=== PATIENT | female | born 1945 | race Two or more races ===

== ENCOUNTER 2020-07-09 11:17 | Outpatient (REF) | payer MEDICARE, SELFPAY ==
--- NOTE | 2020-07-09 11:37 | XR_ITS ---
EXAMINATION: XR SHOULDER, RIGHT XR HUMERUS, RIGHT CLINICAL INFORMATION: Pain right shoulder and right arm COMPARISON: None TECHNIQUE: The right shoulder is imaged in 4 views. The right humerus is imaged in 3 views. There are a total of 7 views. FINDINGS: The right shoulder and right humerus show no fracture or dislocation or destructive process. The glenohumeral joint is unremarkable. The acromioclavicular alignment is normal. There are mild degenerative changes acromioclavicular joint and small spur from the greater tuberosity humeral head. There are no visible rotator cuff calcifications. The humeral shaft is unremarkable. There is borderline exostosis lateral supracondylar distal humerus. There is no elbow capsular effusion. There is minor spurring from the olecranon and spurring from the radial tuberosity proximal forearm. XR/XR shoulder RT min 2V IMPRESSION: 1. No fracture, dislocation, destructive process. 2. Mild degenerative changes acromioclavicular joint. No rotator cuff calcifications. 3. Mild spurring lateral supracondylar distal humerus, olecranon, and radial tuberosity. No elbow capsular effusion.
--- NOTE | 2020-07-09 11:37 | XR_ITS ---
EXAMINATION: XR SHOULDER, RIGHT XR HUMERUS, RIGHT CLINICAL INFORMATION: Pain right shoulder and right arm COMPARISON: None TECHNIQUE: The right shoulder is imaged in 4 views. The right humerus is imaged in 3 views. There are a total of 7 views. FINDINGS: The right shoulder and right humerus show no fracture or dislocation or destructive process. The glenohumeral joint is unremarkable. The acromioclavicular alignment is normal. There are mild degenerative changes acromioclavicular joint and small spur from the greater tuberosity humeral head. There are no visible rotator cuff calcifications. The humeral shaft is unremarkable. There is borderline exostosis lateral supracondylar distal humerus. There is no elbow capsular effusion. There is minor spurring from the olecranon and spurring from the radial tuberosity proximal forearm. XR/XR humerus RT IMPRESSION: 1. No fracture, dislocation, destructive process. 2. Mild degenerative changes acromioclavicular joint. No rotator cuff calcifications. 3. Mild spurring lateral supracondylar distal humerus, olecranon, and radial tuberosity. No elbow capsular effusion.
== END 2020-07-09 11:18 | disposition home or self-care (01) ==
LOC: HO.XRAY 11:17
PROVIDERS: Absent Provider Internal Medicine; PCP Internal Medicine; Visit Provider Registered Nurse
DX: M25.511 Pain in right shoulder (principal); M79.601 Pain in right arm; Z91.81 History of falling
CPT/HCPCS: 73030; 73060

== ENCOUNTER 2020-07-18 13:30 | Outpatient (REF) | payer MEDICARE, SELFPAY ==
--- NOTE | 2020-07-18 | US_ITS ---
EXAMINATION: US EXTREMITY NONVASCULAR CLINICAL INFORMATION: Pain in right shoulder and pain in right arm. Unspecified fall. COMPARISON: None TECHNIQUE: Limited imaging through the right biceps area and right shoulder area was performed. FINDINGS: Imaging through the right anterior biceps and the right shoulder area reveals no focal mass or fluid collection. Hematoma is not visualized either.. US/US extremity nonvascular IMPRESSION: Unremarkable limited ultrasound imaging through the right biceps region and right shoulder.
== END 2020-07-18 13:31 | disposition home or self-care (01) ==
LOC: HO.US 13:30
PROVIDERS: PCP Internal Medicine; Visit Provider Registered Nurse
DX: M25.511 Pain in right shoulder (principal); M79.601 Pain in right arm; Z91.81 History of falling
CPT/HCPCS: 76882

== ENCOUNTER → 2020-08-28 12:31 | Outpatient (BNVA) | payer MEDICARE, SELFPAY | PROVIDERS: Visit Provider Physician Assistant | DX: M75.80 Other shoulder lesions, unspecified shoulder (principal) | CPT/HCPCS: 99212 ==

== ENCOUNTER 2020-09-12 10:31 | Outpatient (REF) | payer MEDICARE, SELFPAY ==
--- NOTE | ~2020-09-12 | MR_ITS ---
EXAMINATION: MR SHOULDER WITHOUT CONTRAST, RIGHT CLINICAL INFORMATION: M75.100 - Unspecified rotator cuff tear or rupture of unspec COMPARISON: None TECHNIQUE: MRI of the shoulder without contrast was performed on a high-field scanner. FINDINGS: ROTATOR CUFF: An insertional tear of the supraspinatus tendon measures 1.2 cm AP. There is primarily bursal sided with retraction of the torn fibers up to 0.8 cm. There is likely a full-thickness longitudinal component to the tear at the more posterior fibers as there is delamination and retraction of undersurface fibers by 2 cm to the level of the humeral head apex. A thin band of intact articular sided fibers may be present along the anterior aspect of the tendon. The infraspinatus tendon is intact with mild tendinosis. Fluid tracks medially to the myotendinous junction of the infraspinatus, likely delaminating from the aforementioned insertional tear along its anterior margin at the junction with the supraspinatus. There is mild subscapularis tendinosis without a discrete tear. Grade 1 fatty replacement is present within the rotator cuff at the myotendinous junctions. No additional muscle atrophy. There is mild atrophy of the deltoid muscle laterally. There is a lipoma within the region of the subacromial subdeltoid bursa anteriorly overlying the bicipital groove, measuring 3 x 1.3 x 3.5 cm. BICEPS: Normal. CORACOACROMIAL ARCH: The undersurface of the acromion is curved with an anterolateral subacromial spur. Moderate acromioclavicular osteoarthritis. Mild subacromial subdeltoid bursitis. LABRUM/CAPSULE: The articular surface of the superior labrum is frayed and irregular. No discrete tears. Joint capsule appears intact. GLENOHUMERAL JOINT/MARROW: No fracture or malalignment. Mild chondral thinning is present at the humeral head anterosuperiorly. Glenohumeral cartilage appears normal. Small glenohumeral joint effusion. MR/MR shoulder RT wo con IMPRESSION: 1. Complex insertional tear of the supraspinatus tendon, likely L shaped, with a 1.2 cm (AP) insertional component and a 2 cm longitudinal component at the posterior fibers. Much of this tear is full-thickness. Undersurface fibers of the supraspinatus tendon are retracted medially up to 2 cm. 2. Moderate acromioclavicular osteoarthritis. Anterolateral subacromial spurring. 3. Mild subacromial subdeltoid bursitis. 4. A 3.5 cm lipoma is present in the anterior aspect of the subacromial subdeltoid bursa overlying the bicipital groove. 5. Minimal glenohumeral arthrosis with fraying of the superior labrum.
== END 2020-09-12 10:32 | disposition home or self-care (01) ==
LOC: HO.MRI 10:31
PROVIDERS: Visit Provider Physician Assistant
DX: M75.101 Unspecified rotator cuff tear or rupture of right shoulder, not specified as traumatic (principal)
CPT/HCPCS: 73221

== ENCOUNTER 2021-01-10 14:31 | Emergency (ER) | payer OTHER, SELFPAY ==
--- NOTE | ~2021-01-10 | XR_ITS ---
EXAMINATION: XR LUMBOSACRAL SPINE CLINICAL INFORMATION: Lower back pain COMPARISON: None TECHNIQUE: Three views of the lumbosacral spine. FINDINGS: Normal alignment and lumbar lordosis with mild multilevel degenerative disc disease. No fracture. Advanced facet arthrosis at L4-L5 and L5-S1. XR/XR lumbar spine 2-3V IMPRESSION: No fracture. Normal alignment. Mild degenerative disc disease. Advanced facet arthropathy at L4-L5 and L5-S1.
[2021-01-10 14:38] VITALS: BP 143/111; PULSE 80; RESP 16; O2SAT 97; BMI 36.3
[2021-01-10 14:52] VITALS: TEMP 36.6
--- NOTE | 2021-01-10 14:59 | ECG_ITS ---
Test Reason : VOMITING Blood Pressure : / mmHG Vent. Rate : 057 BPM Atrial Rate : 057 BPM P-R Int : 162 ms QRS Dur : 074 ms QT Int : 380 ms P-R-T Axes : 066 056 054 degrees QTc Int : 369 ms Sinus bradycardia Nonspecific T wave abnormality Abnormal ECG When compared with ECG of 03-FEB-2020 12:57, Nonspecific T wave abnormality, worse in Inferior leads Referred By: Srini Cornell Electronically Signed By:Marlo Motley
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
[2021-01-10] MEDS: Lidocaine HCl Viscous 2 % 15 ML SOLUTION MUCOUS MEM (15:09)
[2021-01-10] MEDS: PHENobarb/Hyoscy/Atropine/Scop 10 ML ELIXIR PO (15:09)
[2021-01-10] MEDS: diphenhydrAMINE HCL 50 MG/ML VIAL 25 MG IVPUSH (15:09)
[2021-01-10] MEDS: Magnesium Hydrox/Alum Hydrox 30 ML ORAL.SUSP PO (15:09)
[2021-01-10] MEDS: Famotidine/PF 20 MG/2 ML VIAL IVPUSH (15:09)
[2021-01-10 15:11] LABS: MANUAL DIFF FLAG NO
[2021-01-10 15:14] LABS: Basophils Percent Auto 0.5 % (0-2); Eosinophils Absolute Auto 0.2 X10*3/uL (0.0-0.4); Eosinophils Percent Auto 3.2 % (0-4); Hematocrit 39.3 % (37-47); Hemoglobin 12.2 g/dl (12.0-16.0); Imm Gran Abs Auto 0.01 X10*3/uL (0.00-0.03); Imm Gran Pct Auto 0.2 % (0.0-0.4); Lymphocytes Absolute Auto 2.9 X10*3/uL (1.2-4.9); Lymphocytes Percent Auto 43.5 % (20-40); Mean Corpuscular Hemoglobin 26.6 pg (27.0-33.0); Mean Corpuscular Volume 85.8 fL (80-98); Mean Platelet Volume 12.8 fL (9.4-12.3); Monocytes Absolute Auto 0.6 X10*3/uL (0.1-1.2); Monocytes Percent Auto 9.2 % (2-11); Neutrophils Absolute Auto 2.9 X10*3/uL (2.0-8.3); Neutrophils Percent Auto 43.4 % (45-73); Platelet Count 163 X10*3/uL (160-400); Red Blood Count 4.58 X10*6/uL (4.20-5.50); Red Cell Distribution Width 15.4 % (11.0-16.0); White Blood Count 6.6 X10*3/uL (4.8-10.8)
[2021-01-10 15:38] LABS: Alanine Aminotransferase 8 U/L (0-31); Albumin Level 3.8 g/dL (3.5-5.0); Alkaline Phosphatase 98 U/L (39-117); Anion Gap 12 (12-20); Aspartate Amino Transferase 14 U/L (5-31); Bilirubin Direct 0.2 mg/dL (0.0-0.5); Bilirubin Total 0.6 mg/dL (0.0-1.0); Blood Urea Nitrogen 13 mg/dL (9-16); Calcium 9.2 mg/dL (8.4-10.2); Carbon Dioxide 26 mmol/L (22-29); Chloride 109 mmol/L (96-108); Creatinine Clr Calc Pharmacy 64.7; Estimated Glomerular Filt Rate > 60; Glucose Random 109 mg/dL (60-115); Potassium 4.4 mmol/L (3.3-5.1); Sodium 143 mmol/L (135-145); Total Protein 6.4 g/dL (6.5-8.0)
[2021-01-10 15:41] LABS: Troponin-I High Sensitivity 3.5 ng/L (<3.5-17.0)
[2021-01-10 15:42] LABS: Prothrombin Time 11.8 SEC (9.9-13.0)
[2021-01-10 15:45] LABS: Partial Thromboplastin Time 33.4 SEC (24.1-38.0)
[2021-01-10 16:09] VITALS: BP 108/60; PULSE 71; RESP 20; TEMP 36.8; O2SAT 99
[2021-01-10 19:11] VITALS: BP 110/56; PULSE 78; RESP 15; O2SAT 98
[2021-01-10] MEDS: Lidocaine 4 % Patch ADH..PATCH 1 PATCH TRANSDERMA (19:24)
== END 2021-01-10 19:52 | disposition home or self-care (01) ==
PROVIDERS: Physician Assistant; Emergency Provider Emergency Medicine; PCP Internal Medicine
DX: M54.16 Radiculopathy, lumbar region (principal); K21.9 Gastro-esophageal reflux disease without esophagitis; E11.9 Type 2 diabetes mellitus without complications
CPT/HCPCS: 36415; 72100; 80053; 80076; 82248; 84484; 85025; 85610; 85730; 93005; 96374; 96375; 99285; J1200

== ENCOUNTER 2021-05-29 13:31 | Outpatient (REF) | payer MEDICARE, SELFPAY ==
--- NOTE | ~2021-05-29 | MM_ITS ---
EXAMINATION: MM SCREENING DIGITAL BREAST TOMOSYNTHESIS, BILATERAL CLINICAL INFORMATION: Screening. Asymptomatic. The lifetime risk of breast cancer based on the Tyrer-Cuzick Model is 2%. COMPARISON: Mammography: 07/21/2019, 07/11/2018, 03/10/2017 TECHNIQUE: Digital breast tomosynthesis is performed in both the craniocaudal and mediolateral oblique views along with computer-aided detection (CAD). Synthesized 2D images are generated from the tomosynthesis. Additional right CC view is provided. FINDINGS: There are scattered areas of fibroglandular density (ACR BI-RADS breast composition Category b). There are no significant masses, abnormal calcifications, or other abnormalities. There is chronic bilateral nipple retraction on CC view similar to prior studies. MM/MM tomosynthesis screening BI IMPRESSION: No mammographic evidence of malignancy. ASSESSMENT: BI-RADS 2: Benign RECOMMENDATION: Routine annual mammography screening. This patient's information was entered into a reminder system with a target due date for their next mammogram.
== END 2021-05-29 13:32 | disposition home or self-care (01) ==
LOC: HO.MAMMO 13:31
PROVIDERS: Visit Provider Internal Medicine
DX: Z12.31 Encounter for screening mammogram for malignant neoplasm of breast (principal)
CPT/HCPCS: 77063; 77067

== ENCOUNTER 2021-10-03 10:20 | Outpatient (REF) | payer OTHER, SELFPAY ==
--- NOTE | ~2021-10-03 | XR_ITS ---
EXAMINATION: BILATERAL KNEES CLINICAL INFORMATION: Bilateral knee pain COMPARISON: 11/11/2018 TECHNIQUE: 4 view each knee FINDINGS: Right: No fracture, dislocation or joint effusion. Small bony density level of the intercondylar eminence. Quadriceps enthesopathy. Left: Tricompartment spurring. Mild to moderate medial knee joint narrowing. No fracture, dislocation or joint effusion. XR/XR knee LT 4V IMPRESSION: Question loose body right knee. Osteoarthritis left knee.
--- NOTE | ~2021-10-03 | XR_ITS ---
EXAMINATION: BILATERAL KNEES CLINICAL INFORMATION: Bilateral knee pain COMPARISON: 11/11/2018 TECHNIQUE: 4 view each knee FINDINGS: Right: No fracture, dislocation or joint effusion. Small bony density level of the intercondylar eminence. Quadriceps enthesopathy. Left: Tricompartment spurring. Mild to moderate medial knee joint narrowing. No fracture, dislocation or joint effusion. XR/XR knee RT 4V IMPRESSION: Question loose body right knee. Osteoarthritis left knee.
== END 2021-10-03 10:21 | disposition home or self-care (01) ==
LOC: HO.XRAY 10:20
PROVIDERS: PCP Internal Medicine; Visit Provider Internal Medicine
DX: M25.561 Pain in right knee (principal); M25.562 Pain in left knee
CPT/HCPCS: 73564

== ENCOUNTER 2021-11-26 11:58 | Outpatient (REF) | payer OTHER, SELFPAY ==
--- NOTE | ~2021-11-26 | XR_ITS ---
EXAMINATION: BILATERAL KNEES CLINICAL INFORMATION: Pain COMPARISON: 10/03/2021 TECHNIQUE: 4 views of each knee. FINDINGS: There is no evidence of fracture or dislocation bilaterally with minimal spurring along the medial aspect of the left knee. On the right there is possible 0.4 cm lose bodies seen as well as annual small joint effusion. XR/XR knee LT 4V IMPRESSION: Stable questionable loose body on the right and new right-sided joint effusion
--- NOTE | ~2021-11-26 | XR_ITS ---
EXAMINATION: BILATERAL KNEES CLINICAL INFORMATION: Pain COMPARISON: 10/03/2021 TECHNIQUE: 4 views of each knee. FINDINGS: There is no evidence of fracture or dislocation bilaterally with minimal spurring along the medial aspect of the left knee. On the right there is possible 0.4 cm lose bodies seen as well as annual small joint effusion. XR/XR knee RT 4V IMPRESSION: Stable questionable loose body on the right and new right-sided joint effusion
== END 2021-11-26 11:59 | disposition home or self-care (01) ==
LOC: HO.XRAY 11:58
PROVIDERS: Absent Provider Internal Medicine; PCP Internal Medicine; Visit Provider Student in an Organized Health Care Education/Training Program
DX: M25.561 Pain in right knee (principal); M25.562 Pain in left knee
CPT/HCPCS: 73564

== ENCOUNTER 2022-01-09 14:44 | Outpatient (REF) | payer OTHER, SELFPAY ==
--- NOTE | ~2022-01-09 | US_ITS ---
EXAMINATION: US VENOUS ULTRASOUND WITH DOPPLER LOWER EXTREMITY, BILATERAL CLINICAL INFORMATION: Edema COMPARISON: None TECHNIQUE: Ultrasound of the deep veins is performed from the hip to the calf with compression sonography and color and pulse Doppler assessment. Spectral analysis with color-flow imaging is performed. FINDINGS: RIGHT: There is normal venous compression and respiratory variation and augmented flow. The visualized common femoral vein, superficial femoral vein, profunda femoral vein, popliteal vein, and the trifurcation region shows no evidence of deep venous thrombosis. There is no significant popliteal fossa cyst. LEFT: There is normal venous compression and respiratory variation and augmented flow. The visualized common femoral vein, superficial femoral vein, profunda femoral vein, popliteal vein, and the trifurcation region shows no evidence of deep venous thrombosis. There is no significant popliteal fossa cyst. If the patient's symptoms persist, followup ultrasound in 5 days 7 days might be of value to exclude proximal propagation from a non-visualized calf vein. US/US venous duplex LE BI IMPRESSION: No DVT demonstrated in the bilateral lower extremities.
== END 2022-01-09 14:45 | disposition home or self-care (01) ==
LOC: HO.US 14:44
PROVIDERS: Visit Provider Internal Medicine
DX: R60.0 Localized edema (principal); F17.210 Nicotine dependence, cigarettes, uncomplicated
CPT/HCPCS: 93970

== ENCOUNTER 2022-03-06 11:17 | Outpatient (REF) | payer OTHER, SELFPAY ==
--- NOTE | ~2022-03-06 | XR_ITS ---
EXAMINATION: XR CHEST 2 VIEWS CLINICAL INFORMATION: COPD. COMPARISON: Chest radiographs dated 02/03/2020. TECHNIQUE: Frontal and lateral views of the chest were obtained. FINDINGS: The heart, great vessels, pulmonary vasculature and mediastinum are normal. The lungs show no focal infiltrate, effusion or pneumothorax. There is no acute osseous abnormality. There is multi-level thoracic spondylosis. XR/XR chest 2V IMPRESSION: No active cardiopulmonary disease.
== END 2022-03-06 11:18 | disposition home or self-care (01) ==
LOC: HO.XRAY 11:17
PROVIDERS: Visit Provider Internal Medicine
DX: J44.1 Chronic obstructive pulmonary disease with (acute) exacerbation (principal)
CPT/HCPCS: 71046

== ENCOUNTER 2022-04-06 10:36 | Outpatient (REF) | payer OTHER, SELFPAY ==
--- NOTE | ~2022-04-06 | MR_ITS ---
EXAMINATION: MR KNEE WITHOUT CONTRAST, RIGHT CLINICAL INFORMATION: Right knee pain. COMPARISON: Most recent right knee radiographs dated 11/26/2021. TECHNIQUE: MRI of the knee without contrast was performed using routine sequences on a high-field scanner. FINDINGS: MENISCI: Medial Meniscus: Complex, near-complete radial tear of the posterior horn measuring 0.7 cm in ML dimension and located approximately 1.1 cm from the posterior root insertion. The meniscal body is medially extruded with oblique, radial inner margin tearing at the posterior body/posterior horn junction. Mild adjacent soft tissue edema. Lateral Meniscus: Mild tibial articular surface fraying of the posterior horn. LIGAMENTS: Cruciate: Intact. Collateral: Intact. EXTENSOR MECHANISM: Intact quadriceps and patellar tendons. ARTICULAR CARTILAGE/BONE: Patellofemoral Compartment: Articular cartilage thinning and signal heterogeneity with areas of full-thickness loss at the lateral patellar facet where there is minimal subchondral cystic change. Central and lateral trochlear articular cartilage signal heterogeneity with areas of nqvs-rjhf-lkwzbfsbe loss. Small marginal osteophytes. Medial Compartment: Diffuse articular cartilage thinning with areas of pele-qlln-iocnrasay loss. Mild underlying subchondral cystic change and marrow edema. Marginal osteophytes. Lateral Compartment: Articular cartilage signal heterogeneity and surface irregularity with tiny marginal osteophytes. JOINT FLUID AND BURSAE: Small joint effusion and trace Lebron's cyst. MR/MR knee RT wo con IMPRESSION: 1. Complex, near-complete radial tear of the medial meniscus posterior horn measuring 0.7 cm in ML dimension. Medial extrusion of the meniscal body with an oblique, inner margin radial tear of the posterior body/posterior horn junction. Mild adjacent soft tissue edema. 2. Mild tibial articular surface fraying of the lateral meniscus posterior horn. 3. Moderate medial and patellofemoral compartment as well as more mild lateral compartment osteoarthritis. Small joint effusion and trace Lebron's cyst.
== END 2022-04-06 10:37 | disposition home or self-care (01) ==
LOC: HO.MRI 10:36
PROVIDERS: Visit Provider Internal Medicine
DX: M25.561 Pain in right knee (principal)
CPT/HCPCS: 73721

== ENCOUNTER 2022-04-14 10:35 | Emergency (ER) | payer OTHER, SELFPAY ==
[2022-04-14 11:01] VITALS: BP 128/64; PULSE 70; RESP 18; TEMP 36.6; O2SAT 98; BMI 37.8
[2022-04-14 12:37] LABS: MANUAL DIFF FLAG NO
[2022-04-14 12:48] LABS: Basophils Percent Auto 0.4 % (0-2); Eosinophils Absolute Auto 0.2 X10*3/uL (0.0-0.4); Eosinophils Percent Auto 3.3 % (0-4); Hematocrit 40.4 % (37.0-47.0); Hemoglobin 12.3 g/dl (12.0-16.0); Imm Gran Abs Auto 0.02 X10*3/uL (0.00-0.03); Imm Gran Pct Auto 0.3 % (0.0-0.4); Lymphocytes Absolute Auto 2.8 X10*3/uL (1.2-4.9); Lymphocytes Percent Auto 39.7 % (20-40); Mean Corpuscular HGB Conc 30.4 g/dl (31.0-35.0); Mean Corpuscular Hemoglobin 26.2 pg (27.0-33.0); Mean Corpuscular Volume 86.1 fL (80.0-98.0); Mean Platelet Volume 12.8 fL (9.4-12.3); Monocytes Absolute Auto 0.8 X10*3/uL (0.1-1.2); Monocytes Percent Auto 10.8 % (2-11); Neutrophils Absolute Auto 3.2 x10*3/uL (2.0-8.3); Neutrophils Percent Auto 45.5 % (45-73); Platelet Count 171 X10*3/uL (160-400); Red Blood Count 4.69 X10*6/uL (4.20-5.50); Red Cell Distribution Width 15.3 % (11.0-16.0); White Blood Count 6.9 X10*3/uL (4.8-10.8)
[2022-04-14 12:58] LABS: Alanine Aminotransferase 8 U/L (0-31); Albumin Level 3.9 g/dL (3.5-5.0); Alkaline Phosphatase 90 U/L (39-117); Anion Gap 17 (12-20); Aspartate Amino Transferase 15 U/L (5-31); Bilirubin Direct 0.2 mg/dL (0.0-0.5); Bilirubin Total 0.6 mg/dL (0.0-1.0); Blood Urea Nitrogen 11 mg/dL (9-16); Carbon Dioxide 25 mmol/L (22-29); Chloride 104 mmol/L (96-108); Estimated Glomerular Filt Rate > 60; Glucose Random 117 mg/dL (60-115); Lipase 11 U/L (8-78); Potassium 4.4 mmol/L (3.3-5.1); Sodium 142 mmol/L (135-145); Total Protein 6.5 g/dL (6.5-8.0)
[2022-04-14 14:27] VITALS: BP 145/74; PULSE 78; RESP 18; TEMP 36.6; O2SAT 98
== END 2022-04-14 17:35 | disposition left against medical advice (07) ==
PROVIDERS: Emergency Provider Emergency Medicine; PCP Internal Medicine
DX: R10.9 Unspecified abdominal pain (principal); R11.10 Vomiting, unspecified; Z79.899 Other long term (current) drug therapy
CPT/HCPCS: 36415; 80048; 80076; 83690; 85025; 85610; 99281; 99283

== ENCOUNTER 2022-09-29 11:20 | Outpatient (REF) | payer OTHER, SELFPAY ==
--- NOTE | ~2022-09-29 | US_ITS ---
EXAMINATION: US RETROPERITONEAL COMPLETE (RENAL) CLINICAL INFORMATION: Microscopic hematuria. COMPARISON: CT abdomen and pelvis 01/08/2013. TECHNIQUE: Real-time imaging of the kidneys and bladder. FINDINGS: RIGHT KIDNEY: 15.0 x 4.6 x 7.4 cm (SAG x AP x TRV). The kidney is normal in size, contour, and echogenicity. Renal cortical thickness is normal. No renal calculi or hydronephrosis. There is a 1.1 cm simple cyst in the lower pole, for which no imaging follow-up is recommended. LEFT KIDNEY: Surgically absent. BLADDER: Well distended and normal. Right ureteral jet is demonstrated; left is not. Prevoid bladder volume is 152 mL. There is no postvoid residual. US/US retroperitoneal comp IMPRESSION: No acute sonographic abnormalities.
== END 2022-09-29 11:21 | disposition home or self-care (01) ==
LOC: HO.HMGCX 11:20
PROVIDERS: PCP Internal Medicine; Visit Provider Internal Medicine
DX: R31.29 Other microscopic hematuria (principal); F17.200 Nicotine dependence, unspecified, uncomplicated
CPT/HCPCS: 76770

== ENCOUNTER 2022-10-19 09:35 | Outpatient (REF) | payer OTHER, SELFPAY ==
--- NOTE | ~2022-10-19 | CT_ITS ---
EXAMINATION: CT CHEST WITHOUT CONTRAST CLINICAL INFORMATION: Pulmonary nodule follow up. COMPARISON: Chest x-ray 03/06/2022. TECHNIQUE: Multidetector volumetric CT imaging of the chest was done. Axial MIP volume rendering provided. Sagittal and coronal reformatted images were obtained. This CT examination was performed using dose optimization techniques as appropriate, variously including the following: *Automated exposure control *Adjustment of mA and/or kV according to patient size (this includes techniques or standardized protocols for targeted exams where dose is matched to indication/reason for exam; i.e. extremities or head) *Use of iterative reconstruction technique DLP: 178 mGy-cm FINDINGS: TEACHER EDUCATION DIRECTOR: Well-inflated lungs with elevated right hemidiaphragm. LUNGS: The lungs are well expanded and clear of acute pneumonic process. Again visualized is a 3 mm pulmonary nodule along the major fissure axial image 229/6, stable. There is a 4 mm nodule right middle lobe axial image 150/6, 1 mm subpleural nodule in the lingula axial image 174/6. No acute consolidation, mass or ground-glass density. MEDIASTINUM: The heart size and the great vessels are normal caliber. Short axis 1 cm precarinal lymph node is noted. No additional lymph nodes seen. The central trachea and the bronchi appears widely. There is no pericardial effusion. CORONARY ARTERY CALCIFICATION: None visualized on this study. PLEURA: There is no pleural effusion. No pleural mass or thickening. AXILLA: No lymphadenopathy. UPPER ABDOMEN: The visualized liver, spleen, pancreas, and bilateral adrenal glands are unremarkable. OSSEOUS STRUCTURES: No aggressive lytic or sclerotic process seen. There is moderate ventral spondylosis mid and lower dorsal spine. CT/CT chest wo IV con IMPRESSION: 1. Stable pulmonary nodules. No new nodules seen. 2. No abnormal mediastinal or axillary lymph nodes seen. Fleischner guidelines were followed.
== END 2022-10-19 09:36 | disposition home or self-care (01) ==
LOC: HO.CT 09:35
PROVIDERS: Visit Provider Internal Medicine
DX: R91.1 Solitary pulmonary nodule (principal)
CPT/HCPCS: 71250

== ENCOUNTER 2022-10-29 11:36 | Outpatient (REF) | payer OTHER, SELFPAY ==
[2022-10-29 16:16] LABS: Urine Cytology See Pathology rpt
== END 2022-10-29 11:37 | disposition home or self-care (01) ==
LOC: HO.LNP 11:36
PROVIDERS: PCP Internal Medicine; Visit Provider Nurse Practitioner Family
DX: R31.29 Other microscopic hematuria (principal); R39.15 Urgency of urination; R31.0 Gross hematuria; F17.210 Nicotine dependence, cigarettes, uncomplicated; Z79.899 Other long term (current) drug therapy
CPT/HCPCS: 88112; 99202

== ENCOUNTER 2022-10-29 12:51 | Outpatient (REF) | payer OTHER, SELFPAY ==
[2022-10-29 15:17] LABS: Blood Urea Nitrogen 9 mg/dL (9-16); Estimated Glomerular Filt Rate > 60
== END 2022-10-29 12:52 | disposition home or self-care (01) ==
LOC: HO.10HDL 12:51
PROVIDERS: Visit Provider Nurse Practitioner Family
DX: R39.15 Urgency of urination (principal); R31.0 Gross hematuria
CPT/HCPCS: 36415; 82565; 84520

== ENCOUNTER 2022-12-02 10:53 | Outpatient (REF) | payer OTHER, SELFPAY ==
--- NOTE | ~2022-12-02 | CT_ITS ---
EXAMINATION: CT ABDOMEN AND PELVIS WITHOUT AND WITH CONTRAST CLINICAL INFORMATION: Gross hematuria COMPARISON: Previous renal ultrasound September [address] of the abdomen and pelvis December 1999 TECHNIQUE: Noncontrast CT of the abdomen and pelvis is performed followed by split bolus contrast-enhanced images using 85 mL Omnipaque 350 contrast.? Postcontrast imaging is performed during the combined nephrogram and excretion phase. Sagittal and coronal reformatted images were obtained on the technologist's workstation for both the precontrast and postcontrast phases. This CT examination was performed using dose optimization techniques as appropriate, variously including the following: *Automated exposure control *Adjustment of mA and/or kV according to patient size (this includes techniques or standardized protocols for targeted exams where dose is matched to indication/reason for exam; i.e. extremities or head) *Use of iterative reconstruction technique DLP: 1085 mGy-cm FINDINGS: LUNG BASES: The visualized lung bases are unremarkable. LIVER, GALLBLADDER, AND BILIARY TREE: The liver is normal in size, shape, and attenuation. The gallbladder bladder is normal in size. There is dependent high attenuation material in the gallbladder suggestive of small gallstones. No intrahepatic biliary duct dilatation. The common bile duct is dilated measuring up to 1 cm. This is new from previous CT from 2012 PANCREAS: Unremarkable. SPLEEN: Unremarkable. ADRENAL GLANDS: Unremarkable. KIDNEYS AND URETERS: The left kidney has been removed. There is a 1 cm cyst in the lower pole the right kidney. The right kidney is otherwise. Question slight club appearance of the renal calyces. Appearance is questionable for possible papillary necrosis. No filling defect in the collecting system is seen. The right renal collecting system is otherwise normal. The right ureter is not optimally opacified with excreted contrast but appears normal. The bladder is normal. BLADDER: Unremarkable. GASTROINTESTINAL TRACT: Mild diverticulosis of the colon. No evidence of diverticulitis. The small and large bowel are otherwise unremarkable. The appendix is unremarkable. Arch and fold thickening of the stomach versus changes due to underdistention. ABDOMINAL WALL: No significant hernia is appreciated. Small bilateral inguinal hernias containing fat. LYMPH NODES: Normal. VASCULAR: Unremarkable. PELVIC VISCERA: The uterus appears to have been removed. No pelvic mass. OSSEUS STRUCTURES: Unremarkable. CT/CT urogram IMPRESSION: Surgically absent left kidney. Right renal cyst. Slightly clubbed appearance of the right renal calyces questionable for papillary necrosis. No collecting system filling defects seen. Probable gallstones. Dilated common bile duct. Follow-up imaging recommended, either ultrasound or MR with MRCP.
[2022-12-02] MEDS: iohexoL 350 MG/ML 100 ML INFUS..BTL 85 ML IV (11:30)
== END 2022-12-02 10:54 | disposition home or self-care (01) ==
LOC: HO.CT 10:53
PROVIDERS: PCP Internal Medicine; Visit Provider Nurse Practitioner Family
DX: R31.0 Gross hematuria (principal)
CPT/HCPCS: 74178; Q9967

== ENCOUNTER → 2022-12-11 12:57 | Outpatient (BNVA) | payer OTHER, SELFPAY | PROVIDERS: PCP Internal Medicine; Visit Provider Urology | DX: R31.29 Other microscopic hematuria (principal); K83.8 Other specified diseases of biliary tract | CPT/HCPCS: 52000; 99212 ==

== ENCOUNTER 2023-01-25 12:10 | Day surgery (SDC) | payer OTHER, SELFPAY ==
[2023-01-20 13:33] VITALS: BMI 36.1
--- NOTE | 2023-01-22 09:57 | P.CONAN_ITS ---
Documented by User: Thuy Pimentel NP 01/22/23 09:57 HPI - Anesthesia Eval Consult details Narrative: 77yo F for Cystoscopy & Bladder Biopsy PMFSH Active Problems Active Problems: All Active Problems (Updated 12/11/22 @ 13:46 by Pardeep Price MD) Common bile duct dilatation (Acute) Microscopic hematuria (Acute) Nicotine dependence, cigarettes, uncomplicated (Acute) Rotator cuff tendonitis (Acute) Right shoulder tendonitis (Acute) Past Medical History Medical History Anxiety and depression Diabetes mellitus, type 2 Fibromyalgia Hyperlipidemia Hypertension, essential Hypothyroidism Microscopic hematuria Nicotine dependence, cigarettes, uncomplicated Surgical History Surgical History History of cataract surgery History of colonoscopy History of vocal cord polypectomy Social History Social History Alcohol intake: never Patient Tobacco Use Status: Former Tobacco user Use of substances other than those prescribed or required for medical reasons: No Are you DNR?: No Advance Directives: No Advance Directives Information Provided: Yes Meds Allergies Allergy/AdvReac Type Severity Reaction Status Date / Time meperidine [Demerol] Allergy Unknown Unknown Verified 12/11/22 13:25 Home Medications Medication Instructions Recorded Confirmed Last Taken Type meclizine 25 mg tablet 25 mg PO DAILY 08/28/20 01/20/23 01/25/23 History ascorbic acid (vitamin C) 500 mg 500 mg PO DAILY 10/29/22 01/20/23 Unknown History tablet (Vitamin C) aspirin 81 mg tablet,delayed 81 mg PO BEDTIME 10/29/22 01/20/23 01/18/23 History release duloxetine 30 mg capsule,delayed 30 mg PO DAILY 10/29/22 01/20/23 01/25/23 History release pregabalin 75 mg capsule 75 mg PO BID 10/29/22 01/20/23 01/25/23 History trazodone 50 mg tablet 50 mg PO BEDTIME 10/29/22 01/20/23 Unknown History levothyroxine 75 mcg tablet 75 mcg PO QAM 12/11/22 01/20/23 01/25/23 History metoprolol succinate 50 mg 50 mg PO QAM 12/11/22 01/20/23 01/25/23 History tablet,extended release 24 hr omeprazole 40 mg capsule,delayed 40 mg PO QAM 12/11/22 01/20/23 01/25/23 History release Exam Exam Date and Time: January 22, [id number] Height,Weight and Vital Signs: Height 5 ft 3 in Weight 92.533 kg Pertinent Lab Results Pertinent Lab Results: Laboratory Tests 10/29/22 12:33 BUN 9 Creatinine 0.81 Assessment and Plan Assessment Anesthesia Assessment: Chart Reviewed Documented by User: Arias Ellison MD 01/25/23 12:58 [facility] Past Medical History Medical History Anxiety and depression Diabetes mellitus, type 2 Fibromyalgia Hyperlipidemia Hypertension, essential Hypothyroidism Microscopic hematuria Nicotine dependence, cigarettes, uncomplicated Functional capacity: uses cane/walker Family History Family history of problems with anesthesia: No Surgical History Surgical History History of cataract surgery History of colonoscopy History of vocal cord polypectomy History of Problems with Anesthesia: No Social History Social History Alcohol intake: never Patient Tobacco Use Status: Former Tobacco user Use of substances other than those prescribed or required for medical reasons: No Are you DNR?: No Advance Directives: No Advance Directives Information Provided: Yes Meds Allergies Allergy/AdvReac Type Severity Reaction Status Date / Time meperidine [Demerol] Allergy Unknown Unknown Verified 12/11/22 13:25 Home Medications Medication Instructions Recorded Confirmed Last Taken Type meclizine 25 mg tablet 25 mg PO DAILY 08/28/20 01/20/23 01/25/23 History ascorbic acid (vitamin C) 500 mg 500 mg PO DAILY 10/29/22 01/20/23 Unknown History tablet (Vitamin C) aspirin 81 mg tablet,delayed 81 mg PO BEDTIME 10/29/22 01/20/23 01/18/23 History release duloxetine 30 mg capsule,delayed 30 mg PO DAILY 10/29/22 01/20/23 01/25/23 History release pregabalin 75 mg capsule 75 mg PO BID 10/29/22 01/20/23 01/25/23 History trazodone 50 mg tablet 50 mg PO BEDTIME 10/29/22 01/20/23 Unknown History levothyroxine 75 mcg tablet 75 mcg PO QAM 12/11/22 01/20/23 01/25/23 History metoprolol succinate 50 mg 50 mg PO QAM 12/11/22 01/20/23 01/25/23 History tablet,extended release 24 hr omeprazole 40 mg capsule,delayed 40 mg PO QAM 12/11/22 01/20/23 01/25/23 History release Exam Airway Mallampati Class: I TM Dist: <=3cm Neck ROM: Full Loose/Missing/Broken Teeth: No Heart: ok Lungs: ok Assessment and Plan Assessment Anesthesia Assessment: Anesthesia Plan Discussed Final Anesthetic Review Family History of Problems with Anesthesia: No History of Problems with Anesthesia: No NPO: Yes ASA Class: III Final Preanesthetic Review: No Changes in Pt Med Stat, Meds/Allgs Chart Reviewed, Consent Obtained/Reviewed and Anes Risks/Benef Reviewed Patient Risk: Intermediate Procedure Risk: Low Anesthetic Plan Anesthetic Plan: GA and Agree w/ Assess. and Plan Disposition: Standard PACU
[2023-01-25 12:35] VITALS: BP 127/79; PULSE 67; RESP 16; TEMP 36.3; O2SAT 96
[2023-01-25 12:44] LABS: Glucose, Whole Blood 131 mg/dL (60-115)
[2023-01-25] MEDS: Lactated Ringers 1,000 ML 100 ML IVCONT (12:51)
[2023-01-25 13:09] VITALS: BMI 36.4
--- NOTE | 2023-01-25 13:49 | MHC.SHP ---
Pre-Procedural Eval Section A Date of Service: 01/25/23 The patient is an INPATIENT: No Changes since office visit: No Cold of Flu in the past 2 weeks, No New Medical Problems, No Changes in Medication and No Patient answered all questions The History & Physical has been completed within 30 days and I have reviewed it.: Yes Section B Chief Complaint: Other microscopic hematuria Allergies: Allergies Allergy/AdvReac Type Severity Reaction Status Date / Time meperidine [Demerol] Allergy Unknown Unknown Verified 12/11/22 13:25 Plan Diagnosis/Plan: Unchanged (Cystoscopy, bladder biopsy, fulguration) I have reviewed the history and physical and performed a pertinent physical examination on my patient. No changes have occurred unless specified. Time Spent With Patient Time: Total time managing care of this patient today ____ minutes.
--- NOTE | 2023-01-25 14:30 | W.PM.OPN ---
Operative Note Operative Note Date of Service: 01/25/23 Narrative: PreOperative Diagnosis: bladder lesion Post Operative Diagnosis: Chronic cystitis Procedure: cystoscopy, bladder biopsy, fulguration Surgeon: Dr Pardeep Price Anesthesia: LMA Indications for procedure: posterior wall small bladder lesions seen on cystoscopy for microscopic hematuria Procedure: After informed consent was verified the patient was brought to the operating room and placed in a supine position. Anesthesia was administered per protocol. The patient was placed in modified dorsal lithotomy position and prepped and draped in a sterile fashion. Safety pause time-out was performed. Antibiotics being given. Cystoscopy was performed. Small lesion seen on posterior wall. Lesion biopsied and fulgurated. Three other lesions seen and fulgurated. Lesion is a PA consistent with chronic cystitis. The patient tolerated the procedure well. They were extubated in operating room and transferred in stable conditions recovery area. Pathology: Bladder biopsies Drains: None
[2023-01-25 14:37] VITALS: BP 110/60; PULSE 82; RESP 16; TEMP 36.1; O2SAT 100
[2023-01-25 14:52] VITALS: BP 123/64; PULSE 78; RESP 14; O2SAT 98
[2023-01-25] MEDS: Phenazopyridine HCL 100 MG TABLET PO (15:00)
[2023-01-25 15:07] VITALS: BP 127/71; PULSE 74; RESP 18; TEMP 36.1; O2SAT 99
== END 2023-01-25 15:21 | disposition home or self-care (01) ==
PROVIDERS: PCP Internal Medicine; Visit Provider Urology
PROC: (CPT 52234; principal; 2023-01-25 13:10)
DX: N32.9 Bladder disorder, unspecified (principal); N30.20 Other chronic cystitis without hematuria; R31.29 Other microscopic hematuria; Z90.5 Acquired absence of kidney; E11.9 Type 2 diabetes mellitus without complications; I10 Essential (primary) hypertension; E78.5 Hyperlipidemia, unspecified; K83.8 Other specified diseases of biliary tract; Z79.82 Long term (current) use of aspirin; Z79.899 Other long term (current) drug therapy; Z88.8 Allergy status to other drugs, medicaments and biological substances; F17.210 Nicotine dependence, cigarettes, uncomplicated
CPT/HCPCS: 52234; 52204; 82947; 88305; J0330; J1956; J3010

== ENCOUNTER → 2023-01-25 12:10 | Outpatient (BNV) | payer OTHER, SELFPAY | PROVIDERS: PCP Internal Medicine; Visit Provider Urology | DX: N30.91 Cystitis, unspecified with hematuria (principal) | CPT/HCPCS: 52224 ==

== ENCOUNTER 2023-02-03 11:46 | Outpatient (AMB) | payer OTHER, SELFPAY ==
--- NOTE | 2023-02-03 11:52 | A.OFFVIS_ITS ---
Intake Intake Visit Reasons: bladder bx results Intake Note: Pt presents to the office today for bladder bx results. Allergies meperidine [Demerol] Allergy (Unknown, Verified 02/03/23 11:52) Unknown Medication List - Last Reconciled 03/18/23 by Pardeep Price MD ascorbic acid (vitamin C) (Vitamin C) 500 mg PO DAILY aspirin 81 mg PO BEDTIME duloxetine 30 mg PO DAILY levothyroxine 75 mcg PO QAM lidocaine 4% 1 patch topical BID PRN meclizine 25 mg PO DAILY metoprolol succinate ER 50 mg PO QAM omeprazole 40 mg PO QAM pregabalin 75 mg PO BID sulfamethoxazole-trimethoprim 800-160 mg (Bactrim DS) 1 tab PO BID 5 days trazodone 50 mg PO BEDTIME HPI HPI Comments 2 History of Present Illness Details Suha is a pleasant [place]ian-speaking female. Accompanied by her PAIN MANAGEMENT NURSE PRACTITIONER. She is a patient of Dr. Gutierrez. She seen for the following urologic conditions - microscopic hematuria - chronic cystitis Left-sided nephrectomy prior Discussed bladder biopsy Chronic cystitis Twelve month follow-up Microscopic hematuria Imaging - 11/17 CT urogram - gallstones with dila dionne common bile duct, normal Cystoscopy with area of erythema - 02/17 - biopsy-proven area of acute and chronic cystitis PFSH Medical History Anxiety and depression Diabetes mellitus, type 2 Fibromyalgia Hyperlipidemia Hypertension, essential Hypothyroidism Microscopic hematuria Nicotine dependence, cigarettes, uncomplicated Surgical History History of cataract surgery History of colonoscopy History of vocal cord polypectomy Social History Alcohol intake: never Patient Tobacco Use Status: Former Tobacco user Review of Systems Const Denies chills and Denies fever(s) Card Reports no additional complaints and Denies syncope Resp Denies cough GI Denies abdominal pain and Denies heartburn Reports as per HPI and Denies change in libido Neuro Denies syncope Psych Denies change in libido Endo Denies change in libido Physical Exam Const General: cooperative, healthy appearing, comfortable and no acute distress Orientation/consciousness: patient oriented x3 HEENT Face and sinus: Yes normal facial exam Mouth: moist mucous membranes Neck Neck: Yes normal visual inspection, Yes full ROM and Yes trachea midline Chest Chest palpation & inspection: normal inspection of the chest Resp Effort & Inspection: normal respiratory effort, able to speak in complete sentences and no respiratory distress GI Inspection: Yes normal to inspection Back/Spine/Pelvis Cervical Spine: normal cervical lordosis Thoracic/Lumbar Spine: thoracic and lumbar spine normal to inspection Skin General skin exam: no rashes or lesions noted Neuro General: patient oriented x3, gait normal, tone normal and moves all extremities Extrem General: Yes normal to inspection and Yes capillary refill normal Assessment & Plan Assessment & Plan (1) Chronic cystitis: Code(s): N30.20 - Other chronic cystitis without hematuria Plan 12 month follow-up Medications: New sulfamethoxazole-trimethoprim 800-160 mg (Bactrim DS) 1 tab PO BID 10 tabs 0RF 5 days N30.20 - Other chronic cystitis without hematuria, N39.0 - Urinary tract infection, site not specified Patient Instructions: Imaging studies, laboratory and physical exam results were discussed and reviewed in detail. No major barriers to patient understanding were identified. An opportunity to ask questions regarding the treatment plan was provided. All questions were answered. The patient expressed understanding and agreement with the above treatment plan. The patient is aware they should contact our office by phone for worsening of their current condition or the appearance of new urologic symptoms. Compliance is encouraged with any medications and followup testing that is ordered. It is a privilege to participate in the urologic care of your patient. If you have any questions or concerns regarding treatment for the above conditions, or other urologic issues, please do not hesitate to contact me. The office telephone contact is [phone]. This note is constructed using voice recognition software. While every effort has been made to ensure accuracy ore dryer errors may have been included. Yours sincerely, Dr Pardeep Price MD, DUC [facility] Urology Providers of Expert, Compassionate Care for the Genitourinary System Coding Level of Care Code Est Pt Level 3 (02636) Diagnoses Chronic cystitis N30.20
== END 2023-02-03 12:16 | disposition home or self-care (01) ==
LOC: HO.HUSH 11:46
PROVIDERS: PCP Internal Medicine; Visit Provider Urology
DX: N30.20 Other chronic cystitis without hematuria (principal)
CPT/HCPCS: 99213

== ENCOUNTER → 2023-02-03 11:46 | Outpatient (BNVA) | payer OTHER, SELFPAY | PROVIDERS: PCP Internal Medicine; Visit Provider Urology | DX: R31.29 Other microscopic hematuria (principal); N30.20 Other chronic cystitis without hematuria | CPT/HCPCS: 99212 ==

== ENCOUNTER 2023-02-11 10:55 | Outpatient (REF) | payer OTHER, SELFPAY ==
[2023-02-11 14:19] LABS: Alanine Aminotransferase 10 U/L (0-31); Alkaline Phosphatase 101 U/L (39-117); Aspartate Amino Transferase 17 U/L (5-31); Bilirubin Direct 0.2 mg/dL (0.0-0.5); Bilirubin Total 0.4 mg/dL (0.0-1.0); Cholesterol 148 mg/dL; HDL Cholesterol 51 mg/dL; LDL Cholesterol Calculated 75 mg/dl; Total Protein 7.2 g/dL (6.5-8.0); Triglycerides 113 mg/dL
[2023-02-11 14:21] LABS: TSH reflex Free T4 0.22 uIU/mL (0.32-4.0)
[2023-02-11 15:02] LABS: Free T4 (Free Thyroxine) 0.96 ng/dL (0.71-1.85)
== END 2023-02-11 10:56 | disposition home or self-care (01) ==
LOC: HO.HHCL 10:55
PROVIDERS: Visit Provider Internal Medicine
DX: E11.9 Type 2 diabetes mellitus without complications (principal)
CPT/HCPCS: 36415; 80061; 80076; 84439; 84443

== ENCOUNTER 2023-03-19 17:45 | Outpatient (REF) | payer OTHER, SELFPAY | END 2023-03-19 17:46 | disposition home or self-care (01) | LOC: HO.LNP 17:45 | PROVIDERS: Visit Provider Internal Medicine Geriatric Medicine | DX: R05.9 Cough, unspecified (principal); R82.90 Unspecified abnormal findings in urine | CPT/HCPCS: 87070; 87086; 87147 ==

== ENCOUNTER 2023-04-23 12:01 | Outpatient (AMB) | payer OTHER, SELFPAY ==
--- NOTE | 2023-04-23 12:07 | A.OFFVIS_ITS ---
Intake Vital Signs 04/23/23 12:10 Height 5 ft 4 in Weight 198 lb BMI 34.0 BP 117/55 L Blood Pressure Location Lt brachial Position Sitting Pulse 93 Intake Visit Reasons: Other specified diseases of biliary tract Intake Note: Patient new consult for diseases of biliary tract. patient cc: constipation, acid reflex with a lot of burping, abdominal discomfort with nauseas on and off. Denies any other GI issues. Watch Case Polisher Required: Yes Watch Case Polisher Name: Madeleine [facility] [place] interpeter Accompanied by: Spouse Allergies meperidine [Demerol] Allergy (Unknown, Verified 04/23/23 12:06) Unknown HPI Other specified diseases of biliary tract HPI Details 77 yr old f here for assessment for dila dionne CBD She had urogram for microscopic hematuria which revealed dilated CBD 12/02/22, but she has normal LFT 03/2023 she has issues with gas and bloating she has episodic constipation no blood in stools no nausea or vomiting she has LUQ pain , helped with rubbing and walking worse with fruits colonoscopy many years ago >10 yrs she has white sputum, denies heartburn denies using opiates or nsaids Medical History Anxiety and depression Diabetes mellitus, type 2 Fibromyalgia Hyperlipidemia Hypertension, essential Hypothyroidism Microscopic hematuria Nicotine dependence, cigarettes, uncomplicated Surgical History History of cataract surgery History of colonoscopy History of vocal cord polypectomy SH: smoker FH: no FH of CRC ROS: Constitutional : No Weight loss, No Fever, No Chills ENT/Mouth : No sore throat, No Rhinorrhea Eyes: No Swelling, No Redness Cardiovascular : No Chest Pain, + SOB, No Edema Respiratory : No Cough, No Sputum, No Wheezing Gastrointestinal : see HPI Genitourinary : NO Dysuria, No Urinary Frequency, No Hematuria, No Urgency Musculoskeletal : No joint pain, No Myalgias, No Joint Swelling Skin : No Skin Lesions, No rash Neuro : No Weakness, No Numbness, No Dizziness, No Headache Psych : No Anxiety/Panic, No Depression Heme/Lymph: No Bruising, No Lymphadenopathy Endocrine : No Polyuria, No Polydipsia All other systems reviewed and are negative. EXAM: GENERAL: The patient is well developed and nontoxic. hoarse VITAL SIGNS:see workflow HEENT: Nonicteric sclerae, PERRLA, EOMI. Oropharynx clear. Moist mucous membranes. Conjunctivae appear well perfused. No thyroid mass. CHEST: Chest wall is nontender. HEART: Regular rate and rhythm without murmurs. LUNGS: Clear to auscultation bilaterally. ABDOMEN: Soft, positive bowel sounds, nontender, no organomegaly.no flank tenderness SKIN: No rash, no excessive bruising, petechiae, or purpura. NEUROLOGIC: Cranial nerves II-XII intact without motor/sensory deficit. Psych: nml affect A/P: 1/ Abn bowel habits 2/ LUQ pain 3/ dilated CBD Plan: 1/ refer anesthesia for pre op assessmen t 2/ egd and colonoscopy r/o neoplasia, po lyps, gastritis, PUD 3/ US to assess CBD further, maybe due t o passing of stones on and off 4/ trial of rifaximin in case of SIBO PFSH Medical History Anxiety and depression Diabetes mellitus, type 2 Fibromyalgia Hyperlipidemia Hypertension, essential Hypothyroidism Microscopic hematuria Nicotine dependence, cigarettes, uncomplicated Surgical History History of vocal cord polypectomy History of colonoscopy History of cataract surgery Social History Alcohol intake: never Patient Tobacco Use Status: Former Tobacco user Physical Exam Vital Signs: Last Vital Signs Pulse 93 04/23/23 12:10 BP 117/55 L 04/23/23 12:10 BMI result Body Mass Index 34.0 Assessment & Plan Assessment & Plan (1) Common bile duct dilatation: Code(s): K83.8 - Other specified diseases of biliary tract (2) Altered bowel habits: Code(s): R19.4 - Change in bowel habit Orders: Orders US abdomen comp w elastography Today K83.8 - Other specified diseases of biliary tract Medications: New rifaximin 550 mg PO TID 2 weeks 42 tabs 0RF ondansetron 4 mg PO Q8H PRN 7 tabs 0RF nausea and vomiting peg-electrolyte soln 420 gram until fecal effluent is clear; 240 mL PO Q10M 4,000 mL 0RF Coding Level of Care Code New Pt Level 4 (32574) Diagnoses Common bile duct dilatation K83.8 Altered bowel habits R19.4
[2023-04-23 12:10] VITALS: BP 117/55; PULSE 93; BMI 34.0
== END 2023-04-23 12:51 | disposition home or self-care (01) ==
PROVIDERS: PCP Internal Medicine; Visit Provider Internal Medicine Gastroenterology
DX: K83.8 Other specified diseases of biliary tract (principal); R19.4 Change in bowel habit
CPT/HCPCS: 99204

== ENCOUNTER → 2023-04-23 12:01 | Outpatient (BNVA) | payer OTHER, SELFPAY | PROVIDERS: PCP Internal Medicine; Visit Provider Internal Medicine Gastroenterology ==

== ENCOUNTER 2023-05-26 09:59 | Outpatient (REF) | payer OTHER, SELFPAY | END 2023-05-26 10:00 | disposition home or self-care (01) | LOC: HO.US 09:59 | PROVIDERS: PCP Internal Medicine; Visit Provider Internal Medicine Gastroenterology | DX: Z13.89 Encounter for screening for other disorder (principal) ==

== ENCOUNTER 2023-07-01 10:33 | Outpatient (REF) | payer OTHER, SELFPAY ==
--- NOTE | ~2023-07-01 | MM_ITS ---
EXAMINATION: MM SCREENING DIGITAL BREAST TOMOSYNTHESIS, BILATERAL CLINICAL INFORMATION: Screening. Asymptomatic. COMPARISON: Mammography: This study is compared with prior exams dating back to 2017. TECHNIQUE: Digital breast tomosynthesis is performed in both the craniocaudal and mediolateral oblique views along with computer-aided detection (CAD). Synthesized 2D images are generated from the tomosynthesis. FINDINGS: There are scattered areas of fibroglandular density (ACR BI-RADS breast composition Category b). There are no significant masses, abnormal calcifications, or other abnormalities. Few, benign calcifications are present in the right breast. These have been previously evaluated with magnification imaging in 2017. MM/MM tomosynthesis screening BI IMPRESSION: No mammographic evidence of malignancy. ASSESSMENT: BI-RADS BI-RADS 2 - Benign Findings RECOMMENDATION: Routine annual mammography screening. 1 year F/U This examination should not preclude the clinical evaluation of a suspicious palpable abnormality. This patient's information was entered into a reminder system with a target due date for their next mammogram.
== END 2023-07-01 10:34 | disposition home or self-care (01) ==
LOC: HO.MAMMO 10:33
PROVIDERS: PCP Internal Medicine; Visit Provider Internal Medicine
DX: Z12.31 Encounter for screening mammogram for malignant neoplasm of breast (principal)
CPT/HCPCS: 77063; 77067

== ENCOUNTER → 2023-07-01 11:15 | Outpatient (BNV) | payer OTHER, SELFPAY | PROVIDERS: PCP Internal Medicine; Visit Provider Radiology Diagnostic Radiology | DX: Z12.31 Encounter for screening mammogram for malignant neoplasm of breast (principal) | CPT/HCPCS: 77063; 77067 ==

== ENCOUNTER 2023-07-12 10:14 | Outpatient (REF) | payer OTHER, SELFPAY ==
--- NOTE | ~2023-07-12 | US_ITS ---
EXAMINATION: US COMPLETE ABDOMEN WITH LIVER ELASTOGRAPHY CLINICAL INFORMATION: History of dilated common bile duct. Other specified diseases of biliary tract. COMPARISON: Abdomen CT images from 12/02/2022. Chest CT from 04/12/2019. TECHNIQUE: Real-time imaging of the abdominal viscera. Noninvasive ultrasound liver fibrosis assessment is performed using [employer]ure[employer] ElastPQ point quantification shear wave elastography (2D-SWE) with a C5-2 MHz transducer. Multiple elastography samples are obtained. FINDINGS: PANCREAS: Normal. ABDOMINAL AORTA: Mild atherosclerotic calcification of the aorta. The proximal, middle, and distal aortic segments are normal in caliber. INFERIOR VENA CAVA: Visualized portions are normal. LIVER: Liver has normal size and contour. The parenchymal echotexture subjectively appears to be in the normal range. No focal liver lesion. There is minimal dilatation of central intrahepatic ducts. The right lobe measures 16.9 cm in length. The left lobe measures 11.8 cm in length. Portal flow is normal. Shear wave liver elastography median stiffness is 1.27 m/s (reference: normal median stiffness is 1.3 m/s or less). IQR/median stiffness to assess sampling precision is 0.12 (reference: good quality data set is IQR/median stiffness of 0.15 or less). GALLBLADDER: Underdistended, suboptimally evaluated. There appears to be sludge in the gallbladder lumen. No gallbladder wall thickening or pericholecystic fluid. COMMON BILE DUCT: Chronically dilated common bile duct measures 1.3 cm AP diameter. The distal segment of the duct is obscured by bowel. Note that the common duct had a dilated appearance on the chest CT from 04/12/2019. RIGHT KIDNEY: Normal. No hydronephrosis. No renal calculi or focal parenchymal lesions. The kidney measures 13 cm in maximum dimension. LEFT KIDNEY: Absent. SPLEEN: Normal. The spleen measures 8.4 cm in maximum dimension. FREE FLUID: None. US/US abdomen comp w elastography IMPRESSION: * Liver has normal parenchymal echotexture. The shear wave liver elastography reveals a median stiffness is 1.27 m/s (reference: normal median stiffness is 1.3 m/s or less). * Gallbladder is suboptimally evaluated due to lack of distention. There appears to be sludge in the gallbladder lumen. No evidence of cholecystitis. * Common bile duct is chronically dilated. It measures up to 1.3 cm AP diameter. Recommend correlation with bilirubin levels and liver function tests. REFERENCE: Society of Radiologists in Ultrasound Liver Stiffness Thresholds (2020): LIVER STIFFNESS THRESHOLDS: *Liver Stiffness equal or less than 1.3 m/s: High probability of being normal. *Liver Stiffness less than 1.7 m/s: In the absence of other known clinical signs, rules out compensated advanced chronic liver disease. *Liver Stiffness 1.7-2.1 m/s: Suggestive of compensated advanced chronic liver disease but need further test for confirmation. *Liver Stiffness over 2.1 m/s: Rules in compensated advanced chronic liver disease. *Liver Stiffness over 2.4 m/s: Suggestive of clinically significant portal hypertension. QUALITY OF DATA SET: *IQR/Median value equal or less than 0.15 implies a quality data set. *IQR/Median value over 0.15 implies a poor quality data set. OTHER CONSIDERATIONS: The stage of liver fibrosis may be overestimated in the setting of acute hepatitis, liver inflammation, elevated liver function tests, hepatic vascular congestion, obstructive cholestasis, non-fasting state, and infiltrative diseases such as amyloidosis and lymphoma. In some patients with NAFLD, the liver stiffness thresholds for compensated advanced chronic liver disease may be lower. In causes other than viral hepatitis and NAFLD, liver stiffness thresholds are not well established.
== END 2023-07-12 10:15 | disposition home or self-care (01) ==
LOC: HO.US 10:14
PROVIDERS: PCP Internal Medicine; Visit Provider Internal Medicine Gastroenterology
DX: K83.8 Other specified diseases of biliary tract (principal)
CPT/HCPCS: 76700; 76981

== ENCOUNTER 2023-10-27 09:14 | Outpatient (REF) | payer OTHER, SELFPAY ==
[2023-10-27 12:16] LABS: Alanine Aminotransferase 10 U/L (0-31); Albumin Level 3.9 g/dL (3.5-5.0); Alkaline Phosphatase 97 U/L (39-117); Anion Gap 14 (12-20); Aspartate Amino Transferase 15 U/L (5-31); Bilirubin Total 0.5 mg/dL (0.0-1.0); Blood Urea Nitrogen 12 mg/dL (9-16); Calcium 9.7 mg/dL (8.4-10.2); Carbon Dioxide 27 mmol/L (22-29); Chloride 106 mmol/L (96-108); Cholesterol 136 mg/dL (<200); Estimated Glomerular Filt Rate > 60; Glucose Random 135 mg/dL (60-115); HDL Cholesterol 50 mg/dL (>40); LDL Cholesterol Calculated 67 mg/dL (<100); Potassium 4.3 mmol/L (3.3-5.1); Sodium 143 mmol/L (135-145); Total Protein 6.9 g/dL (6.5-8.0); Triglycerides 98 mg/dL (<150)
== END 2023-10-27 09:15 | disposition home or self-care (01) ==
LOC: HO.HHCL 09:14
PROVIDERS: Visit Provider Internal Medicine
DX: I12.9 Hypertensive chronic kidney disease with stage 1 through stage 4 chronic kidney disease, or unspecified chronic kidney disease (principal); N18.31 Chronic kidney disease, stage 3a; E11.22 Type 2 diabetes mellitus with diabetic chronic kidney disease
CPT/HCPCS: 36415; 80053; 80061

== ENCOUNTER 2023-12-22 18:45 | Outpatient (REF) | payer OTHER, SELFPAY ==
[2023-12-23 06:07] LABS: CT PCR NOT DETECTED (Not Detect.); NG PCR NOT DETECTED (Not Detect.)
[2023-12-23 10:50] LABS: Bacterial Vaginosis PCR POSITIVE (Negative); Candida Group PCR DETECTED (Not Detect); Candida glab krusei PCR NOT DETECTED (Not Detect); Trichomonas vaginalis PCR NOT DETECTED (Not Detect)
== END 2023-12-22 18:46 | disposition home or self-care (01) ==
LOC: HO.HHCLNP 18:45
PROVIDERS: Visit Provider Emergency Medicine
DX: R30.0 Dysuria (principal)
CPT/HCPCS: 0352U; 87086; 87088; 87186; 87491; 87591

== ENCOUNTER 2024-01-18 10:15 | Outpatient (REF) | payer OTHER, SELFPAY ==
--- NOTE | ~2024-01-18 | US_ITS ---
EXAMINATION: US ABDOMEN LIMITED CLINICAL INFORMATION: Other specified diseases of biliary tract. Prior ultrasound with sludge, reassess gallbladder, dilated CBD. COMPARISON: Ultrasound abdomen 07/12/2023. Ultrasound retroperitoneal 09/29/2022. CT urogram 12/02/2022. TECHNIQUE: Real-time imaging of the right upper quadrant abdominal viscera. FINDINGS: PANCREAS: The pancreas appears unremarkable, without masses or ductal dilatation, with the exception of the tail which is obscured by bowel gas. LIVER: [Normal.] The liver is normal in size. The liver contour is normal. Parenchymal echogenicity is normal. No focal hepatic lesion. There is no intrahepatic biliary duct dilatation seen. GALLBLADDER: The gallbladder is moderately contracted. Multiple mobile gallstones are present. No evidence of gallbladder wall thickening or pericholecystic fluid. COMMON BILE DUCT: Normal in caliber measuring 1.3 cm in diameter, similar to prior ultrasound. RIGHT KIDNEY: Not documented on today's study. FREE FLUID: None. US/US abdomen limited IMPRESSION: 1. Cholelithiasis without evidence of cholecystitis. 2. Unchanged dilated common bile duct measuring 1.3 cm.
== END 2024-01-18 10:16 | disposition home or self-care (01) ==
LOC: HO.US 10:15
PROVIDERS: PCP Internal Medicine; Visit Provider Internal Medicine Gastroenterology
DX: K83.8 Other specified diseases of biliary tract (principal)
CPT/HCPCS: 76705

== ENCOUNTER 2024-02-24 11:03 | Outpatient (AMB) | payer OTHER, SELFPAY ==
--- NOTE | 2024-02-24 11:35 | MHC.OFFVIS ---
Intake Visit Reasons: 1y/UA Intake Note: Patient is Present for Follow Up Urology Medication: None Antibiotic Allergies:None Blood Thinners: Aspirin [employer] Coach Required: No Accompanied by: Self / Same As Patient Allergies meperidine [Demerol] Allergy (Unknown, Verified 04/23/23 12:06) Unknown HPI Comments Details: Suha is a pleasant Russian-speaking female. Accompanied by her DOOR TO DOOR SALES REPRESENTATIVE. She is a patient of Dr. Gutierrez. She seen for the following urologic conditions - microscopic hematuria - chronic cystitis Russian translation provided in office by qualified medical research associate UA today clear Follow-up p.r.n. Continue vitamin-C Left nephrectomy Microscopic hematuria Imaging - 11/17 CT urogram - gallstones with dilated common bile duct, normal Cystoscopy with area of erythema - 02/17 - biopsy-proven area of acute and chronic cystitis [facility] Medical History Dysphagia Microscopic hematuria Fibromyalgia Anxiety and depression Hyperlipidemia Hypertension, essential Nicotine dependence, cigarettes, uncomplicated Diabetes mellitus, type 2 Hypothyroidism Surgical History History of vocal cord polypectomy History of colonoscopy History of cataract surgery Social History Alcohol intake: never Patient Tobacco Use Status: Former Tobacco user Review of Systems Const Denies chills and Denies fever(s) Card Reports no additional complaints and Denies syncope Resp Denies cough GI Denies abdominal pain and Denies heartburn Reports as per HPI and Denies change in libido Neuro Denies syncope Psych Denies change in libido Endo Denies change in libido Physical Exam Const General: cooperative, healthy appearing, comfortable and no acute distress Orientation/consciousness: patient oriented x3 HEENT Face and sinus: Yes normal facial exam Mouth: moist mucous membranes Neck Neck: Yes normal visual inspection, Yes full ROM and Yes trachea midline Chest Chest palpation & inspection: normal inspection of the chest Resp Effort & Inspection: normal respiratory effort, able to speak in complete sentences and no respiratory distress GI Inspection: Yes normal to inspection Back/Spine/Pelvis Cervical Spine: normal cervical lordosis Thoracic/Lumbar Spine: thoracic and lumbar spine normal to inspection Skin General skin exam: no rashes or lesions noted Neuro General: patient oriented x3, gait normal, tone normal and moves all extremities Extrem General: Yes normal to inspection and Yes capillary refill normal Results AMB Urinalysis, Automated UA Leukoctes 15 Mark Anthony/uL Last Edit by Sharon Loomis A on 02/24/24 11:44 UA Nitrite Negative Last Edit by Sharon Loomis A on 02/24/24 11:44 UA Urobilinogen 0.2 mg/dL Last Edit by Sharon Loomis A on 02/24/24 11:44 UA Protein 0 mg/dL Last Edit by Sharon Loomis A on 02/24/24 11:44 UA pH 6.0 Last Edit by Sharon Loomis A on 02/24/24 11:44 UA Blood 0 [place]/uL Last Edit by Sharon Loomis A on 02/24/24 11:44 UA Specific [place] 1.005 Last Edit by Sharon Loomis A on 02/24/24 11:44 UA Ketone Negative Last Edit by Sharon Loomis A on 02/24/24 11:44 UA Bilirubin 0 mg/dL Last Edit by Sharon Loomis A on 02/24/24 11:44 UA Glucose 0 mg/dL Last Edit by Sharon Loomis [facility] on 02/24/24 11:44 Results Reviewed Results Reviewed: Laboratory Last Values Urine pH (Auto) 6.0 02/24/24 11:43 Specific [place] (Auto) 1.005 02/24/24 11:43 Urine Protein (Auto) 0 mg/dL 02/24/24 11:43 Glucose (UA)(Auto) 0 mg/dL 02/24/24 11:43 Urine Ketones (Auto) Negative 02/24/24 11:43 Urine Blood (Auto) 0 [place]/uL 02/24/24 11:43 Urine Nitrite (Auto) Negative 02/24/24 11:43 Urine Bilirubin (Auto) 0 mg/dL 02/24/24 11:43 Urine Urobilinogen (Auto) 0.2 mg/dL 02/24/24 11:43 Leukocyte Esterase (Auto) 15 [place] Anthony/uL 02/24/24 11:43 Assessment & Plan Assessment & Plan (1) Chronic cystitis: Code(s): N30.20 - Other chronic cystitis without hematuria Category: Medical Plan Continue vitamin-C P.r.n. follow-up Orders: Orders AMB Urinalysis Automated Today Z13.9 - Encounter for screening, unspecified Patient Instructions: Imaging studies, laboratory and physical exam results were discussed and reviewed in detail. No major barriers to patient understanding were identified. An opportunity to ask questions regarding the treatment plan was provided. All questions were answered. The patient expressed understanding and agreement with the above treatment plan. The patient is aware they should contact our office by phone for worsening of their current condition or the appearance of new urologic symptoms. Compliance is encouraged with any medications and followup testing that is ordered. It is a privilege to participate in the urologic care of your patient. If you have any questions or concerns regarding treatment for the above conditions, or other urologic issues, please do not hesitate to contact me. The office telephone contact is [phone]. This note is constructed using voice recognition software. While every effort has been made to ensure accuracy trail construction worker errors may have been included. Yours sincerely, Dr Pardeep Price MD, DUC [facility] - Urology Providers of Expert, Compassionate Care for the Genitourinary System Coding Level of Care Code Est Pt Level 4 (44573) Diagnoses Chronic cystitis N30.20
== END 2024-02-24 12:08 | disposition home or self-care (01) ==
PROVIDERS: PCP Internal Medicine; Visit Provider Urology
DX: Z13.9 Encounter for screening, unspecified (principal); N30.20 Other chronic cystitis without hematuria
CPT/HCPCS: 99214

== ENCOUNTER → 2024-02-24 11:03 | Outpatient (BNVA) | payer OTHER, SELFPAY | PROVIDERS: PCP Internal Medicine; Visit Provider Urology | DX: N30.20 Other chronic cystitis without hematuria (principal) | CPT/HCPCS: 81003; 99212 ==

== ENCOUNTER 2024-08-16 09:35 | Day surgery (SDC) | payer OTHER, SELFPAY ==
[2024-08-11 14:07] VITALS: BMI 34.0
[2024-08-16 10:47] VITALS: BP 136/66; PULSE 93; RESP 18; TEMP 36.8; O2SAT 98
--- NOTE | 2024-08-16 10:58 | MHC.SHP ---
Pre-Procedural Eval Section A - 24 Hr Update-Section A only Date of Service: 08/16/24 Section B - Complete if H&P > 30 days Chief Complaint: Gastritis, unspecified, without bleeding Details of Present Illness: abn bowel habit Relevant Family History (Specify if Yes): No Relevant Social History: Tobacco Use Present Medications: see Short Stay Collaborative assessment Medical History: Significant History (Anxiety and depression Diabetes mellitus, type 2 Fibromyalgia Hyperlipidemia Hypertension, essential Hypothyroidism Microscopic hematuria Nicotine dependence, cigarettes, uncomplicated) History of Previous Operations: Relevant previous surgery/procedure and date(s) ( History of cataract surgery History of colonoscopy History of vocal cord polypectomy) Allergies: Allergies Allergy/AdvReac Type Severity Reaction Status Date / Time meperidine [Demerol] Allergy Unknown Unknown Verified 08/16/24 10:29 Review of Systems Sugical H&P ROS: Negative: Constitution, Cardiovascular, Respiratory, Neurological, Psychiatric, Hem-Onc, Allergic/Immunologic, Gastrointestinal, Genitourinary, Musculoskeletal, Integumentary, Endocrine and Eyes/Ears/Nose/Throat Exam Surgical H&P Exam: Normal: HEENT, Normal: Heart, Normal: Lungs, Normal: Extremities, Normal: Abdomen, Normal: Skin and Normal: Neurological Plan Diagnosis/Plan: Unchanged I have reviewed the history and physical and performed a pertinent physical examination on my patient. No changes have occurred unless specified. Time Spent With Patient Time: Total time managing care of this patient today ____ minutes.
[2024-08-16 10:59] LABS: Glucose, Whole Blood 112 mg/dL (60-115)
--- NOTE | 2024-08-16 11:33 | HO.ANESPROP2 ---
HPI - Anesthesia Eval Consult details Narrative: 79 yo female patient for EGD, Colonoscopy PMF Active Problems Active Problems: All Active Problems Altered bowel habits (Acute) Chronic cystitis (Acute) Common bile duct dilatation (Acute) Right shoulder tendonitis (Acute) Rotator cuff tendonitis (Acute) Microscopic hematuria (Acute) Nicotine dependence, cigarettes, uncomplicated (Acute)- last this morning Asthma. Inhaler prn Past Medical History Medical History Osteoarthritis GERD (gastroesophageal reflux disease) Dysphagia Microscopic hematuria Fibromyalgia Anxiety and depression Hyperlipidemia Hypertension, essential Nicotine dependence, cigarettes, uncomplicated Diabetes mellitus, type 2 Hypothyroidism Family History Family history of problems with anesthesia: No Surgical History Surgical History History of vocal cord polypectomy History of colonoscopy History of cataract surgery History of Problems with Anesthesia: No Social History Social History Alcohol intake: never Patient Tobacco Use Status: Current everyday Tobacco user Tobacco use type: Cigarette Cigarettes Per Day: 4 Use of substances other than those prescribed or required for medical reasons: No Advance Directives: No Advance Directives Information Provided: Yes Meds Allergies Allergy/AdvReac Type Severity Reaction Status Date / Time meperidine [Demerol] Allergy Unknown Unknown Verified 08/16/24 10:29 Home Medications ?Medication ?Instructions ?Recorded ?Confirmed ?Last Taken ?Type meclizine 25 mg tablet 25 mg PO DAILY 08/28/20 08/16/24 01/25/23 History ascorbic acid (vitamin C) 500 mg 500 mg PO DAILY 10/29/22 08/16/24 Unknown History tablet (Vitamin C) aspirin 81 mg tablet,delayed 81 mg PO BEDTIME 10/29/22 08/16/24 01/18/23 History release duloxetine 30 mg capsule,delayed 30 mg PO DAILY 10/29/22 08/16/24 01/25/23 History release pregabalin 75 mg capsule 75 mg PO BID 10/29/22 08/16/24 01/25/23 History trazodone 50 mg tablet 50 mg PO BEDTIME 10/29/22 08/16/24 Unknown History levothyroxine 75 mcg tablet 75 mcg PO QAM 12/11/22 08/16/24 08/16/24 07:00 History metoprolol succinate 50 mg 50 mg PO QAM 12/11/22 08/16/24 08/16/24 07:00 History tablet,extended release 24 hr omeprazole 40 mg capsule,delayed 40 mg PO QAM 12/11/22 08/16/24 08/16/24 07:00 History release acetaminophen 500 mg tablet 1,000 mg PO Q6H PRN mild pain 07/02/23 08/16/24 Unknown History albuterol sulfate 90 mcg/actuation 2 puff inhalation Q4H PRN 07/02/23 08/16/24 Unknown History aerosol inhaler (Ventolin HFA) Shortness Of Breath fluticasone propionate 50 1 spray intranasal BID 07/02/23 08/16/24 Unknown History mcg/actuation nasal spray,suspension pioglitazone 15 mg tablet 15 mg PO QAM 07/02/23 08/16/24 Unknown History fluticasone furoate 200 1 inh inhalation DAILY 08/11/24 08/16/24 Unknown History mcg/actuation blister powder for inhalation (Arnuity Ellipta) Exam Height,Weight and Vital Signs: Height 5 ft 4 in Weight 89.811 kg Last Vital Signs Temp 98.2 F 08/16/24 10:47 Pulse 93 08/16/24 10:47 Resp 18 08/16/24 10:47 BP 136/66 08/16/24 10:47 Pulse Ox 98 08/16/24 10:47 O2 Del Method Room Air 08/16/24 10:47 Pertinent Lab Results Pertinent Lab Results: Laboratory Tests 08/16/24 10:54 POC Glucose 112 Airway Mallampati Class: II TM Dist: >3cm Neck ROM: Full Loose/Missing/Broken Teeth: Yes (Missing tooth top right, molars. Denies broken or loose teeth) Heart: RRR Lungs: CTAB Assessment and Plan Assessment Anesthesia Assessment: Anesthesia Plan Discussed and Chart Reviewed Final Anesthetic Review Family History of Problems with Anesthesia: No History of Problems with Anesthesia: No NPO: Yes ASA Class: III Final Preanesthetic Review: No Changes in Pt Med Stat, Meds/Allgs Chart Reviewed, Consent Obtained/Reviewed and Anes Risks/Benef Reviewed Patient Risk: Intermediate Procedure Risk: Low Assessment/Block/Sedation in SS: Assess/Block/Sedation-SS Anesthetic Plan Anesthetic Plan: TIVA Disposition: Standard PACU
--- NOTE | 2024-08-16 12:03 | HO.OPN-COLON ---
Colonoscopy Operative Note Operative Note Date of Service: 08/16/24 Narrative: Operative Information Procedure Description: EGD, Colonoscopy Indication: abn bowel habits Anesthesia: MAC FLEXIBLE TRANSORAL UPPER GASTROINTESTINAL ENDOSCOPY AND COLONOSCOPY PROCEDURE NOTE UPPER ENDOSCOPY Consent: Indications for the procedure and potential complications of bleeding, perforation, reaction to medications and missed diagnosis were discussed with the patient and informed consent was obtained. Instrument: Olympus GIF H 190 J mid size upper endoscope Monitoring: Vital signs and clinical assessment, continuous EKG monitoring, Pulse oximetry, Carbon Dioxide monitoring and blood pressure monitoring were done throughout the procedure. Procedure: The patient was placed in the left lateral decubitis position and pre-procedure medications were administered and a bite block was placed. The endoscope was inserted into the mouth and advanced under direct vision to the third part of duodenum. A careful inspection was made as the upper endoscope was withdrawn including a retroflexed examination of the proximal stomach; Findings and interventions are described below. Findings: Larynx:normal Esophagus: GE junction at 40 cm, diaphragm hiatus at 40 cm, patulous GEJ, short segment tongues of salmon pink mucosa with irregular Z line, bx taken for possible barretts Stomach: patchy atrophy. Biopsies were obtained. Grade 2 flap valve on retroflexed examination of the cardia. Duodenum: Normal bulb and descending duodenum, Intervention: Biopsies as noted above, COLONOSCOPY Instrument: Olympus variable stiffness pediatric scope 190L Colonoscopy Monitoring: Vital signs and clinical assessment, continuous EKG monitoring, Pulse oximetry, Carbon Dioxide monitoring and blood pressure monitoring were done throughout the procedure. Colon withdrawal time was 12 minutes. Procedure: The patient was placed in the left lateral decubitis position and pre-procedure medications were administered. After a digital rectal examination of the ano-rectum, the video colonoscope was inserted into the rectum and advanced through the colon to the cecum/TI. The colonoscope was slowly withdrawn in a retrograde panoramic fashion and the colon mucosa was carefully examined including a retroflexed view of the rectum. Findings and interventions are described below. Procedure Difficulty: difficult due to looping and possible abdominal wall hernia Findings: Terminal Ileum-not intubated Cecum: 4-5 mm sessile polyp removed with cold snare, not retrieved, mild melanosis coli noted Ascending Colon: mild diverticulosis Transverse Colon -normal Descending Colon:normal Sigmoid Colon: moderate diverticulosis, 8-9 mm sessile polyp removed with cold snare Rectum: Retroflexion with small internal hemorrhoids, grade I Anorectum - normal Colon preparation: [place] Bowel Preparation Scale Right colon; 1-2 Transverse colon: 2 Left colon; 1-2 (0 = Unprepared colon segment with mucosa not seen due to solid stool that cannot be cleared. 1 = Portion of mucosa of the colon segment seen, but other areas of the colon segment not well seen due to staining, residual stool and/or opaque liquid. 2 = Minor amount of residual staining, small fragments of stool and/or opaque liquid, but mucosa of colon segment seen well. 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
[2024-08-16 12:43] VITALS: BP 113/60; PULSE 86; RESP 26; TEMP 36.1; O2SAT 95
[2024-08-16 12:58] VITALS: BP 144/62; PULSE 82; RESP 22; O2SAT 98
[2024-08-16 13:13] VITALS: BP 157/76; PULSE 76; RESP 22; TEMP 36.1; O2SAT 99
== END 2024-08-16 13:52 | disposition home or self-care (01) ==
PROVIDERS: PCP Internal Medicine; Visit Provider Internal Medicine Gastroenterology
PROC: (CPT 45385; principal; 2024-08-16 11:30)
DX: R19.4 Change in bowel habit (principal); K63.5 Polyp of colon; K63.89 Other specified diseases of intestine; K57.30 Diverticulosis of large intestine without perforation or abscess without bleeding; K64.0 First degree hemorrhoids; K21.9 Gastro-esophageal reflux disease without esophagitis; K29.70 Gastritis, unspecified, without bleeding; K22.89 Other specified disease of esophagus; K83.8 Other specified diseases of biliary tract; K44.9 Diaphragmatic hernia without obstruction or gangrene; I10 Essential (primary) hypertension; E78.5 Hyperlipidemia, unspecified; R31.29 Other microscopic hematuria; E03.9 Hypothyroidism, unspecified; M79.7 Fibromyalgia; F41.9 Anxiety disorder, unspecified; Z79.51 Long term (current) use of inhaled steroids; Z79.82 Long term (current) use of aspirin; Z79.899 Other long term (current) drug therapy; Z88.5 Allergy status to narcotic agent; F17.210 Nicotine dependence, cigarettes, uncomplicated; Z98.890 Other specified postprocedural states
CPT/HCPCS: 45385; 43239; 82947; 88305; 88313; 88342; J2003; J2704

== ENCOUNTER → 2024-08-16 09:35 | Outpatient (BNV) | payer OTHER, SELFPAY | PROVIDERS: PCP Internal Medicine; Visit Provider Internal Medicine Gastroenterology | DX: R19.4 Change in bowel habit (principal); K63.5 Polyp of colon; K57.90 Diverticulosis of intestine, part unspecified, without perforation or abscess without bleeding; K64.0 First degree hemorrhoids; K83.8 Other specified diseases of biliary tract; K29.70 Gastritis, unspecified, without bleeding | CPT/HCPCS: 43239; 45385 ==

== ENCOUNTER 2024-09-18 10:06 | Outpatient (AMB) | payer OTHER, SELFPAY ==
--- NOTE | 2024-09-18 10:31 | MHC.OFFVIS ---
Vital Signs 09/18/24 10:33 Height 5 ft 4 in Weight 198 lb 6.656 oz BMI 34.1 BP 101/35 L Blood Pressure Location Lt radial Position Sitting Pulse 79 Intake Visit Reasons: s/p EGD/colonoscopy Intake Note: Suha presents in the office as a follow up EGD and Colonoscopy. CC: She is only here today for results of her procedures that she had - no concerns. Anesthesiology Teacher Required: Yes Anesthesiology Teacher Name: [id number] Luz Elena Allergies meperidine [Demerol] Allergy (Unknown, Verified 09/18/24 10:34) Unknown HPI HPI s/p EGD/colonoscopy: Details: 79 yr old f here for assessment for dilated CBD RECAP: She had urogram for microscopic hematuria which revealed dilated CBD 12/02/22, but she has normal LFT 03/2023 she has issues with gas and bloating she has episodic constipation she has LUQ pain , helped with rubbing and walking worse with fruits colonoscopy many years ago >10 yrs she has white sputum, denies heartburn denies using opiates or nsaids no blood in stools no nausea or vomiting EGD/COLO 08/22 Endoscopy Findings: 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 Colonoscopy Findings: diverticulosis colon polyps internal hemorrhoids melanosis coli PATH: mild chronic gastritis INTERIM: her main complaint is sour taste in mouth, not been taking omeprazole or receiving it she denies abdominal pain right now, v occ left sided discomfort denies constipation no jaundice EXAM: GENERAL: The patient is well developed and nontoxic. hoarse VITAL SIGNS:see workflow HEENT: Nonicteric sclerae, PERRLA, EOMI. Oropharynx clear. Moist mucous membranes. Conjunctivae appear well perfused. No thyroid mass. CHEST: Chest wall is nontender. HEART: Regular rate and rhythm without murmurs. LUNGS: Clear to auscultation bilaterally. ABDOMEN: Soft, positive bowel sounds, nontender, no organomegaly.no flank tenderness SKIN: No rash, no excessive bruising, petechiae, or purpura. NEUROLOGIC: Cranial nerves II-XII intact without motor/sensory deficit. Psych: nml affect A/P: 1/ Abn bowel habits--stable 2/ LUQ pain--uncertain etiology and mild --cont to monitor 3/ dilated CBD with nml LFT Plan: 1/ repeat colo 1 yr due to fair prep 2/ trial of lansoprazole 30 mg 3/ reassess in 6months PFSH Medical History Osteoarthritis GERD (gastroesophageal reflux disease) Dysphagia Microscopic hematuria Fibromyalgia Anxiety and depression Hyperlipidemia Hypertension, essential Nicotine dependence, cigarettes, uncomplicated Diabetes mellitus, type 2 Hypothyroidism Surgical History History of esophagogastroduodenoscopy (EGD) History of vocal cord polypectomy History of colonoscopy History of cataract surgery Social History Alcohol intake: never Patient Tobacco Use Status: Current everyday Tobacco user Tobacco use type: Cigarette Cigarettes Per Day: 4 Physical Exam Vital Signs: Last Vital Signs Pulse 79 09/18/24 10:33 BP 101/35 L 09/18/24 10:33 BMI result Body Mass Index 34.1 Assessment & Plan Assessment & Plan (1) Common bile duct dilatation: Code(s): K83.8 - Other specified diseases of biliary tract Category: Medical Plan: see above Medications: New lansoprazole 30 mg PO DAILY 30 caps 2RF Coding Level of Care Code Est Pt Level 3 (54910) Diagnoses Common bile duct dilatation K83.8
[2024-09-18 10:33] VITALS: BP 101/35; PULSE 79; BMI 34.1
== END 2024-09-18 11:14 | disposition home or self-care (01) ==
LOC: HO.HGI 10:07
PROVIDERS: PCP Internal Medicine; Visit Provider Internal Medicine Gastroenterology
DX: K83.8 Other specified diseases of biliary tract (principal)
CPT/HCPCS: 99213

== ENCOUNTER → 2024-09-18 10:06 | Outpatient (BNVA) | payer OTHER, SELFPAY | PROVIDERS: PCP Internal Medicine; Visit Provider Internal Medicine Gastroenterology | DX: K83.8 Other specified diseases of biliary tract (principal) | CPT/HCPCS: 99212 ==

== ENCOUNTER 2024-10-31 12:42 | Observation (INO) | payer OTHER, SELFPAY ==
[2024-10-31] VITALS (8 sets, daily range): BP systolic 96–159; BP diastolic 53–82; PULSE 94–136; RESP 18–20; TEMP 36.2–36.9; O2SAT 96–99; BMI 37.3
--- NOTE | ~2024-10-31 | US_ITS ---
EXAMINATION: US ABDOMEN LIMITED HISTORY: RUQ, dilated CBD. N/V/D TECHNIQUE: Real-time grayscale ultrasound imaging of the liver and gallbladder was performed and images were reviewed. COMPARISON: Comparison is made with the prior examination dated 01/18/2024. FINDINGS: Liver: The liver is normal in size. The liver demonstrates normal homogeneous echotexture. No focal mass is identified. There is mild dilatation of the intrahepatic biliary radicles. There is normal hepatopedal flow in the portal vein. Gallbladder and biliary tree: The gallbladder is contracted and filled with tiny calculi. There is no sonographic Mcconnell sign. The common bile duct is dilated measuring 13 mm, similar in appearance of the prior study. There is no free fluid in the right upper quadrant. US/US abdomen limited IMPRESSION: Contracted gallbladder with numerous intraluminal calculi. Dilated common bile duct without significant change from the prior study. Electronically signed by: Anatoliy Uribe MD 11/01/2024 02:23 PM EDT
--- NOTE | ~2024-10-31 | CT_ITS ---
CLINICAL HISTORY: severe dizziness CT head without contrast Comparison: None Findings: No intra-axial mass, midline shift, hydrocephalus, or acute hemorrhage. No significant atrophy-like change or white matter disease. There is no sinus or mastoid fluid. The orbits are unremarkable. There is no acute fracture. IMPRESSION: 1. No acute intracranial findings. This document has been electronically signed by: Maurice Henley MD on 10/31/2024 21:45:42
--- NOTE | ~2024-10-31 | CT_ITS ---
CLINICAL HISTORY: abd pain n v d CT abdomen and pelvis with IV contrast. COMPARISON: US right upper quadrant dated 01/18/24 at 10:58 EDT FINDINGS: Minimal atelectasis along the lung bases. Mild intrahepatic biliary ductal dilatation. Small likely calculi present along the gallbladder fossa within a likely markedly contracted gallbladder. Common bile duct is dilated measuring up to 1.5 cm. No radiopaque choledocholithiasis identified. Pancreatic duct is not dilated. No pancreatic head mass identified. Normal spleen. Normal pancreas. Normal adrenal glands. Left kidney is absent. No right-sided hydronephrosis. Right renal cystic lesion measuring 0.9 cm. Normal appendix. Mild colonic stool burden. No bowel obstruction. No mesenteric or retroperitoneal lymphadenopathy. Mild aortoiliac atherosclerotic vascular calcifications. Normal appearance of the urinary bladder. No adnexal mass. Moderate lower lumbar spondylosis. No acute fracture or suspicious bone lesion. IMPRESSION: 1. No evidence of appendicitis. No bowel obstruction. 2. Dilated common bile duct with mild intrahepatic biliary ductal dilatation. This is similar to prior imaging dated 01/18/2024 and is likely a chronic finding. No radiopaque choledocholithiasis or pancreatic head mass identified. Consider right upper quadrant ultrasound or MRCP for further characterization. 3. Likely markedly contracted gallbladder with multiple small cholelithiasis in the gallbladder lumen. This document has been electronically signed by: Harsh Luna MD on 10/31/2024 17:52:52
--- NOTE | ~2024-10-31 | MR_ITS ---
EXAMINATION: MRCP HISTORY: abdominal pain, dilated CBD COMPARISON: Correlation is made with an abdominal ultrasound dated 11/01/[address] scan dated 10/31/2024. TECHNIQUE: Axial gradient echo and coronal haste T2 with fat saturation images were obtained through the abdomen. 3D MRCP Reconstructed images and thick slab imaging of the biliary tree were obtained. FINDINGS: There is no significant signal loss within the liver on opposed phase imaging to suggest steatosis. There is mild prominence of intrahepatic biliary radicles. Again seen is dilatation of the common bile duct measuring up to 14 mm in diameter. No intraluminal filling defects are identified to suggest choledocholithiasis. The gallbladder is contracted. The intraluminal calculi noted on CT and ultrasound are not well visualized due to gallbladder contraction. The spleen and pancreas have an unremarkable unenhanced appearance. The pancreatic duct is normal in caliber. The adrenal glands are unremarkable. There is a 1.2 cm cyst at the lower pole of the right kidney. The left kidney is surgically absent. No retroperitoneal lymphadenopathy or ascites is identified in the upper abdomen. The visualized bones demonstrate normal marrow signal intensity. MR/MR MRCP IMPRESSION: Contracted gallbladder. Dilatation of the common bile duct as seen on prior imaging. No evidence of choledocholithiasis. Electronically signed by: Anatoliy Uribe MD 11/03/2024 07:29 AM EDT
--- NOTE | 2024-10-31 14:42 | ED_ITS ---
HPI - General Adult General Chief complaint: General Medical Stated complaint: N/V/D FROM CLINIC PER EMS Time Seen by Provider: 10/31/24 12:49 History of Present Illness HPI narrative: Patient is a 79-year-old female status post left nephrectomy over 20 years ago in [place]. Presented today with having nausea vomiting diarrhea. Patient stated symptoms seems to have gotten worse in the last 2 days. Patient is vomiting mostly food. Diarrhea was brown in color. There is no blood that was noted. Has diffuse abdominal pain. However it is worse on the left side. No other abdominal surgery done in the past. Related Data Home Medications ?Medication ?Instructions ?Recorded ?Confirmed meclizine 25 mg tablet 25 mg PO DAILY 08/28/20 08/16/24 ascorbic acid (vitamin C) 500 mg 500 mg PO DAILY 10/29/22 08/16/24 tablet (Vitamin C) aspirin 81 mg tablet,delayed 81 mg PO BEDTIME 10/29/22 08/16/24 release duloxetine 30 mg capsule,delayed 30 mg PO DAILY 10/29/22 08/16/24 release pregabalin 75 mg capsule 75 mg PO BID 10/29/22 08/16/24 trazodone 50 mg tablet 50 mg PO BEDTIME 10/29/22 08/16/24 levothyroxine 75 mcg tablet 75 mcg PO QAM 12/11/22 08/16/24 metoprolol succinate 50 mg 50 mg PO QAM 12/11/22 08/16/24 tablet,extended release 24 hr acetaminophen 500 mg tablet 1,000 mg PO Q6H PRN mild pain 07/02/23 08/16/24 albuterol sulfate 90 mcg/actuation 2 puff inhalation Q4H PRN 07/02/23 08/16/24 aerosol inhaler (Ventolin HFA) Shortness Of Breath fluticasone propionate 50 1 spray intranasal BID 07/02/23 08/16/24 mcg/actuation nasal spray,suspension fluticasone furoate 200 1 inh inhalation DAILY 08/11/24 08/16/24 mcg/actuation blister powder for inhalation (Arnuity Ellipta) atorvastatin 20 mg tablet mg PO DAILY 09/18/24 blood sugar diagnostic (FreeStyle #10 ea 09/18/24 Lite Strips) magnesium oxide 400 mg (241.3 mg mg PO 09/18/24 magnesium) tablet multivitamin 1 tab PO QAM 09/18/24 sennosides 8.6 mg tablet (senna) 17.2 mg PO BEDTIME 09/18/24 Previous Rx's ?Medication ?Instructions ?Recorded lidocaine 4 % topical patch 1 patch topical BID PRN pain #10 ea 01/10/21 ondansetron 4 mg disintegrating 4 mg PO Q8H PRN nausea and 04/23/23 tablet vomiting #7 tabs rifaximin 550 mg tablet 550 mg PO TID 2 weeks #42 tabs 04/23/23 lansoprazole 30 mg capsule,delayed 30 mg PO DAILY #30 caps 09/18/24 release ondansetron 4 mg disintegrating 4 mg PO Q6-8H PRN nausea and 10/31/24 tablet vomiting #7 tabs Allergies Allergy/AdvReac Type Severity Reaction Status Date / Time meperidine [Demerol] Allergy Unknown Unknown Verified 10/31/24 12:56 Review of Systems 2 Review of Systems: Positive abdominal pain Positive nausea vomiting diarrhea Yes all other systems are reviewed and are negative PMFSH Past Medical History Attestation statement: The following information was validated with the patient. Medical History Osteoarthritis GERD (gastroesophageal reflux disease) Dysphagia Microscopic hematuria Fibromyalgia Anxiety and depression Hyperlipidemia Hypertension, essential Nicotine dependence, cigarettes, uncomplicated Diabetes mellitus, type 2 Hypothyroidism Surgical History History of esophagogastroduodenoscopy (EGD) History of vocal cord polypectomy History of colonoscopy History of cataract surgery Social History Social History Alcohol intake: never Patient Tobacco Use Status: Current everyday Tobacco user Tobacco use type: Cigarette Cigarettes Per Day: 4 Physical Exam ED Vital Signs: Vital Signs - 24 hr 10/31/24 12:50 10/31/24 14:10 10/31/24 15:52 Temperature 98.4 F 97.2 F Pulse Rate 96 106 H Respiratory Rate 18 18 18 Blood Pressure 127/72 113/61 Pulse Oximetry 99 98 Oxygen Delivery Method Room Air Room Air 10/31/24 18:23 10/31/24 19:31 10/31/24 20:00 Temperature 98.3 F 98.3 F Pulse Rate 104 H 98 Respiratory Rate 18 18 20 Blood Pressure 125/59 L 125/59 L 120/53 L Pulse Oximetry 99 99 96 Oxygen Delivery Method Room Air Room Air Room Air 10/31/24 21:19 10/31/24 22:23 10/31/24 22:23 Temperature Pulse Rate 100 96 110 H Respiratory Rate 18 Blood Pressure 159/77 H 96/70 109/56 L Pulse Oximetry 98 Oxygen Delivery Method Room Air 10/31/24 22:23 Temperature Pulse Rate 136 H Respiratory Rate Blood Pressure 98/76 Pulse Oximetry Oxygen Delivery Method BMI result Body Mass Index 37.3 Appearance: Alert. Oriented X3. No acute distress. Eyes: Pupils equal, round and reactive to light. ENT: Pharynx normal. Neck: Normal inspection. Neck supple. No lymph nodes noted. No crepitus CVS: Normal heart rate and rhythm. Pulses normal. Normal S1 and S2 Respiratory: No respiratory distress. Breath sounds normal. No Wheezing. No rales Abdomen: Soft and nontender. No rigidity. No distention. good BS x4. Rectal exam showed brown stool Skin: Skin warm and dry. Normal skin color. Normal skin turgor. Extremities: No lower extremity edema. Neurovascular intact to all extremities. No Lacerations. No Rash Neuro: Oriented X 3. No motor deficit. No sensory deficit. Moving all extermities. No slurred speech Medications Administered Discontinued Medications Generic Name Dose Route Start Last Admin Trade Name Freq PRN Reason Stop Dose Admin Hydromorphone HCl 0.5 mg 10/31/24 14:40 10/31/24 15:52 Hydromorphone Hcl 0.5 Mg/0.5 Ml Syringe IVPUSH 10/31/24 14:41 0.5 mg ONCE ONE Administration Protocol Sodium Chloride 1,000 mls @ 999 mls/hr 10/31/24 14:45 10/31/24 21:14 Ns IV 10/31/24 15:45 Infused .Q1H1M ZAHIRA Infusion Iohexol 85 ml 10/31/24 16:15 10/31/24 16:15 Iohexol 350 Mg/Ml 100 Ml Infus..Btl IV 10/31/24 16:16 85 ml ONCE ONE Administration Meclizine HCl 25 mg 10/31/24 20:42 10/31/24 21:16 Meclizine Hcl 25 Mg Tablet PO 10/31/24 20:43 25 mg ONCE ONE Administration Ondansetron HCl 4 mg 10/31/24 14:40 10/31/24 15:52 Ondansetron Hcl 4 Mg/2 Ml Vial IVPUSH 10/31/24 14:41 4 mg ONCE ONE Administration Ondansetron HCl 4 mg 10/31/24 18:56 10/31/24 19:11 Ondansetron Hcl 4 Mg/2 Ml Vial IVPUSH 10/31/24 18:57 4 mg ONCE ONE Administration Medical Decision Making Medical Decision Making [facility] Narrative: Patient has acute gastroenteritis mostly nausea did not have any bowel movement today CT scan of the abdomen negative for acute taking p.o. fluids labs are stable will discharge patient home 2200 patient's said that been feeling dizzy feel everything spinning and does have history of same after IV fluids patient went to the bathroom was unable to stand up almost fell because of severe vertiginous feeling which she had before also patient has had p.o. fluids and food in the ED unsteady on her feet orthostatics are better patient is still nauseated vomiting CT scan of the head is negative for acute no cerebellar signs will admit patient for severe vertigo Differential Diagnosis Differential Diagnoses: The differential diagnosis associated with the presentation includes Lab Data [facility] Lab Attestation statement: I reviewed the patient's lab results. 10/31/24 14:59 10/31/24 14:59 Labs: Lab Results 10/31/24 Range/Units 14:59 WBC 5.2 (4.8-10.8) X10*3/uL RBC 4.82 (4.20-5.50) X10*6/uL Hgb 12.9 (12.0-16.0) g/dl Hct 40.7 (37.0-47.0) % MCV 84.4 (80.0-98.0) fL MCH 26.8 L (27.0-33.0) pg MCHC 31.7 (31.0-35.0) g/dl RDW 15.5 (11.0-16.0) % Plt Count 126 L D (160-400) X10*3/uL MPV 11.8 (9.4-12.3) fL Immature Gran % (Auto) 1.2 H (0.0-0.4) % Neut % (Auto) 81.6 H (45-73) % Lymph % (Auto) 11.0 L (20-40) % [place] % (Auto) 5.6 (2-11) % Eos % (Auto) 0.4 (0-4) % Baso % (Auto) 0.2 (0-2) % Lymph # (Auto) 0.6 L (1.2-4.9) X10*3/uL [place] # (Auto) 0.3 (0.1-1.2) X10*3/uL Eos # (Auto) 0.0 (0.0-0.4) X10*3/uL Baso # (Auto) 0.0 (0.0-0.2) X10*3/uL Abs Immat Gran (auto) 0.06 H (0.00-0.03) X10*3/uL Absolute Neuts (auto) 4.3 (2.0-8.3) x10*3/uL Absolute Nucleated RBC 0.000 (0.0-0.012) X10*3/uL Nucleated RBC % (auto) 0.0 (0.0-0.2) /100WBC Sodium 140 (135-145) mmol/L Potassium 3.7 (3.3-5.1) mmol/L Chloride 104 (96-108) mmol/L Carbon Dioxide 25 (22-29) mmol/L Anion Gap 15 (12-20) BUN 14 (9-16) mg/dL Creatinine 0.71 (0.5-1.4) mg/dL Estim Creat Clear Calc 70.2 Estimated GFR > 60 Random Glucose 120 H (60-115) mg/dL Calcium 8.9 D (8.4-10.2) mg/dL Total Bilirubin 0.7 (0.0-1.0) mg/dL Direct Bilirubin 0.3 (0.0-0.5) mg/dL AST 26 (5-31) U/L ALT 9 (0-31) U/L Alkaline Phosphatase 89 (39-117) U/L Total Protein 6.8 (6.5-8.0) g/dL Albumin 3.9 (3.5-5.0) g/dL Lipase 8 (8-78) U/L Radiology Impression Discussion of test interpretation with radiology: I have reviewed the radiologist's reading. Radiologist Impression: IMPRESSION: 1. No evidence of appendicitis. No bowel obstruction. 2. Dilated common bile duct with mild intrahepatic biliary ductal dilatation. This is similar to prior imaging dated 01/18/2024 and is likely a chronic finding. No radiopaque choledocholithiasis or pancreatic head mass identified. Consider right upper quadrant ultrasound or MRCP for further characterization. 3. Likely markedly contracted gallbladder with multiple small cholelithiasis in the gallbladder lumen. This document has been electronically signed by: Harsh Luna MD on 10/31/2024 17:52:52 Discharge Plan Discharge Clinical Impression: Acute severe vertigo Patient Disposition: Admitted As Inpatient Interventions: ED Discharge Assessment Last Done: 10/31/24 19:31 Print Language: Norwegian
--- OUTSIDE RECORDS SUMMARY | 2024-10-31 14:43 | XMS_ITS | Encounter Summary ---
Author Organization [employer] Address [address] [place] [address] Care Team Providers Care Geology Associate Name Role Phone Daniel Hloder MD Primary Care Provide r Reason for Visit * Reason Comments Diabetes Pt is very nauseous, dizzy, started yesterday around 2 pm after she ate a salad/soup Encounter Details Date Type Department Care Team (Late st Contact Info) Description 10/31/2024 11:30 AM EDT Office Visit [facility] [address] [place], [place] [id number] Daniel Holder MD [address] [place] [address] Diarrhea of presumed infectious origin (Primary Dx); Type 2 diabetes mellitus with stage 3a chronic kidney disease, without long-term current use of insulin ([facility]/HCC); Dilated cbd, acquired; Stage 3a chronic kidney disease (CMS/HCC); Chronic obstructive pulmonary disease, unspecified COPD type ([facility]/HCC); Severe obesity ([facility]); Dietary counseling; Exercise counseling; Preventative health care Social History Tobacco Use Types Packs/Day Years Used Date Smoking Tobacco: Some Days Cigarettes Passive Smoke Exposure: Current Smokeless Tobacco: Never Alcohol Use Standard Drinks/Week Comments Never 0 (1 standard drink = 0.6 oz pur e alcohol) Depression Answer Date Recorded Patient Health Questionnaire-9 Score 1 06/27/2024 Patient Health Questionnaire-9 Score 1 06/27/2024 Last PHQ-9: Questionnaire Data Not on file 1 Housing Stability Answer Date Recorded What is your housing situation today? I have jemma zhao 06/27/[address] you li ve. Do you have problems with any of the following? None of the above 06/27/2024 Food Insecurity Answer Date Recorded Within the past 12 months, y ou worried that your food would run out before you got money to buy more: Never True 06/27/2024 Within the past 12 months,th e food you bought just didn't last and you didn't have enough money to get more: Never True Transportation Answer Date Recorded In the past 12 months, has l ack of transportation kept you from medical appts, meetings, work or from getting things needed for daily living? No 06/27/2024 Utilities Answer Date Recorded In the past 12 months, has t he electric, gas, oil or water company threatened to shut off services in your home? No 06/27/2024 Depression Answer Date Recorded Patient Health Questionnaire-2 Score 0 06/27/2024 Internet Access Answer Date Recorded Internet Access Q1 No 06/27/2024 Internet Access Q2 I do not want or need it 05/30 Comments Unknown Sex and Gender Information Value Date Recorded Sex Assigned at Female 04/27/2022 10:14 AM EDT Legal Sex Female 10:14 AM EDT Gender Identity Female 04/27/2022 10:14 AM EDT Sexual Orientation Straight 04/27/2022 10 :14 AM EDT documented as of this encounter Last Filed Vital Signs Vital Sign Reading Time Taken Comments Blood Pressure 142/84 10/31/2024 11:46 AM EDT Pulse 75 10/31/2024 11:46 AM EDT Temperature 36.1 ??C (96.9 ??F) 10/31/2024 11:46 AM E DT Respiratory Rate 20 10/31/2024 11:46 AM EDT Oxygen Saturation 99% 10/31/2024 11:46 AM EDT Inhaled Oxygen Concentration - - Weight - - Height 162.6 cm (5' 4 ) 10/31/2024 11:46 AM EDT Body Mass Index - - documented in this encounter Progress Notes * Daniel Agudelo MD - 10/31/2024 11:30 AM EDT DAVID Burton is a 79 y.o. female who presents for Diabetes (Pt is very nauseous, dizzy, started yesterday around 2 pm after she ate a salad/soup). Diabetes She presents for her follow-up diabetic visit. She has type 2 diabetes mellitus. Pertinent negatives for hypoglycemia include no headaches. Pertinent negatives for diabetes include no chest pain. Diarrhea This is a new problem. The current episode started yesterday. The problem occurs 5 to 10 times per day. The problem has been rapidly worsening. The stool consistency is described as Watery. Associated symptoms include abdominal pain. Pertinent negatives include no coughing, fever or headaches. She has tried nothing for the symptoms. The treatment provided no relief. Review of Systems Constitutional: Negative for fever. HENT: Negative for sore throat. Respiratory: Negative for cough and shortness of breath. Cardiovascular: Negative for chest pain. Gastrointestinal: Positive for abdominal pain and diarrhea. Neurological: Negative for headaches. Allergies Allergen Reactions Meperidine Unknown Meperidine Hcl Other reaction(s): [D]Hypersomnia with sleep apnea Naproxen Palpitations OBJECTIVE Vitals: 10/31/24 1146 BP: (!) 142/84 BP Location: Right arm Patient Position: Lying BP Cuff Size: Adult Pulse: 75 Resp: 20 Temp: 96.9 ??F (36.1 ??C) TempSrc: Temporal SpO2: 99% Height: 5' 4 (1.626 m) Physical Exam Vitals reviewed. Constitutional: Appearance: Normal appearance. HENT: Head: Normocephalic and atraumatic. Right Ear: External ear normal. Left Ear: External ear normal. Nose: Nose normal. Mouth/Throat: Mouth: Mucous membranes are moist. Eyes: Conjunctiva/sclera: Conjunctivae normal. Cardiovascular: Rate and Rhythm: Normal rate and regular rhythm. Pulmonary: Effort: Pulmonary effort is normal. Breath sounds: Normal breath sounds. Abdominal: Tenderness: There is abdominal tenderness in the left lower quadrant. Skin: General: Skin is warm. Neurological: Mental Status: She is alert. Mental status is at baseline. Assessment/Plan Problem List Items Addressed This Visit Diarrhea of presumed infectious origin - Primary Patient here with c/o acute onset of diarrhea x 24 hrs, described as explosive, associated with nausea and vomiting and inability to take POs On exam she has LLQ tenderness Infectious Gastroenteritis VS diverticulitis ? Plan: ER transfer via ambulance given risk factors, DM, CKD (one kidney) high risk of dehydration and ATN due to her inability to keep Fluids down Case discussed with ER at [facility] Type 2 diabetes mellitus with stage 3a chronic kidney disease (CMS/HCC) Pt here for a f/u DM better controlled on a regimen of: Actos 30 mg po daily Hgb A1c 10/31/2024 : 6.7 down from 7.5 Eye exam was last done on: 04/30/[address] Hannon (press operator carbon blocks) Microalbumin checked on: 05/26/2021 was: 1.1 Pt is not on an NOELLE inhibitor/ARB due to borderline low blood pressure Foot check risk of zero Pt reports compliance with Asa 81 mg po daily Plan: Continue current regimen Pt advised to: adhere to diabetic diet check your blood sugars regularly check your feet on a daily basis 4 months f/u Relevant Orders POCT Glucose (Completed) POCT HGB A1C Dilated cbd, acquired Urologist performed a CT Urogram 11/17 that showed gallstones with dilated common bile duct. He recommended a Gastroenterology referral Seen by Dr Butterfield Repeat Imaging showed:01/18/2024 1. Cholelithiasis without evidence of cholecystitis. Unchanged dilated common bile duct measuring 1.3 cm Seen last by Dr Degroot 09/18/2024 Stage 3a chronic kidney disease (CMS/HCC) Under the care of Dr Gabriel last seen 08/19/2023 Chronic obstructive lung disease (CMS/HCC) Here for a f/u No recent exacerbations On Flovent and Ventolin Encouraged to stop smoking again Severe obesity (CMS/HCC) Discussed the need to loose weight, referred to Paper Sales Representative in the past. Patient has been counseled and educated about diet and exercise. Personal goal of weight loss discussed Preventative health care Mammogram: 05/29/2021 Normal Pap Smear: 11/03/11 Given age no need to continue Colonoscopy: 10/11/13 , BE 12/01/13, repeat Colonoscopy 08/16/2024 Other Visit Diagnoses Dietary counseling Exercise counseling documented in this encounter Miscellaneous Notes * Assessment & Plan Note - Daniel Agudelo MD - 10/31/2024 12:18 PM EDT Associated Problem(s): Severe obesity (CMS/HCC) Discussed the need to loose weight, referred to Paper Sales Representative in the past. Patient has been counseled and educated about diet and exercise. Personal goal of weight loss discussed * Assessment & Plan Note - Daniel Agudelo MD - 10/31/2024 12:18 PM EDT Associated Problem(s): Chronic obstructive lung disease (CMS/HCC) Here for a f/u No recent exacerbations On Flovent and Ventolin Encouraged to stop smoking again * Assessment & Plan Note - Daniel Agudelo MD - 10/31/2024 12:17 PM EDT Associated Problem(s): Stage 3a chronic kidney disease (CMS/HCC) Under the care of Dr Gabriel last seen 08/19/2023 * Assessment & Plan Note - Daniel Agudelo MD - 10/31/2024 12:15 PM EDT Associated Problem(s): Type 2 diabetes mellitus with stage 3a chronic kidney disease (CMS/HCC) Pt here for a f/u DM better controlled on a regimen of: Actos 30 mg po daily Hgb A1c 10/31/2024 : 6.7 down from 7.5 Eye exam was last done on: 04/30/[address] Hannon (press operator carbon blocks) Microalbumin checked on: 05/26/2021 was: 1.1 Pt is not on an NOELLE inhibitor/ARB due to borderline low blood pressure Foot check risk of zero Pt reports compliance with Asa 81 mg po daily Plan: Continue current regimen Pt advised to: adhere to diabetic diet check your blood sugars regularly check your feet on a daily basis 4 months f/u * Assessment & Plan Note - Daniel Agudelo MD - 10/31/2024 12:13 PM EDT Associated Problem(s): Diarrhea of presumed infectious origin Patient here with c/o acute onset of diarrhea x 24 hrs, described as explosive, associated with nausea and vomiting and inability to take POs On exam she has LLQ tenderness Infectious Gastroenteritis VS diverticulitis ? Plan: ER transfer via ambulance given risk factors, DM, CKD (one kidney) high risk of dehydration and ATN due to her inability to keep Fluids down Case discussed with ER at [facility] * Assessment & Plan Note - Daniel Agudelo MD - 10/31/2024 11:53 AM EDT Associated Problem(s): Preventative health care Mammogram: 05/29/2021 Normal Pap Smear: 11/03/11 Given age no need to continue Colonoscopy: 10/11/13 , BE 12/01/13, repeat Colonoscopy 08/16/2024 * Assessment & Plan Note - Daniel Agudelo MD - 10/31/2024 11:52 AM EDT Associated Problem(s): Dilated cbd, acquired Urologist performed a CT Urogram 11/17 that showed gallstones with dilated common bile duct. He recommended a Gastroenterology referral Seen by Dr Butterfield Repeat Imaging showed:01/18/2024 1. Cholelithiasis without evidence of cholecystitis. Unchanged dilated common bile duct measuring 1.3 cm Seen last by Dr Degroot 09/18/2024 documented in this encounter Plan of Treatment Upcoming Encounters Date Type Department Care Team (Late st Contact Info) Description 02/01/2025 2:00 PM EDT Office Visit [facility] [address] [place] [id number] Daniel Holder MD [address] [place] [address] Scheduled Orders Name Type Priority Associated Diagnoses Orde r Schedule POCT HGB A1C Point of Care Testing Routine Type 2 diabetes mellitus with stage 3a chronic kidney disease, without long-term current use of insulin (CMS/HCC) Ordered: 10/31/2024 documented as of this encounter Procedures Procedure Name Priority Date/Time Associated Diagnosis Comments POCT GLUCOSE Routine 10/31/2024 11:59 AM EDT Type 2 diabetes mellitus with stage 3a chronic kidney disease, without long-term current use of insulin (CMS/HCC) documented in this encounter Results * POCT Glucose (10/31/2024 11:59 AM EDT) Glucose Blood, POC 167 60 - 200 mg/dL QC Media Lot # [id number] Lot# Expiration Date Blood Capillary blood specimen / Unknown 10/31/2024 11:59 AM EDT Daniel Agudelo MD POINT OF CARE TEST EN TER/EDIT ORDERABLES Final Result documented in this encounter Visit Diagnoses Diagnosis Diarrhea of presumed infectious origin- Primary Type 2 diabetes mellitus with stage 3a chronic kidney disease, without long-term current use of insulin (CMS/HCC) Dilated cbd, acquired Stage 3a chronic kidney disease (CMS/HCC) Chronic obstructive pulmonary disease, unspecified COPD type (CMS/HCC) Severe obesity (CMS/HCC) Morbid obesity Dietary counseling Dietary surveillance and counseling Exercise counseling Preventative health care Routine general medical examination at a health care facility documented in this encounter Additional Health Concerns Assessment Noted Time PHQ-9 Depression Total Score: 1 06/27/20 24 10:42 AM EST documented as of this encounter Care Teams Geology Associate Relationship Specialty Start Date End Date Daniel Holder MD [address] [place] [address] PCP - General Internal Medicine 03/26/14 documented as of this encounter
--- OUTSIDE RECORDS SUMMARY | 2024-10-31 14:43 | XMS_ITS | Clinical Summary ---
Author Organization [facility] Address [address] [facility] [address] [place] [address] Phone Care Team Providers Care [employer] Senior Officer Name Role Phone Daniel Gutierrez MD Primary Care Provider Unav ailable Allergies Active Allergy Reactions Criticality Noted Date Comments Meperidine Other (see comments) 08/16/2020 Meperidine Hcl Other (see comments) 08/19/2023 Naproxen Palpitations Low Medications Multiple Vitamin (MULTIVITAMIN ADULT PO) Take 1 tablet by mouth 1 (one) time each day Active ascorbic acid (VITAMIN C) 500 MG CR capsule Active aspirin (ST MARION) 81 MG EC tablet Take 1 tablet by mouth 1 (one) time each day Active atorvastatin (LIPITOR) 20 MG tablet Take 1 tablet by mouth 1 (one) time each day Active DULoxetine (CYMBALTA) [address] capsule Take 1 capsule by mouth 1 (one) time each day Active fluticasone (FLONASE) 50 MCG/ACT nasal spray Administer 1 spray into each nostril 2 (two) times a day Active fluticasone HFA (Flovent HFA) 220 MCG/ACT inhaler Inhale 1 puff 2 (two) times a day Active levothyroxine (SYNTHROID, LEVOTHROID) 75 MCG tablet Take 1 tablet by mouth 1 (one) time each day Active metoprolol succinate XL (TOPROL-XL) 50 MG 24 hr tablet Take 1 tablet by mouth 1 (one) time each day Active omeprazole (PriLOSEC) [address] capsule Take 1 capsule by mouth 1 (one) time each day Active pioglitazone (ACTOS) 15 MG tablet Take 1 tablet by mouth 1 (one) time each day Active pregabalin (LYRICA) 75 MG capsule Take 1 capsule by mouth 2 (two) times a day Active senna (SENOKOT) 8.6 MG tablet Take 2 tablets by mouth at bed time Active traZODone (DESYREL) 50 MG tablet Take 50 mg by mouth at bed time Active cholecalciferol (VITAMIN D-3) 25 MCG (1000 UT) capsule Take 1,000 Units by mouth 1 (one) time each day Active Flaxseed, Linseed, (BL FLAX SEED OIL PO) Take by mouth Active omega-3 acid ethyl esters (LOVAZA) 1 g capsule Take 2 g by mouth 2 (two) times a day Active Active Problems Problem Noted Date Diagnosed Date Smoker 08/25/2022 Dyslipidemia 08/19/2022 Stage 3a chronic kidney disease 08/18/2021 Hypertension 08/16/2020 Renal stone 08/16/2020 Total nephrectomy 08/16/2020 Diabetes mellitus, not otherwise specified 08/16 Chronic obstructive pulmonary disease 03/08/2012 Fibromyalgia 03/08/2012 Resolved Problems Problem Noted Date Diagnosed Date Resolved Date Hypercholesterolemia 08/16/2020 023 Encounters Date Type Department Care Team Description 08/19/2024 Orders Only [facility] [address] [place] [address] Robson Gabriel MD Stage 3a chronic kidney disease (HCC); Hypertension; Renal stone; Total nephrectomy; Dyslipidemia from Last 3 Months Social History Tobacco Use Types Packs/Day Years Used Date Smoking Tobacco: Smoker, Current Status Unknown Cigarettes Smokeless Tobacco: Never Alcohol Use Standard Drinks/Week Comments No 0 (1 standard drink = 0.6 oz pur e alcohol) Comments Unknown Sex and Gender Information Value Date Recorded Sex Assigned at Not on file Legal Sex Female 5:19 PM EST Gender Identity Not on file Sexual Orientation Not on file Last Filed Vital Signs Vital Sign Reading Time Taken Comments Blood Pressure 116/60 08/19/2023 10:07 AM EST Pulse 80 08/19/2023 10:07 AM EST Temperature - - Respiratory Rate - - Oxygen Saturation 91% 08/19/2023 10:07 AM EST Inhaled Oxygen Concentration - - Weight 90.1 kg (198 lb 9.6 oz) 08/19/2023 10:07 AM EST Height 165.1 cm (5' 5 ) 08/19/2023 10:07 AM EST Body Mass Index 33.05 08/19/2023 10:07 AM EST Plan of Treatment Health Maintenance Due Date Last Done Comments Diabetes: Ophthalmology Exam 07/28/2020 Diabetes: Pedal Pulse Checked 07/28/2020 Diabetes: Sensory Foot Exam 07/28/2020 Diabetes: Visual Foot Exam 07/28/2020 Diabetes: Hemoglobin A1C 09/25/2024 06/27/2024 Pneumococcal Vaccine: 50+ Years Completed 04/28/2015, 04/28/2015, 03/06/2014 Pneumococcal Vaccine: Peds (0 to 5 Years) and At-Risk Patients (6 to 49 Years) Discontinued 04/28/2015, 04/28/2015, 03/06/2014 Influenza Vaccine Completed 04/04/2024, , 03/22/2019, Additional history exists Hepatitis B Vaccine Aged Out No longe r eligible based on patient's age to complete this topic Procedures Procedure Name Priority Date/Time Associated Diagnosis Comments URINALYSIS WITH MICROSCOPIC Routine 09/29/2024 2:34 PM EDT Stage 3a chronic kidney disease (HCC) Hypertension Renal stone Total nephrectomy Dyslipidemia PROTEIN / CREATININE RATIO, URINE Routine 09/29/2024 2:34 PM EDT Stage 3a chronic kidney disease (HCC) Hypertension Renal stone Total nephrectomy Dyslipidemia CBC AND DIFFERENTIAL Routine 09/29/2024 2:34 PM EDT Stage 3a chronic kidney disease (HCC) Hypertension Renal stone Total nephrectomy Dyslipidemia VITAMIN D 25 HYDROXY Routine 09/29/2024 2:34 PM EDT Stage 3a chronic kidney disease (HCC) Hypertension Renal stone Total nephrectomy Dyslipidemia PTH, INTACT Routine 09/29/2024 2:34 PM EDT Stage 3a chronic kidney disease (HCC) Hypertension Renal stone Total nephrectomy Dyslipidemia PHOSPHATE ( PHOSPHORUS) Routine 09/29/2024 2:34 PM EDT Stage 3a chronic kidney disease (HCC) Hypertension Renal stone Total nephrectomy Dyslipidemia MAGNESIUM Routine 09/29/2024 2:34 PM EDT Stage 3a chronic kidney disease (HCC) Hypertension Renal stone Total nephrectomy Dyslipidemia URIC ACID Routine 09/29/2024 2:34 PM EDT Stage 3a chronic kidney disease (HCC) Hypertension Renal stone Total nephrectomy Dyslipidemia COMPREHENSIVE METABOLIC PANEL Routine 09/29/2024 2:34 PM EDT Stage 3a chronic kidney disease (HCC) Hypertension Renal stone Total nephrectomy Dyslipidemia MICROSCOPIC EXAMINATION - DO NOT USE Routine 09/29/2024 2:34 PM EDT from Last 3 Months Results * Microscopic Examination (09/29/2024 2:34 PM EDT) WBC, Urine 0-5 0 - 5 /hpf [facility] RBC, Urine None seen 0 - 2 /hpf [facility] Squamous Epithelial, Urine 0-10 0 - 10 /hpf [facility] Casts None seen None seen /lpf [facility] Bacteria, Urine None seen None seen/Few [facility] 09/29/2024 2:34 PM EDT 09/29/2024 us Robson Gabriel MD LAB MICROBIOLOGY - GENERAL OR DERABLES Final Result [facility] [address] [place] [address] * Protein, Total, Random Urine w/Creatinine (Protein/Creat Ratio) (09/29/2024 2:34 PM EDT) Creatinine, Ur 51.6 Not Estab. mg/dL [facility] Protein, Ur 6.6 Not Estab. mg/dL [facility] Urine Protein/Creatin ine Ratio 128 0 - 200 mg/g creat [facility] Urine (Urine, Clean Catch) 09/29/2024 2:34 PM EDT 09/29/2024 Robson Gabriel MD LAB URINE ORDERABLES Final Re sult Performing Organization Address [facility]/ZIP Co de Phone Number [facility] [address] [place] [address] * Vitamin D 25 Hydroxy (09/29/2024 2:34 PM EDT) Vitamin D, 25-OH, Total 40.6 30.0 - 100.0 ng/mL [facility] Comment: Vitamin D deficiency has been defined by the [place] of Medicine and an Endocrine Society practice guideline as a level of serum 25-OH vitamin D less than 20 ng/mL (1,2). The Endocrine Society went on to further define vitamin D insufficiency as a level between 21 and 29 ng/mL (2). 1. IOM ([place] of Medicine). 2010. Dietary reference ?? intakes for calcium and D. [place]: The ?? National Academies Press. 2. Johann MF, Liz NC, Nydia VARGAS, et al. ?? Evaluation, treatment, and prevention of vitamin D ?? deficiency: an Endocrine Society clinical practice ?? guideline. JCEM. 2010; 96(7):1911-30. Blood (Blood, Venous) 09/29/2024 2:34 PM EDT 09/29/2024 Robson Gabriel MD LAB BLOOD ORDERABLES Final Re sult Performing Organization Address City/[facility]/ZIP Co de Phone Number [facility] [address] [place] [address] * (ABNORMAL) Urinalysis with microscopic (09/29/2024 2:34 PM EDT) Specific Mccune, Urine 1.010 1.005 - 1.030 [facility] [phone] pH Urine 6.5 5.0 - 7.5 [facility] Color, Urine Yellow Yellow [facility] Appearance Urine Clear Clear [facility] WBC Esterase Urine Trace(A) Negative [facility] Protein, Ur Negative Negative/Tra ce [facility] Glucose, Ur Negative Negative [facility] [phone] Ketones, Urine Negative Negative [facility] Blood Urine Negative Negative [facility] Bilirubin Urine Negative Negative [facility] Urobilinogen Urine 0.2 0.2 - 1.0 mg/dL [facility] [phone] Nitrite, Urine Negative Negative [facility] Microscopic Examination See below: [facility] [phone] Comment:Microscopic was lexx cated and was performed. Urine (Urine, Clean Catch) 09/29/2024 2:34 PM EDT 09/29/2024 us Robson Gabriel MD LAB URINE ORDERABLES Final Re sult [facility] [address] [place] [address] * (ABNORMAL) CBC and Differential (09/29/2024 2:34 PM EDT) WBC 5.6 3.4 - 10.8 x10E3/uL [facility] RBC 4.72 3.77 - 5.28 x10E6/uL [facility] Hemoglobin 12.6 11.1 - 15.9 g/dL [facility] Hematocrit 40.9 34.0 - 46.6 % [facility] MCV 87 79 - 97 fL [facility] MCH 26.7 26.6 - 33.0 pg [facility] MCHC 30.8(L) 31.5 - 35.7 g/dL [facility] RDW 14.3 11.7 - 15.4 % [facility] Platelets 164 150 - 450 x10E3/uL [facility] Neutrophils Relative 30 Not Estab. % [facility] Lymphocytes Relative 55 Not Estab. % [facility] Monocytes 10 Not Estab. % [facility] Eosinophils Relative 4 Not Estab. % [facility] Basophils Relative 1 Not Estab. % [facility] Neutrophils Absolute 1.7 1.4 - 7.0 x10E3/uL [facility] Lymphocytes Absolute 3.1 0.7 - 3.1 x10E3/uL [facility] Monocytes Absolute 0.6 0.1 - 0.9 x10E3/uL [facility] Eosinophils Absolute 0.2 0.0 - 0.4 x10E3/uL [facility] Basophils Absolute 0.0 0.0 - 0.2 x10E3/uL [facility] Immature Granulocytes 0 Not Estab. % [facility] Immature Grans (Absolute) 0.0 0.0 - 0.1 x10E3/uL [facility] Blood (Blood, Venous) 09/29/2024 2:34 PM EDT 09/29/2024 us Robson Gabriel MD LAB BLOOD ORDERABLES Final Re sult [facility] [address] [place] [address] * Uric Acid (09/29/2024 2:34 PM EDT) Uric Acid 6.2 3.1 - 7.9 mg/dL [facility] Comment:Therapeutic target f or gout patients: <6.0 Blood (Blood, Venous) 09/29/2024 2:34 PM EDT 09/29/2024 Robson Gabriel MD LAB BLOOD ORDERABLES Final Re sult Performing Organization Address [facility]/ZIP Co de Phone Number [facility] [address] [place] [address] * Phosphorus (09/29/2024 2:34 PM EDT) Pathologist [facility] Phosphorus 3.9 3.0 - 4.3 mg/dL [facility] Blood (Blood, Venous) 09/29/2024 2:34 PM EDT 09/29/2024 Robson Gabriel MD LAB BLOOD ORDERABLES Final Re sult Performing Organization Address [facility]/ZIP Co de Phone Number [facility] [address] [place] [address] * PTH, Intact (09/29/2024 2:34 PM EDT) PTH 42 15 - 65 pg/mL [facility] Blood (Blood, Venous) 09/29/2024 2:34 PM EDT 09/29/2024 Robson Gabriel MD LAB BLOOD ORDERABLES Final Re sult Performing Organization Address City/[facility]/ZIP Co de Phone Number [facility] [address] [place] [address] * (ABNORMAL) Magnesium (09/29/2024 2:34 PM EDT) Magnesium 1.5(L) 1.6 - 2.3 mg/dL [facility] Blood (Blood, Venous) 09/29/2024 2:34 PM EDT 09/29/2024 us Robson Gabriel MD LAB BLOOD ORDERABLES Final Re sult [facility] [address] [place] [address] * (ABNORMAL) Comprehensive Metabolic Panel (09/29/2024 2:34 PM EDT) Glucose 120(H) 70 - 99 mg/dL [facility] BUN 10 8 - 27 mg/dL [facility] Creatinine 0.88 0.57 - 1.00 mg/dL [facility] eGFR CKD-EPI CR 2020 68 >59 mL/min/1.7 3 [facility] BUN/Creatinine Ratio 11(L) 12 - 28 [facility] Sodium 143 134 - 144 mmol/L [facility] Potassium 4.3 3.5 - 5.2 mmol/L [facility] Chloride 106 96 - 106 mmol/L [facility] Bicarbonate (CO2) 22 20 - 29 mmol/L [facility] Calcium 9.5 8.7 - 10.3 mg/dL [facility] Total Protein 6.5 6.0 - 8.5 g/dL [facility] Albumin 4.3 3.8 - 4.8 g/dL [facility] Globulin 2.2 1.5 - 4.5 g/dL [facility] Total Bilirubin 0.4 0.0 - 1.2 mg/dL [facility] Alkaline Phosphatase 123(H) 44 - 121 IU/L [facility] AST (SGOT) 20 0 - 40 IU/L [facility] ALT (SGPT) 10 0 - 32 IU/L [facility] Blood (Blood, Venous) 09/29/2024 2:34 PM EDT 09/29/2024 us Robson Gabriel MD LAB BLOOD ORDERABLES Final Re sult [facility] [address] [place] [phone] from Last 3 Months Insurance [facility] ([id number]) [facility] ([id number]) [place] [id number] Care Teams [employer] Senior [employer] Relationship Specialty Start Date End Date Daniel Gutierrez MD PCP - General 07/08/20
--- OUTSIDE RECORDS SUMMARY | 2024-10-31 14:43 | XMS_ITS | Encounter Summary ---
Author Organization [employer] Address [address] [place] [address] Care Team Providers Care Television Engineer Name Role Phone Daniel Holder MD Primary Care Provide r Encounter Details Date Type Department Care Team (Late st Contact Info) Description 12/24/2023 Orders Only [facility] [address] [place], [place] [phone] Gurjit Nava MD [address] [place], [place] [phone] Social History Tobacco Use Types Packs/Day Years Used Date Smoking Tobacco: Some Days Cigarettes Passive Smoke Exposure: Current Smokeless Tobacco: Never Depression Answer Date Recorded Patient Health Questionnaire-9 Score 1 02/04/2023 Housing Stability Answer Date Recorded What is your housing situation today? I have jemma zhao 04/21/[address] you li ve. Do you have problems with any of the following? None of the above 04/21/2023 Food Insecurity Answer Date Recorded Within the past 12 months, y ou worried that your food would run out before you got money to buy more: Never True 04/21/2023 Within the past 12 months,th e food you bought just didn't last and you didn't have enough money to get more: Never True Transportation Answer Date Recorded In the past 12 months, has l ack of transportation kept you from medical appts, meetings, work or from getting things needed for daily living? No 04/21/2023 Utilities Answer Date Recorded In the past 12 months, has t he electric, gas, oil or water company threatened to shut off services in your home? No 04/21/2023 Depression Answer Date Recorded Patient Health Questionnaire-2 Score 0 02/04/2023 Comments Unknown Sex and Gender Information Value Date Recorded Sex Assigned at Female 04/27/2022 10:14 AM EDT Legal Sex Female 10:14 AM EDT Gender Identity Female 04/27/2022 10:14 AM EDT Sexual Orientation Straight 04/27/2022 10 :14 AM EDT documented as of this encounter Plan of Treatment Upcoming Encounters Date Type Department Care Team (Late st Contact Info) Description 02/01/2025 2:00 PM EDT Office Visit [facility] [address] [place] [address] Daniel Holder MD [address] [place] [address] documented as of this encounter Visit Diagnoses Not on filedocumented in this encounter Additional Health Concerns Assessment Noted Time PHQ-9 Depression Total Score: 1 02/05/20 23 2:24 PM EDT documented as of this encounter Care Teams Television Engineer Relationship Specialty Start Date End Date Daniel Holder MD [address] [place] [address] PCP - General Internal Medicine 03/26/14 documented as of this encounter
--- OUTSIDE RECORDS SUMMARY | 2024-10-31 14:43 | XMS_ITS | Encounter Summary ---
Author Organization [employer] Address [address] [facility] [address] [place] [address] Care Team Providers Care Director Commercial Sales Name Role Phone Daniel Holder MD Primary Care Provide r Encounter Details Date Type Department Care Team ([facility] st Contact Info) Description 02/04/2024 Telephone [facility] [address] [place], [place] [phone] Daniel Holder MD [address] [place], [place] [phone] Social History Tobacco Use Types Packs/Day Years [...] Description 02/01/2025 2:00 PM EDT Office Visit [facility] [address] [place] [address] Daniel Holder MD [address] [place] [address] documented as of this encounter Visit Diagnoses Not on filedocumented in this encounter Additional Health Concerns Assessment Noted Time PHQ-9 Depression Total Score: 1 02/05/20 23 2:24 PM EDT documented as of this encounter Care Teams Director Commercial Sales Relationship Specialty Start Date End Date Daniel Holder MD [address] [place] [address] PCP - General Internal Medicine 03/26/14 documented as of this encounter
--- OUTSIDE RECORDS SUMMARY | 2024-10-31 14:43 | XMS_ITS | Encounter Summary ---
Author Organization [employer] Address [address] [facility] [address] [place] [address] Care Team Providers Care Electric Engine Mechanic Name Role Phone Daniel Holder MD Primary Care Provide r Reason for Visit * Reason Comments Med Refill Encounter Details Date Type Department Care Team ([facility] st Contact Info) Description 08/12/2023 Refill [facility] [address] [place], [place] [phone] Daniel Holder MD [address] [place], [place] [phone] Fibromyalgia Social History Tobacco Use Types Packs/Day Years Used Date Smoking Tobacco: Some Days Cigarettes Passive Smoke Exposure: Current Smokeless Tobacco: Never Depression Answer Date Recorded Patient Health Questionnaire-9 Score 1 02/04/2023 Housing Stability Answer Date Recorded What is your housing situation today? I have jemmaedison zhao 04/21/[address] you [...] Description 02/01/2025 2:00 PM EDT Office Visit [facility] [address] [place] [address] Daniel Holder MD [address] [place] [address] documented as of this encounter Visit Diagnoses Diagnosis Fibromyalgia Unspecified myalgia and myositis documented in this encounter Additional Health Concerns Assessment Noted Time PHQ-9 Depression Total Score: 1 02/05/20 23 2:24 PM EDT documented as of this encounter Care Teams Electric Engine Mechanic Relationship Specialty Start Date End Date Daniel Holder MD [address] [place] [address] PCP - General Internal Medicine 03/26/14 documented as of this encounter
--- OUTSIDE RECORDS SUMMARY | 2024-10-31 14:43 | XMS_ITS | Clinical Summary ---
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 ([facility]); Dietary counseling; Exercise counseling; Preventative health care 10/31/2024 Telephone [facility] [address] [place] [address] Daniel Holder MD ED expect 10/31/2024 Travel 10/27/2024 Telephone [facility] [address] [place] [address] Daniel Holder MD chart prep 10/18/2024 Patient Outreach [facility] [address] [place] [address] Daniel Holder MD Pre-visit Planning (SDOH will need to be completed in office. ) 10/18/2024 Refill [facility] [address] [place] [address] Daniel Holder MD Fibromyalgia 10/13/2024 Refill [facility] [address] [place] [address] Daniel Holder MD Type 2 diabetes mellitus without complication, unspecified whether senior care insulin use ([facility]) 10/12/2024 Refill [facility] [address] [place] [address] Daniel Holder MD Seasonal allergies; Primary hypertension; Mixed hyperlipidemia; Acquired hypothyroidism 10/04/2024 Refill [facility] [address] [place] [address] Daniel Holder MD Type 2 diabetes mellitus without complication, without long-term current use of insulin ([facility]) 09/29/2024 Refill [facility] [address] [place] [address] Daniel Holder MD 09/21/2024 Telephone [facility] [address] [place] [address] Daniel Holder MD Med Refill 09/20/2024 Refill [facility] [address] [place] [address] Daniel Holder MD Mixed hyperlipidemia 09/19/2024 Refill [facility] [address] [place], [place] [phone] Daniel Holder MD Fibromyalgia 09/11/2024 1:20 PM EDT Immunization [facility] [address], [place] [phone] Marisa Joseph LPN Encounter for immunization 09/11/2024 Travel 08/31/2024 Telephone [facility] [address], [place] [phone] Hui Moise, PRETTY Paperwork/Forms 08/22/2024 Refill [facility] [address] [place], [place] [phone] Daniel Holder MD Seasonal allergies; Fibromyalgia 08/16/2024 Orders Only GENERIC EXTERNAL DATA DEPARTMENT Provider, Generic External Data 08/14/2024 Refill [facility] [address], [place] [phone] Daniel Holder MD from Last 3 Months Immunizations Name Administration Dates Next Due Hep B, adult 09/11/2024 Influenza High-dose Quadriva lent Preservative Free 04/17/2022,04/03/2021 Influenza Quadrivalent Adjuvanted 04/20/2023 Influenza injectable quadriv alent preservative free 02/22/2014 Influenza, High Dose Seasona l, Preservative Free 04/04/2024,03/22/2019,03/02/2018,04/28 Influenza, IIV3, injectable 03/18/2013, 1 Influenza, Split (incl. jin fied surface antigen) 03/08/2012 Influenza, trivalent, adjuvanted 03/08/2017,01/28 Moderna Covid-19 Vaccine 12+ 01/15/2022,07/29/19,09/18/2020 Moderna Covid-19 Vaccine 6+ Bivalent 06/15/2022 Pfizer Covid-19 Vaccine 12+ 05/13/2023 Pneumococcal Conjugate PCV 13 04/28/2015 Pneumococcal Polysaccharide PPSV23 04/28/2015, TD (adult), 2 Lf tetanus tox oid, preservative free, adsorbed 11/12/2016,04/26/2006 Zoster, live 03/06/2014 Social History Tobacco Use Types Packs/Day Years Used Date Smoking Tobacco: Some Days Cigarettes Passive Smoke Exposure: Current Smokeless Tobacco: Never Tobacco Cessation:Ready to Q uit: Not Asked; Counseling Given: Not Answered Alcohol Use Standard Drinks/Week Comments Never 0 [...] Orientation Straight 04/27/2022 10 :14 AM EDT Last Filed Vital Signs Vital Sign Reading Time Taken Comments Blood Pressure 142/84 10/31/2024 11:46 AM EDT Pulse 75 10/31/2024 11:46 AM EDT Temperature 36.1 ??C (96.9 ??F) 10/31/2024 11:46 AM E DT Respiratory Rate 20 10/31/2024 11:46 AM EDT Oxygen Saturation 99% 10/31/2024 11:46 AM EDT Inhaled Oxygen Concentration - - Weight 92.5 kg (204 lb) 06/27/2024 10:35 AM EST Height 162.6 cm (5' 4 ) 10/31/2024 11:46 AM EDT Body Mass Index 35.02 06/27/2024 10:35 AM EST Plan of Treatment Upcoming Encounters Date Type Department Care Team (Late st Contact Info) Description 02/01/2025 2:00 PM EDT Office Visit [facility] [address], [place] [phone] Daniel Holder MD [address] [place], [place] [phone] Health Maintenance Due Date Last Done Comments CT Colonography 1945 FIT DNA/Cologuard 1945 FIT 1945 FOBT 1945 Sigmoidoscopy 1945 Diabetes: Foot Exam 1957 Eye Exam 1957 Hepatitis C Screening 1965 Zoster Vaccines (2 of 3) 05/01/2014 03/06/2014 DTaP/Tdap/Td Vaccines (1 - Tdap) 11/13/2016 11/12/2016, 04/26/2006 RSV Patients and Patients Aged 60 years or older (1 - 1-dose 75+ series) 2022 COVID-19 Vaccine ( season) 2024 05/13/2023, 06/15/2022, 01/15/2022, Additional history exists Diabetes: Hemoglobin A1C 09/25/2024 024, 02/22/2024, 10/07/2023, Additional history exists Hepatitis B Vaccines (2 of 3 - 19+ 3-dose series) 10/09/2024 09/11/2024 Lipid Panel 10/26/2024 10/27/2023, 01/26, 05/26/2021, Additional history exists Alcohol/Substance Use Screening 06/27/2025 06/27/2024 Depression Screening 06/27/2025 06/27/2024, 06/27/20 24 SDOH Screening 06/27/2025 06/27/2024 Tobacco Screening 10/31/2025 10/31/2024 Colonoscopy 08/16/2034 10/11/2013 Colorectal Cancer Screening 08/16/2034 Pneumococcal Vaccine: 50+ Years Completed 04/28/2015, 04/28/2015, 03/06/2014 Influenza Vaccine Completed 04/04/2024, , 04/17/2022, Additional history exists HIB Vaccines Aged Out No longer eligi ble based on patient's age to complete this topic HPV Vaccines Aged Out No longer eligi ble based on patient's age to complete this topic Hepatitis A Vaccines Aged Out No long er eligible based on patient's age to complete this topic IPV Vaccines Aged Out No longer eligi ble based on patient's age to complete this topic Meningococcal Vaccine Aged Out No yandel lanette eligible based on patient's age to complete this topic RSV under 20 months Aged Out No longe r eligible based on patient's age to complete this topic Rotavirus Vaccines Aged Out No longer eligible based on patient's age to complete this topic Procedures Procedure Name Priority Date/Time Associated Diagnosis Comments POCT GLUCOSE Routine 10/31/2024 11:59 AM EDT Type 2 diabetes mellitus with stage 3a chronic kidney disease, without long-term current use of insulin ([facility]) HEMATOXYLIN AND EOSIN STAIN Routine 08/16/2024 12:08 PM EST GLUCOSE, WHOLE BLOOD Routine 08/16/2024 10:54 AM EST POCT GLYCATED HEMOGLOBIN, TOTAL Routine 06/27/2024 10:52 AM EST Type 2 diabetes mellitus with stage 3a chronic kidney disease, without long-term current use of insulin (CMS/HCC) LIPID PANEL, STANDARD Routine 10/27/2023 9:21 AM EDT Type 2 diabetes mellitus with stage 3a chronic kidney disease, without long-term current use of insulin (CMS/HCC) Essential hypertension COLONOSCOPY Routine 10/11/2013 from Last 3 Months or Most Recently Relevant to Health Maintenance Results * POCT Glucose (10/31/2024 11:59 AM EDT) Glucose Blood, POC 167 60 - 200 mg/dL QC Media Lot # [id number] Lot# Expiration Date ,455 Blood Capillary blood specimen / Unknown 10/31/2024 11:59 AM EDT us Daniel Agudelo MD POINT OF CARE TEST EN TER/EDIT ORDERABLES Final Result * Hematoxylin and Eosin Stain (08/16/2024 12:08 PM EST) 08/16/2024 12:0 8 PM EST 08/16/2024 1:08 PM EST Narrative [facility] - 08/18/2024 9:35 AM EST ----- ------- Name: Suha Burton ? Age/Sex: 79/F ? : 1945 Unit#: [id number] ?? Attend Dr: Alberta Weber MD ?Re08/16/24 ?Status: DEP SDC ? Location: HO.SSS ?Disch: ? ----- ------- SPEC : [id number] ?RECD: 08/16/24-1307 ? STATUS: ??SOUT ? REQ NUM: [id number] ? RODNEY: 08/16/24-1207 ? SUBM DR: Alberta Weber MD ? ENTERED: ??08/16/24-1321 ?SP TYPE: Surgical ? OTHR DR: Daniel Oconnor MD ?? ORDERED: ??HE Stain/9, Gross Micro L4/3, IHC, Special st. 2/2, H. pylori, AB/PAS/2 ? Diagnosis ?? A. ??Stomach, biopsy: ??Antral-type and oxyntic mucosa with mild chronic inactive ?? inflammation; no Helicobacter organisms seen. ? B. ??GE junction, biopsy: ?- Cardiofundic-type mucosa with mild chronic inactive inflammation; no intestinal ?? metaplasia seen. ?- Squamous epithelium within normal limits. ? C. ??Colon, sigmoid, polypectomy: ??Fragments of food; colonic tissue not identified. 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 ??Microscopic sections examined. ??No metaplastic changes are seen, supported by AB/PAS stains (A and B); no Helicobacter organisms are seen, supported by H. pylori immunostain (A). ? Material Received ?? A. Stomach ?? B. GE junction (possible Chinchilla's) ?? C. Sigmoid polyp ? Gross Description Received in three parts. Part A: ??Received in formalin labeled ?stomach? are 2 guajardo-white and valencia irregular tissue fragments each measuring 0.25 cm, submitted in toto a cassette labeled A. Part B: ??Received in formalin labeled ?GE junction? are 4 guajardo-white irregular and rectangular tissue fragments ranging from 0.25-0.3 cm, submitted in toto in a cassette labeled B. Part C: ??Received in formalin labeled ?sigmoid polyp? is a 0.9 x 0.6 x 0.35 cm aggregate of white-valencia fibrinopurulent debris and minute shards of valencia tissue, submitted in toto a cassette labeled C. ??CEDS ? CONTINUED ON NEXT PAGE ----- ------- Name: Suha Burton ? Age/Sex: 79/F ? : 1945 Unit#: [id number] ?? Attend Dr: Alberta Weber MD ?Re08/16/24 ?Status: DEP SDC ? Location: [facility] ?Disch: ? ----- ------- SPEC : [id number] ?RECD: 08/16/24 ? STATUS: ??SOUT ? REQ NUM: [id number] ? RODNEY: 08/16/24-1208 ? SUBM DR: Alberta Weber MD ? ENTERED: ??08/16/24-2 ?SP TYPE: Surgical ? OTHR DR: Daniel Oconnor MD ?? ORDERED: ??HE Stain/9, Gross Micro L4/3, IHC, Special st. 2/2, H. pylori, AB/PAS/2 ? Gross Description ?(Continued) Special studies ordered and performed: Immunostain for H. pylori on A; AB/PAS stains on A and B Copies To: ?? Daniel Oconnor MD ?? [facility] ?? [address] ?? [place] [address] ?? [phone] ?? Alberta Weber MD ?? [facility] ?? [address] ?? [place] [address] ?? [phone] ----- ------- Signed (signature on file) Salomón Boyd MD 08/18/24 0935 ? ----- ------- ? END OF REPORT ? Generic External Data Provider LAB BLOOD ORDERAB LES Final Result Performing Organization Address [facility] Co de Phone Number [facility] [address] [place], [place] [phone] * Glucose, Whole Blood (08/16/2024 10:54 AM EST) [facility] Glucose, Whole Blood 112 60 - 115 mg/dL [facility] Comment:METER #: [id number] 08/16/2024 10:5 4 AM EST 08/16/2024 10:59 AM EST Generic External Data Provider LAB BLOOD ORDERAB LES Final Result Performing Organization Address [facility] de Phone Number [facility] [address] [place] [address] [phone] * (ABNORMAL) POCT HGB A1C (06/27/2024 10:52 AM EST) [facility] Hemoglobin A1C 7.5(A) 4.0 - 6.0 % QC Media Lot # [id number] Lot# Expiration Date ,970,400 Blood 06/27/2024 10:5 2 AM EST Daniel Agudelo MD POINT OF CARE TEST EN TER/EDIT ORDERABLES Final Result * Lipid Panel, Standard (10/27/2023 9:21 AM EDT) Triglycerides 98 <150 mg/dL [facility] Comment:Desirable Triglyceri de: less than 150 mg/dLBorderline High Triglyceride 150-199 mg/dLHigh Triglyceride: 200-499 mg/dLVery High Triglyceride: greater than or equal to 5OO mg/dL Cholesterol 136 <200 mg/dL [facility] Comment:Desirable Cholestero l: less than 200 mg/dLBorderline High Cholesterol: 200-239 mg/dLHigh Cholesterol: greater than 239 mg/dL LDL Cholesterol Calculated 67 <100 mg/dL [facility] Comment:Desirable LDL: less than 100 mg/dLNear Optimal/Above Optimal LDL: 110- 129 mg/dLBorderline High LDL: 130-159 mg/dLHigh LDL: 160-189 mg/dLVery High LDL: greater than or equal to 190 mg/dL HDL Cholesterol 50 >40 mg/dL [facility] Comment:Desirable HDL: great er than 40 mg/dL Note: This HDL assay may give artificially low results in patients with liver disease. Blood Venous blood specimen / Unknown 10/27/2023 9:21 AM EDT 10/27/2023 11:23 AM EDT Daniel Agudelo MD LAB BLOOD ORDERABLES Final Result [facility] [address] [place] [phone] * Hm Colonoscopy (10/11/2013) Colonoscopy Normal Normal 10/11/2013 Rowan Virk - 10/11/2013 11:31 AM EDT Recommended 10 year follow up ( see scanned report) us Historical Provider HEALTH MAINTENANCE Final Result from Last 3 Months or Most Recently Relevant to Health Maintenance Insurance [facility] ASSISTED OPTIONS (HMO D-SNP) Care Teams Croze Cutter Helper Relationship Specialty Start Date End Date Daniel Holder MD [address] [place] [phone] PCP - General Internal Medicine 03/26/14
--- OUTSIDE RECORDS SUMMARY | 2024-10-31 14:43 | XMS_ITS | Encounter Summary ---
Author Organization [employer] Address [address] [facility] [address] [place] [address] Care Team Providers Care Zigzagger Name Role Phone Daniel Holder MD Primary Care Provide r Reason for Visit * Reason Onset Date Comments Appointment Request 11/10/2023 Encounter Details Date Type Department Care Team ([facility] st Contact Info) Description 11/10/2023 Telephone [facility] [address] [place] [address] Daniel Holder MD [address] [place], [place] [phone] Appointment Request Social History Tobacco Use Types Packs/Day Years [...] AM EDT documented as of this encounter Miscellaneous Notes * Telephone Encounter - Benja Agudelo - 11/10/2023 10:57 AM EDT Tc from patient calling to request a appt with provider stated was having a procedure done and would like a call back to reschedule Follow -up appt and would like her spouse to be scheduled for the same time and day documented in this encounter Plan of Treatment Upcoming Encounters Date Type Department Care Team (Late st Contact Info) Description 02/01/2025 2:00 PM EDT Office Visit [facility] [address] [place] [address] Daniel Holder MD [address] [place] [address] documented as of this encounter Visit Diagnoses Not on filedocumented in this encounter Additional Health Concerns Assessment Noted Time PHQ-9 Depression Total Score: 1 02/05/20 23 2:24 PM EDT documented as of this encounter Care Teams Zigzagger Relationship Specialty Start Date End Date Daniel Holder MD [address] [place] [address] PCP - General Internal Medicine 03/26/14 documented as of this encounter
--- OUTSIDE RECORDS SUMMARY | 2024-10-31 14:43 | XMS_ITS | Encounter Summary ---
Author Organization [employer] Address [address] [facility] [address] [place] [phone] Care Team Providers Care Diesel Engine Erector Name Role Phone Daniel Holder MD Primary Care Provide r Encounter Details Date Type Department Care Team (Late st Contact Info) Description 08/31/[address] [facility] [address] [place] [address] Sharon Major LPN Social History Tobacco Use Types Packs/Day Years Used Date Smoking Tobacco: Never Assessed Comments Unknown Sex and Gender Information Value [...] 02/01/2025 2:00 PM EDT Office Visit [facility] [address] [place] [address] Daniel Holder MD [address] [place] [address] documented as of this encounter Procedures Procedure Name Priority Date/Time Associated Diagnosis Comments US RETROPERITONEAL COMPLETE Routine 09/29/2022 11:45 AM EDT documented in this encounter Results * US Retroperitoneal Complete (09/29/2022 11:45 AM EDT) Anatomical Region Laterality Modality Ultrasound 09/29/2022 11:4 5 AM EDT Narrative 10/01/2022 5:31 PM EDT ? [facility] ?[address] ? [place] [address] ? Ultrasound Report ? Signed ? Patient: Burton,Suha ?MR#: [id number] ? : 1945 ?Acct:[id number] ? Age/Sex: 77 / F ?ADM Date: 09/29/22 ? Loc: HO.HMGCX ? Attending Dr: Daniel Oconnor MD ? Ordering Physician: Daniel Oconnor MD ?? Date of Service: 09/29/22 ?? Procedure(s): US retroperitoneal comp ?? Accession Number(s): [id number] ? cc: Daniel Oconnor MD ? EXAMINATION: ?? US RETROPERITONEAL COMPLETE (RENAL) ? CLINICAL INFORMATION: ?? Microscopic hematuria. ? COMPARISON: ?? CT abdomen and pelvis 01/08/2013. ? TECHNIQUE: ?? Real-time imaging of the kidneys and bladder. ? FINDINGS: ? RIGHT KIDNEY: 15.0 x 4.6 x 7.4 cm (SAG x AP x TRV). The kidney is ?? normal in size, contour, and echogenicity. Renal cortical thickness is ?? normal. No renal calculi or hydronephrosis. There is a 1.1 cm simple ?? cyst in the lower pole, for which no imaging follow-up is recommended. ? LEFT KIDNEY: Surgically absent. ? BLADDER: Well distended and normal. Right ureteral jet is demonstrated; ?? left is not. Prevoid bladder volume is 152 mL. There is no postvoid ?? residual. ? US/US retroperitoneal comp ?? IMPRESSION: ?? No acute sonographic abnormalities. ? Dictated By: ?Dager,Agatha ? Signed By: ?<Electronically signed by Agatha ??Dager in OV> ? 10/01/22 1728 ? DD/ 1145 ? TD/TT: ? Application Helper: ? Procedure Note Blake Acuna - 10/01/2022 [facility] [address] [place] [address] Ultrasound Report Signed Patient: BurtonSuha starks#: [id number] : 7Acct:[id number] Age/Sex: 77 / FADM Date: 09/29/22 Loc: HO.HMGCX Attending Dr: Daniel Oconnor MD Ordering Physician: Daniel Oconnor MD Date of Service: 09/29/22 Procedure(s): US retroperitoneal comp Accession Number(s): [id number] cc: Daniel Oconnor MD EXAMINATION: US RETROPERITONEAL COMPLETE (RENAL) CLINICAL INFORMATION: Microscopic hematuria. COMPARISON: CT abdomen and pelvis 01/08/2013. TECHNIQUE: Real-time imaging of the kidneys and bladder. FINDINGS: RIGHT KIDNEY: 15.0 x 4.6 x 7.4 cm (SAG x AP x TRV). The kidney is normal in size, contour, and echogenicity. Renal cortical thickness is normal. No renal calculi or hydronephrosis. There is a 1.1 cm simple cyst in the lower pole, for which no imaging follow-up is recommended. LEFT KIDNEY: Surgically absent. BLADDER: Well distended and normal. Right ureteral jet is demonstrated; left is not. Prevoid bladder volume is 152 mL. There is no postvoid residual. US/US retroperitoneal comp IMPRESSION: No acute sonographic abnormalities. Dictated By: Agatha Linares Signed By: <Electronically signed by Agatha Linares in OV> 10/01/22 1728 DD/ 1145 TD/TT: Application Helper: [facility] External Provider IMG US PROCEDURES Final Result documented in this encounter Visit Diagnoses Not on filedocumented in this encounter Care Teams Diesel Engine Erector Relationship Specialty Start Date End Date Daniel Holder MD [address] [place] [phone] PCP - General Internal Medicine 03/26/14 documented as of this encounter
--- OUTSIDE RECORDS SUMMARY | 2024-10-31 14:43 | XMS_ITS | Encounter Summary ---
Author Organization [employer] Address [address] [facility] 7t [place] [address] Care Team Providers Care Archeologist Name Role Phone Daniel Holder MD Primary Care Provide r Reason for Visit * Reason Onset Date Comments ED expect 10/31/2024 Encounter Details Date Type Department Care Team ([facility] st Contact Info) Description 10/31/2024 Telephone [facility] [address] [place], [place] [phone] Daniel Holder MD [address] [place], [place] [phone] ED expect Social History Tobacco Use Types Packs/Day Years [...] encounter Miscellaneous Notes * Telephone Encounter - Capri Antunez RN - 10/31/2024 1:03 PM EDT Per PCP request, called EMS at 12:05pm for pt for nausea, vomiting, diarrhea, intolerance to PO intake, abdominal pain. Gave EMS med list, facesheet, vitals from today, problem list, PCP updated EMS verbally as well. Pt transported to [facility]. PCP called in expect to [facility] ED. documented in this encounter Plan of Treatment Upcoming Encounters Date Type Department Care Team (Late st Contact Info) Description 02/01/2025 2:00 PM EDT Office Visit [facility] [address] [place] [address] Daniel Holder MD [address] [place] [address] documented as of this encounter Visit Diagnoses Not on filedocumented in this encounter Additional Health Concerns Assessment Noted Time PHQ-9 Depression Total Score: 1 06/27/20 24 10:42 AM EST documented as of this encounter Care Teams Archeologist Relationship Specialty Start Date End Date Daniel Holder MD [address] [place] [address] PCP - General Internal Medicine 03/26/14 documented as of this encounter
--- OUTSIDE RECORDS SUMMARY | 2024-10-31 14:43 | XMS_ITS | Encounter Summary ---
Author Organization [employer] Address [address] [facility] [address] [place] [address] Care Team Providers Care Secondary Connector Armature Name Role Phone Daniel Holder MD Primary Care Provide r Encounter Details Date Type Department Care Team (Late Contact Info) Description 06/16/2022 Orders Only [facility] [address] [place], [place] [phone] Hannah Charlton LPN Social History Tobacco Use Types Packs/Day Years Used Date Smoking Tobacco: Never Assessed Comments Unknown Sex and Gender Information Value Date Recorded Sex Assigned at Female 04/27/2022 10:14 AM EDT Legal Sex Female 10:14 AM EDT Gender Identity Female 04/27/2022 10:14 AM EDT Sexual Orientation Straight 04/27/2022 10 :14 AM EDT COVID-19 Exposure Response Date Recorded In the last 10 days, have yo u been in contact with someone who was confirmed or suspected to have Coronavirus/COVID-19? No / Unsure 06/15/2022 3:40 PM EST documented as of this encounter Plan of Treatment Upcoming Encounters Date Type Department Care Team (Late st Contact Info) Description 02/01/2025 2:00 PM EDT Office Visit [facility] [address] [place] [address] Daniel Holder MD [address] [place] [address] documented as of this encounter Visit Diagnoses Not on filedocumented in this encounter Care Teams Secondary Connector Armature Relationship Specialty Start Date End Date Daniel Holder MD [address] [place] [address], [place] [address] PCP - General Internal Medicine 03/26/14 documented as of this encounter
--- OUTSIDE RECORDS SUMMARY | 2024-10-31 14:43 | XMS_ITS | Encounter Summary ---
Author Organization [employer] Address [address] [facility] 7t [place] [address] Care Team Providers Care Mine Engineer Name Role Phone Daniel Holder MD Primary Care Provide r Encounter Details Date Type Department Care Team (Late Contact Info) Description 10/28/2022 Abstract [facility] MEDICINE [address] [place] [address] [phone] Daniel Holder MD [address] [place] [address] [phone] Social History Tobacco Use Types Packs/Day Years [...] Encounters Date Type Department Care Team (Late Contact Info) Description 02/01/2025 2:00 PM EDT Office Visit [facility] MEDICINE [address] [place], [place] [phone] Daniel Holder MD [address] [place], [place] [phone] documented as of this encounter Procedures Procedure Name Priority Date/Time Associated Diagnosis Comments COLONOSCOPY Routine 10/11/2013 documented in this encounter Results * Colonoscopy (10/11/2013) Colonoscopy Normal Normal 10/11/2013 Rowan Virk - 10/11/2013 11:31 AM EDT Recommended 10 year follow up ( see scanned report) us Historical Provider HEALTH MAINTENANCE Final Result documented in this encounter Visit Diagnoses Not on filedocumented in this encounter Care Teams Mine Engineer Relationship Specialty Start Date End Date Daniel Holder MD [address] [place] [id number] PCP - General Internal Medicine 03/26/14 documented as of this encounter
--- OUTSIDE RECORDS SUMMARY | 2024-10-31 14:43 | XMS_ITS | Encounter Summary ---
Author Organization [employer] Address [address] [facility] 7t [place] [address] Care Team Providers Care Dietist Name Role Phone Daniel Holder MD Primary Care Provide r Reason for Visit * Reason Onset Date Comments chart prep 10/27/2024 Encounter Details Date Type Department Care Team ([facility] st Contact Info) Description 10/27/2024 Telephone [facility] MEDICINE [address] [place], [place] [phone] Daniel Holder MD [address] [place], [place] [phone] chart prep Social History Tobacco Use Types Packs/Day Years [...] encounter Miscellaneous Notes * Telephone Encounter - Emelia Horton [place] - 10/27/2024 2:53 PM EDT Chart Prep Labs: done Images: done Vaccines due: Covid Due, Tdap Due, Hep B Due, RSV in Pharmacy Due, and Shingles in pharmacy Due Referrals: Completed Screenings: Eye Exam and Foot Exam Overdue care gaps: Glucose and Disability A1C? documented in this encounter Plan of Treatment Upcoming Encounters Date Type Department Care Team (Late st Contact Info) Description 02/01/2025 2:00 PM EDT Office Visit [facility] MEDICINE [address] [place] [address] Daniel Holder MD [address] [place] [address] documented as of this encounter Visit Diagnoses Not on filedocumented in this encounter Additional Health Concerns Assessment Noted Time PHQ-9 Depression Total Score: 1 06/27/20 24 10:42 AM EST documented as of this encounter Care Teams Dietist Relationship Specialty Start Date End Date Daniel Holder MD [address] [place] [address] PCP - General Internal Medicine 03/26/14 documented as of this encounter
--- OUTSIDE RECORDS SUMMARY | 2024-10-31 14:43 | XMS_ITS | Encounter Summary ---
Author Organization [email or web address] Address [address] [facility] 7 [place] [address] Care Team Providers Care Plate Take Out Worker Name Role Phone Daniel Holder MD Primary Care Provide r Encounter Details Date Type Department Care Team (Late Contact Info) Description 08/12/2022 Telephone [facility] MEDICINE [address] [place], [place] [phone] Daniel Holder MD [address] [place] [address] [phone] Social History Tobacco Use Types Packs/Day Years [...] Description 02/01/2025 2:00 PM EDT Office Visit [facility] MEDICINE [address] [place], [place] [phone] Daniel Holder MD [address] [place], [place] [phone] documented as of this encounter Visit Diagnoses Not on filedocumented in this encounter Care Teams Plate Take Out Worker Relationship Specialty Start Date End Date Daniel Holder MD [address] [place] [address] [phone] PCP - General Internal Medicine 03/26/14 documented as of this encounter
--- OUTSIDE RECORDS SUMMARY | 2024-10-31 14:43 | XMS_ITS | Encounter Summary ---
Author Organization [employer] Address [address] [facility] 7 [place] [address] Care Team Providers Care Joiner Helper Name Role Phone Daniel Holder MD Primary Care Provide r Reason for Visit * Reason Onset Date Comments Nurse Triage 03/19/2023 Encounter Details Date Type Department Care Team (Late st Contact Info) Description 03/19/2023 Telephone [facility] MEDICINE [address] [place], [place] [phone] Daniel Holder MD [address] [place], [place] [phone] Nurse Triage Social History Tobacco Use Types Packs/Day Years Used Date Smoking Tobacco: Some Days Cigarettes Passive Smoke Exposure: Current Smokeless Tobacco: Never Depression Answer Date Recorded Patient Health Questionnaire-9 Score 1 02/04/2023 Depression Answer Date Recorded Patient Health Questionnaire-2 Score 0 02/04/2023 Comments Unknown Sex and Gender Information Value Date Recorded Sex Assigned at Female 04/27/2022 10:14 AM EDT Legal Sex Female 10:14 AM EDT Gender Identity Female 04/27/2022 10:14 AM EDT Sexual Orientation Straight 04/27/2022 10 :14 AM EDT documented as of this encounter Miscellaneous Notes * Telephone Encounter - Tali Grace - 03/19/2023 2:38 PM EDT Symptom: Urination Pain Outcome: Schedule a same-day appointment or talk to a nurse or provider today Reason: Caller denied all higher acuity questions The caller accepted this outcome documented in this encounter Plan of Treatment Upcoming Encounters Date Type Department Care Team (Late st Contact Info) Description 02/01/2025 2:00 PM EDT Office Visit [facility] MEDICINE [address] [place] [address] Daniel Holder MD [address] [place] [phone] documented as of this encounter Visit Diagnoses Not on filedocumented in this encounter Additional Health Concerns Assessment Noted Time PHQ-9 Depression Total Score: 1 02/05/20 23 2:24 PM EDT documented as of this encounter Care Teams Joiner Helper Relationship Specialty Start Date End Date Daniel Holder MD [address] [place] [address] PCP - General Internal Medicine 03/26/14 documented as of this encounter
--- OUTSIDE RECORDS SUMMARY | 2024-10-31 14:43 | XMS_ITS | Encounter Summary ---
Author Organization [employer] Address [address] [facility] [address] [place] [address] Care Team Providers Care B2B Appointment Setter Name Role Phone Daniel Holder MD Primary Care Provide r Encounter Details Date Type Department Care Team (Latest Contact Info) Description 10/31/2024 Travel Social History Tobacco Use Types Packs/Day Years [...] Description 02/01/2025 2:00 PM EDT Office Visit [facility] MEDICINE [address] [place] [address] Daniel Holder MD [address] [place] [address] documented as of this encounter Visit Diagnoses Not on filedocumented in this encounter Additional Health Concerns Assessment Noted Time PHQ-9 Depression Total Score: 1 06/27/20 24 10:42 AM EST documented as of this encounter Care Teams B2B Appointment Setter Relationship Specialty Start Date End Date Daniel Holder MD [address] [place] [address] PCP - General Internal Medicine 03/26/14 documented as of this encounter
--- OUTSIDE RECORDS SUMMARY | 2024-10-31 14:44 | XMS_ITS | Encounter Summary ---
Author Organization [employer] Address [address] [facility] 7t [place] [address] Care Team Providers Care Camera Operator Name Role Phone Daniel Holder MD Primary Care Provide r Encounter Details Date Type Department Care Team ([facility] st Contact Info) Description 07/25/2024 Telephone [facility] MEDICINE [address] [place], [place] [phone] Daniel Holder MD [address] [place], [place] [phone] Social History Tobacco Use Types Packs/Day Years [...] Description 02/01/2025 2:00 PM EDT Office Visit [facility] MEDICINE [address] [place] [address] Daniel Holder MD [address] [place] [address] documented as of this encounter Visit Diagnoses Not on filedocumented in this encounter Additional Health Concerns Assessment Noted Time PHQ-9 Depression Total Score: 1 06/27/20 24 10:42 AM EST documented as of this encounter Care Teams Camera Operator Relationship Specialty Start Date End Date Daniel Holder MD [address] [place] [address] PCP - General Internal Medicine 03/26/14 documented as of this encounter
--- OUTSIDE RECORDS SUMMARY | 2024-10-31 14:44 | XMS_ITS | Encounter Summary ---
Author Organization [employer] Address [address] [facility] 7t [place] [address] Care Team Providers Care Revenue Specialist Name Role Phone Daniel Holder MD Primary Care Provide r Reason for Visit * Reason Comments Med Refill Encounter Details Date Type Department Care Team ([facility] st Contact Info) Description 07/21/2024 Refill [facility] MEDICINE [address] [place] [address] Trip Suazo MD [address], [place] [phone] Fibromyalgia Social History Tobacco Use Types Packs/Day [...] Description 02/01/2025 2:00 PM EDT Office Visit [facility] MEDICINE [address] [place] [address] Daniel Holder MD [address] [place] [address] documented as of this encounter Visit Diagnoses Diagnosis Fibromyalgia Unspecified myalgia and myositis documented in this encounter Additional Health Concerns Assessment Noted Time PHQ-9 Depression Total Score: 1 06/27/20 24 10:42 AM EST documented as of this encounter Care Teams Revenue Specialist Relationship Specialty Start Date End Date Daniel Holder MD [address] [place] [address] PCP - General Internal Medicine 03/26/14 documented as of this encounter
[2024-10-31 15:06] LABS: MANUAL DIFF FLAG NO
[2024-10-31 15:12] LABS: Basophils Percent Auto 0.2 % (0-2); Eosinophils Percent Auto 0.4 % (0-4); Hematocrit 40.7 % (37.0-47.0); Hemoglobin 12.9 g/dl (12.0-16.0); Imm Gran Abs Auto 0.06 X10*3/uL (0.00-0.03); Imm Gran Pct Auto 1.2 % (0.0-0.4); Lymphocytes Absolute Auto 0.6 X10*3/uL (1.2-4.9); Mean Corpuscular HGB Conc 31.7 g/dl (31.0-35.0); Mean Corpuscular Hemoglobin 26.8 pg (27.0-33.0); Mean Corpuscular Volume 84.4 fL (80.0-98.0); Mean Platelet Volume 11.8 fL (9.4-12.3); Monocytes Absolute Auto 0.3 X10*3/uL (0.1-1.2); Monocytes Percent Auto 5.6 % (2-11); Neutrophils Absolute Auto 4.3 x10*3/uL (2.0-8.3); Neutrophils Percent Auto 81.6 % (45-73); Red Blood Count 4.82 X10*6/uL (4.20-5.50); Red Cell Distribution Width 15.5 % (11.0-16.0); White Blood Count 5.2 X10*3/uL (4.8-10.8)
[2024-10-31 15:15] LABS: Platelet Count 126 X10*3/uL (160-400)
[2024-10-31] MEDS: ondansetron HCL 4 MG/2 ML VIAL IVPUSH ×2 (15:52→19:11)
[2024-10-31] MEDS: HYDROmorphone HCl 0.5 MG/0.5 ML SYRINGE IVPUSH (15:52)
[2024-10-31] MEDS: 0.9 % Sodium Chloride 1,000 ML 999 ML IV (15:53)
[2024-10-31 16:01] LABS: Alanine Aminotransferase 9 U/L (0-31); Albumin Level 3.9 g/dL (3.5-5.0); Anion Gap 15 (12-20); Aspartate Amino Transferase 26 U/L (5-31); Bilirubin Direct 0.3 mg/dL (0.0-0.5); Bilirubin Total 0.7 mg/dL (0.0-1.0); Blood Urea Nitrogen 14 mg/dL (9-16); Calcium 8.9 mg/dL (8.4-10.2); Carbon Dioxide 25 mmol/L (22-29); Chloride 104 mmol/L (96-108); Creatinine Clr Calc Pharmacy 70.2; Estimated Glomerular Filt Rate > 60; Glucose Random 120 mg/dL (60-115); Lipase 8 U/L (8-78); Potassium 3.7 mmol/L (3.3-5.1); Sodium 140 mmol/L (135-145); Total Protein 6.8 g/dL (6.5-8.0)
[2024-10-31] MEDS: iohexoL 350 MG/ML 100 ML INFUS..BTL 85 ML IV (16:15)
[2024-10-31 17:31] LABS: Alkaline Phosphatase 89 U/L (39-117)
--- NOTE | 2024-10-31 19:50 | PC.NURSE ---
Shortly after discharging, patient was using the bathroom near ED , family present to bring her home via family car. Patient reported dizziness and near-syncopal episode. BP 103/55 while sitting. Family reports that she only drinks ellis kimberlee and has poor PO intake at baseline, exacerbated by nausea. Pt occasionally dry heaving at this time. Family remains at bedside. Care ongoing by this RN. Dr. Swain to bedside. Discharge undone.
[2024-10-31] MEDS: Meclizine HCl 25 MG TABLET PO (21:16)
--- NOTE | 2024-10-31 21:21 | PC.NURSE ---
machine heel seat laster at bedside. pt medicated per mar, tolerated whole well with water. pt awaiting ct scan.
--- NOTE | 2024-10-31 22:24 | PC.NURSE ---
orthos completed at this time. inorganic chemist at bedside. upon standing, pt reported that the room was spinning, pt became nauseous and started throwing up. pt assisted back into bed, aware.
--- NOTE | 2024-10-31 23:21 | P.HPHOSP_ITS ---
History of Present Illness Date of Service: 10/31/24 Attending physician on admission: Lan Carvajal Chief Complaint: Nausea, vomiting, diarrhea Patient is a 79-year-old Japanese-speaking female with a past medical history significant for osteoarthritis, CKD unspecified, solitary right kidney, hypothyroid, moderate persistent asthma, constipation, GERD, fibromyalgia, type 2 diabetes, HLD, HTN, who presented to the ED due to severe nausea, vomiting and diarrhea for the past few weeks. The patient's family members reports that she is ?faking it ?. He reports frequent dry heaves. The patient is actively vomiting while in the exam room. She describes mostly vomiting up undigested food however she has not eaten in the past few days therefore vomiting liquids without any blood. She has had brown diarrhea, frequency is unclear. She was seen at [facility] [place] and referred to the emergency department. She was also complaining of left-sided flank pain. Her brother did past 2 days ago here and she is grieving. She was going to go home with antiemetics however when she was using the restroom just prior to discharge she had a presyncopal episode. The patient is a very poor historian, she has not answer questions appropriately most times as she is on the phone with her daughter and they are arguing about her not wanting to stay. Review of Systems 2 Constitutional: Constitutional: Denies chills, Denies fatigue, Denies fever(s) and Denies headache(s) Eyes: Eyes: Denies change in vision and Denies photophobia ENT: Denies headache(s), Denies nasal congestion and Denies sore throat Cardiovascular: Cardiovascular: Denies chest pain, Denies rapid heart rate, Denies leg edema, Denies lightheadedness and Denies dyspnea Respiratory: Respiratory: Denies chest congestion, Denies cough, Denies dyspnea and Denies wheezing Gastrointestinal: Gastrointestinal: Reports abdominal pain, Denies melena, Denies hematochezia, Denies coffee ground emesis, Reports diarrhea, Reports nausea, Reports vomiting and Denies hematemesis Genitourinary: Genitourinary: Denies difficulty voiding, Denies dysuria and Denies urinary urgency Musculoskeletal: Musculoskeletal: Denies myalgias Integumentary/Breasts: Skin/Breast: Denies rash Neurologic: Denies confusion and Denies headache(s) Psychiatric: Psychiatric: Denies confusion Endocrine: Endocrine: Denies fatigue Hematologic/Lymphatic: Hematologic/Lymphatic: Denies easy bleeding and Denies easy bruising Allergic/Immunologic: Allergic/Immunologic: Denies wheezing [facility] Medical History Osteoarthritis GERD (gastroesophageal reflux disease) Dysphagia Microscopic hematuria Fibromyalgia Anxiety and depression Hyperlipidemia Hypertension, essential Nicotine dependence, cigarettes, uncomplicated Diabetes mellitus, type 2 Hypothyroidism Surgical History History of esophagogastroduodenoscopy (EGD) History of vocal cord polypectomy History of colonoscopy History of cataract surgery Social History Alcohol intake: never Patient Tobacco Use Status: Current someday Tobacco user Tobacco use type: Cigarette Cigarettes Per Day: 4 Smoked in Last 30 Days: No Use of substances other than those prescribed or required for medical reasons: No Advance Directives: Yes Advance Directives Information Provided: Yes Advance Directives on File: No Nutrition Risks: No Nutritional Risk Narrative: Previous smoker, no alcohol or drug use Meds Allergies Allergy/AdvReac Type Severity Reaction Status Date / Time meperidine [Demerol] Allergy Unknown Unknown Verified 10/31/24 12:56 Home Medications ?Medication ?Instructions ?Recorded ?Confirmed ?Last Taken ?Type meclizine 25 mg tablet 25 mg PO DAILY 08/28/20 08/16/24 01/25/23 History ascorbic acid (vitamin C) 500 mg 500 mg PO DAILY 10/29/22 08/16/24 Unknown History tablet (Vitamin C) aspirin 81 mg tablet,delayed 81 mg PO BEDTIME 10/29/22 08/16/24 01/18/23 History release duloxetine 30 mg capsule,delayed 30 mg PO DAILY 10/29/22 08/16/24 01/25/23 History release pregabalin 75 mg capsule 75 mg PO BID 10/29/22 08/16/24 01/25/23 History trazodone 50 mg tablet 50 mg PO BEDTIME 10/29/22 08/16/24 Unknown History levothyroxine 75 mcg tablet 75 mcg PO QAM 12/11/22 08/16/24 08/16/24 07:00 History metoprolol succinate 50 mg 50 mg PO QAM 12/11/22 08/16/24 08/16/24 07:00 History tablet,extended release 24 hr acetaminophen 500 mg tablet 1,000 mg PO Q6H PRN mild pain 07/02/23 08/16/24 Unknown History albuterol sulfate 90 mcg/actuation 2 puff inhalation Q4H PRN 07/02/23 08/16/24 Unknown History aerosol inhaler (Ventolin HFA) Shortness Of Breath fluticasone propionate 50 1 spray intranasal BID 07/02/23 08/16/24 Unknown History mcg/actuation nasal spray,suspension fluticasone furoate 200 1 inh inhalation DAILY 08/11/24 08/16/24 Unknown History mcg/actuation blister powder for inhalation (Arnuity Ellipta) atorvastatin 20 mg tablet mg PO DAILY 09/18/24 Unknown History blood sugar diagnostic (FreeStyle #10 ea 09/18/24 Unknown History Lite Strips) magnesium oxide 400 mg (241.3 mg mg PO 09/18/24 Unknown History magnesium) tablet multivitamin 1 tab PO QAM 09/18/24 Unknown History sennosides 8.6 mg tablet (senna) 17.2 mg PO BEDTIME 09/18/24 Unknown History Physical Exam 2 Vital Signs and Narrative: Vital Signs: Last Vital Signs Temp 98.3 F 10/31/24 19:31 Pulse 136 H 10/31/24 22:23 Resp 18 10/31/24 21:19 BP 98/76 10/31/24 22:23 Pulse Ox 98 10/31/24 21:19 O2 Del Method Room Air 10/31/24 21:19 BMI result Body Mass Index 37.3 General: AOx3, no acute distress Resp: CTA bilaterally CVS: RRR, +murmur GI: +BS, NT, no distention Skin: Warm, dry Neuro: Cranial nerves II-XII grossly intact bilaterally. Motor grossly intact bilaterally Extremities: No LE edema Psych: crying intermittently, does not want to stay, but agrees to Const: General: No confusion Orientation/consciousness: No confusion Eyes: Direct Ophthalmoscopy: No photophobia Neuro: General: No confusion Results Labs 10/31/24 14:59 10/31/24 14:59 Labs: Laboratory Results - last 24 hr 10/31/24 14:59 MCV 84.4 MCH 26.8 L MCHC 31.7 RDW 15.5 Plt Count 126 L D MPV 11.8 Immature Gran % (Auto) 1.2 H Neut % (Auto) 81.6 H Lymph % (Auto) 11.0 L Reeves % (Auto) 5.6 Eos % (Auto) 0.4 Baso % (Auto) 0.2 Lymph # (Auto) 0.6 L Reeves # (Auto) 0.3 Eos # (Auto) 0.0 Baso # (Auto) 0.0 Abs Immat Gran (auto) 0.06 H Absolute Neuts (auto) 4.3 Absolute Nucleated RBC 0.000 Nucleated RBC % (auto) 0.0 Anion Gap 15 Estim Creat Clear Calc 70.2 Estimated GFR > 60 Random Glucose 120 H Calcium 8.9 D Total Bilirubin 0.7 Direct Bilirubin 0.3 AST 26 ALT 9 Alkaline Phosphatase 89 Total Protein 6.8 Albumin 3.9 Lipase 8 Assessment and Plan (1) Pre-syncope: Status: Acute (2) Orthostatic hypotension: Status: Acute (3) Vomiting: Status: Acute (4) Diarrhea: Status: Acute (5) Common bile duct dilatation: Status: Acute (6) Obesity (BMI 35.0-39.9 without comorbidity): Status: Acute Plan Patient is a 79-year-old female with a past medical history significant for osteoarthritis, CKD unspecified, solitary right kidney, hypothyroid, moderate persistent asthma, constipation, GERD, fibromyalgia, type 2 diabetes, HLD, HTN, who presented to the ED due to severe nausea, vomiting and diarrhea for the past few weeks. Patient was being discharged home and had a presyncopal episode secondary to orthostatic hypotension, plan to admit for observation and repeat orthostatics in the morning. Presyncope secondary to orthostatic hypotension from frequent vomiting and diarrhea - BP stable with orthostatics however increased heart rate from 90s to 130s - given 1 L IV fluids in ED, add additional L of LR Vomiting and diarrhea -- likely gastroenteritis - WBC normal, no infectious etiology identified, no sepsis - abdominopelvic CT with dilated CBD with mild intrahepatic biliary ductal dilation. This is similar to prior imaging dated 01/18/2024 and is likely a chronic finding. Consider rapid upper quadrant ultrasound or MRCP for further characterization. Likely markedly contracted gallbladder with multiple small cholelithiasis in the gallbladder lumen - right upper quadrant ultrasound for further evaluation - LFTs normal - UA ordered - follow CBC and BMP CKD unspecified - creatinine and GFR normal - follow BMP Hypothyroid - continue home meds Moderate persistent asthma, no acute exacerbation - continue home meds Type 2 diabetes - sliding scale insulin - no home meds - diabetic diet HTN - hold BP meds HLD - continue home meds Class 3 Obesity - BMI 37.3 - weight loss encouraged Med reconciliation not complete upon admission full code VTE prophylaxis: Lovenox Patient with presyncope secondary to orthostatic hypotension from frequent vomiting and diarrhea requiring admission for observation for IV fluids and repeat orthostatic vitals in the morning. Quality Stroke Does the patient have a stroke diagnosis?: No VTE Prior VTE?: No VTE Risk Level:: Medical - moderate - high VTE Device Contraindication: Treatment Not Indicated VTE Drug Contraindication: N/A - Med Ordered
[2024-11-01] VITALS (11 sets, daily range): BP systolic 122–149; BP diastolic 60–82; PULSE 67–106; RESP 16–18; TEMP 36.3–36.7; O2SAT 95–100; BMI 37.9
--- NOTE | 2024-11-01 00:09 | PC.NURSE ---
timing machine operator at bedside. 20G placed in right forearm. pt medications unverified by pharmacy at this time.
[2024-11-01] MEDS: Lactated Ringers 1,000 ML 999 ML IV (00:45)
[2024-11-01 06:10] LABS: MANUAL DIFF FLAG NO
[2024-11-01 06:15] LABS: Basophils Percent Auto 0.3 % (0-2); Eosinophils Absolute Auto 0.1 X10*3/uL (0.0-0.4); Eosinophils Percent Auto 1.5 % (0-4); Hematocrit 36.1 % (37.0-47.0); Hemoglobin 11.2 g/dl (12.0-16.0); Imm Gran Abs Auto 0.01 X10*3/uL (0.00-0.03); Imm Gran Pct Auto 0.3 % (0.0-0.4); Lymphocytes Absolute Auto 1.7 X10*3/uL (1.2-4.9); Lymphocytes Percent Auto 41.9 % (20-40); Mean Corpuscular Hemoglobin 26.6 pg (27.0-33.0); Mean Corpuscular Volume 85.7 fL (80.0-98.0); Mean Platelet Volume 12.1 fL (9.4-12.3); Monocytes Absolute Auto 0.6 X10*3/uL (0.1-1.2); Monocytes Percent Auto 13.8 % (2-11); Neutrophils Absolute Auto 1.7 x10*3/uL (2.0-8.3); Neutrophils Percent Auto 42.2 % (45-73); Platelet Count 118 X10*3/uL (160-400); Red Blood Count 4.21 X10*6/uL (4.20-5.50); Red Cell Distribution Width 15.7 % (11.0-16.0)
[2024-11-01 06:40] LABS: Alanine Aminotransferase 7 U/L (0-31); Albumin Level 3.5 g/dL (3.5-5.0); Alkaline Phosphatase 78 U/L (39-117); Anion Gap 11 (12-20); Aspartate Amino Transferase 24 U/L (5-31); Bilirubin Total 0.6 mg/dL (0.0-1.0); Blood Urea Nitrogen 10 mg/dL (9-16); Calcium 8.6 mg/dL (8.4-10.2); Carbon Dioxide 25 mmol/L (22-29); Chloride 108 mmol/L (96-108); Creatinine Clr Calc Pharmacy 72.3; Estimated Glomerular Filt Rate > 60; Glucose Random 108 mg/dL (60-115); Potassium 3.4 mmol/L (3.3-5.1); Sodium 141 mmol/L (135-145)
[2024-11-01] MEDS: Acetaminophen 325 MG TABLET 975 MG PO (09:03)
[2024-11-01] MEDS: Enoxaparin Sodium 40 MG/0.4 ML SYRINGE SUBCUT (09:04)
[2024-11-01] MEDS: 0.9 % Sodium Chloride Flush 3 ML SYRINGE IVFLUSH ×3 (09:07→20:55)
--- NOTE | 2024-11-01 09:49 | HO.PM.IMPN ---
Subjective Subjective Date of Service: 11/01/24 Review of Systems Follow up nausea, vomiting and diarrhea No abdominal pain, wants to try solid food Physical Exam Vital Signs: Vital Signs: Last Vital Signs Temp 97.5 F 11/01/24 08:18 Pulse 99 11/01/24 09:20 Resp 17 11/01/24 08:18 BP 137/79 11/01/24 09:20 Pulse Ox 98 11/01/24 08:18 O2 Del Method Room Air 11/01/24 08:18 BMI result Body Mass Index 37.9 Appearing in no acute distress lung sounds are clear to auscultation heart regular rate rhythm, clear S1, S2 positive bowel sounds, abdomen is soft, nontender neuro patient is alert x3, no focal deficits Objective Data Active Medications Acetaminophen (Acetaminophen 325 Mg Tablet) 975 mg PO Q6H PRN PRN Reason: Pain, Mild 1-3,fever,headache Last Admin: 11/01/24 09:03 Dose: 975 mg Documented By: AFUA Calcium Carbonate (Calcium Carbonate 750 Mg Tab.Chew) 750 mg PO Q4H PRN PRN Reason: Heartburn Enoxaparin Sodium (Enoxaparin Sodium 40 Mg/0.4 Ml Syringe) 40 mg SUBCUT DAILY [facility] Last Admin: 11/01/24 09:04 Dose: 40 mg Documented By: AFUA Magnesium Hydroxide (Milk Of Magnesia 30 Ml Oral.Susp) 30 ml PO DAILY PRN PRN Reason: Constipation Melatonin (Melatonin 3 Mg Tablet) 6 mg PO BEDTIME PRN PRN Reason: Insomnia Morphine Sulfate (Morphine Sulfate 2 Mg/Ml Cartridge) 2 mg IVPUSH Q4H PRN; Protocol PRN Reason: Pain, Severe (Pain Scale 7-10) Ondansetron HCl (Ondansetron Hcl 4 Mg/2 Ml Vial) 4 mg IVPUSH Q8H PRN PRN Reason: Nausea and Vomiting Oxycodone HCl (Oxycodone Hcl Immed Release 5 Mg Tablet) 5 mg PO Q6H PRN PRN Reason: Pain, Moderate(Pain Scale 4-6) Sodium Chloride (0.9 % Sodium Chloride Flush 3 Ml Syringe) [facility] Last Admin: 11/01/24 09:07 Dose: 3 ml Documented By: AFUA Labs 11/01/24 06:02 11/01/24 06:02 Labs: Laboratory Results - last 24 hr 10/31/24 11/01/24 14:59 06:02 MCV 84.4 85.7 MCH 26.8 L 26.6 L MCHC 31.7 31.0 RDW 15.5 15.7 Plt Count 126 L D 118 L MPV 11.8 12.1 Immature Gran % (Auto) 1.2 H 0.3 Neut % (Auto) 81.6 H 42.2 L Lymph % (Auto) 11.0 L 41.9 H [place] % (Auto) 5.6 13.8 H Eos % (Auto) 0.4 1.5 Baso % (Auto) 0.2 0.3 Lymph # (Auto) 0.6 L 1.7 [place] # (Auto) 0.3 0.6 Eos # (Auto) 0.0 0.1 Baso # (Auto) 0.0 0.0 Abs Immat Gran (auto) 0.06 H 0.01 Absolute Neuts (auto) 4.3 1.7 L Absolute Nucleated RBC 0.000 0.000 Nucleated RBC % (auto) 0.0 0.0 Anion Gap 15 11 L Estim Creat Clear Calc 70.2 72.3 Estimated GFR > 60 > 60 Random Glucose 120 H 108 Calcium 8.9 D 8.6 Total Bilirubin 0.7 0.6 Direct Bilirubin 0.3 AST 26 24 ALT 9 7 Alkaline Phosphatase 89 78 Total Protein 6.8 6.0 L Albumin 3.9 3.5 Lipase 8 Assessment and Plan (1) Orthostatic hypotension: Status: Acute (2) Vomiting: Status: Acute Plan Patient is a 79-year-old female with a past medical history significant for osteoarthritis, CKD unspecified, solitary right kidney, hypothyroid, moderate persistent asthma, constipation, GERD, fibromyalgia, type 2 diabetes, HLD, HTN, who presented to the ED due to severe nausea, vomiting and diarrhea for the past few weeks. Patient was being discharged home and had a presyncopal episode secondary to orthostatic hypotension, plan to admit for observation and repeat orthostatics in the morning. Vomiting and diarrhea Possibly gastroenteritis, history of CBD dilation WBC normal, no infectious etiology identified, no sepsis abdominopelvic CT with dilated CBD with mild intrahepatic biliary ductal dilation. This is similar to prior imaging dated 01/18/2024 and is likely a chronic finding. LFTs normal UA ordered C diff and stool studies ordered GI consultation Presyncope secondary to orthostatic hypotension from frequent vomiting and diarrhea Negative orthostatic blood pressures this morning Status post 2 L of IV fluids Hypothyroid continue home meds Moderate persistent asthma no acute exacerbation continue home meds Type 2 diabetes sliding scale insulin no home meds diabetic diet HTN hold BP meds for now HLD continue home meds Class 3 Obesity BMI 37.9 Discussed importance of weight management as this may be contributing to worsening of other comorbidities full code VTE prophylaxis: Lovenox Quality Stroke Does the patient have a stroke diagnosis?: No VTE Prior VTE?: No VTE Risk Level:: Medical - moderate - high VTE Device Contraindication: Treatment Not Indicated VTE Drug Contraindication: N/A - Med Ordered
[2024-11-01] MEDS: ondansetron HCL 4 MG/2 ML VIAL IVPUSH ×2 (12:12→20:54)
--- NOTE | 2024-11-01 12:38 | PHA.MEDREC ---
Addendum entered by Ghanshyam Fragoso [facility] 11/01/24 12:41: Reviewed by [facility] Original Note: Pharmacy Consult ? Medication Reconciliation Pharmacy has completed the medication reconciliation. Spoke to patient through electrician radio service ([employer] to confirm med list. Patient is a poor historian , however she did have a medbox list with her.. Utilized Med box list and list from [facility] pharmacy to confirm me rec.
--- NOTE | 2024-11-01 12:40 | MHC.CM.PN ---
This CM attempted to meet with pt with the assistance of a dispute resolution analyst, upon entering the room pt was observed vomiting into emesis bag, pts nurse in hallway was notified. This CM will attempt to meet with pt at a later time.
--- NOTE | 2024-11-01 14:54 | MHC.CM.PN ---
GILMER 11/01. This CM met with pt with the assistance of a authorization rep, pts son Brenden ([phone]) also present on the phone during the conversation. Pt lives at home with her , she has [employer] 23 hours/week, pts son states she also has a nurse from [facility]. Pt uses a cane, walker, and a wheelchair. Pts son will transport her home at discharge. Education provided on HCP, pt declines at this time. PCP: Dr. Daniel Oconnor
--- NOTE | 2024-11-01 15:10 | PM.GICN ---
History of Present Illness Data of Consult Service Date: 11/01/24 Primary Care Provider: Daniel Oconnor MD HPI Reason for consult: abdominal pain 79-year-old Swedish-speaking female with a past medical history significant for osteoarthritis, CKD unspecified, solitary right kidney, hypothyroid, moderate persistent asthma, constipation, GERD, fibromyalgia, type 2 diabetes, HLD, HTN, who I am seeing for abdominal pain. she presented to the ED due to severe nausea, vomiting and diarrhea for the past few days. she is c/o LUq pain, 12/05 no exacerbating or relieiving factors. Her brother passsed away few days ago and she is very upset which is also making her feel unwell. Today she says the diarrhea seems to have resolved and the pain is less. she denies sick contacts, ingestion of contaminated food, recent antibiotics. she had Us with contracted GB with cacluli noted and dilated CBD. LFT have been normal. EGD/COLO 08/22 Endoscopy Findings: 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 Colonoscopy Findings: diverticulosis colon polyps internal hemorrhoids melanosis coli PATH: mild chronic gastritis Review of Systems Review of Systems: Constitutional : No Weight loss, No Fever, No Chills ENT/Mouth : No sore throat, No Rhinorrhea Eyes: No Swelling, No Redness Cardiovascular : No Chest Pain, No SOB, No Edema Respiratory : No Cough, No Sputum, No Wheezing Gastrointestinal : see HPI Genitourinary : NO Dysuria, No Urinary Frequency, No Hematuria, No Urgency Musculoskeletal : No joint pain, No Myalgias, No Joint Swelling Skin : No Skin Lesions, No rash Neuro : No Weakness, No Numbness, No Dizziness, No Headache Psych : No Anxiety/Panic, No Depression Heme/Lymph: No Bruising, No Lymphadenopathy Endocrine : No Polyuria, No Polydipsia All other systems reviewed and are negative. COUNT INCLUDES [facility] Past Medical History Medical History Osteoarthritis GERD (gastroesophageal reflux disease) Dysphagia Microscopic hematuria Fibromyalgia Anxiety and depression Hyperlipidemia Hypertension, essential Nicotine dependence, cigarettes, uncomplicated Diabetes mellitus, type 2 Hypothyroidism Family History Pertinent family history: no FH of CRC Surgical History Surgical History History of esophagogastroduodenoscopy (EGD) History of vocal cord polypectomy History of colonoscopy History of cataract surgery Social History Social History Alcohol intake: never Patient Tobacco Use Status: Current everyday Tobacco user Tobacco use type: Cigarette Cigarettes Per Day: 7 Years Smoked: 63 Advance Directives Date on File: 11/01/24 service: No Meds Allergies Allergy/AdvReac Type Severity Reaction Status Date / Time meperidine [Demerol] Allergy Unknown Unknown Verified 10/31/24 12:56 Active Medications: Current Medications Acetaminophen (Acetaminophen 325 Mg Tablet) 975 mg PO Q6H PRN PRN Reason: Pain, Mild 1-3,fever,headache Last Admin: 11/01/24 09:03 Dose: 975 mg Albuterol Sulfate (Albuterol Sulfate 90 Mcg 8 Gm Inhaler) 2 puff INHALE Q4H PRN PRN Reason: Shortness Of Breath Ascorbic Acid (Ascorbic Acid 500 Mg Tablet) 500 mg PO DAILY [facility] Aspirin (Aspirin Enteric Coated 81 Mg Tablet.) 81 mg PO BEDTIME [facility] Calcium Carbonate (Calcium Carbonate 750 Mg Tab.Chew) 750 mg PO Q4H PRN PRN Reason: Heartburn Dextrose (Dextrose 50 % 25 Gm/50 Ml Syringe) 25 gm IVPUSH Q15M PRN; Protocol PRN Reason: per Hypoglycemia Standing Ord. Duloxetine HCl (Duloxetine Hcl 30 Mg Capsule.) 30 mg PO DAILY [facility] Enoxaparin Sodium (Enoxaparin Sodium 40 Mg/0.4 Ml Syringe) 40 mg SUBCUT DAILY [facility] Last Admin: 11/01/24 09:04 Dose: 40 mg Glucose (Glucose Gel 15 Gm Gel..Gram.) 15 gm PO Q15M PRN; Protocol PRN Reason: per Hypoglycemia Standing Ord. Insulin Human Lispro (Insulin Lispro 100 Unit/Ml 3 Ml Vial) 0 unit SUBCUT QIDACHS [facility]; Protocol Levothyroxine Sodium (Levothyroxine Sodium 75 Mcg Tablet) 75 mcg PO DAILY@0600 [facility] Magnesium Hydroxide (Milk Of Magnesia 30 Ml Oral.Susp) 30 ml PO DAILY PRN PRN Reason: Constipation Magnesium Oxide (Magnesium Oxide 400 Mg Tablet) 200 mg PO BEDTIME [facility] Melatonin (Melatonin 3 Mg Tablet) 6 mg PO BEDTIME PRN PRN Reason: Insomnia Metoprolol Succinate (Metoprolol Succinate Er 50 Mg Tab.Er.24h) 50 mg PO DAILY [facility]; Protocol Morphine Sulfate (Morphine Sulfate 2 Mg/Ml Cartridge) 2 mg IVPUSH Q4H PRN; Protocol PRN Reason: Pain, Severe (Pain Scale 7-10) Multivitamins/Vitamin C (Multivitamin Tablet) 1 tab PO DAILY [facility] Omeprazole (Omeprazole 20 Mg Capsule.Dr) 20 mg PO DAILY@0630 [facility] Ondansetron HCl (Ondansetron Hcl 4 Mg/2 Ml Vial) 4 mg IVPUSH Q8H PRN PRN Reason: Nausea and Vomiting Last Admin: 11/01/24 12:12 Dose: 4 mg Oxycodone HCl (Oxycodone Hcl Immed Release 5 Mg Tablet) 5 mg PO Q6H PRN PRN Reason: Pain, Moderate(Pain Scale 4-6) Pregabalin (Pregabalin 75 Mg Capsule) 75 mg PO BID [facility] Senna (Sennosides 8.6 Mg Tablet) 17.2 mg PO BEDTIME [facility] Sodium Chloride (0.9 % Sodium Chloride Flush 3 Ml Syringe) 3 ml IVFLUSH QSHIFT [facility] Last Admin: 11/01/24 09:07 Dose: 3 ml Trazodone HCl (Trazodone Hcl 50 Mg Tablet) 50 mg PO BEDTIME [facility] Home Medications ?Medication ?Instructions ?Recorded ?Confirmed ?Last Taken ?Type ascorbic acid (vitamin C) 500 mg 500 mg PO DAILY 10/29/22 11/01/24 10/30/24 History tablet (Vitamin C) aspirin 81 mg tablet,delayed 81 mg PO BEDTIME 10/29/22 11/01/24 10/30/24 History release duloxetine 30 mg capsule,delayed 30 mg PO DAILY 10/29/22 11/01/24 10/30/24 History release pregabalin 75 mg capsule 75 mg PO BID 10/29/22 11/01/24 10/30/24 History trazodone 50 mg tablet 50 mg PO BEDTIME 10/29/22 11/01/24 10/30/24 History levothyroxine 75 mcg tablet 75 mcg PO DAILY@0600 12/11/22 11/01/24 10/30/24 History metoprolol succinate 50 mg 50 mg PO DAILY 12/11/22 11/01/24 10/30/24 History tablet,extended release 24 hr albuterol sulfate 90 mcg/actuation 2 puff inhalation Q4H PRN 07/02/23 11/01/24 Unknown History aerosol inhaler (Ventolin HFA) Shortness Of Breath atorvastatin 20 mg tablet 20 mg PO DAILY 09/18/24 11/01/24 10/30/24 History blood sugar diagnostic (FreeStyle #10 ea 09/18/24 Unknown History Lite Strips) multivitamin 1 tab PO DAILY 09/18/24 11/01/24 10/30/24 History sennosides 8.6 mg tablet (senna) 17.2 mg PO BEDTIME 09/18/24 11/01/24 10/30/24 History fluticasone furoate 200 1 inh inhalation DAILY 11/01/24 11/01/24 10/30/24 History mcg/actuation blister powder for inhalation (Arnuity Ellipta) lansoprazole 30 mg capsule,delayed 30 mg PO DAILY@0630 11/01/24 11/01/24 10/30/24 History release magnesium oxide 400 mg (241.3 mg 200 mg PO BEDTIME 11/01/24 11/01/24 10/30/24 History magnesium) tablet pioglitazone 30 mg tablet 30 mg PO DAILY 11/01/24 11/01/24 10/30/24 History Physical Exam Vital Signs: Vital Signs: Last Vital Signs Temp 97.3 F 11/01/24 11:10 Pulse 81 11/01/24 13:20 Resp 18 11/01/24 11:10 BP 129/62 11/01/24 13:20 Pulse Ox 98 11/01/24 11:10 O2 Del Method Room Air 11/01/24 11:10 BMI result Body Mass Index 37.9 EXAM: GENERAL: The patient is well developed and nontoxic. VITAL SIGNS:see workflow HEENT: Nonicteric sclerae, PERRLA, EOMI. Oropharynx clear. Moist mucous membranes. Conjunctivae appear well perfused. No thyroid mass. CHEST: Chest wall is nontender. HEART: Regular rate and rhythm without murmurs. LUNGS: Clear to auscultation bilaterally. ABDOMEN: Soft, positive bowel sounds, mildly tender LUQ , no organomegaly.no flank tenderness SKIN: No rash, no excessive bruising, petechiae, or purpura. NEUROLOGIC: Cranial nerves II-XII intact without motor/sensory deficit. Psych: normal affect Results Labs 11/02/24 08:46 11/02/24 08:46 Labs: Short CBC 10/31/24 11/01/24 Range/Units 14:59 06:02 WBC 5.2 4.0 L (4.8-10.8) X10*3/uL Hgb 12.9 11.2 L (12.0-16.0) g/dl Hct 40.7 36.1 L (37.0-47.0) % Plt Count 126 L D 118 L (160-400) X10*3/uL BMP 10/31/24 11/01/24 14:59 06:02 Sodium 140 141 Potassium 3.7 3.4 Chloride 104 108 Carbon Dioxide 25 25 BUN 14 10 Creatinine 0.71 0.69 Calcium 8.9 D 8.6 Liver Function 10/31/24 11/01/24 Range/Units 14:59 06:02 Total Bilirubin 0.7 0.6 (0.0-1.0) mg/dL Direct Bilirubin 0.3 (0.0-0.5) mg/dL AST 26 24 (5-31) U/L ALT 9 7 (0-31) U/L Alkaline Phosphatase 89 78 (39-117) U/L Albumin 3.9 3.5 (3.5-5.0) g/dL Imaging CT scan - abdomen: Attestation: I personally reviewed and interpreted this imaging study as follows: (mild scoliosis, degen spinal disease, mild atherosclerosis, gastric thickening, dilated cbd ) Assessment and Plan (1) Common bile duct dilatation: Status: Acute Plan 1/ LUQ abdominal pain, with imaging revealing gallstones and dilated CBD,uncertain if related or not to her symptoms or incidental. Her diarrhea is resolved. ddx: viral gastroenteritis, referred pain from back LFT have been nml Plan: 1/ MRCP r/o choledocholithiasis 2/ can use BID PPI and add carafate Procedures Date of Service Date of Service: 11/02/24
[2024-11-01] MEDS: Calcium Carbonate 750 MG TAB.CHEW PO ×2 (15:38→20:54)
[2024-11-01 16:14] LABS: Glucose, Whole Blood 88 mg/dL (60-115)
[2024-11-01 20:45] LABS: Glucose, Whole Blood 102 mg/dL (60-115)
[2024-11-02] MEDS: Acetaminophen 325 MG TABLET 975 MG PO (00:20)
[2024-11-02 03:59] VITALS: BP 151/72; PULSE 111; RESP 16; TEMP 36.6; O2SAT 96
[2024-11-02] MEDS: ondansetron HCL 4 MG/2 ML VIAL IVPUSH (05:50)
[2024-11-02] MEDS: Levothyroxine Sodium 75 MCG TABLET PO (05:50)
[2024-11-02] MEDS: Omeprazole 20 MG CAPSULE.DR PO ×2 (05:50→19:00)
[2024-11-02 07:51] LABS: Glucose, Whole Blood 122 mg/dL (60-115)
[2024-11-02] MEDS: 0.9 % Sodium Chloride Flush 3 ML SYRINGE IVFLUSH ×3 (07:59→21:28)
[2024-11-02] MEDS: Metoprolol Succinate ER 50 MG TAB.ER.24H PO (07:59)
[2024-11-02] MEDS: Ascorbic Acid 500 MG TABLET PO (07:59)
[2024-11-02 08:00] VITALS: BP 138/66; PULSE 83; RESP 17; TEMP 36.3; O2SAT 95
[2024-11-02] MEDS: Multivitamin TABLET 1 TAB PO (08:00)
[2024-11-02] MEDS: Enoxaparin Sodium 40 MG/0.4 ML SYRINGE SUBCUT (08:00)
[2024-11-02] MEDS: Pregabalin 75 MG CAPSULE PO ×2 (08:00→21:25)
[2024-11-02] MEDS: DULoxetine HCl 30 MG CAPSULE.DR PO (08:00)
[2024-11-02 09:24] LABS: Hematocrit 39.4 % (37.0-47.0); Hemoglobin 12.3 g/dl (12.0-16.0); Mean Corpuscular HGB Conc 31.2 g/dl (31.0-35.0); Mean Corpuscular Hemoglobin 26.7 pg (27.0-33.0); Mean Corpuscular Volume 85.7 fL (80.0-98.0); Mean Platelet Volume 11.9 fL (9.4-12.3); Platelet Count 135 X10*3/uL (160-400); Red Cell Distribution Width 15.6 % (11.0-16.0); White Blood Count 4.1 X10*3/uL (4.8-10.8)
[2024-11-02 09:40] LABS: Anion Gap 12 (12-20); Blood Urea Nitrogen 8 mg/dL (9-16); Calcium 9.6 mg/dL (8.4-10.2); Carbon Dioxide 27 mmol/L (22-29); Chloride 108 mmol/L (96-108); Estimated Glomerular Filt Rate > 60; Glucose Random 124 mg/dL (60-115); Potassium 4.3 mmol/L (3.3-5.1); Sodium 143 mmol/L (135-145)
[2024-11-02 11:50] LABS: Glucose, Whole Blood 100 mg/dL (60-115)
[2024-11-02 12:00] VITALS: BP 118/61; PULSE 62; RESP 18; TEMP 36.2; O2SAT 97
[2024-11-02 15:13] LABS: CDiff Gene PCR NEGATIVE (Negative)
[2024-11-02 16:00] VITALS: BP 143/64; PULSE 65; RESP 17; TEMP 36.4; O2SAT 99
[2024-11-02 16:11] LABS: Adenovirus F 40/41 Not Detected (Not Detect.); Astrovirus Not Detected (Not Detect.); Campylobacter Not Detected (Not Detect.); Cryptosporidium Not Detected (Not Detect.); Cyclospora cayetanensis Not Detected (Not Detect.); E. coli EAEC Not Detected (Not Detect.); E. coli EPEC Not Detected (Not Detect.); E. coli ETEC Not Detected (Not Detect.); E. coli STEC Not Detected (Not Detect.); Entamoeba histolytica Not Detected (Not Detect.); Giardia lamblia Not Detected (Not Detect.); Plesiomonas shigelloides Not Detected (Not Detect.); Rotavirus A Not Detected (Not Detect.); Salmonella Not Detected (Not Detect.); Sapovirus Not Detected (Not Detect.); Shigella sp./EIEC Not Detected (Not Detect.); Vibrio Not Detected (Not Detect.); Vibrio Cholerae Not Detected (Not Detect.); Yersinia enterocolitica Not Detected (Not Detect.)
--- NOTE | 2024-11-02 16:12 | P.PNIM_ITS ---
Subjective Subjective Date of Service: 11/02/24 Interval History: seen and examined this morning Follow-up for abdominal pain reports being left-sided abdominal pain, multiple episodes of diarrhea Review of Systems Review of Systems: Yes all other systems are reviewed and are negative Constitutional Constitutional: Denies chills and Denies fever(s) Gastrointestinal Gastrointestinal: Reports abdominal pain Physical Exam 2 Vital Signs: Vital Signs: Last Vital Signs Temp 97.2 F 11/02/24 12:00 Pulse 62 11/02/24 12:00 Resp 18 11/02/24 12:00 BP 118/61 11/02/24 12:00 Pulse Ox 97 11/02/24 12:00 O2 Del Method Nasal Cannula 11/02/24 12:00 O2 Flow Rate 2 11/02/24 12:00 BMI result Body Mass Index 37.9 Const: General: cooperative, alert, awake and Physically active Nutritional Appearance: average body habitus Orientation/consciousness: patient oriented x3 Resp: Effort & Inspection: normal respiratory effort, able to speak in complete sentences, no respiratory distress and no use of accessory muscles Cardio: Rate: regular rate GI: Other: no guarding no rebound Inspection: No distended Palpation (GI): Soft to palpation Neuro: General: patient oriented x3, moves all extremities and CN's II-XI intact bilaterally Objective Data Active Medications Acetaminophen (Acetaminophen 325 Mg Tablet) 975 mg PO Q6H PRN PRN Reason: Pain, Mild 1-3,fever,headache Last Admin: 11/02/24 00:20 Dose: 975 mg Documented By: ELISABETH Albuterol Sulfate (Albuterol Sulfate 90 Mcg 8 Gm Inhaler) 2 puff INHALE Q4H PRN PRN Reason: Shortness Of Breath Ascorbic Acid (Ascorbic Acid 500 Mg Tablet) 500 mg PO DAILY [facility] Last Admin: 11/02/24 07:59 Dose: 500 mg Documented By: TRICIA Aspirin (Aspirin Enteric Coated 81 Mg Tablet.) 81 mg PO BEDTIME [facility] Last Admin: 11/01/24 21:05 Dose: Not Given Documented By: ELISABETH Non-Admin Reason: Patient Refused Calcium Carbonate (Calcium Carbonate 750 Mg Tab.Chew) 750 mg PO Q4H PRN PRN Reason: Heartburn Last Admin: 11/01/24 20:54 Dose: 750 mg Documented By: HO.ANTOINC Dextrose (Dextrose 50 % 25 Gm/50 Ml Syringe) 25 gm IVPUSH Q15M PRN; Protocol PRN Reason: per Hypoglycemia Standing Ord. Duloxetine HCl (Duloxetine Hcl 30 Mg Capsule.) 30 mg PO DAILY [facility] Last Admin: 11/02/24 08:00 Dose: 30 mg Documented By: TRICIA Enoxaparin Sodium (Enoxaparin Sodium 40 Mg/0.4 Ml Syringe) 40 mg SUBCUT DAILY [facility] Last Admin: 11/02/24 08:00 Dose: 40 mg Documented By: TRICIA Glucose (Glucose Gel 15 Gm Gel..Gram.) 15 gm PO Q15M PRN; Protocol PRN Reason: per Hypoglycemia Standing Ord. Insulin Human Lispro (Insulin Lispro 100 Unit/Ml 3 Ml Vial) 0 unit SUBCUT QIDACHS [facility]; Protocol Last Admin: 11/02/24 12:35 Dose: Not Given Documented By: TRICIA Non-Admin Reason: No Insulin Coverage Levothyroxine Sodium (Levothyroxine Sodium 75 Mcg Tablet) 75 mcg PO DAILY@0600 [facility] Last Admin: 11/02/24 05:50 Dose: 75 mcg Documented By: ELISABETH Magnesium Hydroxide (Milk Of Magnesia 30 Ml Oral.Susp) 30 ml PO DAILY PRN PRN Reason: Constipation Magnesium Oxide (Magnesium Oxide 400 Mg Tablet) 200 mg PO BEDTIME [facility] Last Admin: 11/01/24 21:05 Dose: Not Given Documented By: ELISABETH Non-Admin Reason: Patient Refused Melatonin (Melatonin 3 Mg Tablet) 6 mg PO BEDTIME PRN PRN Reason: Insomnia Metoprolol Succinate (Metoprolol Succinate Er 50 Mg Tab.Er.24h) 50 mg PO DAILY [facility]; Protocol Last Admin: 11/02/24 07:59 Dose: 50 mg Documented By: TRICIA Morphine Sulfate (Morphine Sulfate 2 Mg/Ml Cartridge) 2 mg IVPUSH Q4H PRN; Protocol PRN Reason: Pain, Severe (Pain Scale 7-10) Multivitamins/Vitamin C (Multivitamin Tablet) 1 tab PO DAILY [facility] Last Admin: 11/02/24 08:00 Dose: 1 tab Documented By: TRICIA Omeprazole (Omeprazole 20 Mg Capsule.) 20 mg PO DAILY@0630 [facility] Last Admin: 11/02/24 05:50 Dose: 20 mg Documented By: ELISABETH Ondansetron HCl (Ondansetron Hcl 4 Mg/2 Ml Vial) 4 mg IVPUSH Q8H PRN PRN Reason: Nausea and Vomiting Last Admin: 11/02/24 05:50 Dose: 4 mg Documented By: ANTAUBREY Oxycodone HCl (Oxycodone Hcl Immed Release 5 Mg Tablet) 5 mg PO Q6H PRN PRN Reason: Pain, Moderate(Pain Scale 4-6) Pregabalin (Pregabalin 75 Mg Capsule) 75 mg PO BID [facility] Last Admin: 11/02/24 08:00 Dose: 75 mg Documented By: TRICIA Senna (Sennosides 8.6 Mg Tablet) 17.2 mg PO BEDTIME [facility] Last Admin: 11/01/24 21:06 Dose: Not Given Documented By: ELISABETH Non-Admin Reason: Patient Refused Sodium Chloride (0.9 % Sodium Chloride Flush 3 Ml Syringe) 3 ml IVFLUSH QSHIFT [facility] Last Admin: 11/02/24 07:59 Dose: 3 ml Documented By: TRICIA Trazodone HCl (Trazodone Hcl 50 Mg Tablet) 50 mg PO BEDTIME [facility] Last Admin: 11/01/24 21:06 Dose: Not Given Documented By: ELISABETH Non-Admin Reason: Patient Refused Labs 11/02/24 08:46 11/02/24 08:46 Labs: Laboratory Results - last 24 hr 11/01/24 11/01/24 11/02/24 16:07 20:41 07:45 MCV MCH MCHC RDW Plt Count MPV Absolute Nucleated RBC Nucleated RBC % (auto) Anion Gap Estim Creat Clear Calc Estimated GFR POC Glucose 88 102 122 H Random Glucose Calcium C. difficile Tox B Gene 11/02/24 11/02/24 11/02/24 08:46 11:38 11:57 MCV 85.7 MCH 26.7 L MCHC 31.2 RDW 15.6 Plt Count 135 L MPV 11.9 Absolute Nucleated RBC 0.000 Nucleated RBC % (auto) 0.0 Anion Gap 12 Estim Creat Clear Calc 68.0 Estimated GFR > 60 POC Glucose 100 Random Glucose 124 H Calcium 9.6 D C. difficile Tox B Gene NEGATIVE Assessment and Plan (1) Diarrhea: Status: Acute (2) Common bile duct dilatation: Status: Acute (3) Norovirus: Status: Acute Plan Patient is a 79-year-old female with a past medical history significant for osteoarthritis, CKD unspecified, solitary right kidney, hypothyroid, moderate persistent asthma, constipation, GERD, fibromyalgia, type 2 diabetes, HLD, HTN, who presented to the ED due to severe nausea, vomiting and diarrhea for the past few weeks. Patient was being discharged home and had a presyncopal episode secondary to orthostatic hypotension, plan to admit for observation and repeat orthostatics in the morning. abdominal pain with vomiting and diarrhea tested positive for norovirus WBC normal, no infectious etiology identified, no sepsis abdominopelvic CT with dilated CBD with mild intrahepatic biliary ductal dilation. This is similar to prior imaging dated 01/18/2024 and is likely a chronic finding. LFTs normal C diff negative; GI panel +for norovirus GI consultation rec MRCP Presyncope secondary to orthostatic hypotension from frequent vomiting and diarrhea Negative orthostatic blood pressures this morning Status post 2 L of IV fluids Hypothyroid continue home meds Moderate persistent asthma no acute exacerbation continue home meds Type 2 diabetes sliding scale insulin hold Actos diabetic diet HTN continue metoprolol HLD statin on hold Class 3 Obesity BMI 37.9 Discussed importance of weight management as this may be contributing to worsening of other comorbidities full code VTE prophylaxis: LoveProPerformax Quality Stroke Does the patient have a stroke diagnosis?: No VTE Prior VTE?: No VTE Risk Level:: Medical - moderate - high VTE Device Contraindication: Treatment Not Indicated VTE Drug Contraindication: N/A - Med Ordered
[2024-11-02 16:15] LABS: Glucose, Whole Blood 103 mg/dL (60-115)
[2024-11-02 16:19] LABS: Norovirus GI/GII Detected (Not Detect.)
[2024-11-02] MEDS: Sucralfate 1 GM TABLET PO (19:00)
[2024-11-02 20:00] VITALS: BP 148/68; PULSE 79; RESP 18; TEMP 37; O2SAT 97
[2024-11-02 20:48] LABS: Glucose, Whole Blood 113 mg/dL (60-115)
[2024-11-02] MEDS: Aspirin Enteric Coated 81 MG TABLET.DR PO (21:25)
[2024-11-02] MEDS: Magnesium Oxide 400 MG TABLET 200 MG PO (21:25)
[2024-11-02 23:57] VITALS: BP 130/75; PULSE 77; RESP 18; TEMP 36.1; O2SAT 95
[2024-11-03] MEDS: traZODone HCL 50 MG TABLET PO (00:56)
[2024-11-03 03:22] VITALS: BP 152/80; PULSE 88; RESP 18; TEMP 36.3; O2SAT 95
[2024-11-03] MEDS: Omeprazole 20 MG CAPSULE.DR PO (06:36)
[2024-11-03] MEDS: Levothyroxine Sodium 75 MCG TABLET PO (06:36)
[2024-11-03 07:39] LABS: Glucose, Whole Blood 120 mg/dL (60-115)
[2024-11-03 07:53] VITALS: BP 136/70; PULSE 56; RESP 18; TEMP 36.1; O2SAT 95
[2024-11-03] MEDS: Pregabalin 75 MG CAPSULE PO (09:27)
[2024-11-03] MEDS: Ascorbic Acid 500 MG TABLET PO (09:27)
[2024-11-03] MEDS: Multivitamin TABLET 1 TAB PO (09:27)
[2024-11-03] MEDS: DULoxetine HCl 30 MG CAPSULE.DR PO (09:27)
[2024-11-03] MEDS: Metoprolol Succinate ER 50 MG TAB.ER.24H PO (09:27)
[2024-11-03] MEDS: Sucralfate 1 GM TABLET PO (09:27)
[2024-11-03] MEDS: 0.9 % Sodium Chloride Flush 3 ML SYRINGE IVFLUSH (09:28)
[2024-11-03] MEDS: Enoxaparin Sodium 40 MG/0.4 ML SYRINGE SUBCUT (09:30)
--- NOTE | 2024-11-03 10:57 | PM.DS ---
DS: Providers Provider Date of Service: 11/03/24 Date of admission: 10/31/24 22:31 Date of discharge: 11/03/24 Primary care physician: Daniel Oconnor MD Consults: 11/01/24 09:49 Consult to Gastroenterology Routine Consulting Provider: Alberta Weber Reason for consultation: N/V hx of CBD dilation Attending physician on discharge: Aleks Channing Home Discharging clinician: Olga Roberts DS: Diagnosis Discharge Diagnosis (1) Diarrhea: Status: Acute (2) Common bile duct dilatation: Status: Acute (3) Norovirus: Status: Acute DS: Summary Hospital Course Hospital Course: From H&P on the day of admission Patient is a 79-year-old Citizen Of [place]-speaking female with a past medical history significant for osteoarthritis, CKD unspecified, solitary right kidney, hypothyroid, moderate persistent asthma, constipation, GERD, fibromyalgia, type 2 diabetes, HLD, HTN, who presented to the ED due to severe nausea, vomiting and diarrhea for the past few weeks. The patient's family members reports that she is ?faking it ?. He reports frequent dry heaves. The patient is actively vomiting while in the exam room. She describes mostly vomiting up undigested food however she has not eaten in the past few days therefore vomiting liquids without any blood. She has had brown diarrhea, frequency is unclear. She was seen at [facility] and referred to the emergency department. She was also complaining of left-sided flank pain. Her brother did past 2 days ago here and she is grieving. She was going to go home with antiemetics however when she was using the restroom just prior to discharge she had a presyncopal episode. The patient is a very poor historian, she has not answer questions appropriately most times as she is on the phone with her daughter and they are arguing about her not wanting to stay. abdominal pain with vomiting and diarrhea tested positive for norovirus abdominopelvic CT with dilated CBD with mild intrahepatic biliary ductal dilation. This is similar to prior imaging dated 01/18/2024 and is likely a chronic finding. MRCP was obtained and no stones were identified. LFTs are normal. Seen by GI, no further work up recommended as intpatient. Abdominal pain resolved. Diarrhea slowing down. C diff negative; GI panel +for norovirus. Patient has been tolerating a diet and patient is stable for discharge home. Presyncope secondary to orthostatic hypotension from frequent vomiting and diarrhea Negative orthostatic blood pressures after IVF. No further episodes leukopenia ?due to viral illness. Outpatient follow-up with PCP recommended Thrombocytopenia question due to viral illness, also has history of thrombocytopenia. Outpatient follow-up with PCP recommended Time Attestation Discharge Coordination Time (in mins): 35 Quality: Safe Use of Opioids Does Pt have an Active Cancer Diagnosis on the Problem List?: No Quality: Stroke Does the patient have a stroke diagnosis?: No Physical Exam Vital Signs: Vital Signs: Last Vital Signs Temp 97.0 F 11/03/24 07:53 Pulse 56 11/03/24 07:53 Resp 18 11/03/24 07:53 BP 136/70 11/03/24 07:53 Pulse Ox 95 11/03/24 07:53 O2 Del Method Room Air 11/03/24 07:53 O2 Flow Rate 2 11/02/24 12:00 BMI result Body Mass Index 37.9 Const: General: cooperative, alert, awake and Physically active Nutritional Appearance: average body habitus Orientation/consciousness: patient oriented x3 Resp: Effort & Inspection: normal respiratory effort, able to speak in complete sentences, no respiratory distress and no use of accessory muscles Cardio: Rate: regular rate GI: Other: no guarding no rebound Inspection: No distended Palpation (GI): Soft to palpation Neuro: General: patient oriented x3, moves all extremities and CN's II-XI intact bilaterally DS: Data Data Completed and Pending Labs on day of discharge: Laboratory Results - last 24 hr 11/02/24 11/02/24 11/02/24 11:38 11:57 16:04 POC Glucose 100 103 Stl C. cayetanensis PCR Not Detected Stool Rotavirus A PCR Not Detected Stl Adenov F 40/41 PCR Not Detected Stool Astrovirus (PCR) Not Detected Stool Campylobacter PCR Not Detected Stool Cryptosporidium PCR Not Detected Stl Sh Tox Pr E STEC PCR Not Detected Stool E coli O157 PCR Not applicable Stl Enterotoxigenic E PCR Not Detected Stool EPEC (PCR) Not Detected Stool EAEC (PCR) Not Detected Stl E. histolytica PCR Not Detected Stool Giardia Lamblia PCR Not Detected Stl P. shigelloides PCR Not Detected Stool Salmonella PCR Not Detected Stool Sapovirus (PCR) Not Detected Stl Shigella/EIEC PCR Not Detected St Y.enterocolitica PCR Not Detected Stool Vibrio (PCR) Not Detected Stl Vibrio cholerae PCR Not Detected Stl Norovirus GI/GII PCR Detected A C. difficile Tox B Gene NEGATIVE 11/02/24 11/03/24 20:44 07:04 POC Glucose 113 120 H Stl C. cayetanensis PCR Stool Rotavirus A PCR Stl Adenov F 40/41 PCR Stool Astrovirus (PCR) Stool Campylobacter PCR Stool Cryptosporidium PCR Stl Sh Tox Pr E STEC PCR Stool E coli O157 PCR Stl Enterotoxigenic E PCR Stool EPEC (PCR) Stool EAEC (PCR) Stl E. histolytica PCR Stool Giardia Lamblia PCR Stl P. shigelloides PCR Stool Salmonella PCR Stool Sapovirus (PCR) Stl Shigella/EIEC PCR St Y.enterocolitica PCR Stool Vibrio (PCR) Stl Vibrio cholerae PCR Stl Norovirus GI/GII PCR C. difficile Tox B Gene Discharge Plan Discharge Anticipated Discharge Date/Time: 11/03/24 11:46 Patient Disposition: Home, Self-Care Discharge Diagnosis: orthostatic hypotension diarrhea due to norovirus Referrals: Daniel Oconnor MD [Primary Care Provider] - 1 Week Discharge Medications: New ondansetron 4 mg tablet,disintegrating 4 mg PO Q6-8H PRN (Reason: nausea and vomiting) Qty: 7 0RF Continued magnesium oxide 400 mg (241.3 mg magnesium) tablet 200 mg PO BEDTIME pioglitazone 30 mg tablet 30 mg PO DAILY Arnuity Ellipta 200 mcg/actuation blister with device 1 inh INHALATION DAILY lansoprazole 30 mg capsule,delayed release(DR/EC) 30 mg PO DAILY@0630 albuterol sulfate [Ventolin HFA] 90 mcg/actuation HFA aerosol inhaler 2 puff inhalation Q4H PRN (Reason: Shortness Of Breath) levothyroxine 75 mcg tablet 75 mcg PO DAILY@0600 metoprolol succinate 50 mg tablet extended release 24 hr 50 mg PO DAILY (DME) FreeStyle Lite Strips Strip See Rx Instructions .ROUTE .MEDSUPPLY Qty: 10 Rx Instructions: As directed multivitamin Tablet 1 tab PO DAILY atorvastatin 20 mg tablet 20 mg PO DAILY sennosides [senna] 8.6 mg tablet 17.2 mg PO BEDTIME aspirin 81 mg tablet,delayed release (DR/EC) 81 mg PO BEDTIME pregabalin 75 mg capsule 75 mg PO BID duloxetine 30 mg capsule,delayed release(DR/EC) 30 mg PO DAILY ascorbic acid (vitamin C) [Vitamin C] 500 mg tablet 500 mg PO DAILY trazodone 50 mg tablet 50 mg PO BEDTIME Discharge Orders: Discharge Order (Routine); Ordered 11/03/24 Ordered By: Olga Roberts Activity on Discharge: As tolerated Stand Alone Forms: Patient Portal Discharge page Print Language: Citizen Of [place] Other Ambulatory Orders: Complete Blood Count no Diff (Routine) Timeframe: 1 Week Facility: [facility] - Location: Laboratory Ordered By: Olga Roberts Care Plan Goals: see below Health Concerns: diarrhea due to norovirus chronic dilation of common bile duct orthostatic hypotension/pre-syncope leukopenia - outpatient follow up with PCP recommended. Repeat labs next week thrombocytopenia - outpatient follow-up with PCP. Repeat labs next week Plan of Treatment: Norovirus is a self limiting illness good hand hygiene recommended Assessment: see discharge summary
--- NOTE | 2024-11-03 11:37 | MHC.CM.PN ---
SCHERER 11/01/24 Per MD rounds patient is ready to discharge today. [employer] services will resume. Patients son + family will assist. He will provide transportation to home this afternoon.
[2024-11-03 11:55] LABS: Glucose, Whole Blood 128 mg/dL (60-115)
[2024-11-03 11:57] VITALS: BP 127/68; PULSE 71; RESP 18; TEMP 36.2; O2SAT 97
--- NOTE | 2024-11-03 12:33 | MHC.CM.PN ---
GILMER 11/01/24 Patient is discharged to home today. [employer] services will resume. Spoke with patients son, Brenden. He and his family will assist patient at home. He will provide transportation to home this afternoon.
[2024-11-03 15:32] VITALS: BP 127/59; PULSE 81; RESP 18; TEMP 36.1; O2SAT 97
[2024-11-03 15:57] LABS: Glucose, Whole Blood 131 mg/dL (60-115)
== END 2024-11-03 16:47 | disposition home or self-care (01) ==
LOC: HO.ED 22:33 → HO.EDOVER 23:38 → HO.IMC 11-01 07:11
PROVIDERS: Emergency Medicine Emergency Medical Services; Nurse Practitioner Acute Care; Physician Assistant; Admitting Provider Student in an Organized Health Care Education/Training Program; Emergency Provider Internal Medicine; PCP Internal Medicine; Visit Provider Physician Assistant Medical
DX: I95.1 Orthostatic hypotension (principal); A08.11 Acute gastroenteropathy due to Norwalk agent; R11.2 Nausea with vomiting, unspecified; R19.7 Diarrhea, unspecified; D72.819 Decreased white blood cell count, unspecified; K83.8 Other specified diseases of biliary tract; R10.11 Right upper quadrant pain; E03.9 Hypothyroidism, unspecified; E11.22 Type 2 diabetes mellitus with diabetic chronic kidney disease; I12.9 Hypertensive chronic kidney disease with stage 1 through stage 4 chronic kidney disease, or unspecified chronic kidney disease; N18.9 Chronic kidney disease, unspecified; J45.40 Moderate persistent asthma, uncomplicated; E66.813 Obesity, class 3; Z68.37 Body mass index [BMI] 37.0-37.9, adult; Z79.899 Other long term (current) drug therapy
CPT/HCPCS: 36415; 70450; 74177; 74181; 76705; 80048; 80053; 80076; 82947; 83690; 85025; 85027; 87493; 87507; 96361; 96372; 96374; 96375; 96376; 99222; 99285; J1171; J1650; J2405; J7120; Q9967

== ENCOUNTER → 2024-10-31 14:40 | Outpatient (BNV) | payer OTHER, SELFPAY | PROVIDERS: Emergency Provider Emergency Medicine Emergency Medical Services; PCP Internal Medicine; Visit Provider Radiology Diagnostic Radiology | DX: R10.9 Unspecified abdominal pain (principal); R42 Dizziness and giddiness | CPT/HCPCS: 70450; 74177 ==

== ENCOUNTER 2024-10-31 22:31 | Outpatient (BNV) | payer OTHER, SELFPAY | END 2024-11-02 18:11 | PROVIDERS: Admitting Provider Student in an Organized Health Care Education/Training Program; Emergency Provider Internal Medicine; PCP Internal Medicine; Visit Provider Radiology Diagnostic Radiology | DX: R10.9 Unspecified abdominal pain (principal) | CPT/HCPCS: 74181 ==

== ENCOUNTER 2024-10-31 22:31 | Outpatient (BNV) | payer OTHER, SELFPAY | END 2024-11-01 13:55 | PROVIDERS: Admitting Provider Student in an Organized Health Care Education/Training Program; Emergency Provider Internal Medicine; PCP Internal Medicine; Visit Provider Radiology Diagnostic Radiology | DX: K80.10 Calculus of gallbladder with chronic cholecystitis without obstruction (principal) | CPT/HCPCS: 76705 ==

== ENCOUNTER → 2024-10-31 22:31 | Outpatient (BNV) | payer OTHER, SELFPAY | PROVIDERS: Admitting Provider Student in an Organized Health Care Education/Training Program; Emergency Provider Internal Medicine; PCP Internal Medicine; Visit Provider Internal Medicine Gastroenterology | DX: K83.8 Other specified diseases of biliary tract (principal) | CPT/HCPCS: 99223 ==

== ENCOUNTER → 2024-10-31 22:31 | Outpatient (BNV) | payer OTHER, SELFPAY | PROVIDERS: Admitting Provider Student in an Organized Health Care Education/Training Program; Emergency Provider Internal Medicine; PCP Internal Medicine; Visit Provider Physician Assistant | DX: R19.7 Diarrhea, unspecified (principal); K83.8 Other specified diseases of biliary tract; A08.11 Acute gastroenteropathy due to Norwalk agent | CPT/HCPCS: 99223; 99232; 99239 ==

== ENCOUNTER 2025-01-26 10:41 | Outpatient (REF) | payer OTHER, SELFPAY ==
--- OUTSIDE RECORDS SUMMARY | 2025-01-26 10:50 | XMS_ITS | Clinical Summary ---
Author Organization [employer] Address [address] [facility] [address] [place] [address] Care Team Providers Care Systems Architecture Analyst Name Role Phone Daniel Holder MD Primary [...] disease, without long-term current use of insulin ([facility]) TEST BLOOD SUGAR TWICE DAILY 100 strip 5 05/16/20 24 Active TRUEplus Lancets 33G miscIndications:T ype 2 diabetes mellitus with stage 3a chronic kidney disease, without long-term current use of insulin ([facility]) TEST BLOOD SUGAR TWICE DAILY 100 each 5 05/16/20 24 Active pregabalin (Lyrica) 75 MG capsuleIndication s:Fibromyalgia TAKE 1 CAPSULE BY MOUTH TWICE DAILY IN THE MORNING AND AT BEDTIME 60 capsule 06/02/20 24 Active albuterol (Ventolin HFA) 108 (90 Base) MCG/ACT inhalerIndication s:Chronic obstructive pulmonary disease, unspecified COPD type ([facility]) Inhale 2 puffs every 4 (four) hours if needed for wheezing. 18 g 3 06/26/20 24 Active Arnuity Ellipta 200 MCG/ACT inhaler INHALE 1 PUFF BY MOUTH EVERY DAY AT THE SAME TIME. RINSE MOUTH AFTER USING. 30 each 5 07/18/19 25 Active Aspirin Low Dose 81 MG EC tablet TAKE 1 TABLET BY MOUTH EVERY MORNING 90 tablet 1 08/15/19 25 Active clotrimazole (Lotrimin) 1 % cream Apply topically 2 times daily. 60 g 3 09/30/19 25 Active Alcohol Swabs (Alcohol Prep) 70 % padsIndications:T ype 2 diabetes mellitus without complication, without long-term current use of insulin ([facility]) USE TWICE DAILY 100 each 11 10/05/19 [...] 2 diabetes mellitus without complication, unspecified whether assisted insulin use (CMS/HCC) TAKE 1 TABLET BY MOUTH EVERY MORNING 30 tablet 3 10/14/19 25 Active fluticasone (Flonase) 50 MCG/ACT nasal sprayIndications: Seasonal allergies INHALE 1 SPRAY IN EACH NOSTRIL TWICE DAILY 48 g 11/15/19 25 Active pregabalin (Lyrica) 75 MG capsuleIndication s:Fibromyalgia TAKE 1 CAPSULE BY MOUTH TWICE DAILY IN THE MORNING AND AT BEDTIME 60 capsule 01/17/20 25 Active pregabalin (Lyrica) 75 MG capsuleIndication s:Fibromyalgia TAKE 1 CAPSULE BY MOUTH TWICE DAILY IN THE MORNING AND AT BEDTIME 60 capsule 12/20/19 25 025 Discontinued Active Problems Problem Noted Date Diagnosed Date Hospital discharge follow-up 12/19/2024 Assessment & Plan (12/19/2024 9:56 AM EDT): Pt here for a HDF after being [place] [facility] [place] She initially presented to the ED due to severe nausea, vomiting and diarrhea for the past few weeks. She was seen here initially and referred to the emergency department. She was also complaining of left-sided flank pain. She was going to be discharged with antiemetics however when she was using the restroom just prior to discharge she had a presyncopal episode. She tested positive for norovirus . work up in the ER included abdominopelvic CT with dilated CBD with mild intrahepatic biliary ductal dilation, similar to prior imaging dated 01/18/2024 and is likely a chronic finding. MRCP was obtained and no stones were identified. LFTs are normal. Seen by GI, no further work up recommended as inpatient. Abdominal pain resolved. Diarrhea slowing down. C diff negative; GI panel +for norovirus. Patient was tolerating a diet and patient was deemed stable for discharge home. She was given a Dx of Presyncope secondary to orthostatic hypotension from frequent vomiting and diarrhea . Negative orthostatic blood pressures after IVF. No further episodes. While in the Hospital her CBC showed leukopenia and thrombocytopenia thought to be due to viral illness Will repeat Diarrhea of presumed infectious origin Assessment & [...] Fluids down Case discussed with ER at [facility] Nicotine dependence, cigarettes, uncomplicated 0 10/08/2023 Dilated [...] the need to loose weight, referred to [employer] in the past. Patient has been counseled and educated about diet and exercise. Personal goal of weight loss discussed Assessment & Plan (02/22/2024 1:06 PM EDT): Discussed the need to loose weight, referred to [employer] in the past. Patient has been counseled and educated about diet and exercise. Personal goal of weight loss discussed Assessment & Plan (10/07/2023 11:01 AM EDT): Contributing to her bilateral knee pain discussed the need to loose weight, referred to [employer] in the past. Patient has been counseled and educated about diet and exercise. Personal goal of weight loss discussed Assessment & Plan (09/22/2022 9:40 AM EDT): Contributing to her bilateral knee pain discussed the need to loose weight, referred to [employer] in the past. Primary osteoarthritis of both [...] to GI intolerance) Patient was referred to [facility] for steroid injections. Pt was seen 10/29/2021 [...] f/u and was scheduled a f/u with [facility] Assessment & Plan (09/22/2022 9:40 AM [...] to GI intolerance) Patient was referred to [facility] for steroid injections. Pt was seen [...] repeat Mixed hyperlipidemia 03/08/2012 Assessment & Plan (12/19/2024 9:57 AM EDT): Pt here for a f/u Most recent lipid profile from: Lab Results Component Value Date TRIG 98 10/27/2023 TRIG 113 02/11/2023 CHOL 136 10/27/2023 CHOL 148 02/11/2023 LDLCHOLCAL 67 10/27/2023 LDLCHOLCAL 75 02/11/2023 HDL 50 10/27/2023 HDL 51 02/11/2023 Currently not on a regimen. Lipids at target so For now will continue with current regimen.repeat Lipid profile advised to try to adhere to a low cholesterol diet, counseled and educated about diet and exercise, Patient encouraged to come up with a personal goal for weight loss. Assessment & Plan (02/22/2024 12:43 PM EDT): [...] less than 100 mg/dLNear Optimal/Above Optimal LDL: 110-129 mg/dLBorderline High LDL: 130-159 mg/dLHigh LDL: 160-189 [...] last done on: 04/30/[address] Hannon (maitre d) Microalbumin checked on: 05/26/2021 was: 1.1 Pt [...] last done on: 04/30/[address] Hannon (maitre d) Microalbumin checked on: 05/26/2021 was: 1.1 Pt [...] last done on: 04/30/[address] Hannon (maitre d) Microalbumin checked on: 05/26/2021 was: 1.1 Pt [...] last done on: 02/17/[address] Hannon (maitre d) Microalbumin checked on: 05/26/2021 was: 1.1 Pt [...] last done on: 02/17/[address] Hannon (maitre d) Microalbumin checked on: 05/26/2021 was: 1.1 Pt [...] last done on: 02/17/[address] Hannon (maitre d) Microalbumin checked on: 05/26/2021 was: 1.1 Pt [...] last done on: 02/17/[address] Hannon (maitre d) Microalbumin checked on: 05/26/2021 was: 1.1 Pt [...] f/u Depressive disorder 03/08/2012 Assessment & Plan (12/19/2024 10:00 AM EDT): Pt here for a f/u currently seeing [facility] On a regimen of: Duloxetine 30mg po daily, and trazodone 50 mg po qhs. Patient denies any suicidal ideation or thoughts, Patient has crisis numbers and knows to use them if needed. Pt grieving the loss of her brother Assessment & Plan (09/22/2022 9:42 AM EDT): Pt here for a f/u currently seeing Mike at [facility] On a regimen of: Duloxetine 30mg po [...] Pt here for a f/u Follows at [facility] On a regimen of: Duloxetine 30mg po [...] Encounters Date Type Department Care Team Description 01/16/2025 Refill [facility] [address] [place] [address] Daniel Holder MD Fibromyalgia 01/01/2025 Telephone [facility] [address] [place] [address] Daniel Holder MD DME [facility] 12/19/2024 9:30 AM EDT Office Visit [facility] [address] [place] [address] Daniel Holder MD Hospital discharge follow-up (Primary Dx); Type 2 diabetes mellitus with stage 3a chronic kidney disease, without long-term current use of insulin (CMS/HCC); Mixed hyperlipidemia; Depressive disorder 12/19/2024 Travel 12/19/2024 Refill [facility] [address] [place] [address] Daniel Holder MD Fibromyalgia 12/18/2024 Telephone [facility] [address] [place] [address] Daniel Holder MD chart prep 11/13/2024 Refill [facility] [address] [place] [address] Daniel Holder MD Seasonal allergies 11/11/2024 Refill [facility] [address] [place] [address] Daniel Holder MD Fibromyalgia 10/31/2024 11:30 AM EDT Office Visit [facility] [address] [place] [address] Daniel Holder MD Diarrhea of presumed infectious origin (Primary Dx); Type 2 diabetes mellitus with stage 3a chronic kidney disease, without long-term current use of insulin (CMS/HCC); Dilated cbd, acquired; Stage 3a chronic kidney disease (CMS/HCC); Chronic obstructive pulmonary disease, unspecified COPD type (CMS/HCC); Severe obesity (CMS/HCC); Dietary counseling; Exercise counseling; Preventative health care 10/31/2024 Orders Only GENERIC EXTERNAL DATA DEPARTMENT Provider, Generic External Data 10/31/2024 Telephone [facility] [address] [place] [address] Daniel Holder MD ED expect 10/31/2024 Travel 10/27/2024 Telephone [facility] [address] [place] [address] Daniel Holder MD chart prep from Last 3 Months Immunizations Immunization Administration Dates Next Due Hep B, adult [...] Sign Reading Time Taken Comments Blood Pressure 120/70 12/19/2024 9:54 AM EDT Pulse 65 12/19/2024 9:54 AM EDT Temperature 36.3 C (97.4 F) 12/19/2024 9:54 AM EDT Respiratory Rate 20 12/19/2024 9:54 AM EDT Oxygen Saturation 98% 12/19/2024 9:54 AM EDT Inhaled Oxygen Concentration - - Weight 92.5 kg (204 lb) 12/19/2024 9:54 AM EDT Height 162.6 cm (5' 4 ) 12/19/2024 9:54 AM EDT Body Mass Index 35.02 12/19/2024 9:54 AM EDT Plan of Treatment Upcoming Encounters Date Type Department Care Team (Late st Contact Info) Description 02/01/2025 2:00 PM EDT Office Visit [facility] [address] [place] [address] Daniel Holder MD [address] [place] [address] Health Maintenance Due Date Last Done Comments CT Colonography 1945 FIT DNA/Cologuard 1945 FIT 1945 FOBT 1945 Sigmoidoscopy 1945 Diabetes: Foot Exam 1957 Eye Exam 1957 Hepatitis C Screening 1965 Zoster Vaccines (2 of 3) 05/01/2014 03/06/2014 DTaP/Tdap/Td Vaccines (1 - Tdap) 11/13/2016 11/12/2016, 04/26/2006 RSV Patients and Patients Aged 60 years or older (1 - 1-dose 75+ series) 2022 COVID-19 Vaccine ( - season) 2024 05/13/2023, 06/15/2022, 01/15/2022, Additional history exists Hepatitis B Vaccines (2 of 3 - 19+ 3-dose series) 10/09/2024 09/11/2024 Lipid Panel 10/26/2024 10/27/2023, 01/26, 05/26/2021, Additional history exists Diabetes: Hemoglobin A1C 01/31/2025 025, 06/27/2024, 02/22/2024, Additional history exists Influenza Vaccine (#1) 2025 , 04/20/2023, 04/17/2022, Additional history exists Alcohol/Substance Use Screening 06/27/2025 06/27/2024 Depression Screening 06/27/2025 06/27/2024, 06/27/20 24 SDOH Screening 06/27/2025 06/27/2024 Tobacco Screening 12/19/2025 12/19/2024 Colonoscopy 08/16/2034 10/11/2013 Colorectal Cancer Screening 08/16/2034 Pneumococcal Vaccine: 50+ Years Completed 04/28/2015, 04/28/2015, 03/06/2014 HIB Vaccines Aged Out No longer eligi [...] patient's age to complete this topic Meningococcal B Vaccine Aged Out No l onger eligible based on patient's age to complete [...] Date/Time Associated Diagnosis Comments POCT GLUCOSE Routine 12/19/2024 9:54 AM EDT Type 2 diabetes mellitus with stage 3a chronic kidney disease, without long-term current use of insulin (CMS/HCC) MR MRCP Routine 11/02/2024 6:11 PM EDT US ABDOMEN LIMITED Routine 11/01/2024 1: [address] HEAD WO CONTRAST Routine 10/31/2024 9 :[address] ABDOMEN PELVIS W CONTRAST Routine 10/31/2024 5:52 PM EDT POCT GLYCATED HEMOGLOBIN, TOTAL Routine 10/31/2024 3:51 PM EDT Type 2 diabetes mellitus with stage 3a chronic kidney disease, without long-term current use of insulin (CMS/HCC) LIPASE Routine 10/31/2024 2:59 PM EDT BASIC METABOLIC PANEL Routine 10/31/2024 2:59 PM EDT HEPATIC FUNCTION PANEL Routine 10/31/2024 2:59 PM EDT CBC WITH AUTO DIFFERENTIAL Routine 10/31/2024 2:59 PM EDT POCT GLUCOSE Routine 10/31/2024 11:59 AM EDT Type 2 diabetes mellitus with stage 3a chronic kidney disease, without long-term current use of insulin (CMS/HCC) LIPID PANEL, STANDARD Routine 10/27/2023 9:21 AM EDT Type 2 diabetes mellitus with stage 3a chronic kidney disease, without long-term current use of insulin ([facility]) Essential hypertension HM COLONOSCOPY Routine 10/11/2013 from Last 3 Months or Most Recently Relevant to Health Maintenance Results * POCT Glucose (12/19/2024 9:54 AM EDT) Only the most recent of2 resultswithin the time period is included. Pathologist [facility] Glucose Blood, POC 124 60 - 200 mg/dL QC Media Lot # [id number] Lot# Expiration Date Blood Capillary blood specimen / Unknown 12/19/2024 9:54 AM EDT Daniel Agudelo MD POINT OF CARE TEST EN TER/EDIT ORDERABLES Final Result * MR MRCP (11/02/2024 6:11 PM EDT) Anatomical Region Laterality Modality Lower Extremities Left Magnetic Reson ance 11/02/2024 6:11 PM EDT Narrative 11/03/2024 7:32 AM EDT [place] [address] Magnetic Resonance Report Signed Patient: Suha Burton MR#: [id number] [birth year] : 1945 Acct:[id number] Age/Sex: 79 / F ADM Date: 10/31/24 Loc: [facility] 472-[address]: Olga UMANA Ordering Physician: Olga Roberts Date of Service: 11/02/24 Procedure(s): MR MRCP Accession Number(s): [id number] cc: Olga Roberts; Daniel Oconnor MD EXAMINATION: MRCP HISTORY: abdominal pain, dilated CBD COMPARISON: Correlation is made with an abdominal ultrasound dated 11/01/[address] scan dated 10/31/2024. TECHNIQUE: Axial gradient echo and coronal haste T2 with fat saturation images were obtained through the abdomen. 3D MRCP Reconstructed images and thick slab imaging of the biliary tree were obtained. FINDINGS: There is no significant signal loss within the liver on opposed phase imaging to suggest steatosis. There is mild prominence of intrahepatic biliary radicles. Again seen is dilatation of the common bile duct measuring up to 14 mm in diameter. No intraluminal filling defects are identified to suggest choledocholithiasis. The gallbladder is contracted. The intraluminal calculi noted on CT and ultrasound are not well visualized due to gallbladder contraction. The spleen and pancreas have an unremarkable unenhanced appearance. The pancreatic duct is normal in caliber. The adrenal glands are unremarkable. There is a 1.2 cm cyst at the lower pole of the right kidney. The left kidney is surgically absent. No retroperitoneal lymphadenopathy or ascites is identified in the upper abdomen. The visualized bones demonstrate normal marrow signal intensity. MR/MR MRCP IMPRESSION: Contracted gallbladder. Dilatation of the common bile duct as seen on prior imaging. No evidence of choledocholithiasis. Electronically signed by: Anatoliy Uribe MD 11/03/2024 07:29 AM EDT RP Dictated By: Anatoliy Uribe MD Signed By: <Electronically signed by Anatoliy Uribe MD in OV> 11/03/24 0729 DD/ 1811 TD/TT: 11/02/24 1830 Logistics Program Manager: Procedure Note Donotuseinterpreter, Image - 11/03/[address] [address] Magnetic Resonance Report Signed Patient: Suha Burton CMR#: [id number] [birth year] : 1945cct:[id number] Age/Sex: 79 / FADM Date: 10/31/24 Loc: [facility] 472-[address]: Olga UMANA Ordering Physician: Olga Roberts Date of Service: 11/02/24 Procedure(s): MR MRCP Accession Number(s): [id number] cc: Olga Roberts; Daniel Oconnor MD EXAMINATION: MRCP HISTORY: abdominal pain, dilated CBD COMPARISON: Correlation is made with an abdominal ultrasound dated 11/01/[address] scan dated 10/31/2024. TECHNIQUE: Axial gradient echo and coronal haste T2 with fat saturation images were obtained through the abdomen. 3D MRCP Reconstructed images and thick slab imaging of the biliary tree were obtained. FINDINGS: There is no significant signal loss within the liver on opposed phase imaging to suggest steatosis. There is mild prominence of intrahepatic biliary radicles. Again seen is dilatation of the common bile duct measuring up to 14 mm in diameter. No intraluminal filling defects are identified to suggest choledocholithiasis. The gallbladder is contracted. The intraluminal calculi noted on CT and ultrasound are not well visualized due to gallbladder contraction. The spleen and pancreas have an unremarkable unenhanced appearance. The pancreatic duct is normal in caliber. The adrenal glands are unremarkable. There is a 1.2 cm cyst at the lower pole of the right kidney. The left kidney is surgically absent. No retroperitoneal lymphadenopathy or ascites is identified in the upper abdomen. The visualized bones demonstrate normal marrow signal intensity. MR/MR MRCP IMPRESSION: Contracted gallbladder. Dilatation of the common bile duct as seen on prior imaging. No evidence of choledocholithiasis. Electronically signed by: Anatoliy Uribe MD 11/03/2024 07:29 AM EDT Dictated By: Anatoliy Uribe MD Signed By: <Electronically signed by Anatoliy Uribe MD in OV> 11/03/24 0729 DD/ 181 TD/TT: 11/02/24 1830 Logistics Program Manager: [facility] External Provider IMG MRI PROCEDURES Final Result * US Abdomen Limited (11/01/2024 1:55 PM EDT) Anatomical Region Laterality Modality Abdomen Ultrasound 11/01/2024 1:55 PM EDT Narrative 11/01/2024 2:25 PM EDT [address] [address] Ultrasound Report Signed Patient: Suha Burton MR#: [id number] [birth year] : 1945 Acct:[id number] Age/Sex: 79 / F ADM Date: 10/31/24 Loc: [facility]-[address]: Dolores Kumar NP Ordering Physician: Neda Velez PA-C Date of Service: 11/01/24 Procedure(s): US abdomen limited Accession Number(s): [id number] cc: Daniel Oconnor MD; Neda Velez PA-C EXAMINATION: US ABDOMEN LIMITED HISTORY: RUQ, dilated CBD. N/V/D TECHNIQUE: Real-time grayscale ultrasound imaging of the liver and gallbladder was performed and images were reviewed. COMPARISON: Comparison is made with the prior examination dated 01/18/2024. FINDINGS: Liver: The liver is normal in size. The liver demonstrates normal homogeneous echotexture. No focal mass is identified. There is mild dilatation of the intrahepatic biliary radicles. There is normal hepatopedal flow in the portal vein. Gallbladder and biliary tree: The gallbladder is contracted and filled with tiny calculi. There is no sonographic Mcconnell sign. The common bile duct is dilated measuring 13 mm, similar in appearance of the prior study. There is no free fluid in the right upper quadrant. US/US abdomen limited IMPRESSION: Contracted gallbladder with numerous intraluminal calculi. Dilated common bile duct without significant change from the prior study. Electronically signed by: Anatoliy Uribe MD 11/01/2024 02:23 PM EDT Dictated By: Anatoliy Uribe MD Signed By: <Electronically signed by Anatoliy Uribe MD in OV> 11/01/24 1423 DD/ 1355 TD/TT: 11/01/24 1405 Logistics Program Manager: Procedure Note Donotuseinterpreter, Image - 11/01/[address] [address] Ultrasound Report Signed Patient: Suha Burton CMR#: [id number] [birth year] : 1945cct:[id number] Age/Sex: 79 / FADM Date: 10/31/24 Loc: [facility] 472-[address]: Dolores Kumar NP Ordering Physician: Neda Velez PA-C Date of Service: 11/01/24 Procedure(s): US abdomen limited Accession Number(s): [id number] cc: Daniel Oconnor MD; Neda Velez PA-C EXAMINATION: US ABDOMEN LIMITED HISTORY: RUQ, dilated CBD. N/V/D TECHNIQUE: Real-time grayscale ultrasound imaging of the liver and gallbladder was performed and images were reviewed. COMPARISON: Comparison is made with the prior examination dated 01/18/2024. FINDINGS: Liver: The liver is normal in size. The liver demonstrates normal homogeneous echotexture. No focal mass is identified. There is mild dilatation of the intrahepatic biliary radicles. There is normal hepatopedal flow in the portal vein. Gallbladder and biliary tree: The gallbladder is contracted and filled with tiny calculi. There is no sonographic Mcconnell sign. The common bile duct is dilated measuring 13 mm, similar in appearance of the prior study. There is no free fluid in the right upper quadrant. US/US abdomen limited IMPRESSION: Contracted gallbladder with numerous intraluminal calculi. Dilated common bile duct without significant change from the prior study. Electronically signed by: Anatoliy Uribe MD 11/01/2024 02:23 PM EDT Dictated By: Anatoliy Uribe MD Signed By: <Electronically signed by Anatoliy Uribe MD in OV> 11/01/24 1423 DD/ 1355 TD/TT: 11/01/24 1405 Logistics Program Manager: [facility] External Provider IMG US PROCEDURES Final Result * CT Head w/o Contrast (10/31/2024 9:45 PM EDT) Anatomical Region Laterality Modality Head, Neck Computed Tomogra phy 10/31/2024 9:45 PM EDT Narrative 10/31/2024 9:47 PM EDT [address] [address] [address] Scan Report Signed Patient: Suha Burton MR#: [id number] [birth year] : 1945 Acct:[id number] Age/Sex: 79 / F ADM Date: 10/31/24 Loc: [facility] Attending Dr: Ordering Physician: Emilio Correa MD Date of Service: 10/31/24 Procedure(s): CT head/brain wo IV con Accession Number(s): [id number] cc: Daniel Oconnor MD; Emilio Correa MD Report Number: [id number]: Total DLP = 0.00 mGy-cm CLINICAL HISTORY: severe dizziness CT head without contrast Comparison: None Findings: No intra-axial mass, midline shift, hydrocephalus, or acute hemorrhage. No significant atrophy-like change or white matter disease. There is no sinus or mastoid fluid. The orbits are unremarkable. There is no acute fracture. IMPRESSION: 1. No acute intracranial findings. This document has been electronically signed by: Maurice Henley MD on 10/31/2024 21:45:42 Dictated By: Maurice Henley MD Signed By: <Electronically signed by Maurice Henley MD in OV> 10/31/242145 DD/ 44 TD/TT: 10/31/242144 Logistics Program Manager: Procedure Note Donotuseinterpreter, Image - 10/31/[address] [address] [address] Scan Report Signed Patient: Suha Burton CMR#: [id number] [birth year] : 1945cct:[id number] Age/Sex: 79 / FADM Date: 10/31/24 Loc: [facility] Attending Dr: Ordering Physician: Emilio Correa MD Date of Service: 10/31/24 Procedure(s): CT head/brain wo IV con Accession Number(s): [id number] cc: Daniel Oconnor MD; Emilio Correa MD Report Number: [id number]: Total DLP = 0.00 mGy-cm CLINICAL HISTORY: severe dizziness CT head without contrast Comparison: None Findings: No intra-axial mass, midline shift, hydrocephalus, or acute hemorrhage. No significant atrophy-like change or white matter disease. There is no sinus or mastoid fluid. The orbits are unremarkable. There is no acute fracture. IMPRESSION: 1. No acute intracranial findings. This document has been electronically signed by: Maurice Henley MD on 10/31/2024 21:45:42 Dictated By: Maurice Henley MD Signed By: <Electronically signed by Maurice Henley MD in OV> 10/31/242145 DD/ 44 TD/TT: 10/31/242144 Logistics Program Manager: [facility] External Provider IMG CT PROCEDURES Edited Result - Final * CT Abdomen Pelvis w/ Contrast (10/31/2024 5:52 PM EDT) Anatomical Region Laterality Modality Body, Pelvis, Abdomen Computed T omography 10/31/2024 5:52 PM EDT Narrative 10/31/2024 5:54 PM EDT [place] [address] CT Scan Report Signed Patient: Suha Burton MR#: [id number] [birth year] : 1945 Acct:[id number] Age/Sex: 79 / F ADM Date: 10/31/24 Loc: [facility]ED Attending Dr: Ordering Physician: Maya Thomas MD Date of Service: 10/31/24 Procedure(s): CT abdomen pelvis w IV con Accession Number(s): [id number] cc: Daniel Oconnor MD; Maya Thomas MD Report Number: [id number]: Total DLP = 674.00 mGy-cm CLINICAL HISTORY: abd pain n v d CT abdomen and pelvis with IV contrast. COMPARISON: US right upper quadrant dated 01/18/24 at 10:58 EDT FINDINGS: Minimal atelectasis along the lung bases. Mild intrahepatic biliary ductal dilatation. Small likely calculi present along the gallbladder fossa within a likely markedly contracted gallbladder. Common bile duct is dilated measuring up to 1.5 cm. No radiopaque choledocholithiasis identified. Pancreatic duct is not dilated. No pancreatic head mass identified. Normal spleen. Normal pancreas. Normal adrenal glands. Left kidney is absent. No right-sided hydronephrosis. Right renal cystic lesion measuring 0.9 cm. Normal appendix. Mild colonic stool burden. No bowel obstruction. No mesenteric or retroperitoneal lymphadenopathy. Mild aortoiliac atherosclerotic vascular calcifications. Normal appearance of the urinary bladder. No adnexal mass. Moderate lower lumbar spondylosis. No acute fracture or suspicious bone lesion. IMPRESSION: 1. No evidence of appendicitis. No bowel obstruction. 2. Dilated common bile duct with mild intrahepatic biliary ductal dilatation. This is similar to prior imaging dated 01/18/2024 and is likely a chronic finding. No radiopaque choledocholithiasis or pancreatic head mass identified. Consider right upper quadrant ultrasound or MRCP for further characterization. 3. Likely markedly contracted gallbladder with multiple small cholelithiasis in the gallbladder lumen. This document has been electronically signed by: Harsh Luna MD on 10/31/2024 17:52:52 Dictated By: Harsh Luna MD Signed By: <Electronically signed by Harsh Luna MD in OV> 10/31/241752 DD/ 51 TD/TT: 10/31/241751 Logistics Program Manager: Procedure Note Donotuseinterpreter, Image - 10/31/[address] [place] [id number] [address] Scan Report Signed Patient: Suha Burton CMR#: [id number] [birth year] : [id number] Age/Sex: 79 / FADM Date: 10/31/24 Loc: HO.ED Attending Dr: Ordering Physician: Maya Thomas MD Date of Service: 10/31/24 Procedure(s): CT abdomen pelvis w IV con Accession Number(s): [id number] cc: Daniel Oconnor MD; Maya Thomas MD Report Number: [id number]: Total DLP = 674.00 mGy-cm CLINICAL HISTORY: abd pain n v d CT abdomen and pelvis with IV contrast. COMPARISON: US right upper quadrant dated 01/18/24 at 10:58 EDT FINDINGS: Minimal atelectasis along the lung bases. Mild intrahepatic biliary ductal dilatation. Small likely calculi present along the gallbladder fossa within a likely markedly contracted gallbladder. Common bile duct is dilated measuring up to 1.5 cm. No radiopaque choledocholithiasis identified. Pancreatic duct is not dilated. No pancreatic head mass identified. Normal spleen. Normal pancreas. Normal adrenal glands. Left kidney is absent. No right-sided hydronephrosis. Right renal cystic lesion measuring 0.9 cm. Normal appendix. Mild colonic stool burden. No bowel obstruction. No mesenteric or retroperitoneal lymphadenopathy. Mild aortoiliac atherosclerotic vascular calcifications. Normal appearance of the urinary bladder. No adnexal mass. Moderate lower lumbar spondylosis. No acute fracture or suspicious bone lesion. IMPRESSION: 1. No evidence of appendicitis. No bowel obstruction. 2. Dilated common bile duct with mild intrahepatic biliary ductal dilatation. This is similar to prior imaging dated 01/18/2024 and is likely a chronic finding. No radiopaque choledocholithiasis or pancreatic head mass identified. Consider right upper quadrant ultrasound or MRCP for further characterization. 3. Likely markedly contracted gallbladder with multiple small cholelithiasis in the gallbladder lumen. This document has been electronically signed by: Harsh Luna MD on 10/31/2024 17:52:52 Dictated By: Harsh Luna MD Signed By: <Electronically signed by Harsh Luna MD in OV> 10/31/241752 DD/ 51 TD/TT: 10/31/241751 Logistics Program Manager: [facility] External Provider IMG CT PROCEDURES Final Result * (ABNORMAL) POCT HGB A1C (10/31/2024 3:51 PM EDT) Hemoglobin A1C 6.7(A) 4.0 - 6.0 % QC Media Lot # [id number] Lot# Expiration Date [id number] Blood 10/31/2024 3:51 PM EDT us Daniel Agudelo MD POINT OF CARE TEST EN TER/EDIT ORDERABLES Final Result * (ABNORMAL) CBC auto differential (10/31/2024 2:59 PM EDT) White Blood Count 5.2 4.8 - 10.8 X10*3/uL [facility] Red Blood Count 4.82 4.20 - 5.50 X10*6/uL [facility] Hemoglobin 12.9 12.0 - 16.0 g/dl [facility] Hematocrit 40.7 37.0 - 47.0 % [facility] Mean Corpuscular Volume 84.4 80.0 - 98.0 fL [facility] Mean Corpuscular Hemoglobin 26.8(L) 27.0 - 33.0 pg [facility] Mean Corpuscular HGB Conc 31.7 31.0 - 35.0 g/dl [facility] Red Cell Distribution Width 15.5 11.0 - 16.0 % [facility] Platelet Count 126(L) 160 - 400 X10*3/uL [facility] Comment:Test was verified by repeat analysis. Mean Platelet Volume 11.8 9.4 - 12.3 fL [facility] Neutrophils Percent Auto 81.6(H) 45 - 73 % [facility] Imm Gran Pct Auto 1.2(H) 0.0 - 0.4 % [facility] Lymphocytes Percent Auto 11.0(L) 20 - 40 % [facility] Monocytes Percent Auto 5.6 2 - 11 % [facility] Eosinophils Percent Auto 0.4 0 - 4 % [facility] Basophils Percent Auto 0.2 0 - 2 % [facility] NRBC Pct Auto 0.0 0.0 - 0.2 /100WBC [facility] Neutrophils Absolute Auto 4.3 2.0 - 8.3 x10*3/uL [facility] Imm Gran Abs Auto 0.06(H) 0.00 - 0.03 X10*3/uL [facility] Lymphocytes Absolute Auto 0.6(L) 1.2 - 4.9 X10*3/uL [facility] Monocytes Absolute Auto 0.3 0.1 - 1.2 X10*3/uL [facility] Eosinophils Absolute Auto 0.0 0.0 - 0.4 X10*3/uL [facility] Basophils Absolute Auto 0.0 0.0 - 0.2 X10*3/uL [facility] NRBC Abs Auto 0.000 0.0 - 0.012 X10*3/uL [facility] 10/31/2024 2:59 PM EDT 10/31/2024 3:05 PM EDT Generic External Data Provider LAB BLOOD ORDERAB LES Final Result Performing Organization Address [facility]/ZIP Co de Phone Number [facility] [address] [place] [phone] * Lipase (10/31/2024 2:59 PM EDT) Lipase 8 8 - 78 U/L [facility] 10/31/2024 2:59 PM EDT 10/31/2024 3:05 PM EDT Generic External Data Provider LAB BLOOD ORDERAB LES Final Result Performing Organization Address [facility] Co de Phone Number [facility] [address] [place] [address] [phone] * Hepatic Function Panel (10/31/2024 2:59 PM EDT) Bilirubin, Total 0.7 0.0 - 1.0 mg/dL [facility] Bilirubin, Direct 0.3 0.0 - 0.5 mg/dL [facility] Aspartate Amino Transferase 26 5 - 31 U/L [facility] Alanine Aminotransferase 9 0 - 31 U/L [facility] Total Protein 6.8 6.5 - 8.0 g/dL [facility] Albumin Level 3.9 3.5 - 5.0 g/dL [facility] Alkaline Phosphatase 89 39 - 117 U/L [facility] 10/31/2024 2:59 PM EDT 10/31/2024 3:05 PM EDT us Generic External Data Provider LAB BLOOD ORDERAB LES Final Result Performing Organization Address [facility]/State/ZIP Co de Phone Number [facility] [address] [place] [phone] * (ABNORMAL) Basic Metabolic Panel (10/31/2024 2:59 PM EDT) Sodium 140 135 - 145 mmol/L [facility] Potassium 3.7 3.3 - 5.1 mmol/L [facility] Chloride 104 96 - 108 mmol/L [facility] Carbon Dioxide 25 22 - 29 mmol/L [facility] Anion Gap 15 12 - 20 [facility] Urea Nitrogen (BUN) 14 9 - 16 mg/dL [facility] Creatinine, Serum 0.71 0.5 - 1.4 mg/dL [facility] Creatinine Clr Calc Pharmacy 70.2 [facility] Comment:Provided height and weight: 157.48 cm,92.6 kg.eGFR (calculated from the MDRD study equation) and eCrCl(calculated from the Cockcroft-Gault equation) are based ondifferent parameters and may not yield comparable results.If eCrCl result is absurd, please check patient'sheight/weight. Estimated Glomerular Filt Rate >60 [facility] Comment:Chronic Kidney Disea se: Estimated GFR < 60 mL/min/1.16l1[place] Kidney Disease: Estimated GFR < 15 mL/min/1.73m2 Glucose 120(H) 60 - 115 mg/dL [facility] Calcium 8.9 8.4 - 10.2 mg/dL [facility] 10/31/2024 2:59 PM EDT 10/31/2024 3:05 PM EDT us Generic External Data Provider LAB BLOOD ORDERAB LES Final Result Performing Organization Address City/[facility] Co de Phone Number [facility] [address] [place] [phone] * Lipid Panel, Standard (10/27/2023 9:21 AM EDT) Triglycerides 98 <150 mg/dL [facility] Comment:Desirable Triglyceri de: less than 150 mg/dLBorderline High Triglyceride 150-199 mg/dLHigh Triglyceride: 200-499 mg/dLVery High Triglyceride: greater than or equal to 5OO mg/dL Cholesterol 136 <200 mg/dL [facility] Comment:Desirable Cholestero l: less than 200 mg/dLBorderline High Cholesterol: 200-239 mg/dLHigh Cholesterol: greater than 239 mg/dL LDL Cholesterol Calculated 67 <100 mg/dL [facility] Comment:Desirable LDL: less than 100 mg/dLNear Optimal/Above Optimal LDL: 110- 129 mg/dLBorderline High LDL: 130-159 mg/dLHigh LDL: 160-189 mg/dLVery High LDL: greater than or equal to 190 mg/dL HDL Cholesterol 50 >40 mg/dL [facility] Comment:Desirable HDL: great er than 40 mg/dL Note: This HDL assay may give artificially low results in patients with liver disease. Blood Venous blood specimen / Unknown 10/27/2023 9:21 AM EDT 10/27/2023 11:23 AM EDT Daniel Agudelo MD LAB BLOOD ORDERABLES Final Result Performing Organization Address [facility] Co de Phone Number [facility] [address] [place] [phone] [phone] * Hm Colonoscopy (10/11/2013) Colonoscopy Normal Normal 10/11/2013 Narrative Rowan Muñoz - 10/11/2013 11:31 AM EDT Recommended 10 year follow up ( see scanned report) Historical Provider HEALTH MAINTENANCE Final Result from Last 3 Months or Most Recently Relevant to Health Maintenance Insurance [facility] [employer] (HMO D-SNP) [place] [id number] Care Teams Systems Architecture Analyst Relationship Specialty Start Date End Date Daniel Holder MD [address] [place] [phone] PCP - General Internal Medicine 03/26/14
--- OUTSIDE RECORDS SUMMARY | 2025-01-26 10:51 | XMS_ITS | Patient Health Record ---
Author Organization [facility] Address [address] [place] [address] Care Team Providers Care Distribution Sales Manager Name Role Phone Will LOPEZ, Clau Primary Care Provider Fabian Henderson Jr Unavailable Allergies Allergen (clinical drug ingredient) Drug/Non Drug Allergy documented on EMR Reaction Allergy Type Onset Date Status meperidine Demerol Unknown Drug Allergy Active Reason For Referral No Information Medications Medication SIG (Take, Route, Frequency, Duration) Notes Start Date End Date Status Atorvastatin Calcium 20mg Active Senna Lax 8.6mg Acti ve Aspir-81 81mg Active NexIUM 40mg 06/28/2024 06/28/2024 Active Metoprolol Succinate ER 50mg Active Cymbalta 30mg Active Lyrica 75mg Active Colyte with Flavor Packs 240 GM As directed Orally Over the specified time. for 1 day(s) 07/20/2013 06/28/2024 Active Problems Problem Type SNOMED Code ICD Code Onset Dates Problem Status W/U Status Risk Notes Problem Esophageal reflux (816853126) Esophageal reflux (530.81) Active confirmed Problem Colon cancer screening (V76.51) Active confirmed Plan Of Treatment Future Test Test Name Order Date COLONOSCOPY 07/20/2013 Insurance Providers Payer Name Payer Address Payer Phone Subscriber Number Group Number Insured Name Patient Relationship to Insured Coverage Start Date Coverage End Date MEDICARE OF [place] [address] [place] [address] [phone] [id number] DIGNA MEYER Self - patient is the insured MEDICAID OF [facility] [address] [place] [address] [phone] [id number] DIGNA MEYER Self - patient is the insured Medical (General) History Medical History History ICD Code colonoscopy 04-28-2002 colon polyp asthma renal calculus hx of alcohol abuse in the past strokes X 2 [place] hypertension leg pain memory problems Surgical History Surgery Date(Month/Year) hysterectomy section nephrectomy
--- OUTSIDE RECORDS SUMMARY | 2025-01-26 10:51 | XMS_ITS | Clinical Summary ---
Author Organization [facility] Address [address] [facility] [address] [place] [address] Phone Care Team Providers Care Catering Coordinator Name Role Phone Daniel Gutierrez MD Primary [...] Diagnosed Date Resolved Date Hypercholesterolemia 08/16/2020 023 Social History Tobacco Use Types Packs/Day Years [...] Exam 07/28/2020 Diabetes: Hemoglobin A1C 09/25/2024 06/27/2024 Influenza Vaccine (#1) 2025 , 04/20/2023, 03/22/2019, Additional history exists Pneumococcal Vaccine: 50+ Years Completed 04/28/2015, 04/28/2015, 03/06/2014 Pneumococcal Vaccine: Peds (0 to 5 Years) and At-Risk Patients (6 to 49 Years) Discontinued 04/28/2015, 04/28/2015, 03/06/2014 Hepatitis B Vaccine Aged Out No longe r eligible based on patient's age to complete this topic Insurance MCR ([id number]) [facility] ([id number]) Care Teams Catering Coordinator Relationship Specialty Start Date End Date Daniel Gutierrez MD PCP - General 07/08/20
[2025-01-26 12:19] LABS: MANUAL DIFF FLAG NO
[2025-01-26 12:25] LABS: Hematocrit 38.5 % (37.0-47.0); Hematocrit 38.6 % (37.0-47.0); Hemoglobin 12.0 g/dl (12.0-16.0); Hemoglobin 12.2 g/dl (12.0-16.0); Imm Gran Abs Auto 0.01 X10*3/uL (0.00-0.03); Imm Gran Pct Auto 0.2 % (0.0-0.4); Lymphocytes Absolute Auto 2.4 X10*3/uL (1.2-4.9); Mean Corpuscular HGB Conc 31.1 g/dl (31.0-35.0); Mean Corpuscular HGB Conc 31.7 g/dl (31.0-35.0); Mean Corpuscular Hemoglobin 26.8 pg (27.0-33.0); Mean Corpuscular Hemoglobin 27.2 pg (27.0-33.0); Mean Corpuscular Volume 85.9 fL (80.0-98.0); Mean Corpuscular Volume 86.2 fL (80.0-98.0); NRBC Abs Auto 0.000 X10*3/uL (0.0-0.012); NRBC Pct Auto 0.0 /100WBC (0.0-0.2); Platelet Count 137 X10*3/uL (160-400); Platelet Count 146 X10*3/uL (160-400); Red Blood Count 4.48 X10*6/uL (4.20-5.50); White Blood Count 5.1 X10*3/uL (4.8-10.8); White Blood Count 5.2 X10*3/uL (4.8-10.8)
[2025-01-26 13:02] LABS: Cholesterol 138 mg/dL (<200); HDL Cholesterol 47 mg/dL (>40); Triglycerides 99 mg/dL (<150)
[2025-01-26 13:51] LABS: ~HepC Num1 0.09 S/CO (0.00-0.79); ~Hepatitis C Antibody Nonreactive (Nonreactive)
== END 2025-01-26 10:42 | disposition home or self-care (01) ==
LOC: HO.HHCL 10:41
PROVIDERS: Physician Assistant Medical; PCP Internal Medicine; Visit Provider Internal Medicine
DX: Z11.59 Encounter for screening for other viral diseases (principal); Z09 Encounter for follow-up examination after completed treatment for conditions other than malignant neoplasm; D72.819 Decreased white blood cell count, unspecified; E11.22 Type 2 diabetes mellitus with diabetic chronic kidney disease; N18.31 Chronic kidney disease, stage 3a; E78.2 Mixed hyperlipidemia
CPT/HCPCS: 36415; 80061; 85025; 85027; 86803

== ENCOUNTER 2025-03-20 12:45 | Inpatient (IN) | payer OTHER, SELFPAY ==
[2025-03-20] VITALS (7 sets, daily range): BP systolic 102–128; BP diastolic 52–86; PULSE 68–93; RESP 16–24; TEMP 36.8–38.5; O2SAT 95–98; BMI 31.8
--- NOTE | ~2025-03-20 | XR_ITS ---
EXAMINATION: XR CHEST CLINICAL INFORMATION: covid COMPARISON: 03/06/2022 TECHNIQUE: Frontal view of the chest was obtained. FINDINGS: There is mild chronic elevation of the right hemidiaphragm. Lungs are clear. Heart size normal. Atherosclerotic calcification is present in the aortic arch. XR/XR chest 1V IMPRESSION: No acute disease. Electronically signed by: Gil Ferrera MD 03/20/2025 05:01 PM EDT
--- NOTE | ~2025-03-20 | CT_ITS ---
EXAMINATION: CT ABDOMEN AND PELVIS WITH CONTRAST CLINICAL INFORMATION: Severe diffuse abdominal pain. Fever. COMPARISON: October 31, 2024 TECHNIQUE: Multidetector volumetric images were obtained from the superior aspect of the liver through the pubic symphysis following administration 85 mL of Omnipaque 350 intravenous contrast. Sagittal and coronal reformatted images were obtained on the technologist's workstation. Oral contrast: No This CT examination was performed using dose optimization techniques as appropriate, variously including the following: *Automated exposure control *Adjustment of mA and/or kV according to patient size (this includes techniques or standardized protocols for targeted exams where dose is matched to indication/reason for exam; i.e. extremities or head) *Use of iterative reconstruction technique DLP: 694 mg centimeter FINDINGS: Patient's breathing motion artifact. LUNG BASES: No gross acute airspace disease. LIVER, GALLBLADDER, AND BILIARY TREE: Liver measures 17 cm. No focal mass. Subtle nodular surface of the liver. The main hepatic veins are patent. No fully evaluated main portal vein. Gallbladder is contracted with intraluminal calcifications. No pericholecystic fluid collection. Common bile duct measures 13 mm in maximum diameter and pencil shaped abrupt morphology at the junction with the second portion of the duodenum. PANCREAS: No focal mass. No peripancreatic fluid collection. No main pancreatic ductal dilatation. SPLEEN: 6 cm. No focal lesion. ADRENAL GLANDS: No nodular lesion. KIDNEYS AND URETERS: Absent left kidney. Enlarged right kidney without enhancing mass or hydronephrosis. Subcentimeter cyst in the lower pole. Normal enhancement pattern of the renal cortex. BLADDER: Fluid-filled. GASTROINTESTINAL TRACT: Gas and fluid-filled mildly prominent small bowel loops. No gross intestinal wall thickening. Collapsed appearance of the left hemicolon. Appendix is normal. No pericolonic edema pattern. Hiatal hernia, moderate volume. No ascites. No pneumoperitoneum. No pneumatosis intestinalis. ABDOMINAL WALL: Small fat-containing umbilical hernia. LYMPH NODES: No gross mesenteric or retroperitoneal lymphadenopathy. VASCULAR: Throughout the abdominal aorta wall and iliac arteries. No aneurysm, abdominal aorta. Calcified plaques in the coronary arteries. PELVIC VISCERA: Absent uterus. OSSEOUS STRUCTURES: Multilevel thoracolumbar spondylosis pronounced at L3-4. Grade 1 anterolisthesis L4-5. S-shaped curvature of the thoracolumbar spine which could be positional. Vacuum phenomenon at the sacroiliac joints. CT/CT abdomen pelvis w IV con IMPRESSION: Regional ileus versus mild enteritis. Cholelithiasis. Extrahepatic biliary ductal dilatation. Stricture at the sphincter of Oddi cannot be entirely excluded. Compensatory hypertrophy right kidney. Spondylosis at L3-4. Grade 1 anterolisthesis L4-5. Hiatal hernia, moderate volume.. Fleischner guidelines were followed. Electronically signed by: Pramod Raines MD 03/20/2025 03:04 PM EDT
--- NOTE | ~2025-03-20 | US_ITS ---
EXAMINATION: US ABDOMEN LIMITED CLINICAL INFORMATION: Extra hepatic biliary dilation. COMPARISON: MRCP November 02, 2024, CT from today and December 02, 2022 TECHNIQUE: Real-time imaging of the right upper quadrant abdominal viscera. FINDINGS: GALLBLADDER: Echogenic stones are present in the gallbladder. The gallbladder wall measures up to 3 mm thick. COMMON BILE DUCT: Mildly dilated, measuring 0.9 cm in diameter. US/US abdomen limited IMPRESSION: Chronic extra-hepatic biliary ductal dilation. This was worked up on November 02, 2024 using MRCP, and has been present since at least December 02, 2022. Cholelithiasis. There is a focal area where the gallbladder measured 3 mm which is borderline thick. Correlate for signs symptoms of cholecystitis. Electronically signed by: Gil Ferrera MD 03/20/2025 05:00 PM EDT
--- NOTE | ~2025-03-20 | MR_ITS ---
CLINICAL HISTORY: Extrahepatic biliary duct dilation. MRCP MR of the abdomen without IV contrast. MRCP sequences were performed. COMPARISON: MR MRCP dated 11/02/24 at 18:[address] abdomen and pelvis dated 10/31/24 at 16:09 EDT FINDINGS: Motion artifact limits evaluation of multiple sequences. Visualized lung bases are clear. No focal hepatic lesion. Uniform splenic signal. Uniform pancreatic signal. Pancreatic duct is normal in caliber measuring up to 2 mm. No pancreatic mass identified. Adrenal glands are poorly visualized. Left kidney is absent. Right renal simple cyst measuring 9 mm, stable. No right-sided hydronephrosis. Visualized portions of the bowel in the upper abdomen are unremarkable. Gallbladder is contracted. No cholelithiasis. Common bile duct is dilated measuring up to 1.1 cm in the pancreatic head. No choledocholithiasis identified. Mild intrahepatic biliary ductal dilatation. Findings appears similar to prior imaging. IMPRESSION: 1. Motion artifact limits evaluation multiple sequences. Within limits of study, no acute findings. 2. Dilated common bile duct with mild intrahepatic biliary ductal dilatation, similar to prior imaging. No choledocholithiasis or cholelithiasis identified. Gallbladder is markedly contracted. Suspect findings are chronic given relative unchanged appearance since prior imaging. 3. No evidence of pancreatitis. Pancreatic duct is not dilated. No pancreatic mass identified. This document has been electronically signed by: Harsh Luna MD on 03/22/2025 18:25:14
--- NOTE | ~2025-03-20 | XR_ITS ---
EXAMINATION: XR SHOULDER, RIGHT CLINICAL INFORMATION: pain after fall COMPARISON: None available. TECHNIQUE: Two views of the right shoulder. FINDINGS: The shoulder is internally rotated. There are moderate degenerative changes with osteophyte involving the AC joint. There is no AC joint separation. There is calcification extending cephalad from the greater tuberosity. There is no dislocation. There are mild degenerative changes in the glenoid and humeral head with small marginal osteophytes. No fracture is identified. XR/XR shoulder RT min 2V IMPRESSION: No acute abnormality. Suspected rotator cuff calcific tendinitis, probably involving infraspinatus tendon. Moderate AC joint arthropathy. Mild degenerative changes of the glenohumeral joint Electronically signed by: Gil Ferrera MD 03/20/2025 01:45 PM EDT
--- NOTE | 2025-03-20 12:56 | ECG_ITS ---
Test Reason : WEAKNESS Blood Pressure : */* mmHG Vent. Rate : 108 BPM Atrial Rate : 108 BPM P-R Int : 128 ms QRS Dur : 72 ms QT Int : 332 ms P-R-T Axes : 56 71 52 degrees QTcB Int : 444 ms Sinus tachycardia Junctional ST depression, probably normal Borderline ECG When compared with ECG of 10-Jan-2021 15:19, Vent. rate has increased by 51 bpm Nonspecific T wave abnormality no longer evident in Inferior leads Nonspecific T wave abnormality no longer evident in Lateral leads QT has lengthened Referred By: Jonathon Welch Electronically Signed By: Marlo Motley
--- NOTE | 2025-03-20 13:03 | ED.GENADULT ---
HPI - General Adult General Chief complaint: General Medical Stated complaint: WEAK,NAUSEA,DIZZY X3D PER EMS Time Seen by Provider: 03/20/25 12:54 History of Present Illness ED Provider: Jonathon Welch MD HPI narrative: 79-year-old female presents for shoulder pain after fall. She has a complex medical history including but not limited to GERD, solitary kidney, comes in complaining of generalized discomfort and subjective fever. Had a nonsyncopal fall few days ago falling on the right upper extremity complains of pain to the upper humerus area in the right side. No numbness tingling or weakness down the right arm. Denies chest pain but has had diffuse abdominal pain and nausea no GI bleeding reported. also sick being evaluated in the ED with subjective fever shortness of breath. Patient reports significant polyuria some d Related Data Home Medications ?Medication ?Instructions ?Recorded ?Confirmed ascorbic acid (vitamin C) 500 mg 500 mg PO DAILY 10/29/22 03/20/25 tablet (Vitamin C) aspirin 81 mg tablet,delayed 81 mg PO DAILY 10/29/22 03/20/25 release duloxetine 30 mg capsule,delayed 30 mg PO DAILY 10/29/22 03/20/25 release pregabalin 75 mg capsule 75 mg PO BID 10/29/22 03/20/25 trazodone 50 mg tablet 50 mg PO BEDTIME 10/29/22 03/20/25 levothyroxine 75 mcg tablet 75 mcg PO DAILY@0600 12/11/22 03/20/25 metoprolol succinate 50 mg 50 mg PO DAILY 12/11/22 03/20/25 tablet,extended release 24 hr albuterol sulfate 90 mcg/actuation 2 puff inhalation Q4H PRN 07/02/23 03/20/25 aerosol inhaler (Ventolin HFA) Shortness Of Breath atorvastatin 20 mg tablet 20 mg PO BEDTIME 09/18/24 03/20/25 blood sugar diagnostic (FreeStyle #10 ea 09/18/24 Lite Strips) multivitamin 1 tab PO DAILY 09/18/24 03/20/25 sennosides 8.6 mg tablet (senna) 17.2 mg PO BEDTIME 09/18/24 03/20/25 fluticasone furoate 200 1 inh inhalation DAILY 11/01/24 03/20/25 mcg/actuation blister powder for inhalation (Arnuity Ellipta) magnesium oxide 400 mg (241.3 mg 200 mg PO BEDTIME 11/01/24 03/20/25 magnesium) tablet pioglitazone 30 mg tablet 30 mg PO DAILY 11/01/24 03/20/25 clotrimazole 1 % topical cream 1 appl topical BID 03/20/25 03/20/25 fluticasone propionate 50 1 spray intranasal BID 03/20/25 03/20/25 mcg/actuation nasal spray,suspension lansoprazole 30 mg capsule,delayed 30 mg PO DAILY 03/20/25 03/20/25 release meclizine 25 mg tablet 25 mg PO TID PRN Dizziness 03/20/25 03/20/25 Allergies Allergy/AdvReac Type Severity Reaction Status Date / Time meperidine (Demerol) Allergy Unknown Unknown Verified 03/20/25 12:54 ON LICENSE OF [facility] Past Medical History Medical History Osteoarthritis GERD (gastroesophageal reflux disease) Dysphagia Microscopic hematuria Fibromyalgia Anxiety and depression Hyperlipidemia Hypertension, essential Nicotine dependence, cigarettes, uncomplicated Diabetes mellitus, type 2 Hypothyroidism Surgical History History of esophagogastroduodenoscopy (EGD) History of vocal cord polypectomy History of colonoscopy History of cataract surgery Social History Social History Alcohol intake: never Patient Tobacco Use Status: Current everyday Tobacco user Tobacco use type: Cigarette Cigarettes Per Day: 7 Years Smoked: 63 Advance Directives: Yes Advance Directives on File: Yes Advance Directives Date on File: 11/01/24 Do you have a plan to hurt others: No Plan service: No Physical Exam ED Exam Exam: EXAM: Gen: Alert, awake, warm to the touch, looks unwell but not toxic Head: Atraumatic Eyes: Anicteric, Normal conjunctiva. ENT: Moist mucosa, no pallor. ? Neck: Supple. Skin: ?No observable rash or bruising on exposed or examined skin Respiratory: Breathing comfortably, No distress.Clear to auscultation bilaterally, symmetric chest expansion, No wheeze, rales, ronchi. Cardiovascular: Regular rate and rhythm. No murmurs or rub. Well perfused periphery, warm extremities. No edema. ? Abdominal: Mild diffuse abdominal tenderness no masses. Soft, no objective distension. No palpable masses or obvious organomegaly. ?No guarding, no rebound tenderness or other peritoneal findings. : No flank tenderness. Neuro: Alert. Gross movement of all extremities intact. ? Psych: Calm. Cooperative. MSK: No grossly visible deformity. Vital signs: See flowsheet Vital Signs: Vital Signs - 24 hr 03/20/25 15:59 Temperature 101 F H Pulse Rate 76 Respiratory Rate 16 Blood Pressure 125/52 L Pulse Oximetry 98 Oxygen Delivery Method Room Air BMI result Body Mass Index 31.8 Medications Administered Generic Name Dose Route Start Last Admin Trade Name Freq PRN Reason Stop Dose Admin Acetaminophen 650 mg 03/20/25 16:33 03/21/25 02:57 Acetaminophen 325 Mg Tablet PO 650 mg Q6H PRN Administration Fever Ascorbic Acid 500 mg 03/21/25 09:00 03/21/25 09:53 Ascorbic Acid 500 Mg Tablet PO 500 mg DAILY ZAHIRA Administration Aspirin 81 mg 03/21/25 09:00 03/21/25 09:53 Aspirin Enteric Coated 81 Mg Tablet. PO 81 mg DAILY ZAHIRA Administration Duloxetine HCl 30 mg 03/21/25 09:00 03/21/25 09:53 Duloxetine Hcl 30 Mg Capsule. PO 30 mg DAILY ZAHIRA Administration Enoxaparin Sodium 40 mg 03/20/25 17:00 03/20/25 17:31 Enoxaparin Sodium 40 Mg/0.4 Ml Syringe SUBCUT 40 mg Q24H ZAHIRA Administration Fluticasone Propionate 1 spray 03/21/25 09:00 03/21/25 09:54 Fluticasone Propionate Nasal 16 Gm [place] NOSTRIL-B 1 spray BID ZAHIRA Administration Metoprolol Succinate 50 mg 03/21/25 09:00 03/21/25 09:54 Metoprolol Succinate Er 50 Mg Tab.Er.24h PO 50 mg DAILY ZAHIRA Administration Protocol Multivitamins/Vitamin C 1 tab 03/21/25 09:00 03/21/25 09:53 Multivitamin Tablet PO 1 tab DAILY ZAHIRA Administration Ondansetron HCl 4 mg 03/20/25 16:28 03/21/25 01:16 Ondansetron Hcl 4 Mg/2 Ml Vial IVPUSH 4 mg Q8H PRN Administration Nausea and Vomiting Potassium Chloride 40 meq 03/20/25 16:45 03/21/25 09:53 Potassium Chloride Er 20 Meq Tab.Er.Prt PO 40 meq BID ZAHIRA Administration Pregabalin 75 mg 03/21/25 09:00 03/21/25 09:53 Pregabalin 75 Mg Capsule PO 75 mg BID ZAHIRA Administration Discontinued Medications Generic Name Dose Route Start Last Admin Trade Name Jeovannyq PRN Reason Stop Dose Admin Acetaminophen 975 mg 03/20/25 14:50 03/20/25 15:16 Acetaminophen 325 Mg Tablet PO 03/20/25 14:51 975 mg ONCE ONE Administration Ceftriaxone Sodium 2 gm 03/20/25 14:02 03/20/25 14:21 Ceftriaxone Sodium 2 Gm Vial IVPUSH 03/20/25 14:03 2 gm ONCE ONE Administration Sodium Chloride 1,000 mls @ 999 mls/hr 03/20/25 14:15 03/20/25 17:16 Ns IV 03/20/25 15:15 Infused .Q1H1M ZAHIRA Infusion Potassium Chloride/Sodium Chloride 20 meq in 1,000 mls @ 500 mls/hr 03/20/25 15:00 03/20/25 22:08 Kcl 20 Meq In 0.45% Sod IVCONT Not Given .Q2H ZAHIRA Iohexol 100 ml 03/20/25 14:30 03/20/25 14:30 Iohexol 350 Mg/Ml 100 Ml Infus..Btl IV 03/20/25 14:31 85 ml ONCE ONE Administration Medical Decision Making Medical Decision Making MDM Narrative: Medical Decision Makin-year-old female with polyuria in the setting of diabetes she also has diffuse abdominal pain most of the started today. She says she fell in the right arm without head strike or loss of consciousness a few days ago in his tender in the right upper arm without bruising. Her compartments are soft doubt compartment syndrome. She does not have a fracture on shoulder x-ray. Incidentally she is found to be COVID positive in fact her is about being evaluated here in the emergency department as well he is COVID positive as well this likely explains her fever. No evidence of DKA. CT reveals cholelithiasis and extrahepatic biliary dilation however the patient has reassuring LFTs certainly not an obstructive pattern. Urinalysis is still pending. Patient later found to be COVID positive likely explaining the fever. No evidence of UTI or intra-abdominal infection or other possible source of bacterial infection. Patient is still symptomatic generally weak with arm pain and has no solid center winder at home with her being admitted to the hospital today as well. Plan for admission for fluid hydration fever or junction, symptomatic therapy and p Preliminary Favored Differential Diagnosis: Sepsis, viral syndrome, COVID, UTI, intra-abdominal infection or abscess among additional considered etiologies Testing Interpreted Independently: ? EKG sinus tachycardia rate 108 QTC 444 no acute ischemic changes Radiology or Lab testing Results Reviewed: ?See below for details Consults: ?See below for details Independent Historians/External Chart Reviews: ?See below for details Social Determinants of Health Impacting MDM/Planning: ?See below for details Lab Data 03/21/25 04:37 03/21/25 04:37 Labs: Lab Results 03/20/25 03/20/25 03/20/25 Range/Units 13:57 14:05 14:17 WBC 4.2 L (4.8-10.8) X10*3/uL RBC 4.88 (4.20-5.50) X10*6/uL Hgb 13.1 (12.0-16.0) g/dl Hct 42.1 (37.0-47.0) % MCV 86.3 (80.0-98.0) fL MCH 26.8 L (27.0-33.0) pg MCHC 31.1 (31.0-35.0) g/dl RDW 15.4 (11.0-16.0) % Plt Count 108 L (160-400) X10*3/uL MPV 12.9 H (9.4-12.3) fL Immature Gran % (Auto) 0.2 (0.0-0.4) % Neut % (Auto) 53.7 (45-73) % Lymph % (Auto) 33.7 (20-40) % Irion % (Auto) 12.2 H (2-11) % Eos % (Auto) 0.0 (0-4) % Baso % (Auto) 0.2 (0-2) % Lymph # (Auto) 1.4 (1.2-4.9) X10*3/uL Irion # (Auto) 0.5 (0.1-1.2) X10*3/uL Eos # (Auto) 0.0 (0.0-0.4) X10*3/uL Baso # (Auto) 0.0 (0.0-0.2) X10*3/uL Abs Immat Gran (auto) 0.01 (0.00-0.03) X10*3/uL Absolute Neuts (auto) 2.3 (2.0-8.3) x10*3/uL Absolute Nucleated RBC 0.000 (0.0-0.012) X10*3/uL Nucleated RBC % (auto) 0.0 (0.0-0.2) /100WBC VBG pH 7.41 (7.32-7.43) VBG pCO2 47 mmHg VBG pO2 35 mmHg VBG HCO3 30 H (22-26) mmol/L VBG O2 Saturation 47.0 % VBG Base Excess 4.6 mmol/L Sodium 141 (135-145) mmol/L Potassium 3.1 L D (3.3-5.1) mmol/L Chloride 103 (96-108) mmol/L Carbon Dioxide 29 (22-29) mmol/L Anion Gap 12 (12-20) BUN 14 (9-16) mg/dL Creatinine 0.94 (0.5-1.4) mg/dL Estim Creat Clear Calc 54.4 Estimated GFR 58 Random Glucose 170 H (60-115) mg/dL Calcium 8.9 D (8.4-10.2) mg/dL Total Bilirubin 0.3 (0.0-1.0) mg/dL AST 34 H (5-31) U/L ALT 15 (0-31) U/L Alkaline Phosphatase 101 (39-117) U/L Total Protein 7.0 (6.5-8.0) g/dL Albumin 4.1 (3.5-5.0) g/dL Lipase 23 (8-78) U/L Beta-Hydroxybutyrate 0.07 (0.02-0.27) mmol/L Urine Color Urine Appearance Urine pH (5.0-9.0) Ur Specific Belk (1.005-1.025) Urine Protein (Neg-Trace) mg/dL Urine Glucose (UA) (Negative) mg/dL Urine Ketones (Negative) mg/dL Urine Blood (Negative) Urine Nitrite (Negative) Ur Leukocyte Esterase (Negative) Urine RBC (0-2) /HPF Urine WBC (0-5) /HPF Ur Squamous Epith Cells (0-2) /HPF Urine Bacteria (None Seen) Hyaline Casts (0-2) /LPF COVID-19 (HEMALATHA) Positive A (Negative) COVID-19 Clin Com See Note Influenza Type A (ARASH) Negative (Negative) Influenza Type B (ARASH) Negative (Negative) Influenza A & B Note See Note 03/20/25 Range/Units 16:22 WBC (4.8-10.8) X10*3/uL RBC (4.20-5.50) X10*6/uL Hgb (12.0-16.0) g/dl Hct (37.0-47.0) % MCV (80.0-98.0) fL MCH (27.0-33.0) pg MCHC (31.0-35.0) g/dl RDW (11.0-16.0) % Plt Count (160-400) X10*3/uL MPV (9.4-12.3) fL Immature Gran % (Auto) (0.0-0.4) % Neut % (Auto) (45-73) % Lymph % (Auto) (20-40) % Irion % (Auto) (2-11) % Eos % (Auto) (0-4) % Baso % (Auto) (0-2) % Lymph # (Auto) (1.2-4.9) X10*3/uL Irion # (Auto) (0.1-1.2) X10*3/uL Eos # (Auto) (0.0-0.4) X10*3/uL Baso # (Auto) (0.0-0.2) X10*3/uL Abs Immat Gran (auto) (0.00-0.03) X10*3/uL Absolute Neuts (auto) (2.0-8.3) x10*3/uL Absolute Nucleated RBC (0.0-0.012) X10*3/uL Nucleated RBC % (auto) (0.0-0.2) /100WBC VBG pH (7.32-7.43) VBG pCO2 mmHg VBG pO2 mmHg VBG HCO3 (22-26) mmol/L VBG O2 Saturation % VBG Base Excess mmol/L Sodium (135-145) mmol/L Potassium (3.3-5.1) mmol/L Chloride (96-108) mmol/L Carbon Dioxide (22-29) mmol/L Anion Gap (12-20) BUN (9-16) mg/dL Creatinine (0.5-1.4) mg/dL Estim Creat Clear Calc Estimated GFR Random Glucose (60-115) mg/dL Calcium (8.4-10.2) mg/dL Total Bilirubin (0.0-1.0) mg/dL AST (5-31) U/L ALT (0-31) U/L Alkaline Phosphatase (39-117) U/L Total Protein (6.5-8.0) g/dL Albumin (3.5-5.0) g/dL Lipase (8-78) U/L Beta-Hydroxybutyrate (0.02-0.27) mmol/L Urine Color Yellow Urine Appearance Clear Urine pH 6.5 (5.0-9.0) Ur Specific Belk >= 1.030 H (1.005-1.025) Urine Protein Negative (Neg-Trace) mg/dL Urine Glucose (UA) Negative (Negative) mg/dL Urine Ketones Negative (Negative) mg/dL Urine Blood Trace H (Negative) Urine Nitrite Negative (Negative) Ur Leukocyte Esterase Negative (Negative) Urine RBC 6-10 H (0-2) /HPF Urine WBC 0-5 (0-5) /HPF Ur Squamous Epith Cells 0-2 (0-2) /HPF Urine Bacteria None Seen (None Seen) Hyaline Casts 3-5 (0-2) /LPF COVID-19 (HEMALATHA) (Negative) COVID-19 Clin Com Influenza Type A (ARASH) (Negative) Influenza Type B (ARASH) (Negative) Influenza A & B Note Discharge Plan Discharge Clinical Impression: COVID Patient Disposition: Admitted As Inpatient
[2025-03-20 14:04] LABS: MANUAL DIFF FLAG NO
[2025-03-20 14:07] LABS: Hematocrit 42.1 % (37.0-47.0); Hemoglobin 13.1 g/dl (12.0-16.0); Imm Gran Abs Auto 0.01 X10*3/uL (0.00-0.03); Imm Gran Pct Auto 0.2 % (0.0-0.4); Lymphocytes Absolute Auto 1.4 X10*3/uL (1.2-4.9); Mean Corpuscular HGB Conc 31.1 g/dl (31.0-35.0); Mean Corpuscular Hemoglobin 26.8 pg (27.0-33.0); Mean Corpuscular Volume 86.3 fL (80.0-98.0); NRBC Abs Auto 0.000 X10*3/uL (0.0-0.012); NRBC Pct Auto 0.0 /100WBC (0.0-0.2); Platelet Count 108 X10*3/uL (160-400); Red Blood Count 4.88 X10*6/uL (4.20-5.50); White Blood Count 4.2 X10*3/uL (4.8-10.8)
[2025-03-20 14:08] LABS: Venous Blood Gas Refer to POC result
[2025-03-20 14:09] LABS: VBG HCO3 30 mmol/L (22-26); VBG O2 % Saturation 47.0 %
[2025-03-20 14:19] LABS: Lipase 23 U/L (8-78)
[2025-03-20 14:20] LABS: Alanine Aminotransferase 15 U/L (0-31); Albumin Level 4.1 g/dL (3.5-5.0); Alkaline Phosphatase 101 U/L (39-117); Anion Gap 12 (12-20); Aspartate Amino Transferase 34 U/L (5-31); Blood Urea Nitrogen 14 mg/dL (9-16); Calcium 8.9 mg/dL (8.4-10.2); Carbon Dioxide 29 mmol/L (22-29); Chloride 103 mmol/L (96-108); Creatinine Clr Calc Pharmacy 54.4; Estimated Glomerular Filt Rate 58; Potassium 3.1 mmol/L (3.3-5.1); Sodium 141 mmol/L (135-145); Total Protein 7.0 g/dL (6.5-8.0)
[2025-03-20] MEDS: iohexoL 350 MG/ML 100 ML INFUS..BTL IV (14:30)
[2025-03-20 14:35] LABS: COVID-19 Test Positive (Negative); IDNOW Serial# 55D5AD1C
[2025-03-20 14:42] LABS: IDNOW Serial# 58CA691E; Influenza B2 Negative (Negative)
--- NOTE | 2025-03-20 16:14 | PM.IMHP ---
History of Present Illness Date of Service: 03/20/25 Chief Complaint: fever 79-year-old woman presenting to the ER after a fall a few days ago and subsequent abdominal pain. She reported diffuse abdominal pain with nausea, small amount of diarrhea, no vomiting. She has had a poor appetite and poor p.o. intake. She denied any fever, chills, recent travel, sick contacts. She lives with her who apparently also has COVID and has also come to the ER with her. In the ER, abdominal CT showed possible ileus versus a colitis, shoulder x-ray did not show any acute fracture or dislocation just chronic findings. Patient was noted to have a fever, tachycardia. COVID positive. No hypoxia noted so she will not require steroids or antibiotics at this time. He will be to admit for further management and treatment of sepsis secondary to COVID. Review of Systems Review of Systems: Denies any recent fever chills or decrease in appetite respiratory denies any shortness of breath or cough cardiovascular denied chest pain gastrointestinal denies any dysphagia abdominal pain nausea vomiting or diarrhea genitourinary denies any dysuria frequency or hematuria musculoskeletal Reported shoulder pain neuropsych denies any weakness or seizures all other systems reviewed are negative [facility] Medical History Osteoarthritis GERD (gastroesophageal reflux disease) Dysphagia Microscopic hematuria Fibromyalgia Anxiety and depression Hyperlipidemia Hypertension, essential Nicotine dependence, cigarettes, uncomplicated Diabetes mellitus, type 2 Hypothyroidism Surgical History History of esophagogastroduodenoscopy (EGD) History of vocal cord polypectomy History of colonoscopy History of cataract surgery Social History Alcohol intake: never Patient Tobacco Use Status: Current everyday Tobacco user Tobacco use type: Cigarette Cigarettes Per Day: 7 Years Smoked: 63 Advance Directives: Yes Advance Directives on File: Yes Advance Directives Date on File: 11/01/24 Do you have a plan to hurt others: No Plan service: No Meds Allergies Allergy/AdvReac Type Severity Reaction Status Date / Time meperidine (Demerol) Allergy Unknown Unknown Verified 03/20/25 12:54 Active Medications: Current Medications Potassium Chloride/Sodium Chloride (Kcl 20 Meq In 0.45% Sod) 20 meq in 1,000 mls @ 500 mls/hr IVCONT .Q2H ZAHIRA Home Medications ?Medication ?Instructions ?Recorded ?Confirmed ?Last Taken ?Type ascorbic acid (vitamin C) 500 mg 500 mg PO DAILY 10/29/22 11/01/24 10/30/24 History tablet (Vitamin C) aspirin 81 mg tablet,delayed 81 mg PO BEDTIME 10/29/22 11/01/24 10/30/24 History release duloxetine 30 mg capsule,delayed 30 mg PO DAILY 10/29/22 11/01/24 10/30/24 History release pregabalin 75 mg capsule 75 mg PO BID 10/29/22 11/01/24 10/30/24 History trazodone 50 mg tablet 50 mg PO BEDTIME 10/29/22 11/01/24 10/30/24 History levothyroxine 75 mcg tablet 75 mcg PO DAILY@0600 12/11/22 11/01/24 10/30/24 History metoprolol succinate 50 mg 50 mg PO DAILY 12/11/22 11/01/24 10/30/24 History tablet,extended release 24 hr albuterol sulfate 90 mcg/actuation 2 puff inhalation Q4H PRN 07/02/23 11/01/24 Unknown History aerosol inhaler (Ventolin HFA) Shortness Of Breath atorvastatin 20 mg tablet 20 mg PO DAILY 09/18/24 11/01/24 10/30/24 History blood sugar diagnostic (FreeStyle #10 ea 09/18/24 Unknown History Lite Strips) multivitamin 1 tab PO DAILY 09/18/24 11/01/24 10/30/24 History sennosides 8.6 mg tablet (senna) 17.2 mg PO BEDTIME 09/18/24 11/01/24 10/30/24 History fluticasone furoate 200 1 inh inhalation DAILY 11/01/24 11/01/24 10/30/24 History mcg/actuation blister powder for inhalation (Arnuity Ellipta) magnesium oxide 400 mg (241.3 mg 200 mg PO BEDTIME 11/01/24 11/01/24 10/30/24 History magnesium) tablet pioglitazone 30 mg tablet 30 mg PO DAILY 11/01/24 11/01/24 10/30/24 History Physical Exam Vital Signs and Narrative: Vital Signs: Last Vital Signs Temp 98.6 F 03/20/25 15:59 Pulse 76 03/20/25 15:59 Resp 16 03/20/25 15:59 BP 125/52 L 03/20/25 15:59 Pulse Ox 98 03/20/25 15:59 O2 Del Method Room Air 03/20/25 15:59 BMI result Body Mass Index 31.8 Appearing in no acute distress head is normocephalic atraumatic eyes pupils are PERRLA sclera is anicteric mouth throat mucous membranes are intact and moist neck is supple no lymphadenopathy, no JVD noted lung sounds are clear to auscultation heart regular rate rhythm, clear S1, S2 positive bowel sounds, abdomen is soft, nontender neuro patient is alert x3, no focal deficits Results Labs 03/20/25 13:57 03/20/25 13:57 Labs: Laboratory Results - last 24 hr 03/20/25 03/20/25 03/20/25 13:57 14:05 14:17 MCV 86.3 MCH 26.8 L MCHC 31.1 RDW 15.4 Plt Count 108 L MPV 12.9 H Immature Gran % (Auto) 0.2 Neut % (Auto) 53.7 Lymph % (Auto) 33.7 Hayes % (Auto) 12.2 H Eos % (Auto) 0.0 Baso % (Auto) 0.2 Lymph # (Auto) 1.4 Hayes # (Auto) 0.5 Eos # (Auto) 0.0 Baso # (Auto) 0.0 Abs Immat Gran (auto) 0.01 Absolute Neuts (auto) 2.3 Absolute Nucleated RBC 0.000 Nucleated RBC % (auto) 0.0 VBG pH 7.41 VBG pCO2 47 VBG pO2 35 VBG HCO3 30 H VBG O2 Saturation 47.0 VBG Base Excess 4.6 Anion Gap 12 Estim Creat Clear Calc 54.4 Estimated GFR 58 Random Glucose 170 H Calcium 8.9 D Total Bilirubin 0.3 AST 34 H ALT 15 Alkaline Phosphatase 101 Total Protein 7.0 Albumin 4.1 Lipase 23 Beta-Hydroxybutyrate 0.07 COVID-19 (HEMALATHA) Positive A COVID-19 Clin Com See Note Influenza Type A (ARASH) Negative Influenza Type B (ARASH) Negative Influenza A & B Note See Note Imaging Radiologist's Impressions: Impressions Shoulder X-Ray 03/20/25 13:39 IMPRESSION: No acute abnormality. Suspected rotator cuff calcific tendinitis, probably involving infraspinatus tendon. Moderate AC joint arthropathy. Mild degenerative changes of the glenohumeral joint Electronically signed by: Gil Ferrera MD 03/20/2025 01:45 PM EDT RP Abdomen/Pelvis CT 03/20/25 14:28 IMPRESSION: Regional ileus versus mild enteritis. Cholelithiasis. Extrahepatic biliary ductal dilatation. Stricture at the sphincter of Oddi cannot be entirely excluded. Compensatory hypertrophy right kidney. Spondylosis at L3-4. Grade 1 anterolisthesis L4-5. Hiatal hernia, moderate volume.. Fleischner guidelines were followed. Electronically signed by: Pramod Raines MD 03/20/2025 03:04 PM EDT RP Assessment and Plan (1) Right shoulder tendonitis: Status: Acute (2) COVID: Status: Acute Plan 79 year old women admitted with covid and fever as well as pain to right shoulder after a fall Sepsis secondary to Covid fever, tachycardia, normal lactic acid No hypoxia, not requiring oxygen or steroids CXR pending Abdominal pain Abdominal CT showing regional ileus versus mild enteritis Patient reports dissipation of abdominal pain GI consultation to review CAT scan Hypokalemia Replete Fall with shoulder pain Shoulder x-ray showing suspected rotator cuff tendonitis without any acute fracture or dislocation PT DVT prophylaxis with lovenox Full code Quality Stroke Does the patient have a stroke diagnosis?: No VTE Prior VTE?: No VTE Risk Level:: Medical - moderate - high VTE Device Contraindication: Treatment Not Indicated VTE Drug Contraindication: N/A - Med Ordered
--- OUTSIDE RECORDS SUMMARY | 2025-03-20 16:18 | XMS_ITS | Encounter Summary ---
Author Organization [employer] Address [address] [place] [address] [address] [place] [address] Care Team Providers Care Viscose Cellar Charge Hand Name Role Phone Daniel Holder MD Primary Care Provide r Encounter Details Date Type Department Care Team (Late Contact Info) Description 08/12/2022 Telephone [facility] [address], [place] [phone] Daniel Holder MD [address] [place] [address] [phone] Social History Tobacco Use Types Packs/Day Years [...] Department Care Team (Late Contact Info) Description 04/03/2025 1:30 PM EDT Office Visit [facility] [address], [place] [phone] Daniel Holder MD [address] [place], [place] [phone] documented as of this encounter Visit Diagnoses Not on filedocumented in this encounter Care Teams Viscose Cellar Charge Hand Relationship Specialty Start Date End Date Daniel Holder MD [address] [place] [address] [phone] PCP - General Internal Medicine 03/26/14 documented as of this encounter
--- OUTSIDE RECORDS SUMMARY | 2025-03-20 16:18 | XMS_ITS | Encounter Summary ---
Author Organization [employer] Address [address] [facility] 7t [place] [address] Care Team Providers Care Hardware Engineering Manager Name Role Phone Daniel [place] MD Primary Care Provide r Encounter Details Date Type Department Care Team (Late st Contact Info) Description 03/20/2025 Orders Only [facility] External Provider, [facility] Social History Tobacco Use Types Packs/Day Years [...] housing situation today? I have jemmaedison zhao 06/27/[address] you [...] Care Team (Late st Contact Info) Description 04/03/2025 1:30 PM EDT Office Visit [facility] MED[facility] [address] [place], [place] [phone] Daniel [place] MD [address] [place], [place] [phone] documented as of this encounter Procedures Procedure Name Priority Date/Time Associated Diagnosis Comments CT ABDOMEN PELVIS W CONTRAST Routine 03/20/2025 2:28 PM EDT VENOUS BLOOD GAS Routine 03/20/2025 2:05 PM EDT XR SHOULDER 2+ VIEWS RIGHT Routine 03/20/2025 1:39 PM EDT documented in this encounter Results * CT Abdomen Pelvis w/ Contrast (03/20/2025 2:28 PM EDT) Anatomical Region Laterality Modality Body, Pelvis, Abdomen Computed T omography 03/20/2025 2:2 8 PM EDT Narrative 03/20/2025 3:06 PM EDT [facility] [address] [place] [address] Scan Report Signed Patient: Suha Burton MR#: [id number] 89 : 1945 Acct:[id number] Age/Sex: 79 / F ADM Date: 03/20/25 Loc: .ED Attending Dr: Ordering Physician: Jonathon Welch MD Date of Service: 03/20/25 Procedure(s): CT abdomen pelvis w IV con Accession Number(s): [id number] cc: Jonathon Welch MD; Daniel Oconnor MD Report Number: [id number]: Total DLP = 694.00 mGy-cm Reason for Exam: severe diffuse abd pain, fever dysuria EXAMINATION: CT ABDOMEN AND PELVIS WITH CONTRAST CLINICAL INFORMATION: Severe diffuse abdominal pain. Fever. COMPARISON: October 31, 2024 TECHNIQUE: Multidetector volumetric images were obtained from the superior aspect of the liver through the pubic symphysis following administration 85 mL of Omnipaque 350 intravenous contrast. Sagittal and coronal reformatted images were obtained on the technologist's workstation. Oral contrast: No This CT examination was performed using dose optimization techniques as appropriate, variously including the following: *Automated exposure control *Adjustment of mA and/or kV according to patient size (this includes techniques or standardized protocols for targeted exams where dose is matched to indication/reason for exam; i.e. extremities or head) *Use of iterative reconstruction technique DLP: 694 mg centimeter FINDINGS: Patient's breathing motion artifact. LUNG BASES: No gross acute airspace disease. LIVER, GALLBLADDER, AND BILIARY TREE: Liver measures 17 cm. No focal mass. Subtle nodular surface of the liver. The main hepatic veins are patent. No fully evaluated main portal vein. Gallbladder is contracted with intraluminal calcifications. No pericholecystic fluid collection. Common bile duct measures 13 mm in maximum diameter and pencil shaped abrupt morphology at the junction with the second portion of the duodenum. PANCREAS: No focal mass. No peripancreatic fluid collection. No main pancreatic ductal dilatation. SPLEEN: 6 cm. No focal lesion. ADRENAL GLANDS: No nodular lesion. KIDNEYS AND URETERS: Absent left kidney. Enlarged right kidney without enhancing mass or hydronephrosis. Subcentimeter cyst in the lower pole. Normal enhancement pattern of the renal cortex. BLADDER: Fluid-filled. GASTROINTESTINAL TRACT: Gas and fluid-filled mildly prominent small bowel loops. No gross intestinal wall thickening. Collapsed appearance of the left hemicolon. Appendix is normal. No pericolonic edema pattern. Hiatal hernia, moderate volume. No ascites. No pneumoperitoneum. No pneumatosis intestinalis. ABDOMINAL WALL: Small fat-containing umbilical hernia. LYMPH NODES: No gross mesenteric or retroperitoneal lymphadenopathy. VASCULAR: Throughout the abdominal aorta wall and iliac arteries. No aneurysm, abdominal aorta. Calcified plaques in the coronary arteries. PELVIC VISCERA: Absent uterus. OSSEOUS STRUCTURES: Multilevel thoracolumbar spondylosis pronounced at L3-4. Grade 1 anterolisthesis L4-5. S-shaped curvature of the thoracolumbar spine which could be positional. Vacuum phenomenon at the sacroiliac joints. CT/CT abdomen pelvis w IV con IMPRESSION: Regional ileus versus mild enteritis. Cholelithiasis. Extrahepatic biliary ductal dilatation. Stricture at the sphincter of Oddi cannot be entirely excluded. Compensatory hypertrophy right kidney. Spondylosis at L3-4. Grade 1 anterolisthesis L4-5. Hiatal hernia, moderate volume.. Fleischner guidelines were followed. Electronically signed by: Pramod Raines MD 03/20/2025 03:04 PM EDT RP Dictated By: Pramod Jolly MD Signed By: <Electronically signed by Pramod Moise MD in OV> 03/20/25 1504 DD/ 1428 TD/TT: 03/20/25 1449 Stockroom Keeper: Procedure Note Donotuseinterpreter, Image - 03/20/[address] [place] [address] [address] Scan Report Signed Patient: Suha Burton CMR#: [id number] [birth year] : 1945cct:[id number] Age/Sex: 79 / FADM Date: 03/20/25 Loc: HO.ED Attending Dr: Ordering Physician: Jonathon Welch MD Date of Service: 03/20/25 Procedure(s): CT abdomen pelvis w IV con Accession Number(s): [id number] cc: Jonathon Welch MD; Daniel Oconnor MD Report Number: [id number]: Total DLP = 694.00 mGy-cm Reason for Exam: severe diffuse abd pain, fever dysuria EXAMINATION: CT ABDOMEN AND PELVIS WITH CONTRAST CLINICAL INFORMATION: Severe diffuse abdominal pain. Fever. COMPARISON: October 31, 2024 TECHNIQUE: Multidetector volumetric images were obtained from the superior aspect of the liver through the pubic symphysis following administration 85 mL of Omnipaque 350 intravenous contrast. Sagittal and coronal reformatted images were obtained on the technologist's workstation. Oral contrast: No This CT examination was performed using dose optimization techniques as appropriate, variously including the following: *Automated exposure control *Adjustment of mA and/or kV according to patient size (this includes techniques or standardized protocols for targeted exams where dose is matched to indication/reason for exam; i.e. extremities or head) *Use of iterative reconstruction technique DLP: 694 mg centimeter FINDINGS: Patient's breathing motion artifact. LUNG BASES: No gross acute airspace disease. LIVER, GALLBLADDER, AND BILIARY TREE: Liver measures 17 cm. No focal mass. Subtle nodular surface of the liver. The main hepatic veins are patent. No fully evaluated main portal vein. Gallbladder is contracted with intraluminal calcifications. No pericholecystic fluid collection. Common bile duct measures 13 mm in maximum diameter and pencil shaped abrupt morphology at the junction with the second portion of the duodenum. PANCREAS: No focal mass. No peripancreatic fluid collection. No main pancreatic ductal dilatation. SPLEEN: 6 cm. No focal lesion. ADRENAL GLANDS: No nodular lesion. KIDNEYS AND URETERS: Absent left kidney. Enlarged right kidney without enhancing mass or hydronephrosis. Subcentimeter cyst in the lower pole. Normal enhancement pattern of the renal cortex. BLADDER: Fluid-filled. GASTROINTESTINAL TRACT: Gas and fluid-filled mildly prominent small bowel loops. No gross intestinal wall thickening. Collapsed appearance of the left hemicolon. Appendix is normal. No pericolonic edema pattern. Hiatal hernia, moderate volume. No ascites. No pneumoperitoneum. No pneumatosis intestinalis. ABDOMINAL WALL: Small fat-containing umbilical hernia. LYMPH NODES: No gross mesenteric or retroperitoneal lymphadenopathy. VASCULAR: Throughout the abdominal aorta wall and iliac arteries. No aneurysm, abdominal aorta. Calcified plaques in the coronary arteries. PELVIC VISCERA: Absent uterus. OSSEOUS STRUCTURES: Multilevel thoracolumbar spondylosis pronounced at L3-4. Grade 1 anterolisthesis L4-5. S-shaped curvature of the thoracolumbar spine which could be positional. Vacuum phenomenon at the sacroiliac joints. CT/CT abdomen pelvis w IV con IMPRESSION: Regional ileus versus mild enteritis. Cholelithiasis. Extrahepatic biliary ductal dilatation. Stricture at the sphincter of Oddi cannot be entirely excluded. Compensatory hypertrophy right kidney. Spondylosis at L3-4. Grade 1 anterolisthesis L4-5. Hiatal hernia, moderate volume.. Fleischner guidelines were followed. Electronically signed by: Pramod Raines MD 03/20/2025 03:04 PM EDT RP Dictated By: Pramod Jolly MD Signed By: <Electronically signed by Pramod Moise MDin OV> 03/20/25 1504 DD/ 1428 TD/TT: 03/20/25 1449 Stockroom Keeper: [employer] External Provider IMG CT PROCEDURES Final Result * (ABNORMAL) VENOUS BLOOD GAS (03/20/2025 2:05 PM EDT) VBG pH 7.41 7.32 - 7.43 [facility] Comment:METER #: [id number] additional_comment: Cb provenc VBG PCO2 47 mmHg [facility] Comment:METER #: [id number] additional_comment: [facility] VBG PO2 35 mmHg [facility] Comment:METER #: [id number] additional_comment: [facility] VBG Base Excess 4.6 mmol/L [facility] Comment:METER #: [id number] additional_comment: [facility]enc VBG HCO3 30(H) 22 - 26 mmol/L [facility] Comment:METER #: [id number] additional_comment: [facility] O2 Sat, Rick 47.0 % [facility] Comment:METER #: [id number] additional_comment: [facility]enc 03/20/2025 2:05 PM EDT 03/20/2025 2:09 PM EDT Generic External Data Provider LAB BLOOD ORDERAB LES Final Result [facility] [address] [place] [phone] * XR Shoulder 2+ Views Right (03/20/2025 1:39 PM EDT) Anatomical Region Laterality Modality Upper Extremities, Shoulder Right Radi ographic Imaging 03/20/2025 1:39 PM EDT Narrative 03/20/2025 1:49 PM EDT [address] [address] XRay Report Signed Patient: Suha Burton MR#: [id number] [birth year] : 1945 Acct:[id number] Age/Sex: 79 / F ADM Date: 03/20/25 Loc: HO.ED Attending Dr: Ordering Physician: Jonathon Welch MD Date of Service: 03/20/25 Procedure(s): XR shoulder RT min 2V Accession Number(s): [id number] cc: Jonathon Welch MD; Daniel Oconnor MD Reason for Exam: pain after fall EXAMINATION: XR SHOULDER, RIGHT CLINICAL INFORMATION: pain after fall COMPARISON: None available. TECHNIQUE: Two views of the right shoulder. FINDINGS: The shoulder is internally rotated. There are moderate degenerative changes with osteophyte involving the AC joint. There is no AC joint separation. There is calcification extending cephalad from the greater tuberosity. There is no dislocation. There are mild degenerative changes in the glenoid and humeral head with small marginal osteophytes. No fracture is identified. XR/XR shoulder RT min 2V IMPRESSION: No acute abnormality. Suspected rotator cuff calcific tendinitis, probably involving infraspinatus tendon. Moderate AC joint arthropathy. Mild degenerative changes of the glenohumeral joint Electronically signed by: Gil Ferrera MD 03/20/2025 01:45 PM EDT Dictated By: Gil Ferrera MD Signed By: <Electronically signed by Gil Ferrera MD in OV> 03/20/25 1345 DD/ 1339 TD/TT: 03/20/25 1335 Stockroom Keeper: Procedure Note Donotuseinterpreter, Image - 03/20/2025 [facility] [address] [place] [address] XRay Report Signed Patient: Suha Burton CMR#: [id number] [birth year] : 1945cct:[id number] Age/Sex: 79 / FADM Date: 03/20/25 Loc: HO.ED Attending Dr: Ordering Physician: Jonathon Welch MD Date of Service: 03/20/25 Procedure(s): XR shoulder RT min 2V Accession Number(s): [id number] cc: Jonathon Welch MD; Daniel Oconnor MD Reason for Exam: pain after fall EXAMINATION: XR SHOULDER, RIGHT CLINICAL INFORMATION: pain after fall COMPARISON: None available. TECHNIQUE: Two views of the right shoulder. FINDINGS: The shoulder is internally rotated. There are moderate degenerative changes with osteophyte involving the AC joint. There is no AC joint separation. There is calcification extending cephalad from the greater tuberosity. There is no dislocation. There are mild degenerative changes in the glenoid and humeral head with small marginal osteophytes. No fracture is identified. XR/XR shoulder RT min 2V IMPRESSION: No acute abnormality. Suspected rotator cuff calcific tendinitis, probably involving infraspinatus tendon. Moderate AC joint arthropathy. Mild degenerative changes of the glenohumeral joint Electronically signed by: Gil Ferrera MD 03/20/2025 01:45 PM EDT Dictated By: Gil Ferrera MD Signed By: <Electronically signed by Gil Ferrera MD in OV> 03/20/25 1345 DD/ 1339 TD/TT: 03/20/25 1335 Stockroom Keeper: [employer] External Provider IMG XR PROCEDURES Final Result documented in this encounter Visit Diagnoses Not on filedocumented in this encounter Additional Health Concerns Assessment Noted Time PHQ-9 Depression Total Score: 1 06/27/20 24 10:42 AM EST documented as of this encounter Care Teams Hardware Engineering Manager Relationship Specialty Start Date End Date Daniel Holder MD [address] [place] [address] PCP - General Internal Medicine 03/26/14 documented as of this encounter
--- OUTSIDE RECORDS SUMMARY | 2025-03-20 16:18 | XMS_ITS | Encounter Summary ---
Author Organization [employer] Address [address] [place] [address] 7 [place] [address] Care Team Providers Care Driver License Technician Name Role Phone Daniel [place] MD Primary Care Provide r Reason for Visit * Reason Onset Date Comments Nurse Triage 03/19/2023 Encounter Details Date Type Department Care Team (Late st Contact Info) Description 03/19/2023 Telephone [facility] MEDICINE [address] [place], [place] [phone] Daniel Holder MD [address] [place], [place] [phone] Nurse Triage Social History Tobacco Use Types [...] Description 04/03/2025 1:30 PM EDT Office Visit [facility] [address] [place] [address] Daniel [place] MD [address] [place] [address] documented as of this encounter Visit Diagnoses Not on filedocumented in this encounter Additional Health Concerns Assessment Noted Time PHQ-9 Depression Total Score: 1 02/05/20 23 2:24 PM EDT documented as of this encounter Care Teams Driver License Technician Relationship Specialty Start Date End Date Daniel Holder MD [address] [place] [address] PCP - General Internal Medicine 03/26/14 documented as of this encounter
--- OUTSIDE RECORDS SUMMARY | 2025-03-20 16:18 | XMS_ITS | Encounter Summary ---
Author Organization [employer] Address [address] [facility] 7t [place] [address] Care Team Providers Care Health Services Information Specialist Name Role Phone Daniel [place] MD Primary Care Provide r Reason for Visit * Reason Comments Med Refill Encounter Details Date Type Department Care Team ([facility] st Contact Info) Description 02/16/2025 Refill [facility] [address] [place], [place] [phone] Sarah Ferraro MD [address] [place] [address] Social History Tobacco Use Types Packs/Day Years [...] Description 04/03/2025 1:30 PM EDT Office Visit [facility] [address] [place] [address] Daniel [place] MD [address] [place] [address] documented as of this encounter Visit Diagnoses Not on filedocumented in this encounter Additional Health Concerns Assessment Noted Time PHQ-9 Depression Total Score: 1 06/27/20 24 10:42 AM EST documented as of this encounter Care Teams Health Services Information Specialist Relationship Specialty Start Date End Date Daniel [place] MD [address] [place] [address] PCP - General Internal Medicine 03/26/14 documented as of this encounter
--- OUTSIDE RECORDS SUMMARY | 2025-03-20 16:18 | XMS_ITS | Encounter Summary ---
Author Organization [employer] Address [address] [facility] 7t [place] [address] Care Team Providers Care Gas Or Petroleum Operator Name Role Phone Daniel [place] MD Primary Care Provide r Encounter Details Date Type Department Care Team ([facility] st Contact Info) Description 02/04/2024 Telephone [facility] MEDICINE [address] [place], [place] [phone] Daniel Holder MD [address] [place], [place] [phone] Social History Tobacco Use Types Packs/Day Years [...] Description 04/03/2025 1:30 PM EDT Office Visit [facility] MED[facility]INE [address] [place] [address] Daniel [place] MD [address] [place] [address] documented as of this encounter Visit Diagnoses Not on filedocumented in this encounter Additional Health Concerns Assessment Noted Time PHQ-9 Depression Total Score: 1 02/05/20 23 2:24 PM EDT documented as of this encounter Care Teams Gas Or Petroleum Operator Relationship Specialty Start Date End Date Daniel [place] MD [address] [place] [address] PCP - General Internal Medicine 03/26/14 documented as of this encounter
--- OUTSIDE RECORDS SUMMARY | 2025-03-20 16:18 | XMS_ITS | Encounter Summary ---
Author Organization [employer] Address [address] [facility] 7t [place] [address] Care Team Providers Care Cylinder Tester Name Role Phone Daniel [place] MD Primary Care Provide r Reason for Visit * Reason Comments Med Refill Encounter Details Date Type Department Care Team ([facility] st Contact Info) Description 08/12/2023 Refill [facility]INE [address] [place], [place] [phone] Daniel [place] MD [address] [place], [place] [phone] Fibromyalgia Social History Tobacco Use Types Packs/Day [...] Description 04/03/2025 1:30 PM EDT Office Visit [facility] [address] [place] [address] Dnaiel [place] MD [address] [place] [address] documented as of this encounter Visit Diagnoses Diagnosis Fibromyalgia Unspecified myalgia and myositis documented in this encounter Additional Health Concerns Assessment Noted Time PHQ-9 Depression Total Score: 1 02/05/20 23 2:24 PM EDT documented as of this encounter Care Teams Cylinder Tester Relationship Specialty Start Date End Date Daniel [place] MD [address] [place] [address] PCP - General Internal Medicine 03/26/14 documented as of this encounter
--- OUTSIDE RECORDS SUMMARY | 2025-03-20 16:18 | XMS_ITS | Encounter Summary ---
Author Organization [employer] Address [address] [place] [address] 7 [place] [address] Care Team Providers Care Register In Chancery Name Role Phone Daniel [place] MD Primary Care Provide r Encounter Details Date Type Department Care Team (Late Contact Info) Description 06/16/2022 Orders Only [facility] [address] [place], [place] [phone] Hannah Charlton LPN Social History Tobacco Use [...] Description 04/03/2025 1:30 PM EDT Office Visit [facility] [address] [place] [address] Daniel [place] MD [address] [place] [address] documented as of this encounter Visit Diagnoses Not on filedocumented in this encounter Care Teams Register In Chancery Relationship Specialty Start Date End Date Daniel [place] MD [address] [place] [address], [place] [address] PCP - General Internal Medicine 03/26/14 documented as of this encounter
--- OUTSIDE RECORDS SUMMARY | 2025-03-20 16:18 | XMS_ITS | Encounter Summary ---
Author Organization [employer] Address [address] [facility] 7 [place] [address] Care Team Providers Care Glassware Engraver Name Role Phone Daniel [place] MD Primary Care Provide r Reason for Visit * Reason Comments Med Refill Encounter Details Date Type Department Care Team ([facility] st Contact Info) Description 07/21/[address] [facility] [address] [place] [address] Trip Suazo MD [address] [place], [place] [phone] Fibromyalgia Social History Tobacco Use Types Packs/Day [...] Description 04/03/2025 1:30 PM EDT Office Visit [facility] [address] [place] [address] Daniel [place] MD [address] [place] [address] documented as of this encounter Visit Diagnoses Diagnosis Fibromyalgia Unspecified myalgia and myositis documented in this encounter Additional Health Concerns Assessment Noted Time PHQ-9 Depression Total Score: 1 06/27/20 24 10:42 AM EST documented as of this encounter Care Teams Glassware Engraver Relationship Specialty Start Date End Date Daniel [place] MD [address] [place] [address] PCP - General Internal Medicine 03/26/14 documented as of this encounter
--- OUTSIDE RECORDS SUMMARY | 2025-03-20 16:18 | XMS_ITS | Encounter Summary ---
Author Organization [employer] Address [address] [facility] [address] 7[address] [place] [address] Care Team Providers Care Audio/Video Engineer Name Role Phone Daniel [place] MD Primary Care Provide r Encounter Details Date Type Department Care Team (Late st Contact Info) Description 12/24/2023 Orders Only [facility] [address] [place], [place] [phone] Gurjit Nava MD [address] [place], [place] [phone] Social History Tobacco Use Types Packs/Day Years [...] Description 04/03/2025 1:30 PM EDT Office Visit [facility] [address] [place] [address] Daniel [place] MD [address] [place] [address] documented as of this encounter Visit Diagnoses Not on filedocumented in this encounter Additional Health Concerns Assessment Noted Time PHQ-9 Depression Total Score: 1 02/05/20 23 2:24 PM EDT documented as of this encounter Care Teams Audio/Video Engineer Relationship Specialty Start Date End Date Daniel [place] MD [address] [place] [address] PCP - General Internal Medicine 03/26/14 documented as of this encounter
--- OUTSIDE RECORDS SUMMARY | 2025-03-20 16:18 | XMS_ITS | Encounter Summary ---
Author Organization [employer] Address [address] [facility] 7t [place] [address] Care Team Providers Care Nursing Staff Development Coordinator Name Role Phone Daniel [place] MD Primary Care Provide r Encounter Details Date Type Department Care Team ([facility] st Contact Info) Description 07/25/2024 Telephone [facility] [address] [place], [place] [phone] Daniel [place] MD [address] [place], [place] [phone] Social History Tobacco Use Types Packs/Day Years [...] Description 04/03/2025 1:30 PM EDT Office Visit [facility] [address] [place] [address] Daniel [place] MD [address] [place] [address] documented as of this encounter Visit Diagnoses Not on filedocumented in this encounter Additional Health Concerns Assessment Noted Time PHQ-9 Depression Total Score: 1 06/27/20 24 10:42 AM EST documented as of this encounter Care Teams Nursing Staff Development Coordinator Relationship Specialty Start Date End Date Daniel [place] MD [address] [place] [address] PCP - General Internal Medicine 03/26/14 documented as of this encounter
--- OUTSIDE RECORDS SUMMARY | 2025-03-20 16:18 | XMS_ITS | Encounter Summary ---
Author Organization [employer] Address [address] [place] [address] 7 [place] [address] Care Team Providers Care Sole Painter Name Role Phone Dnaiel [place] MD Primary Care Provide r Encounter Details Date Type Department Care Team (Late Contact Info) Description 10/28/2022 Abstract [facility] [address] [place] [address] [phone] Daniel [place] MD [address] [place] [address] [phone] Social History Tobacco Use Types Packs/Day Years [...] Description 04/03/2025 1:30 PM EDT Office Visit [facility] [address] [place], [place] [phone] Daniel [place] MD [address] [place], [place] [phone] documented as of this encounter Procedures Procedure [...] on filedocumented in this encounter Care Teams Sole Painter Relationship Specialty Start Date End Date Daniel [place] MD [address] [place] [address] PCP - General Internal Medicine 03/26/14 documented as of this encounter
--- OUTSIDE RECORDS SUMMARY | 2025-03-20 16:18 | XMS_ITS | Encounter Summary ---
Author Organization [employer] Address [address] [facility] 7 [place] [address] Care Team Providers Care Websphere Portal Architect Name Role Phone Daniel Holder MD Primary Care Provide r Reason for Visit * Reason Onset Date Comments Appointment Request 11/10/2023 Encounter Details Date Type Department Care Team ([facility] st Contact Info) Description 11/10/2023 Telephone [facility] MEDICINE [address] [place], [place] [phone] Daniel Holder MD [address] [place], [place] [phone] Appointment Request Social History Tobacco Use Types [...] 04/03/2025 1:30 PM EDT Office Visit [facility] MEDICINE [address] [place] [address] Daniel Holder MD [address] [place] [address] documented as of this encounter Visit Diagnoses Not on filedocumented in this encounter Additional Health Concerns Assessment Noted Time PHQ-9 Depression Total Score: 1 02/05/20 23 2:24 PM EDT documented as of this encounter Care Teams Websphere Portal Architect Relationship Specialty Start Date End Date Daniel Holder MD [address] [place] [address] PCP - General Internal Medicine 03/26/14 documented as of this encounter
--- OUTSIDE RECORDS SUMMARY | 2025-03-20 16:18 | XMS_ITS | Patient Health Record ---
Author Organization [facility] Address [address] [place] [address] Care Team Providers Care Autopsy Assistant Name Role Phone Will LOPEZ, Clau Primary [...] W/U Status Risk Notes Problem Esophageal reflux (834426020) Esophageal reflux (530.81) Active confirmed Problem Colon cancer screening (544427266) Colon cancer screening (V76.51) Active confirmed Plan Of Treatment Future Test Test Name Order Date COLONOSCOPY 07/20/2013 Insurance Providers Payer Name Payer Address Payer Phone Subscriber Number Group Number Insured Name Patient Relationship to Insured Coverage Start Date Coverage End Date MEDICARE OF [place] [address] [place] [id number] DIGNA MEYER Self - patient is the insured MEDICAID OF [facility] [address] [place] [address] [id number] DIGNA MEYER Self - patient is the insured Medical (General) History Medical History History ICD Code colonoscopy 04-28-2002 colon polyp asthma renal calculus hx of alcohol abuse in the past strokes X 2 [place] hypertension leg pain memory problems Surgical History Surgery Date(Month/Year) hysterectomy section nephrectomy
--- OUTSIDE RECORDS SUMMARY | 2025-03-20 16:18 | XMS_ITS | Clinical Summary ---
Author Organization [employer] Address [address] [facility] 7t [place] [address] Care Team Providers Care Stereotype Finisher Name Role Phone Daniel Holder MD Primary [...] IN THE MORNING NEEDED 09/11/19 23 Active nicotine (Nicoderm CQ) 14 MG/24HR [...] disease, without long-term current use of insulin ([facility]) TEST BLOOD SUGAR TWICE DAILY 100 strip 5 05/16/20 24 Active TRUEplus Lancets 33G miscIndications:T ype 2 diabetes mellitus with stage 3a chronic kidney disease, without long-term current use of insulin ([facility]) TEST BLOOD SUGAR TWICE DAILY 100 each 5 05/16/20 24 Active pregabalin (Lyrica) 75 MG capsuleIndication s:Fibromyalgia TAKE 1 CAPSULE BY MOUTH TWICE DAILY IN THE MORNING AND AT BEDTIME 60 capsule 06/02/20 24 Active albuterol (Ventolin HFA) 108 (90 Base) MCG/ACT inhalerIndication s:Chronic obstructive pulmonary disease, unspecified COPD type ([facility]) Inhale 2 puffs every 4 (four) hours if needed for wheezing. 18 g 3 06/26/20 24 Active Alcohol Swabs (Alcohol Prep) 70 % padsIndications:T ype 2 diabetes mellitus without complication, without long-term current use of insulin ([facility]) USE TWICE DAILY 100 each 11 [...] MORNING 90 tablet 1 10/13/19 25 Active fluticasone (Flonase) 50 MCG/ACT nasal sprayIndications: Seasonal allergies INHALE 1 SPRAY IN EACH NOSTRIL TWICE DAILY 48 g 11/15/19 25 Active Aspirin Low Dose 81 MG EC tablet TAKE 1 TABLET BY MOUTH EVERY MORNING 90 tablet 1 02/02/20 25 Active Arnuity Ellipta 200 MCG/ACT inhaler INHALE 1 PUFF BY MOUTH EVERY DAY AT THE SAME TIME RINSE MOUTH AFTER USING 30 each 5 02/15/20 25 Active pregabalin (Lyrica) 75 MG capsuleIndication s:Fibromyalgia TAKE 1 CAPSULE BY MOUTH TWICE DAILY IN THE MORNING AND AT BEDTIME 60 capsule 02/15/20 25 Active pioglitazone (Actos) 30 MG tabletIndications :Type 2 diabetes mellitus without complication, unspecified whether director long term care insulin use (CMS/HCC) TAKE 1 TABLET BY MOUTH EVERY MORNING 30 tablet 3 02/15/20 25 Active clotrimazole (Lotrimin) 1 % cream APPLY TOPICALLY TWICE DAILY 60 g 3 02/21/20 25 Active meclizine (Antivert) 25 MG tablet TAKE 1 TABLET BY MOUTH THREE TIMES DAILY NEEDED FOR DIZZINESS 90 tablet 03/01/20 25 Active meclizine (Antivert) 25 MG tablet TAKE 1 TABLET BY MOUTH THREE TIMES DAILY NEEDED FOR DIZZINESS 90 tablet 02/12/20 23 025 Discontinued clotrimazole (Lotrimin) 1 % cream Apply topically 2 times daily. 60 g 3 09/30/19 25 025 Discontinued Active Problems Problem Noted Date Diagnosed Date Hospital discharge follow-up 12/19/2024 Assessment & Plan (12/19/2024 9:56 AM EDT): Pt here for a HDF after being admitted to [facility] from 10/31-2024 She initially presented to the [...] Fluids down Case discussed with ER at [facility] Nicotine dependence, cigarettes, uncomplicated 0 10/08/2023 Dilated [...] the need to loose weight, referred to Clinical Nurse Specialist in the past. Patient has been counseled and educated about diet and exercise. Personal goal of weight loss discussed Assessment & Plan (02/22/2024 1:06 PM EDT): Discussed the need to loose weight, referred to Clinical Nurse Specialist in the past. Patient has been counseled and educated about diet and exercise. Personal goal of weight loss discussed Assessment & Plan (10/07/2023 11:01 AM EDT): Contributing to her bilateral knee pain discussed the need to loose weight, referred to Clinical Nurse Specialist in the past. Patient has been counseled and educated about diet and exercise. Personal goal of weight loss discussed Assessment & Plan (09/22/2022 9:40 AM EDT): Contributing to her bilateral knee pain discussed the need to loose weight, referred to Clinical Nurse Specialist in the past. Primary osteoarthritis of both [...] to GI intolerance) Patient was referred to [facility] for steroid injections. Pt was seen 10/29/2021 [...] and was scheduled a f/u with [facility] Assessment & Plan (09/22/2022 9:40 AM EDT): [...] to GI intolerance) Patient was referred to [facility] for steroid injections. Pt was seen 10/29/2021 [...] last done on: 04/30/[address] 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 Hannon (truck sales manager) Microalbumin checked on: 05/26/2021 was: 1.1 Pt [...] last done on: 02/17/[address] Hannon (truck sales manager) Microalbumin checked on: 05/26/2021 was: 1.1 Pt [...] last done on: 02/17/[address] Hannon (truck sales manager) Microalbumin checked on: 05/26/2021 was: 1.1 Pt [...] last done on: 02/17/[address] Hannon (truck sales manager) Microalbumin checked on: 05/26/2021 was: 1.1 Pt [...] last done on: 02/17/[address] Hannon (truck sales manager) Microalbumin checked on: 05/26/2021 was: 1.1 Pt [...] here for a f/u currently seeing [facility] On a regimen of: Duloxetine 30mg po daily, and trazodone 50 mg po qhs. Patient denies any suicidal ideation or thoughts, Patient has crisis numbers and knows to use them if needed. Pt grieving the loss of her brother Assessment & Plan (09/22/2022 9:42 AM EDT): Pt here for a f/u currently seeing [facility] at [facility] On a regimen of: Duloxetine [...] Pt here for a f/u Follows at [facility] On a regimen of: Duloxetine [...] Encounters Date Type Department Care Team Description 03/20/2025 Orders Only [facility] External Provider, [facility] 02/27/2025 Refill C MEDICINE [address] [place] [address] Daniel Holder MD 02/22/2025 Telephone [facility] MEDICINE [address] [place] [address] Daniel Holder MD Appointment Confirmation 02/20/2025 Refill [facility] MED & PEDS [address] [place] [address] Sarah Ferraro MD 02/16/2025 Refill [facility] PEDS [address] [place] [address] Sarah Ferraro MD 02/14/2025 Refill [facility] MEDICINE [address] [place] [address] Daniel Holder MD Fibromyalgia; Type 2 diabetes mellitus without complication, unspecified whether director long term care insulin use (CMS/HCC) 02/01/2025 Telephone [facility] MEDICINE [address] [place] [address] Daniel Holder MD Durable Medical Equipment 02/01/2025 Refill [facility] MEDICINE [address] [place] [address] Dnaiel Holder MD 01/26/2025 Orders Only GENERIC EXTERNAL DATA DEPARTMENT Provider, Generic External Data 01/16/2025 Refill [facility] MED & PEDS [address] [place] [address] Daniel Holder MD Fibromyalgia 01/01/2025 Telephone [facility] MEDICINE [address] [place] [address] Daniel Holder MD DME [facility] 12/19/2024 9:30 AM EDT Office Visit [facility] [place] [address] Daniel Holder MD Hospital discharge follow-up (Primary Dx); Type 2 diabetes mellitus with stage 3a chronic kidney disease, without long-term current use of insulin (CMS/HCC); Mixed hyperlipidemia; Depressive disorder 12/19/2024 Travel 12/19/2024 Refill [facility] MED & PEDS [address] [place] [address] Daniel Holder MD Fibromyalgia 12/18/2024 Telephone [facility] MEDICINE [address] [place] [address] Daniel Holder MD chart prep from Last [...] trivalent, adjuvanted 03/08/2017,01/28 Moderna Covid-19 Vaccine 12+ 01/15/2022,07/29/19 22,09/18/2020 Moderna Covid-19 Vaccine 6+ Bivalent 06/15/2022 Pfizer [...] Upcoming Encounters Date Type Department Care Team ([facility] st Contact Info) Description 04/03/2025 1:30 PM EDT Office Visit [facility] MEDICINE [address] [place] [address] Daniel Holder MD [address] [place] [address] Health Maintenance Due Date Last Done Comments CT Colonography 1945 FIT DNA/Cologuard 1945 FIT 1945 FOBT 1945 Sigmoidoscopy 1945 Diabetes: Foot Exam 1957 Eye Exam 1957 Zoster Vaccines (2 of 3) 05/01/2014 03/06/2014 DTaP/Tdap/Td Vaccines (1 - Tdap) 11/13/2016 11/12/2016, 04/26/2006 RSV Patients and Patients Aged 60 years or older (1 - 1-dose 75+ series) 2022 Hepatitis B Vaccines (2 of 3 - 19+ 3-dose series) 10/09/2024 09/11/2024 Diabetes: Hemoglobin A1C 01/31/2025 025, 06/27/2024, 02/22/2024, Additional history exists COVID-19 Vaccine ( season) 2025 05/13/2023, 06/15/2022, 01/15/2022, Additional history exists Influenza Vaccine (#1) 2025 , 04/20/2023, 04/17/2022, Additional history exists Alcohol/Substance Use Screening 06/27/2025 06/27/2024 Depression Screening 06/27/2025 06/27/2024, 06/27/20 24 SDOH Screening 06/27/2025 06/27/2024 Tobacco Screening 12/19/2025 12/19/2024 Lipid Panel 01/26/2026 01/26/2025, 05/0 06/2023, 02/11/2023, Additional history exists Colonoscopy 08/16/2034 10/11/2013 Colorectal Cancer Screening 08/16/2034 Pneumococcal Vaccine: 50+ Years Completed 04/28/2015, 04/28/2015, 03/06/2014 Hepatitis C Screening Completed 01/26/2025 HIB Vaccines Aged Out No longer eligi [...] VIEWS RIGHT Routine 03/20/2025 1:39 PM EDT CBC Routine 01/26/2025 10:54 AM EDT HEPATITIS C AB W/REFL TO HCV RNA, QN, PCR Routine 01/26/2025 10:54 AM EDT Type 2 diabetes mellitus with stage 3a chronic kidney disease, without long-term current use of insulin ([facility]/HCC) LIPID PANEL, STANDARD Routine 01/26/2025 10:54 AM EDT Mixed hyperlipidemia CBC WITH AUTO DIFFERENTIAL Routine 01/26/2025 10:54 AM EDT Hospital discharge follow-up POCT GLUCOSE Routine 12/19/2024 9:54 AM EDT Type 2 diabetes mellitus with stage 3a chronic kidney disease, without long-term current use of insulin (CMS/HCC) POCT GLYCATED HEMOGLOBIN, TOTAL Routine 10/31/2024 3:51 PM EDT Type 2 diabetes mellitus with stage 3a chronic kidney disease, without long-term current use of insulin (CMS/HCC) COLONOSCOPY Routine 10/11/2013 from Last 3 Months or Most Recently Relevant to Health Maintenance Results * CT Abdomen Pelvis w/ Contrast (03/20/2025 2:28 PM EDT) Anatomical Region Laterality Modality Body, Pelvis, Abdomen Computed T omography 03/20/2025 2:28 PM EDT Narrative 03/20/2025 3:06 PM EDT [address] [address] [address] Scan Report Signed Patient: Suha Burton MR#: [id number] 89 : 1945 Acct:[id number] Age/Sex: 79 / F ADM Date: 03/20/25 Loc: .ED Attending Dr: Ordering Physician: Jonathon Welch MD Date of Service: 03/20/25 Procedure(s): CT abdomen pelvis w IV con Accession Number(s): [id number] cc: Jonathon Welch MD; Daniel Oconnor MD Report Number: [id number]: Total DLP = 694.00 mGy-cm Reason for [...] Moise MD in OV> 03/20/25 1504 DD/ 1423 TD/TT: 03/20/25 1447 Grid Operator: Procedure Note Donotuseinterpreter, Image - 03/20/[address] [address] [address] Scan Report Signed Patient: Suha Burton CMR#: [id number] [birth year] : 1945cct:[id number] Age/Sex: 79 / FADM Date: 03/20/25 Loc: HO.ED Attending Dr: Ordering Physician: Jonathon Welch MD Date of Service: 03/20/25 Procedure(s): CT abdomen pelvis w IV con Accession Number(s): [id number] cc: Jonathon Welch MD; Daniel Oconnor MD Report Number: [id number]: Total DLP = 694.00 mGy-cm Reason for [...] Pramod Raines MD 03/20/2025 03:04 PM EDT Dictated By: Pramod Jolly MD Signed By: <Electronically signed by Pramod Moise MDin OV> 03/20/25 1504 DD/ 1428 TD/TT: 03/20/25 1449 Grid Operator: [facility] External Provider IMG CT PROCEDURES Final Result * (ABNORMAL) VENOUS BLOOD GAS (03/20/2025 2:05 PM EDT) VBG pH 7.41 7.32 - 7.43 [facility] Comment:METER #: [id number] additional_comment: Cb provenc VBG PCO2 47 mmHg [facility] Comment:METER #: [id number] additional_comment: [facility] VBG PO2 35 mmHg [facility] Comment:METER #: [id number] additional_comment: [facility] [place] VBG Base Excess 4.6 mmol/L [facility] Comment:METER #: [id number] additional_comment: Cb provenc VBG HCO3 30(H) 22 - 26 mmol/L [facility] Comment:METER #: [id number] additional_comment: [facility]b [facility]enc O2 Sat, Rick 47.0 % [facility] Comment:METER #: [id number] additional_comment: Cb provenc 03/20/2025 2:05 PM EDT 03/20/2025 2:09 PM EDT us Generic External Data Provider LAB BLOOD ORDERAB LES Final Result Performing Organization Address City/State/[facility] Co de Phone Number [facility] [address] [place] [phone] * XR Shoulder 2+ Views Right (03/20/2025 1:39 PM EDT) Anatomical Region Laterality Modality Upper Extremities, Shoulder Right Radi ographic Imaging 03/20/2025 1:39 PM EDT Narrative 03/20/2025 1:49 PM EDT [address] [address] XRay Report Signed Patient: Suha Burton MR#: [id number] [birth year] : 1945 Acct:[id number] Age/Sex: 79 / F ADM Date: 03/20/25 Loc: HO.ED Attending Dr: Ordering Physician: Jonathon Welch MD Date of Service: 03/20/25 Procedure(s): XR shoulder RT min 2V Accession Number(s): [id number] cc: Jonathon Welch MD; Daniel Oconnor MD [...] 03/20/25 1345 DD/ 1339 TD/TT: 03/20/25 1335 Grid Operator: Procedure Note Donotuseinterpreter, Image - 03/20/[address] [address] XRay Report Signed Patient: Suha Burton CMR#: [id number] [birth year] : 1945cct:[id number] Age/Sex: 79 / FADM Date: 03/20/25 Loc: .ED Attending Dr: Ordering Physician: Jonathon Welch MD Date of Service: 03/20/25 Procedure(s): XR shoulder RT min 2V Accession Number(s): [id number] cc: Jonathon Welch MD; Daniel Oconnor MD [...] 03/20/25 1345 DD/ 1339 TD/TT: 03/20/25 1335 Grid Operator: [facility] External Provider IMG XR PROCEDURES Final Result * (ABNORMAL) CBC auto differential (01/26/2025 10:54 AM EDT) White Blood Count 5.1 4.8 - 10.8 X10*3/uL [facility] Red Blood Count 4.48 4.20 - 5.50 X10*6/uL [facility] Hemoglobin 12.2 12.0 - 16.0 g/dl [facility] Hematocrit 38.5 37.0 - 47.0 % [facility] Mean Corpuscular Volume 85.9 80.0 - 98.0 fL [facility] Mean Corpuscular Hemoglobin 27.2 27.0 - 33.0 pg [facility] Mean Corpuscular HGB Conc 31.7 31.0 - 35.0 g/dl [facility] Red Cell Distribution Width 15.9 11.0 - 16.0 % [facility] Platelet Count 137(L) 160 - 400 X10*3/uL [facility] Mean Platelet Volume 13.2(H) 9.4 - 12.3 fL [facility] Neutrophils Percent Auto 38.3(L) 45 - 73 % [facility] Imm Gran Pct Auto 0.2 0.0 - 0.4 % [facility] Lymphocytes Percent Auto 46.8(H) 20 - 40 % [facility] Monocytes Percent Auto 9.2 2 - 11 % [facility] Eosinophils Percent Auto 4.5(H) 0 - 4 % [facility] Basophils Percent Auto 1.0 0 - 2 % [facility] NRBC Pct Auto 0.0 0.0 - 0.2 /100WBC [facility] Neutrophils Absolute Auto 2.0 2.0 - 8.3 x10*3/uL [facility] Imm Gran Abs Auto 0.01 0.00 - 0.03 X10*3/uL [facility] Lymphocytes Absolute Auto 2.4 1.2 - 4.9 X10*3/uL [facility] Monocytes Absolute Auto 0.5 0.1 - 1.2 X10*3/uL [facility] Eosinophils Absolute Auto 0.2 0.0 - 0.4 X10*3/uL [facility] Basophils Absolute Auto 0.1 0.0 - 0.2 X10*3/uL [facility] NRBC Abs Auto 0.000 0.0 - 0.012 X10*3/uL [facility] Blood Venous blood specimen / Unknown 01/26/2025 10:54 AM EDT 01/26/2025 12:14 PM EDT Daniel Agudelo MD LAB BLOOD ORDERABLES Final Result Performing Organization Address [facility]/ZIP Co de Phone Number [facility] [address] [place] [phone] * Hepatitis C Antibody with Reflex to HCV, RNA, Quantitative, Real-Time PCR (01/26/2025 10:54 AM EDT) Hepatitis C Antibody Nonreactive Nonreactive [facility] Comment:Antibodies to HCV no t detected; does not exclude early acuteHCV infection. Blood Venous blood specimen / Unknown 01/26/2025 10:54 AM EDT 01/26/2025 12:09 PM EDT Daniel Agudelo MD LAB BLOOD ORDERABLES Final Result Performing Organization Address [facility]/ZIP Co de Phone Number [facility] [address] [place] [phone] * (ABNORMAL) CBC (01/26/2025 10:54 AM EDT) White Blood Count 5.2 4.8 - 10.8 X10*3/uL [facility] Red Blood Count 4.48 4.20 - 5.50 X10*6/uL [facility] Hemoglobin 12.0 12.0 - 16.0 g/dl [facility] Hematocrit 38.6 37.0 - 47.0 % [facility] Mean Corpuscular Volume 86.2 80.0 - 98.0 fL [facility] Mean Corpuscular Hemoglobin 26.8(L) 27.0 - 33.0 pg [facility] Mean Corpuscular HGB Conc 31.1 31.0 - 35.0 g/dl [facility] Red Cell Distribution Width 16.0 11.0 - 16.0 % [facility] Platelet Count 146(L) 160 - 400 X10*3/uL [facility] Mean Platelet Volume 12.7(H) 9.4 - 12.3 fL [facility] NRBC Pct Auto 0.0 0.0 - 0.2 /100WBC [facility] NRBC Abs Auto 0.000 0.0 - 0.012 X10*3/uL [facility] 01/26/2025 10:5 4 AM EDT 01/26/2025 12:14 PM EDT us Generic External Data Provider LAB BLOOD ORDERAB LES Final Result [facility] [address] [place] [phone] * Lipid Panel, Standard (01/26/2025 10:54 AM EDT) Triglycerides 99 <150 mg/dL [facility] Comment:Desirable Triglyceri de: less than 150 mg/dLBorderline High Triglyceride 150-199 mg/dLHigh Triglyceride: 200-499 mg/dLVery High Triglyceride: greater than or equal to 5OO mg/dL Cholesterol 138 <200 mg/dL [facility] Comment:Desirable Cholestero l: less than 200 mg/dLBorderline High Cholesterol: 200-239 mg/dLHigh Cholesterol: greater than 239 mg/dL LDL Cholesterol Calculated 72 <100 mg/dL [facility] Comment:Desirable LDL: less than 100 mg/dLNear Optimal/Above Optimal LDL: 110- 129 mg/dLBorderline High LDL: 130-159 mg/dLHigh LDL: 160-189 mg/dLVery High LDL: greater than or equal to 190 mg/dL HDL Cholesterol 47 >40 mg/dL [facility] Comment:Desirable HDL: great er than 40 mg/dL Note: This HDL assay may give artificially low results in patients with liver disease. Blood Venous blood specimen / Unknown 01/26/2025 10:54 AM EDT 01/26/2025 12:09 PM EDT Daniel Agudelo MD LAB BLOOD ORDERABLES Final Result Performing Organization Address City/State/[facility] Co de Phone Number [facility] [address] [place] [phone] * POCT Glucose (12/19/2024 9:54 AM EDT) Pathologist [facility] Glucose Blood, POC 124 60 - 200 mg/dL QC Media Lot # [id number] Lot# Expiration Date ,936 Blood Capillary blood specimen / Unknown 12/19/2024 9:54 AM EDT Daniel Agudelo MD POINT OF CARE TEST EN TER/EDIT ORDERABLES Final Result * (ABNORMAL) POCT HGB A1C (10/31/2024 3:51 PM EDT) Hemoglobin A1C 6.7(A) 4.0 - 6.0 % QC Media Lot # [id number] Lot# Expiration Date ,961,919 Blood 10/31/2024 3:51 PM EDT Daniel Agudelo MD POINT OF CARE TEST EN TER/EDIT ORDERABLES Final Result * Colonoscopy (10/11/2013) Colonoscopy Normal Normal 10/11/2013 Narrative Rowan Muñoz - 10/11/2013 11:31 AM EDT Recommended 10 year follow up ( see scanned report) Historical Provider HEALTH MAINTENANCE Final Result from Last 3 Months or Most Recently Relevant to Health Maintenance [facility] D-SNP[facility] [employer] [place] [id number] Care Teams Stereotype Finisher Relationship Specialty Start Date End Date Daniel Holder MD [address] [place] [phone] PCP - General Internal Medicine 9/29/14
--- OUTSIDE RECORDS SUMMARY | 2025-03-20 16:18 | XMS_ITS | Encounter Summary ---
Author Organization [employer] Address [address] [facility] [address] [place] [id number] Care Team Providers Care [facility] Name Role Phone Daniel Holder MD Primary Care Provide r Encounter Details Date Type Department Care Team (Late st Contact Info) Description 08/31/2022 Orders Only [facility] MED & PEDS [address] [place] [address] Sharon Major LPN Social History Tobacco Use [...] Description 04/03/2025 1:30 PM EDT Office Visit [facility] MEDICINE [address] [place] [address] Daniel Holder MD [address] [place] [address] documented as of this encounter Procedures Procedure Name Priority Date/Time Associated Diagnosis Comments US RETROPERITONEAL COMPLETE Routine 09/29/2022 11:45 AM EDT documented in this encounter Results * US Retroperitoneal Complete (09/29/2022 11:45 AM EDT) Anatomical Region Laterality Modality Ultrasound 09/29/2022 11:4 5 AM EDT Narrative 10/01/2022 5:31 PM EDT [facility] [address] [place] [address] [place] [address] Ultrasound Report Signed Patient: Suha Burton MR#: [id number] : 1945 Acct:[id number] Age/Sex: 77 / F ADM Date: 09/29/22 Loc: HO.YULIYACX Attending Dr: Daniel Oconnor MD Ordering Physician: Daniel Oconnor MD Date of Service: 09/29/22 Procedure(s): US retroperitoneal comp Accession Number(s): [id number] cc: Daniel Oconnor MD EXAMINATION: US RETROPERITONEAL [...] in OV> 10/01/22 1728 DD/ 1145 TD/TT: Tap Builder: Procedure Note Donotuseinterpreter, Image - 10/01/2022 [facility] Adult Primary Care [address] [place] [address] [place] [address] Ultrasound Report Signed Patient: Suha BurtonMR#: [id number] : 1945cct:[id number] Age/Sex: 77 / FADM Date: 09/29/22 Loc: HOQINGX Attending Dr: Daniel Oconnor MD Ordering Physician: Daniel Oconnor MD Date of Service: 09/29/22 Procedure(s): US retroperitoneal comp Accession Number(s): [id number] cc: Daniel Oconnor MD EXAMINATION: US RETROPERITONEAL [...] in OV> 10/01/22 1728 DD/ 1145 TD/TT: Tap Builder: [facility] External Provider IMG US PROCEDURES Final Result documented in this encounter Visit Diagnoses Not on filedocumented in this encounter Care Teams [facility] Relationship Specialty Start Date End Date Daniel Holder MD [address] [place] [id number] PCP - General Internal Medicine 03/26/14 documented as of this encounter
[2025-03-20] MEDS: KCl 20 mEq in 0.45% Sod 20 MEQ/1,000 ML IV.SOLN 500 MEQ IVCONT (16:23)
[2025-03-20 16:29] LABS: Appearance Urine Clear; Glucose Urine UA Negative (Negative); PH 6.5 (5.0-9.0); Specific Gravity - Urine >= 1.030 (1.005-1.025); UMIC TRIGGER UACC YES
[2025-03-20] MEDS: Potassium Chloride ER 20 MEQ TAB.ER.PRT 40 MEQ PO (17:31)
--- NOTE | 2025-03-20 18:15 | PHA.MEDREC ---
Pharmacy Consult ? Medication Reconciliation Pharmacy has completed the medication reconciliation.
--- NOTE | 2025-03-20 18:18 | HO.NURTONUR ---
Addendum entered by Mike Mirza RN 03/21/25 17:27: has been in the overflow unit for the past 24 hrs with her , both admit with covid, gen weakness and assist x 1 to commode, able to make needs known, uses a cane at home but has had falls at home. feeds herself. pt did not like to use a purewick.has a 22 l hand, fully alert. had a very brief episode of cp this afternoon, 1 neg troponin. no pain since Original Note: Suha is a 79F who presented to the ED with abd pain/nausea, patient also had fall 5 days prior with right shoulder pain. patient CT scan showed ileitis vs colitis. patient also found to have covid. patient is alert and oriented x3, gambian speaking, utilized gambian interp for interactions. patient afebrile after po tylenol. patient potassium 3.1, IV replenish. patient has #20 RAC and #22 Lhand. xray showed no shoulder fracture. patient is also hospitalized at this time
--- NOTE | 2025-03-20 18:21 | PC.NURSE ---
patient sitting up in bed, eating dinner.
--- NOTE | 2025-03-20 18:46 | PC.NURSE ---
Addendum entered by Smiley Cutler RN 03/20/25 18:47: Patient is a 79-year-old woman presenting to the ER after a fall a few days ago and subsequent abdominal pain. She reported diffuse abdominal pain with nausea, small amount of diarrhea, no vomiting. She has had a poor appetite and poor p.o. intake. She and her are COVID positive. Abdominal CT showed possible ileus versus a colitis, shoulder x-ray did not show any acute fracture or dislocation just chronic findings. Patient alert and oriented, primarily ethiopian speaking. Lungs essentially clear bilat. Wheezy cough noted and some dysnea on exertion. Abdomen soft, distended, non-tender with positive bowel sounds. Denies any abdominal pain at this time. Positive pedal pulses with no edema. Original Note: Medical History Osteoarthritis GERD (gastroesophageal reflux disease) Dysphagia Microscopic hematuria Fibromyalgia Anxiety and depression Hyperlipidemia Hypertension, essential Nicotine dependence, cigarettes, uncomplicated Diabetes mellitus, type 2 Hypothyroidism
--- NOTE | 2025-03-20 20:50 | PC.NURSE ---
Patient incontinent of moderate amount of diarrhea. care provided and linens changed. pure wick in place. Patient alert and oriented x 3, skin pwd, resp even and non labored. speaking in full, clear sentences. denies pain. patient states that she has had frequent falls at home. fall precautions in place and call haile within reach. patient aware of plan of care
[2025-03-20 20:57] LABS: Glucose, Whole Blood 154 mg/dL (60-115)
--- NOTE | 2025-03-20 22:41 | PC.NURSE ---
Patient attempted to ambulate to the bathroom w/ walker and 1 assist. patient groaning, shakey and unsteady on her feet, assisted to bedside commode. patient voided and had another episode of diarrhea. Patient assisted back to bed, tachypneic at 24, lungs w/ exp rhonchi throughout, otherwise afebrile and VSS. patient denies pain, denies nausea.
[2025-03-21] VITALS (9 sets, daily range): BP systolic 115–147; BP diastolic 55–98; PULSE 70–92; RESP 16–20; TEMP 36.6–37.5; O2SAT 95–100; BMI 29.0
[2025-03-21 04:56] LABS: Hematocrit 37.1 % (37.0-47.0); Hemoglobin 11.7 g/dl (12.0-16.0); Imm Gran Abs Auto 0.01 X10*3/uL (0.00-0.03); Imm Gran Pct Auto 0.3 % (0.0-0.4); Lymphocytes Absolute Auto 1.9 X10*3/uL (1.2-4.9); Mean Corpuscular HGB Conc 31.5 g/dl (31.0-35.0); Mean Corpuscular Hemoglobin 27.1 pg (27.0-33.0); Mean Corpuscular Volume 85.9 fL (80.0-98.0); NRBC Abs Auto 0.000 X10*3/uL (0.0-0.012); NRBC Pct Auto 0.0 /100WBC (0.0-0.2); Red Blood Count 4.32 X10*6/uL (4.20-5.50); SCAN SMEAR FLAG 1; White Blood Count 3.1 X10*3/uL (4.8-10.8)
[2025-03-21 04:59] LABS: MANUAL DIFF FLAG SCAN; Platelet Count 98 X10*3/uL (160-400)
[2025-03-21 05:17] LABS: Anion Gap 11 (12-20); Blood Urea Nitrogen 11 mg/dL (9-16); Calcium 8.2 mg/dL (8.4-10.2); Carbon Dioxide 23 mmol/L (22-29); Chloride 111 mmol/L (96-108); Creatinine Clr Calc Pharmacy 67.3; Estimated Glomerular Filt Rate > 60; Potassium 3.5 mmol/L (3.3-5.1); Sodium 141 mmol/L (135-145)
--- NOTE | 2025-03-21 05:24 | PC.NURSE ---
0100 Trouble Operator utilized for assessment, medications and assist patient with needs. Pt Alert, oriented and reports feeling nauseated. Zofran 4mg IV provided with good effect. Patinet one assist to the commode voiding concentrated yellow urine. Covid precautions in effect with patient understanding the plan of care. Patient sleeping most of the night, oral care provided
[2025-03-21] MEDS: Aspirin Enteric Coated 81 MG TABLET.DR PO (09:53)
[2025-03-21] MEDS: Potassium Chloride ER 20 MEQ TAB.ER.PRT 40 MEQ PO ×2 (09:53→22:14)
[2025-03-21] MEDS: Metoprolol Succinate ER 50 MG TAB.ER.24H PO (09:54)
--- NOTE | 2025-03-21 12:55 | ECG_ITS ---
Test Reason : CP Blood Pressure : */* mmHG Vent. Rate : 66 BPM Atrial Rate : 66 BPM P-R Int : 126 ms QRS Dur : 70 ms QT Int : 378 ms P-R-T Axes : * 130 144 degrees QTcB Int : 396 ms Normal sinus rhythm with sinus arrhythmia Right axis deviation Cannot rule out Inferior infarct , age undetermined T wave abnormality, consider lateral ischemia Abnormal ECG When compared with ECG of 20-Mar-2025 13:06, Vent. rate has decreased by 42 bpm QRS axis Shifted right Nonspecific T wave abnormality now evident in Inferior leads Nonspecific T wave abnormality now evident in Lateral leads Referred By: Dolores Kumar Electronically Signed By: Marlo Motley
--- NOTE | 2025-03-21 13:09 | MHC.EDTECH ---
EKG done picture sent to Dolores Kumar, hospitalist via [employer]
--- NOTE | 2025-03-21 13:22 | PC.NURSE ---
at 12 55 pt was moaning in her room. when I entered the room the pt was clutching her chest reporting cp. vitals done and wnl, pineda Kumar contacted and Troponin and ekg done. pain lasted a couple minutes and her luq was very tender during this episode. when cake batter mixer arrived a few minutes after the pain started the pt reported the had subsided and was focussed on wanting to go home. now with nad
[2025-03-21 13:35] LABS: Troponin-I High Sensitivity 10.6 ng/L (<3.5-17.0)
--- NOTE | 2025-03-21 14:02 | MHC.CM.PN ---
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
--- NOTE | 2025-03-21 15:42 | P.PNIM_ITS ---
Subjective Subjective Date of Service: 03/21/25 Review of Systems Follow up Covid, weakness feeling better today Physical Exam 2 Exam: Exam: Appearing in no acute distress lung sounds are clear to auscultation heart regular rate rhythm, clear S1, S2 positive bowel sounds, abdomen is soft, nontender neuro patient is alert x3, no focal deficits Vital Signs: Vital Signs: Last Vital Signs Temp 98.4 F 03/21/25 12:55 Pulse 78 03/21/25 12:55 Resp 18 03/21/25 12:55 BP 138/98 H 03/21/25 12:55 Pulse Ox 98 03/21/25 12:55 O2 Del Method Room Air 03/21/25 12:55 BMI result Body Mass Index 31.8 Objective Data Active Medications Acetaminophen (Acetaminophen 325 Mg Tablet) 650 mg PO Q6H PRN PRN Reason: Fever Last Admin: 03/21/25 02:57 Dose: 650 mg Documented By: SADE Albuterol Sulfate (Albuterol Sulfate 90 Mcg 8 Gm Inhaler) 2 puff INHALE Q4H PRN PRN Reason: Shortness of Breath Ascorbic Acid (Ascorbic Acid 500 Mg Tablet) 500 mg PO DAILY [facility] Last Admin: 03/21/25 09:53 Dose: 500 mg Documented By: YESENIA Aspirin (Aspirin Enteric Coated 81 Mg Tablet.) 81 mg PO DAILY [facility] Last Admin: 03/21/25 09:53 Dose: 81 mg Documented By: YESENIA Atorvastatin Calcium (Atorvastatin Calcium 20 Mg Tablet) 20 mg PO BEDTIME [facility] Duloxetine HCl (Duloxetine Hcl 30 Mg Capsule.) 30 mg PO DAILY [facility] Last Admin: 03/21/25 09:53 Dose: 30 mg Documented By: YESENIA Enoxaparin Sodium (Enoxaparin Sodium 40 Mg/0.4 Ml Syringe) 40 mg SUBCUT Q24H [facility] Last Admin: 03/20/25 17:31 Dose: 40 mg Documented By: SISSY Fluticasone Propionate (Fluticasone Propionate 250 Mcg Blst.W.Dev) 1 puff INHALE RBID [facility] Fluticasone Propionate (Fluticasone Propionate Nasal 16 Gm [place]) 1 spray NOSTRIL-B BID [facility] Last Admin: 03/21/25 09:54 Dose: 1 spray Documented By: YESENIA Levothyroxine Sodium (Levothyroxine Sodium 75 Mcg Tablet) 75 mcg PO DAILY@0600 [facility] Magnesium Oxide (Magnesium Oxide 400 Mg Tablet) 200 mg PO BEDTIME [facility] Meclizine HCl (Meclizine Hcl 25 Mg Tablet) 25 mg PO TID PRN PRN Reason: Dizziness Metoprolol Succinate (Metoprolol Succinate Er 50 Mg Tab.Er.24h) 50 mg PO DAILY [facility]; Protocol Last Admin: 03/21/25 09:54 Dose: 50 mg Documented By: YESENIA Multivitamins/Vitamin C (Multivitamin Tablet) 1 tab PO DAILY [facility] Last Admin: 03/21/25 09:53 Dose: 1 tab Documented By: YESENIA Omeprazole (Omeprazole 20 Mg Capsule.Dr) 20 mg PO DAILY@0630 [facility] Ondansetron HCl (Ondansetron Hcl 4 Mg/2 Ml Vial) 4 mg IVPUSH Q8H PRN PRN Reason: Nausea and Vomiting Last Admin: 03/21/25 01:16 Dose: 4 mg Documented By: SADE Comments: given for nausea and dry heaves. Potassium Chloride (Potassium Chloride Er 20 Meq Tab.Er.Prt) 40 meq PO BID [facility] Last Admin: 03/21/25 09:53 Dose: 40 meq Documented By: YESENIA Pregabalin (Pregabalin 75 Mg Capsule) 75 mg PO BID [facility] Last Admin: 03/21/25 09:53 Dose: 75 mg Documented By: YESENIA Senna (Sennosides 8.6 Mg Tablet) 17.2 mg PO BEDTIME [facility] Trazodone HCl (Trazodone Hcl 50 Mg Tablet) 50 mg PO BEDTIME [facility] Labs 03/21/25 04:37 03/21/25 04:37 Labs: Laboratory Results - last 24 hr 03/20/25 03/20/25 03/20/25 16:22 17:03 20:54 MCV MCH MCHC RDW Plt Count MPV Immature Gran % (Auto) Neut % (Auto) Lymph % (Auto) Benson % (Auto) Eos % (Auto) Baso % (Auto) Lymph # (Auto) Benson # (Auto) Eos # (Auto) Baso # (Auto) Abs Immat Gran (auto) Absolute Neuts (auto) Absolute Nucleated RBC Nucleated RBC % (auto) Smear Tech's Comments Anion Gap Estim Creat Clear Calc Estimated GFR POC Glucose 154 H Random Glucose Lactic Acid 1.4 Calcium Troponin I High Sens Urine Color Yellow Urine Appearance Clear Urine pH 6.5 Ur Specific Mccool >= 1.030 H Urine Protein Negative Urine Glucose (UA) Negative Urine Ketones Negative Urine Blood Trace H Urine Nitrite Negative Ur Leukocyte Esterase Negative Urine RBC 6-10 H Urine WBC 0-5 Ur Squamous Epith Cells 0-2 Urine Bacteria None Seen Hyaline Casts 3-5 03/21/25 03/21/25 04:37 13:05 MCV 85.9 MCH 27.1 MCHC 31.5 RDW 15.4 Plt Count 98 L MPV 12.3 Immature Gran % (Auto) 0.3 Neut % (Auto) 23.9 L Lymph % (Auto) 60.2 H Benson % (Auto) 15.0 H Eos % (Auto) 0.3 Baso % (Auto) 0.3 Lymph # (Auto) 1.9 Benson # (Auto) 0.5 Eos # (Auto) 0.0 Baso # (Auto) 0.0 Abs Immat Gran (auto) 0.01 Absolute Neuts (auto) 0.8 L Absolute Nucleated RBC 0.000 Nucleated RBC % (auto) 0.0 Smear Tech's Comments VERIFIED Anion Gap 11 L Estim Creat Clear Calc 67.3 Estimated GFR > 60 POC Glucose Random Glucose 116 H Lactic Acid Calcium 8.2 L D Troponin I High Sens 10.6 Urine Color Urine Appearance Urine pH Ur Specific Mccool Urine Protein Urine Glucose (UA) Urine Ketones Urine Blood Urine Nitrite Ur Leukocyte Esterase Urine RBC Urine WBC Ur Squamous Epith Cells Urine Bacteria Hyaline Casts Assessment and Plan (1) COVID: Status: Acute Plan 79 year old women admitted with covid and fever as well as pain to right shoulder after a fall Sepsis secondary to Covid fever, tachycardia, normal lactic acid No hypoxia, not requiring oxygen or steroids CXR without acute abnormality Abdominal pain Abdominal CT showing regional ileus versus mild enteritis Patient reports dissipation of abdominal pain GI consultation to review CAT scan Hypokalemia Repleted and resolved Fall with shoulder pain Shoulder x-ray showing suspected rotator cuff tendonitis without any acute fracture or dislocation PT>rec STR DVT prophylaxis with lovenox Full code is also hospitalized for covid Quality Stroke Does the patient have a stroke diagnosis?: No VTE Prior VTE?: No VTE Risk Level:: Medical - moderate - high VTE Device Contraindication: Treatment Not Indicated VTE Drug Contraindication: N/A - Med Ordered
[2025-03-21] MEDS: Fluticasone Propionate 250 MCG BLST.W.DEV 1 PUFF INHALE (22:12)
[2025-03-22] VITALS (7 sets, daily range): BP systolic 128–145; BP diastolic 58–73; PULSE 68–77; RESP 16–18; TEMP 36.6–37.1; O2SAT 93–98
[2025-03-22] MEDS: Metoprolol Succinate ER 50 MG TAB.ER.24H PO (08:23)
[2025-03-22] MEDS: Potassium Chloride ER 20 MEQ TAB.ER.PRT 40 MEQ PO ×2 (08:23→20:22)
[2025-03-22] MEDS: Aspirin Enteric Coated 81 MG TABLET.DR PO (08:23)
[2025-03-22] MEDS: Fluticasone Propionate 250 MCG BLST.W.DEV 1 PUFF INHALE ×2 (08:24→19:52)
--- NOTE | 2025-03-22 09:03 | PM.GICN ---
History of Present Illness Data of Consult Service Date: 03/22/25 Requesting physician: Dolores Kumar Primary Care Provider: Daniel Oconnor MD HPI Reason for consult: Abnormal CT scan [address] [facility] on 03/20/25 after a fall a few days ago and subsequent abdominal pain. Pt reported diffuse abdominal pain with nausea, small amount of diarrhea, no vomiting, poor appetite and poor p.o. intake. She denied any fever, chills, recent travel, sick contacts. Pt lives with her who apparently also has COVID and has also come to the ER with her. In the ER, Patient was noted to have a fever, tachycardia. COVID positive. No hypoxia noted so she will not require steroids or antibiotics at this time. Pt was admitted for further management and treatment of sepsis secondary to COVID. 03/20/[address] SCAN SHOWED: Regional ileus versus mild enteritis. Cholelithiasis. Extrahepatic biliary ductal dilatation. Stricture at the sphincter of Oddi cannot be entirely excluded. Compensatory hypertrophy right kidney. Spondylosis at L3-4. Grade 1 anterolisthesis L4-5. Hiatal hernia, moderate volume.. 03/20/25 ABD US SHOWED: Chronic extra-hepatic biliary ductal dilation. This was worked up on November 02, 2024 using MRCP, and has been present since at least December 02, 2022. Cholelithiasis. There is a focal area where the gallbladder measured 3 mm which is borderline thick. Correlate for signs symptoms of cholecystitis. Review of Systems Review of Systems: Denies any recent fever chills or decrease in appetite respiratory denies any shortness of breath or cough cardiovascular denied chest pain gastrointestinal denies any dysphagia abdominal pain nausea vomiting or diarrhea genitourinary denies any dysuria frequency or hematuria musculoskeletal Reported shoulder pain neuropsych denies any weakness or seizures all other systems reviewed are negative [facility] Past Medical History Medical History Osteoarthritis GERD (gastroesophageal reflux disease) Dysphagia Microscopic hematuria Fibromyalgia Anxiety and depression Hyperlipidemia Hypertension, essential Nicotine dependence, cigarettes, uncomplicated Diabetes mellitus, type 2 Hypothyroidism Surgical History Surgical History History of esophagogastroduodenoscopy (EGD) History of vocal cord polypectomy History of colonoscopy History of cataract surgery Social History Social History Household Members: Spouse Housing: Apartment Do you presently have visiting nurse or other home services: No Alcohol intake: never Patient Tobacco Use Status: Former Tobacco user Tobacco use type: Cigarette Cigarettes Per Day: 7 Years Smoked: 63 Advance Directives Date on File: 11/01/24 service: No Meds Allergies Allergy/AdvReac Type Severity Reaction Status Date / Time meperidine (Demerol) Allergy Unknown Unknown Verified 03/20/25 12:54 Active Medications: Current Medications Acetaminophen (Acetaminophen 325 Mg Tablet) 650 mg PO Q6H PRN PRN Reason: Fever Last Admin: 03/21/25 02:57 Dose: 650 mg Albuterol Sulfate (Albuterol Sulfate 90 Mcg 8 Gm Inhaler) 2 puff INHALE Q4H PRN PRN Reason: Shortness of Breath Ascorbic Acid (Ascorbic Acid 500 Mg Tablet) 500 mg PO DAILY [facility] Last Admin: 03/22/25 08:23 Dose: 500 mg Aspirin (Aspirin Enteric Coated 81 Mg Tablet.) 81 mg PO DAILY [facility] Last Admin: 03/22/25 08:23 Dose: 81 mg Atorvastatin Calcium (Atorvastatin Calcium 20 Mg Tablet) 20 mg PO BEDTIME [facility] Last Admin: 03/21/25 22:14 Dose: 20 mg Duloxetine HCl (Duloxetine Hcl 30 Mg Capsule.) 30 mg PO DAILY [facility] Last Admin: 03/22/25 08:23 Dose: 30 mg Enoxaparin Sodium (Enoxaparin Sodium 40 Mg/0.4 Ml Syringe) 40 mg SUBCUT Q24H [facility] Last Admin: 03/21/25 17:16 Dose: 40 mg Fluticasone Propionate (Fluticasone Propionate 250 Mcg Blst.W.Dev) 1 puff INHALE RBID [facility] Last Admin: 03/22/25 08:24 Dose: 1 puff Fluticasone Propionate (Fluticasone Propionate Nasal 16 Gm [place]) 1 spray NOSTRIL-B BID [facility] Last Admin: 03/22/25 08:24 Dose: Not Given Ketorolac Tromethamine (Ketorolac Tromethamine 30 Mg/Ml Vial) 30 mg IVPUSH Q6H PRN PRN Reason: Pain, Moderate(Pain Scale 4-6) Stop: 03/26/25 15:56 Levothyroxine Sodium (Levothyroxine Sodium 75 Mcg Tablet) 75 mcg PO DAILY@0600 [facility] Last Admin: 03/22/25 06:36 Dose: 75 mcg Magnesium Oxide (Magnesium Oxide 400 Mg Tablet) 200 mg PO BEDTIME [facility] Last Admin: 03/21/25 22:15 Dose: 200 mg Meclizine HCl (Meclizine Hcl 25 Mg Tablet) 25 mg PO TID PRN PRN Reason: Dizziness Metoprolol Succinate (Metoprolol Succinate Er 50 Mg Tab.Er.24h) 50 mg PO DAILY [facility]; Protocol Last Admin: 03/22/25 08:23 Dose: 50 mg Multivitamins/Vitamin C (Multivitamin Tablet) 1 tab PO DAILY [facility] Last Admin: 03/22/25 08:23 Dose: 1 tab Omeprazole (Omeprazole 20 Mg Capsule.Dr) 20 mg PO DAILY@0630 [facility] Last Admin: 03/22/25 06:36 Dose: 20 mg Ondansetron HCl (Ondansetron Hcl 4 Mg/2 Ml Vial) 4 mg IVPUSH Q8H PRN PRN Reason: Nausea and Vomiting Last Admin: 03/21/25 01:16 Dose: 4 mg Potassium Chloride (Potassium Chloride Er 20 Meq Tab.Er.Prt) 40 meq PO BID [facility] Last Admin: 03/22/25 08:23 Dose: 40 meq Pregabalin (Pregabalin 75 Mg Capsule) 75 mg PO BID [facility] Last Admin: 03/22/25 08:24 Dose: 75 mg Senna (Sennosides 8.6 Mg Tablet) 17.2 mg PO BEDTIME [facility] Last Admin: 03/21/25 22:13 Dose: 17.2 mg Trazodone HCl (Trazodone Hcl 50 Mg Tablet) 50 mg PO BEDTIME [facility] Last Admin: 03/21/25 22:14 Dose: Not Given Home Medications ?Medication ?Instructions ?Recorded ?Confirmed ?Last Taken ?Type ascorbic acid (vitamin C) 500 mg 500 mg PO DAILY 10/29/22 03/20/25 10/30/24 History tablet (Vitamin C) aspirin 81 mg tablet,delayed 81 mg PO DAILY 10/29/22 03/20/25 10/30/24 History release duloxetine 30 mg capsule,delayed 30 mg PO DAILY 10/29/22 03/20/25 10/30/24 History release pregabalin 75 mg capsule 75 mg PO BID 10/29/22 03/20/25 10/30/24 History trazodone 50 mg tablet 50 mg PO BEDTIME 10/29/22 03/20/25 10/30/24 History levothyroxine 75 mcg tablet 75 mcg PO DAILY@0600 12/11/22 03/20/25 10/30/24 History metoprolol succinate 50 mg 50 mg PO DAILY 12/11/22 03/20/25 10/30/24 History tablet,extended release 24 hr albuterol sulfate 90 mcg/actuation 2 puff inhalation Q4H PRN 07/02/23 03/20/25 Unknown History aerosol inhaler (Ventolin HFA) Shortness Of Breath atorvastatin 20 mg tablet 20 mg PO BEDTIME 09/18/24 03/20/25 10/30/24 History blood sugar diagnostic (FreeStyle #10 ea 09/18/24 Unknown History Lite Strips) multivitamin 1 tab PO DAILY 09/18/24 03/20/25 10/30/24 History sennosides 8.6 mg tablet (senna) 17.2 mg PO BEDTIME 09/18/24 03/20/25 10/30/24 History fluticasone furoate 200 1 inh inhalation DAILY 11/01/24 03/20/25 10/30/24 History mcg/actuation blister powder for inhalation (Arnuity Ellipta) magnesium oxide 400 mg (241.3 mg 200 mg PO BEDTIME 11/01/24 03/20/25 10/30/24 History magnesium) tablet pioglitazone 30 mg tablet 30 mg PO DAILY 11/01/24 03/20/25 10/30/24 History clotrimazole 1 % topical cream 1 appl topical BID 03/20/25 03/20/25 Unknown History fluticasone propionate 50 1 spray intranasal BID 03/20/25 03/20/25 Unknown History mcg/actuation nasal spray,suspension lansoprazole 30 mg capsule,delayed 30 mg PO DAILY 03/20/25 03/20/25 Unknown History release meclizine 25 mg tablet 25 mg PO TID PRN Dizziness 03/20/25 03/20/25 Unknown History Physical Exam Exam: Exam: Appearing in no acute distress lung sounds are clear to auscultation heart regular rate rhythm, clear S1, S2 positive bowel sounds, abdomen is soft, nontender neuro patient is alert x3, no focal deficits Vital Signs: Vital Signs: Last Vital Signs Temp 98.1 F 03/22/25 07:38 Pulse 68 03/22/25 08:23 Resp 18 03/22/25 07:38 BP 145/70 H 03/22/25 08:23 Pulse Ox 98 03/22/25 07:38 O2 Del Method Room Air 03/22/25 07:38 BMI result Body Mass Index 29.0 Const: General: healthy appearing and no acute distress Nutritional Appearance: overweight Orientation/consciousness: patient oriented x3 Limitations: language barrier HEENT: Head: Yes normal to inspection Ears: hearing grossly normal bilaterally Mouth: Normal oral and palatal mucosa present Eyes: Sclerae: sclerae normal Pupils: Equal, round and reactive pupils present Neck: Neck: Yes normal visual inspection Chest: Chest palpation & inspection: normal inspection of the chest Resp: Effort & Inspection: normal respiratory effort Auscultation: clear to auscultation bilaterally Cardio: Palpation: normal PMI Rate: regular rate Rhythm: regular rhythm Heart sounds: S1 normal heart sound present, S2 normal heart sound present and no murmurs GI: Palpation (GI): Soft to palpation, nontender and No hepatosplenomegaly present Auscultation: normal bowel sounds Rectal Exam - Female: deferred Skin: General skin exam: no rashes or lesions noted Neuro: General: patient oriented x3, gait normal and moves all extremities Cranial nerves: Yes Equal, round and reactive pupils present Psych: Appearance: grossly normal Mental Status: mental status grossly normal Results Labs 03/21/25 04:37 03/21/25 04:37 Microbiology Microbiology Results: Microbiology 03/20/25 13:57 Blood - Venous Blood Culture - Preliminary No growth after 24 hours. Assessment and Plan (1) Abnormal CT of the abdomen: Status: Acute Plan [address] [facility] on 03/20/25 with COVID infection and reported diffuse abdominal pain with nausea, small amount of diarrhea, no vomiting, poor appetite and poor p.o. intake. Pt was admitted for further management and treatment of sepsis secondary to COVID. Of note patient has normal LFTs with minimal increase in AST to 34. 03/20/[address] SCAN SHOWED: Regional ileus versus mild enteritis. Cholelithiasis. Extrahepatic biliary ductal dilatation ( noted on past abd us in Jun, 2023) Stricture at the sphincter of Oddi cannot be entirely excluded. RECOMMENDATIONS: 1. Agree with IV antiemetics NPO omeprazole. 2. MRCP for further evaluation of CBD dilation and rule out CBD stone. 3. Check CEA and CA 19-9 - added to am labs Procedures Date of Service Date of Service: 03/22/25
--- NOTE | 2025-03-22 17:28 | HO.PM.IMPN ---
Subjective Subjective Date of Service: 03/22/25 Interval History: No acute issues overnight. Denies pain (all information gleaned with the sap basis) Review of Systems Denies chest pain Denies shortness of breath Denies nausea vomiting diarrhea Denies fever chills Physical Exam Vital Signs: Vital Signs: Last Vital Signs Temp 98.7 F 03/22/25 15:35 Pulse 69 03/22/25 15:35 Resp 17 03/22/25 15:35 BP 145/62 H 03/22/25 15:35 Pulse Ox 93 03/22/25 15:35 O2 Del Method Room Air 03/22/25 15:35 BMI result Body Mass Index 29.0 Const: Other: Awake alert no acute distress Resp: Other: Clear to auscultation bilaterally no rales rhonchi or wheezes Cardio: Other: No S4; positive S1-S2; no S3 murmurs rubs or gallops GI: Other: Soft nontender nondistended normoactive bowel sounds Extrem: Other: No edema bilaterally Objective Data Active Medications Acetaminophen (Acetaminophen 325 Mg Tablet) 650 mg PO Q6H PRN PRN Reason: Fever Last Admin: 03/21/25 02:57 Dose: 650 mg Documented By: SADE Albuterol Sulfate (Albuterol Sulfate 90 Mcg 8 Gm Inhaler) 2 puff INHALE Q4H PRN PRN Reason: Shortness of Breath Ascorbic Acid (Ascorbic Acid 500 Mg Tablet) 500 mg PO DAILY [facility] Last Admin: 03/22/25 08:23 Dose: 500 mg Documented By: LISSETTE Aspirin (Aspirin Enteric Coated 81 Mg Tablet.) 81 mg PO DAILY [facility] Last Admin: 03/22/25 08:23 Dose: 81 mg Documented By: LISSETTE Atorvastatin Calcium (Atorvastatin Calcium 20 Mg Tablet) 20 mg PO BEDTIME [facility] Last Admin: 03/21/25 22:14 Dose: 20 mg Documented By: BELLA Duloxetine HCl (Duloxetine Hcl 30 Mg Capsule.) 30 mg PO DAILY [facility] Last Admin: 03/22/25 08:23 Dose: 30 mg Documented By: LISSETTE Enoxaparin Sodium (Enoxaparin Sodium 40 Mg/0.4 Ml Syringe) 40 mg SUBCUT Q24H [facility] Last Admin: 03/21/25 17:16 Dose: 40 mg Documented By: YESENIA Fluticasone Propionate (Fluticasone Propionate 250 Mcg Blst.W.Dev) 1 puff INHALE RBID [facility] Last Admin: 03/22/25 08:24 Dose: 1 puff Documented By: LISSETTE Fluticasone Propionate (Fluticasone Propionate Nasal 16 Gm [place]) 1 spray NOSTRIL-B BID [facility] Last Admin: 03/22/25 08:24 Dose: Not Given Documented By: LISSETTE Non-Admin Reason: Med Not Available Ketorolac Tromethamine (Ketorolac Tromethamine 30 Mg/Ml Vial) 30 mg IVPUSH Q6H PRN PRN Reason: Pain, Moderate(Pain Scale 4-6) Stop: 03/26/25 15:56 Levothyroxine Sodium (Levothyroxine Sodium 75 Mcg Tablet) 75 mcg PO DAILY@0600 [facility] Last Admin: 03/22/25 06:36 Dose: 75 mcg Documented By: BELLA Magnesium Oxide (Magnesium Oxide 400 Mg Tablet) 200 mg PO BEDTIME [facility] Last Admin: 03/21/25 22:15 Dose: 200 mg Documented By: BELLA Meclizine HCl (Meclizine Hcl 25 Mg Tablet) 25 mg PO TID PRN PRN Reason: Dizziness Metoprolol Succinate (Metoprolol Succinate Er 50 Mg Tab.Er.24h) 50 mg PO DAILY [facility]; Protocol Last Admin: 03/22/25 08:23 Dose: 50 mg Documented By: LISSETTE Multivitamins/Vitamin C (Multivitamin Tablet) 1 tab PO DAILY [facility] Last Admin: 03/22/25 08:23 Dose: 1 tab Documented By: LISSETTE Omeprazole (Omeprazole 20 Mg Capsule.Dr) 20 mg PO DAILY@0630 [facility] Last Admin: 03/22/25 06:36 Dose: 20 mg Documented By: BELLA Ondansetron HCl (Ondansetron Hcl 4 Mg/2 Ml Vial) 4 mg IVPUSH Q8H PRN PRN Reason: Nausea and Vomiting Last Admin: 03/21/25 01:16 Dose: 4 mg Documented By: SADE Comments: given for nausea and dry heaves. Potassium Chloride (Potassium Chloride Er 20 Meq Tab.Er.Prt) 40 meq PO BID [facility] Last Admin: 03/22/25 08:23 Dose: 40 meq Documented By: LISSETTE Pregabalin (Pregabalin 75 Mg Capsule) 75 mg PO BID [facility] Last Admin: 03/22/25 08:24 Dose: 75 mg Documented By: LISSETTE Senna (Sennosides 8.6 Mg Tablet) 17.2 mg PO BEDTIME [facility] Last Admin: 03/21/25 22:13 Dose: 17.2 mg Documented By: FLORINZEFCSusan Trazodone HCl (Trazodone Hcl 50 Mg Tablet) 50 mg PO BEDTIME [facility] Last Admin: 03/21/25 22:14 Dose: Not Given Documented By: RETAFCSusan Non-Admin Reason: Patient Refused Labs 03/21/25 04:37 03/21/25 04:37 Microbiology Microbiology Results: Microbiology 03/20/25 13:57 Blood Culture - Preliminary Blood - Venous No growth after 48 hours. 03/20/25 13:57 Blood Culture - Preliminary Blood - Venous No growth after 24 hours. Assessment and Plan (1) COVID: Status: Acute (2) Abnormal CT of the abdomen: Status: Acute Plan 79 year old women admitted with covid and fever as well as pain to right shoulder after a fall 1.Sepsis secondary to Covid (sepsis resolved) -no O2 requirement -follow clinically 2.Abdominal pain with extrahepatic biliary duct dilatation -MRCP reading pending -appreciate GI input -further plans based on forthcoming data 3.Hypokalemia -repleted ...resolved -follow renals/divalents DVT prophylaxis with lovenox Full code Quality Stroke Does the patient have a stroke diagnosis?: No VTE Prior VTE?: No VTE Risk Level:: Medical - moderate - high VTE Device Contraindication: Treatment Not Indicated VTE Drug Contraindication: N/A - Med Ordered
[2025-03-23 04:00] VITALS: BP 133/60; PULSE 67; RESP 17; TEMP 37; O2SAT 94
[2025-03-23 07:26] VITALS: BP 139/70; PULSE 75; RESP 20; TEMP 36.4; O2SAT 95
[2025-03-23 07:41] LABS: MANUAL DIFF FLAG NO
[2025-03-23] MEDS: Potassium Chloride ER 20 MEQ TAB.ER.PRT 40 MEQ PO (07:44)
[2025-03-23] MEDS: Metoprolol Succinate ER 50 MG TAB.ER.24H PO (07:44)
[2025-03-23] MEDS: Aspirin Enteric Coated 81 MG TABLET.DR PO (07:45)
[2025-03-23 07:47] LABS: Hematocrit 41.4 % (37.0-47.0); Hemoglobin 12.9 g/dl (12.0-16.0); Imm Gran Abs Auto 0.00 X10*3/uL (0.00-0.03); Imm Gran Pct Auto 0.0 % (0.0-0.4); Lymphocytes Absolute Auto 2.0 X10*3/uL (1.2-4.9); Mean Corpuscular HGB Conc 31.2 g/dl (31.0-35.0); Mean Corpuscular Hemoglobin 26.7 pg (27.0-33.0); Mean Corpuscular Volume 85.5 fL (80.0-98.0); NRBC Abs Auto 0.000 X10*3/uL (0.0-0.012); NRBC Pct Auto 0.0 /100WBC (0.0-0.2); Platelet Count 108 X10*3/uL (160-400); Red Blood Count 4.84 X10*6/uL (4.20-5.50); White Blood Count 3.7 X10*3/uL (4.8-10.8)
[2025-03-23 08:33] LABS: Alanine Aminotransferase 12 U/L (0-31); Albumin Level 3.9 g/dL (3.5-5.0); Alkaline Phosphatase 90 U/L (39-117); Anion Gap 13 (12-20); Aspartate Amino Transferase 27 U/L (5-31); Blood Urea Nitrogen 11 mg/dL (9-16); Calcium 9.7 mg/dL (8.4-10.2); Carbon Dioxide 26 mmol/L (22-29); Carcinoembryonic Antigen 6.00 ng/mL; Chloride 106 mmol/L (96-108); Creatinine Clr Calc Pharmacy 66.1; Estimated Glomerular Filt Rate > 60; Potassium 4.8 mmol/L (3.3-5.1); Sodium 140 mmol/L (135-145); Total Protein 6.5 g/dL (6.5-8.0)
[2025-03-23] MEDS: Fluticasone Propionate 250 MCG BLST.W.DEV 1 PUFF INHALE (10:12)
--- NOTE | 2025-03-23 13:23 | MHC.CM.PN ---
Pt has been medically cleared to DC, she will go to [facility] this afternoon via BLS.
--- NOTE | 2025-03-23 13:39 | PM.DS ---
DS: Providers Provider Date of Service: 03/23/25 Date of admission: 03/20/25 16:30 Date of discharge: 03/23/25 Primary care physician: Daniel Oconnor MD Consults: 03/21/25 15:56 Consult to Gastroenterology Routine Consulting Provider: Fabian Retana Reason for consultation: abnormal abd ct DS: Diagnosis Discharge Diagnosis (1) COVID: Status: Acute (2) Abnormal CT of the abdomen: Status: Acute DS: Summary Hospital Course Hospital Course: 79-year-old woman presenting to the ER after a fall a few days ago and subsequent abdominal pain. She reported diffuse abdominal pain with nausea, small amount of diarrhea, no vomiting. She has had a poor appetite and poor p.o. intake. She denied any fever, chills, recent travel, sick contacts. She lives with her who apparently also has COVID and has also come to the ER with her. In the ER, abdominal CT showed possible ileus versus a colitis, shoulder x-ray did not show any acute fracture or dislocation just chronic findings. Patient was noted to have a fever, tachycardia. COVID positive. No hypoxia noted so she will not require steroids or antibiotics at this time. He will be to admit for further management and treatment of sepsis secondary to COVID. Hospital Course Patient admitted to telemetry where monitor failed to demonstrate any acute dysrhythmias. Given her abnormal CAT scan, MRCP was ordered. Findings;Dilated common bile duct with mild intrahepatic biliary ductal dilatation, similar to prior imaging. No choledocholithiasis or cholelithiasis identified. Gallbladder is markedly contracted. Suspect findings are chronic given relative unchanged appearance since prior imaging.. She was also seen by Physical therapy who deemed her a candidate for short-term rehab. Discussed with GI okay to discharge to [facility] with follow up outpatient ER CP.; Time Attestation Discharge Coordination Time (in mins): 35 Quality: Safe Use of Opioids Does Pt have an Active Cancer Diagnosis on the Problem List?: No Quality: Stroke Does the patient have a stroke diagnosis?: No Physical Exam Vital Signs: Vital Signs: Last Vital Signs Temp 97.6 F 03/23/25 07:26 Pulse 75 03/23/25 07:26 Resp 20 03/23/25 07:26 BP 139/70 03/23/25 07:26 Pulse Ox 95 03/23/25 07:26 O2 Del Method Room Air 03/23/25 07:26 BMI result Body Mass Index 29.0 Const: Other: Awake alert no acute distress Resp: Other: Clear to auscultation bilaterally no rales rhonchi or wheezes Cardio: Other: No S4; positive S1-S2; no S3 murmurs rubs or gallops GI: Other: Soft nontender nondistended normoactive bowel sounds Extrem: Other: No edema bilaterally DS: Data Data Completed and Pending Labs on day of discharge: Laboratory Results - last 24 hr 03/23/25 06:42 WBC 3.7 L RBC 4.84 Hgb 12.9 Hct 41.4 MCV 85.5 MCH 26.7 L MCHC 31.2 RDW 15.1 Plt Count 108 L MPV 13.0 H Immature Gran % (Auto) 0.0 Neut % (Auto) 32.9 L Lymph % (Auto) 55.3 H [place] % (Auto) 10.4 Eos % (Auto) 1.1 Baso % (Auto) 0.3 Lymph # (Auto) 2.0 [place] # (Auto) 0.4 Eos # (Auto) 0.0 Baso # (Auto) 0.0 Abs Immat Gran (auto) 0.00 Absolute Neuts (auto) 1.2 L Absolute Nucleated RBC 0.000 Nucleated RBC % (auto) 0.0 Sodium 140 Potassium 4.8 D Chloride 106 Carbon Dioxide 26 Anion Gap 13 BUN 11 Creatinine 0.74 Estim Creat Clear Calc 66.1 Estimated GFR > 60 Fasting Glucose 110 H Calcium 9.7 D Total Bilirubin 0.4 Direct Bilirubin 0.2 AST 27 ALT 12 Alkaline Phosphatase 90 Total Protein 6.5 Albumin 3.9 Carcinoembryonic Ag 6.00 Preliminary micro results at discharge 03/20/25 13:57 Blood Culture - Preliminary Blood - Venous No growth after 48 hours. 03/20/25 13:57 Blood Culture - Preliminary Blood - Venous No growth after 48 hours. Discharge Plan Discharge Anticipated Discharge Date/Time: 03/23/25 13:35 Patient Disposition: Xfer SNF Discharge Diagnosis: Diffuse abdominal pain Referrals: Daniel Oconnor MD [Primary Care Provider, Medical] - 1 Week Discharge Medications: Continued magnesium oxide 400 mg (241.3 mg magnesium) tablet 200 mg PO BEDTIME pioglitazone 30 mg tablet 30 mg PO DAILY fluticasone furoate [Arnuity Ellipta] 200 mcg/actuation blister with device 1 inh INHALATION DAILY meclizine 25 mg tablet 25 mg PO TID PRN (Reason: Dizziness) fluticasone propionate 50 mcg/actuation spray,suspension 1 spray intranasal BID clotrimazole 1 % cream 1 appl topical BID lansoprazole 30 mg capsule,delayed release(DR/EC) 30 mg PO DAILY albuterol sulfate [Ventolin HFA] 90 mcg/actuation HFA aerosol inhaler 2 puff inhalation Q4H PRN (Reason: Shortness Of Breath) levothyroxine 75 mcg tablet 75 mcg PO DAILY@0600 metoprolol succinate 50 mg tablet extended release 24 hr 50 mg PO DAILY (DME) FreeStyle Lite Strips Strip See Rx Instructions .ROUTE .MEDSUPPLY Qty: 10 Rx Instructions: As directed multivitamin Tablet 1 tab PO DAILY atorvastatin 20 mg tablet 20 mg PO BEDTIME sennosides [senna] 8.6 mg tablet 17.2 mg PO BEDTIME aspirin 81 mg tablet,delayed release (DR/EC) 81 mg PO DAILY pregabalin 75 mg capsule 75 mg PO BID duloxetine 30 mg capsule,delayed release(DR/EC) 30 mg PO DAILY ascorbic acid (vitamin C) [Vitamin C] 500 mg tablet 500 mg PO DAILY trazodone 50 mg tablet 50 mg PO BEDTIME Discharge Orders: Discharge Order (Routine); Ordered 03/23/25 Ordered By: Darren Garcia Diet: Advance to usual diet Activity on Discharge: As tolerated Stand Alone Forms: Patient Portal Discharge page Print Language: [place] Island[place] Care Plan Goals: Continue all medicines as outlined on transfer summary Health Concerns: GI will call to arrange outpatient ERCP Plan of Treatment: As per receiving facility Assessment: See discharge summary
--- NOTE | 2025-03-23 14:33 | MHC.CM.PN ---
[facility] BOOKING ID#[id number]
[2025-03-23 15:49] VITALS: BP 130/68; PULSE 75; RESP 16; TEMP 36.7; O2SAT 93
== END 2025-03-23 18:27 | disposition skilled nursing facility (03) | DRG 871 ==
LOC: HO.ED 13:16 → HO.EDOVER 16:36 → HO.IMC 03-21 17:13
PROVIDERS: Internal Medicine Gastroenterology; Admitting Provider Nurse Practitioner Acute Care; Emergency Provider Emergency Medicine; PCP Internal Medicine; Visit Provider Hospitalist
DX: A41.89 Other specified sepsis (principal); U07.1 COVID-19; K56.7 Ileus, unspecified; E03.9 Hypothyroidism, unspecified; E87.6 Hypokalemia; M77.8 Other enthesopathies, not elsewhere classified; Z87.891 Personal history of nicotine dependence; Z79.890 Hormone replacement therapy; Z79.899 Other long term (current) drug therapy
CPT/HCPCS: 36415; 71045; 73030; 74177; 74181; 76705; 80048; 80053; 80076; 81001; 82010; 82378; 82803; 82947; 83605; 83690; 84484; 85025; 86301; 87040; 87502; 87635; 93005; 94640; 97110; 97162; 97530; 99285; J0696; J1650; J2405; J3480; Q9967

== ENCOUNTER → 2025-03-20 12:56 | Outpatient (BNV) | payer OTHER, SELFPAY | PROVIDERS: Admitting Provider Nurse Practitioner Acute Care; Emergency Provider Emergency Medicine; PCP Internal Medicine; Visit Provider Internal Medicine Cardiovascular Disease | DX: R94.31 Abnormal electrocardiogram [ECG] [EKG] (principal); R07.9 Chest pain, unspecified | CPT/HCPCS: 93010 ==

== ENCOUNTER → 2025-03-20 13:39 | Outpatient (BNV) | payer OTHER, SELFPAY | PROVIDERS: Emergency Provider Emergency Medicine; PCP Internal Medicine; Visit Provider Radiology Diagnostic Radiology | DX: K80.00 Calculus of gallbladder with acute cholecystitis without obstruction (principal); K83.8 Other specified diseases of biliary tract; N28.81 Hypertrophy of kidney; K44.9 Diaphragmatic hernia without obstruction or gangrene; M19.011 Primary osteoarthritis, right shoulder; U07.1 COVID-19 | CPT/HCPCS: 71045; 73030; 74177; 76705 ==

== ENCOUNTER 2025-03-20 16:30 | Outpatient (BNV) | payer OTHER, SELFPAY | END 2025-03-22 16:50 | PROVIDERS: Admitting Provider Nurse Practitioner Acute Care; Emergency Provider Emergency Medicine; PCP Internal Medicine; Visit Provider Radiology Diagnostic Radiology | DX: K83.8 Other specified diseases of biliary tract (principal) | CPT/HCPCS: 74181 ==

== ENCOUNTER 2025-03-20 16:30 | Outpatient (BNV) | payer OTHER, SELFPAY | END 2025-03-21 12:55 | PROVIDERS: Admitting Provider Nurse Practitioner Acute Care; Emergency Provider Emergency Medicine; PCP Internal Medicine; Visit Provider Internal Medicine Cardiovascular Disease | DX: I49.9 Cardiac arrhythmia, unspecified (principal) | CPT/HCPCS: 93010 ==

== ENCOUNTER → 2025-03-20 16:30 | Outpatient (BNV) | payer OTHER, SELFPAY | PROVIDERS: Admitting Provider Nurse Practitioner Acute Care; Emergency Provider Emergency Medicine; PCP Internal Medicine; Visit Provider Nurse Practitioner Acute Care | DX: U07.1 COVID-19 (principal); R93.5 Abnormal findings on diagnostic imaging of other abdominal regions, including retroperitoneum | CPT/HCPCS: 99223; 99232 ==

== ENCOUNTER 2025-04-04 12:10 | Outpatient (REF) | payer OTHER, SELFPAY | END 2025-04-04 12:11 | disposition home or self-care (01) | LOC: HO.HHCL 12:10 | PROVIDERS: PCP Internal Medicine; Visit Provider Internal Medicine | DX: Z13.89 Encounter for screening for other disorder (principal) | CPT/HCPCS: 36415; 84443 ==

== ENCOUNTER 2025-04-13 10:13 | Outpatient (AMB) | payer OTHER, SELFPAY ==
--- NOTE | 2025-04-13 10:18 | A.OFFVIS_ITS ---
Vital Signs 04/13/25 10:20 Height 5 ft 3 in Weight 196 lb 3.382 oz BMI 34.8 BP 117/55 L Blood Pressure Location Lt brachial Position Sitting Pulse 79 Intake Visit Reasons: f/u diarrhea Intake Note: Suha presents in the office as a follow up for her diarrhea. CC: states that she has pains in her leg and for a while she was having diarrhea but it has gotten better. Insecticide Expert Required: No Allergies meperidine (Demerol) Allergy (Unknown, Verified 03/20/25 12:54) Unknown HPI HPI f/u diarrhea: Details: 79 yr old f here for f/u for dilated CBD RECAP: She had urogram for microscopic hematuria which revealed dilated CBD 12/02/22, but she has normal LFT 03/2023 she has issues with gas and bloating she has episodic constipation she has LUQ pain , helped with rubbing and walking worse with fruits colonoscopy many years ago >10 yrs she has white sputum, denies heartburn denies using opiates or nsaids no blood in stools no nausea or vomiting EGD/COLO 08/22 Endoscopy Findings: 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 Colonoscopy Findings: diverticulosis colon polyps internal hemorrhoids melanosis coli PATH: mild chronic gastritis MRCP 03/22: chronci dilated CBD 1.1 cm, without choledocholithiaisis, contracted GB INTERIM: she had recent admission to ED 3-4 wks ago with covid recovered now she denies any abdominal pain no diarrhea or constipation feels well she has mouth ulcers and taste in mouth but is vague on whether GERD is controlled or not she feels omerpazole may have been better but not sure she is also not taking correctly as she takes thyroxine which messes with her breakfast schedule EXAM: GENERAL: The patient is well developed and nontoxic. hoarse VITAL SIGNS:see workflow HEENT: Nonicteric sclerae, PERRLA, EOMI. Oropharynx clear. Moist mucous membranes. Conjunctivae appear well perfused. No thyroid mass. CHEST: Chest wall is nontender. HEART: Regular rate and rhythm without murmurs. LUNGS: Clear to auscultation bilaterally. ABDOMEN: Soft, positive bowel sounds, nontender, no organomegaly.no flank tenderness SKIN: No rash, no excessive bruising, petechiae, or purpura. NEUROLOGIC: Cranial nerves II-XII intact without motor/sensory deficit. Psych: nml affect A/P: 1/ Abn bowel habits--stable 2/ LUQ pain--no longer present 3/ dilated CBD with nml LFT, stable imaging, Plan: 1/ repeat colo 1 yr due to fair prep 2/ cont lansoprazole 30 mg but open capsule and mix with apple sauce 3/ reassess in 12 months [facility] Medical History Abnormal CT of the abdomen Right shoulder tendonitis Obesity (BMI 35.0-39.9 without comorbidity) Common bile duct dilatation Osteoarthritis GERD (gastroesophageal reflux disease) Dysphagia Microscopic hematuria Fibromyalgia Anxiety and depression Hyperlipidemia Hypertension, essential Nicotine dependence, cigarettes, uncomplicated Diabetes mellitus, type 2 Hypothyroidism Surgical History History of esophagogastroduodenoscopy (EGD) History of vocal cord polypectomy History of colonoscopy History of cataract surgery Social History Household Members: Spouse Housing: Apartment Do you presently have visiting nurse or other home services: No Alcohol intake: never Patient Tobacco Use Status: Former Tobacco user Tobacco use type: Cigarette Cigarettes Per Day: 7 Years Smoked: 63 Advance Directives Date on File: 11/01/24 service: No Physical Exam Vital Signs: Last Vital Signs Pulse 79 04/13/25 10:20 BP 117/55 L 04/13/25 10:20 BMI result Body Mass Index 34.8 Assessment & Plan Assessment & Plan (1) Dilated cbd, acquired: Code(s): K83.8 - Other specified diseases of biliary tract Category: Medical Plan: as above Coding Level of Care Code Est Pt Level 3 (19489) Diagnoses Dilated cbd, acquired K83.8
[2025-04-13 10:20] VITALS: BP 117/55; PULSE 79; BMI 34.8
--- OUTSIDE RECORDS SUMMARY | 2025-04-13 12:04 | XMS_ITS | Encounter Summary ---
Author Organization [employer] Address [address] [facility] [address] [place] [address] Care Team Providers Care Distillery Worker General Name Role Phone Daniel Holder MD Primary Care Provide r Encounter Details Date Type Department Care Team ([facility] st Contact Info) Description 08/12/2022 Telephone [facility] MEDICINE [address] [place], [place] [phone] Daniel Holder MD [address] [place], [place] [phone] Social History Tobacco Use Types Packs/Day Years Used Date Smoking Tobacco: Never Assessed Comments Unknown Sex and Gender Information Value Date Recorded Sex Assigned at Female 04/27/2022 10:14 AM EDT Legal Sex Female 10:14 AM EDT Gender Identity Female 04/27/2022 10:14 AM EDT Sexual Orientation Straight 04/27/2022 10 :14 AM EDT documented as of this encounter Plan of Treatment Not on file documented as of this encounter Visit Diagnoses Not on filedocumented in this encounter Care Teams Distillery Worker General Relationship Specialty Start Date End Date Daniel Holder MD [address] [place], [place] [phone] PCP - General Internal Medicine 03/26/14 documented as of this encounter
--- OUTSIDE RECORDS SUMMARY | 2025-04-13 12:04 | XMS_ITS | Encounter Summary ---
Author Organization [employer] Address [address] [place] [address] [address] [place] [address] Care Team Providers Care Appraiser Land Name Role Phone Daniel Holder MD Primary Care Provide r Reason for Visit * Reason Onset Date Comments Nurse Triage 03/19/2023 Encounter Details Date Type Department Care Team (Late st Contact Info) Description 03/19/2023 Telephone [facility] MEDICINE [address] [place] [address] [phone] Daniel Holder MD [address] [place], [place] [phone] Nurse Triage Social History Tobacco Use Types [...] documented in this encounter Plan of Treatment Not on file documented as of this encounter Visit Diagnoses Not on filedocumented in this encounter Additional Health Concerns Assessment Noted Time PHQ-9 Depression Total Score: 1 02/05/20 23 2:24 PM EDT documented as of this encounter Care Teams Appraiser Land Relationship Specialty Start Date End Date Daniel Holder MD [address] [place] [address] PCP - General Internal Medicine 03/26/14 documented as of this encounter
--- OUTSIDE RECORDS SUMMARY | 2025-04-13 12:04 | XMS_ITS | Clinical Summary ---
Author Organization [employer] Address [address] [facility] [place] [address] Care Team Providers Care Alemite Operator Name Role Phone Daniel Holder MD Primary Care Provide r Allergies Active Allergy Reactions Criticality Noted Date Comments Meperidine Unknown Meperidine Hcl 08/24/2022 Other reaction(s): [D]Hypersomnia with sleep apnea Naproxen Palpitations Low Medications magnesium oxide (Mag-Ox) 400 (240 Mg) MG [...] smoking cessation. 100 lozenge 12/22/19 24 Active FREESTYLE LITE test stripIndications: Type 2 diabetes mellitus with stage 3a chronic kidney disease, without long-term current use of insulin (HCC) TEST BLOOD SUGAR TWICE DAILY 100 strip 5 05/16/20 24 Active TRUEplus Lancets 33G miscIndications:T ype 2 diabetes mellitus with stage 3a chronic kidney disease, without long-term current use of insulin ([facility]) TEST BLOOD SUGAR TWICE DAILY 100 each 5 05/16/20 24 Active albuterol (Ventolin HFA) 108 (90 Base) MCG/ACT inhalerIndication s:Chronic obstructive pulmonary disease, unspecified COPD type (CMS/HCC) ([facility]) Inhale 2 puffs every 4 (four) hours if needed for wheezing. 18 g 3 06/26/20 24 Active Alcohol Swabs (Alcohol Prep) 70 % padsIndications:T ype 2 diabetes mellitus without complication, without long-term current use of insulin ([facility]) USE TWICE DAILY 100 each 11 10/05/19 25 Active senna (Senokot) 8.6 MG tabletIndications :Seasonal allergies TAKE 2 TABLETS BY MOUTH EVERY DAY AT BEDTIME 180 tablet 1 10/13/19 25 Active atorvastatin (Lipitor) 20 MG tabletIndications :Mixed hyperlipidemia TAKE 1 TABLET BY MOUTH AT BEDTIME 90 tablet 1 10/13/19 25 Active fluticasone [...] USING 30 each 5 02/15/20 25 Active pioglitazone (Actos) 30 MG tabletIndications :Type 2 diabetes mellitus without complication, unspecified whether buttermaker insulin use TAKE 1 TABLET BY MOUTH EVERY MORNING 30 tablet 3 02/15/20 25 Active clotrimazole (Lotrimin) 1 % cream APPLY TOPICALLY TWICE DAILY 60 g 3 02/21/20 25 Active meclizine (Antivert) 25 MG tablet TAKE 1 TABLET BY MOUTH THREE TIMES DAILY NEEDED FOR DIZZINESS 90 tablet 03/01/20 25 Active pregabalin (Lyrica) 75 MG capsuleIndication s:Fibromyalgia TAKE 1 CAPSULE BY MOUTH TWICE DAILY IN THE MORNING AND AT BEDTIME 60 capsule 03/23/20 25 Active pregabalin (Lyrica) 75 MG capsuleIndication s:Fibromyalgia TAKE 1 CAPSULE BY MOUTH TWICE DAILY IN THE MORNING AND AT BEDTIME 60 capsule 03/23/20 25 Active metoprolol succinate XL (Toprol-XL) 50 MG 24 hr tabletIndications :Primary hypertension TAKE 1 TABLET BY MOUTH EVERY MORNING 90 tablet 1 04/09/20 25 Active Multiple Vitamin (Multivitamin) tabletIndications :Seasonal allergies TAKE 1 TABLET BY MOUTH EVERY MORNING 90 tablet 1 04/09/20 25 Active levothyroxine (Synthroid, Levoxyl) 75 MCG tabletIndications :Seasonal allergies,Acquire d hypothyroidism TAKE 1 TABLET BY MOUTH EVERY MORNING 90 tablet 1 04/09/20 25 Active traZODone (Desyrel) 50 MG tablet Take 50 mg by mouth at bedtime. 09/11/19 23 2024 Discontinued(T herapy completed) omeprazole (PriLOSEC) [address] capsuleIndication s:Seasonal allergies,Pain TAKE 1 CAPSULE BY MOUTH EVERY MORNING BEFORE MEALS 90 capsule 1 05/02/20 24 2024 Discontinued(T herapy completed) pregabalin (Lyrica) 75 MG capsuleIndication s:Fibromyalgia TAKE 1 CAPSULE BY MOUTH TWICE DAILY IN THE MORNING AND AT BEDTIME 60 capsule 06/02/20 24 2024 Discontinued(R eorder (will not trigger notification to Pharmacy)) Multiple Vitamin (Multivitamin) tabletIndications :Seasonal allergies TAKE 1 TABLET BY MOUTH EVERY MORNING 90 tablet 1 10/13/19 25 2024 Discontinued metoprolol succinate XL (Toprol-XL) 50 MG 24 hr tabletIndications :Primary hypertension TAKE 1 TABLET BY MOUTH EVERY MORNING 90 tablet 1 10/13/19 25 2024 Discontinued levothyroxine (Synthroid, Levoxyl) 75 MCG tabletIndications :Seasonal allergies,Acquire d hypothyroidism TAKE 1 TABLET BY MOUTH EVERY MORNING 90 tablet 1 10/13/19 25 2024 Discontinued(R eorder (will not trigger notification to Pharmacy)) pregabalin (Lyrica) 75 MG capsuleIndication s:Fibromyalgia TAKE 1 CAPSULE BY MOUTH TWICE DAILY IN THE MORNING AND AT BEDTIME 60 capsule 02/15/20 25 2024 Discontinued Active Problems Problem Noted Date Diagnosed Date Melasma 04/03/2025 Assessment & Plan (04/03/2025 2:22 PM EDT): Pt with c/o hyperpigmentation on her nose and face Please evaluate Hospital discharge follow-up 12/19/2024 Assessment & Plan (12/19/2024 9:56 AM EDT): Pt here for a HDF after being admitted to [facility] from 10/31-2024 She initially presented to the [...] Fluids down Case discussed with ER at [facility] Nicotine dependence, cigarettes, uncomplicated 0 10/08/2023 Dilated cbd, acquired 02/04/2023 Assessment & Plan (04/03/2025 2:13 PM EDT): Urologist performed a CT Urogram 11/17 that showed gallstones with dilated common bile duct. He recommended a Gastroenterology referral Seen by Dr Butterfield Repeat Imaging showed:01/18/2024 1. Cholelithiasis without evidence of cholecystitis. Unchanged dilated common bile duct measuring 1.3 cm Seen last by Dr Degroot 09/18/2024 Pt seen in the ER had MRI that showed: IMPRESSION: 1. Motion artifact limits evaluation multiple sequences. Within limits of study, no acute findings. 2. Dilated common bile duct with mild intrahepatic biliary ductal dilatation, similar to prior imaging. No choledocholithiasis or cholelithiasis identified. Gallbladder is markedly contracted. Suspect findings are chronic given relative unchanged appearance since prior imaging. 3. No evidence of pancreatitis. Pancreatic duct is not dilated. No pancreatic mass identified. Assessment & Plan (10/31/2024 11:52 AM EDT): [...] continue Colonoscopy: 10/11/13 BE 12/01/13 Severe obesity (CMS/HCC) 08/24/2022 Assessment & Plan (10/31/2024 12:18 PM EDT): Discussed the need to loose weight, referred to Marketing Editor in the past. Patient has been counseled and educated about diet and exercise. Personal goal of weight loss discussed Assessment & Plan (02/22/2024 1:06 PM EDT): Discussed the need to loose weight, referred to Marketing Editor in the past. Patient has been counseled and educated about diet and exercise. Personal goal of weight loss discussed Assessment & Plan (10/07/2023 11:01 AM EDT): Contributing to her bilateral knee pain discussed the need to loose weight, referred to Marketing Editor in the past. Patient has been counseled and educated about diet and exercise. Personal goal of weight loss discussed Assessment & Plan (09/22/2022 9:40 AM EDT): Contributing to her bilateral knee pain discussed the need to loose weight, referred to Marketing Editor in the past. Primary osteoarthritis of both [...] with NEOS Stage 3a chronic kidney disease (CMS/HCC) 2021 Assessment & Plan (04/03/2025 2:10 PM EDT): Under the care of Dr Gabriel last seen 03/19/2025 Assessment & Plan (10/31/2024 12:17 PM EDT): Under the care of Dr Gabriel last seen 08/19/2023 Assessment & Plan (05/13/2023 2:38 PM EST): Under the care of Dr Gabriel last seen 07/2022 Renal stone 08/16/2020 Acquired absence of kidney 08/16/2020 Essential hypertension 06/11/2015 Assessment & Plan (04/03/2025 2:11 PM EDT): Patient is here for a f/u BP controlled She is on Toprol XL 50 mg po daily prescribed by Cardiology Most recent Bun and Creatinine done on: Lab Results Component Value Date NA 140 10/31/2024 NA 143 10/27/2023 K 3.7 10/31/2024 K 4.3 10/27/2023 CL 104 10/31/2024 CL 106 10/27/2023 BUN 14 10/31/2024 BUN 12 10/27/2023 CREATININE 0.71 10/31/2024 CREATININE 0.76 10/27/2023 were wnl. patient advised to adhere to a low sodium diet, encouraged about medication compliance, counseled about weight loss. Assessment & Plan (06/27/2024 10:38 AM EST): [...] positive 03/08/2012 Hypothyroidism 03/08/2012 Assessment & Plan (04/03/2025 2:12 PM EDT): On Levothyroxine 75 mcg po daily. Lab Results Component Value Date TSH 0.22 (L) 02/11/2023 will repeat Assessment & Plan (09/22/2022 9:41 AM EDT): On Levothyroxine 75 mcg po daily. Last TSH and Free T4 in 2021 Normal will repeat Mixed hyperlipidemia 03/08/2012 Assessment & Plan (04/03/2025 2:12 PM EDT): Pt here for a f/u Most recent lipid profile from: Lab Results Component Value Date TRIG 99 01/26/2025 TRIG 98 10/27/2023 CHOL 138 01/26/2025 CHOL 136 10/27/2023 LDLCHOLCAL 72 01/26/2025 LDLCHOLCAL 67 10/27/2023 HDL 47 01/26/2025 HDL 50 10/27/2023 Currently not on a regimen. Lipids at target so For now will continue with current regimen. advised to try to adhere to a low cholesterol diet, counseled and educated about diet and exercise, Patient encouraged to come up with a personal goal for weight loss. Assessment & Plan (12/19/2024 9:57 AM EDT): [...] chronic kidney disease 03/08/2012 Assessment & Plan (04/03/2025 2:13 PM EDT): Pt here for a f/u DM better controlled on a regimen of: Actos 30 mg po daily Hgb A1c 04/03/2025 : 6.9 Eye exam was last done on: 04/30/[address] Hannon (fire and explosion investigator) Microalbumin checked on: 05/26/2021 was: 1.1 Pt is not on an NOELLE inhibitor/ARB due to borderline low blood pressure Foot check risk of zero Pt reports compliance with Asa 81 mg po daily Plan: Continue current regimen Pt advised to: adhere to diabetic diet check your blood sugars regularly check your feet on a daily basis 4 months f/u Assessment & Plan (10/31/2024 12:15 PM EDT): Pt here for a f/u DM better controlled on a regimen of: Actos 30 mg po daily Hgb A1c 10/31/2024 : 6.7 down from 7.5 Eye exam was last done on: 04/30/[address] Hannon (fire and explosion investigator) Microalbumin checked on: 05/26/2021 was: 1.1 Pt [...] last done on: 04/30/[address] Hannon (fire and explosion investigator) Microalbumin checked on: 05/26/2021 was: 1.1 Pt [...] last done on: 04/30/[address] Hannon (fire and explosion investigator) Microalbumin checked on: 05/26/2021 was: 1.1 Pt [...] last done on: 02/17/[address] Hannon (fire and explosion investigator) Microalbumin checked on: 05/26/2021 was: 1.1 Pt [...] last done on: 02/17/[address] Hannon (fire and explosion investigator) Microalbumin checked on: 05/26/2021 was: 1.1 Pt [...] last done on: 02/17/[address] Hannon (fire and explosion investigator) Microalbumin checked on: 05/26/2021 was: 1.1 Pt [...] last done on: 02/17/[address] Hannon (fire and explosion investigator) Microalbumin checked on: 05/26/2021 was: 1.1 Pt [...] for a f/u currently seeing Mike at [facility] On a regimen of: Duloxetine 30mg po daily, and trazodone 50 mg po qhs. Patient denies any suicidal ideation or thoughts, Patient has crisis numbers and knows to use them if needed. Pt grieving the loss of her brother Assessment & Plan (09/22/2022 9:42 AM EDT): Pt here for a f/u currently seeing Mike at [facility] On a regimen of: Duloxetine 30mg [...] Pt here for a f/u Follows at [facility] On a regimen of: Duloxetine 30mg [...] Encounters Date Type Department Care Team Description 04/09/2025 Refill [facility] [address] [place] [phone] Daniel Holder MD Primary hypertension; Seasonal allergies; Acquired hypothyroidism 04/08/2025 Refill [facility] [address], [place] [phone] Daniel Holder MD Seasonal allergies; Acquired hypothyroidism 04/04/2025 Telephone [facility] [address] [place] [address] Daniel Holder MD Durable Medical Equipment 04/03/2025 1:30 PM EDT Office Visit [facility] [address] [place] [phone] Daniel Holder MD Type 2 diabetes mellitus with stage 3a chronic kidney disease, without long-term current use of insulin (HCC) (Primary Dx); Essential hypertension; Mixed hyperlipidemia; Acquired hypothyroidism; Stage 3a chronic kidney disease (CMS/HCC) (HCC); Dilated cbd, acquired; Melasma; Encounter for immunization 04/03/2025 Telephone [facility] [address] [place] [address] Lupe Romero RN Durable Medical Equipment 04/03/2025 Travel 04/02/2025 Telephone [facility] [address] [place] [address] Daniel Holder MD chart prep 03/22/2025 Refill [facility] [address] [place], [place] [phone] Daniel Holder MD Fibromyalgia 03/21/2025 Refill [facility] [address] [place], [place] [phone] Maura Garduno MD Fibromyalgia 03/20/2025 Orders Only [facility] External Provider, [facility] 02/27/2025 Refill [facility] [address] [place] [address] Daniel Holder MD 02/22/2025 Telephone [facility] [address] [place] [address] Daniel Holder MD Appointment Confirmation 02/20/2025 Refill [facility] [address] [place] [address] Sarah Ferraro MD 02/16/2025 Refill [facility] [address] [place] [address] Sarah Ferraro MD 02/14/2025 Refill [facility] [address] [place] [address] Daniel Holder MD Fibromyalgia; Type 2 diabetes mellitus without complication, unspecified whether buttermaker insulin use ([facility]) 02/01/2025 Telephone [facility] [address] [place] [address] Daniel Holder MD Durable Medical Equipment 02/01/2025 Refill [facility] [address] [place] [address] Daniel Holder MD 01/26/2025 Orders Only GENERIC EXTERNAL DATA DEPARTMENT Provider, Generic External Data 01/16/2025 Refill [facility] [address] [place] [address] Daniel Holder MD Fibromyalgia from Last 3 Months Immunizations Immunization Administration Dates Next Due Hep B, adult 09/11/2024 Influenza High-dose Quadriva lent Preservative Free 04/17/2022,04/03/2021 Influenza Quadrivalent Adjuvanted 04/20/2023 Influenza injectable quadriv alent preservative free 02/22/2014 Influenza, High Dose Seasona l, Preservative Free 04/03/2025,04/04/2024,03/22/2019,03/02,04/28/2015 Influenza, IIV3, injectable 03/18/2013, 1 Influenza, Split [...] Sign Reading Time Taken Comments Blood Pressure 120/61 04/03/2025 1:59 PM EDT Pulse 67 04/03/2025 1:59 PM EDT Temperature 36.3 C (97.3 F) 04/03/2025 1:59 PM EDT Respiratory Rate 16 04/03/2025 1:59 PM EDT Oxygen Saturation 99% 04/03/2025 1:59 PM EDT Inhaled Oxygen Concentration - - Weight 89.3 kg (196 lb 12.8 oz) 04/03/2025 1:59 PM EDT Height 157.5 cm (5' 2 ) 04/03/2025 1:59 PM EDT Body Mass Index 36 04/03/2025 1:59 PM EDT Plan of Treatment Health Maintenance Due Date [...] 3 - 19+ 3-dose series) 10/09/2024 09/11/2024 COVID-19 Vaccine (2024- season) 2025 05/13/2023, 06/15/2022, 01/15/2022, Additional history exists Alcohol/Substance Use Screening 06/27/2025 06/27/2024 Depression Screening 06/27/2025 06/27/2024, 06/27/20 24 SDOH Screening 06/27/2025 06/27/2024 Diabetes: Hemoglobin A1C 07/04/2025 025, 10/31/2024, 06/27/2024, Additional history exists Lipid Panel 01/26/2026 01/26/2025, 05/0 06/2023, 02/11/2023, Additional history exists Tobacco Screening 04/03/2026 04/03/2025 Colonoscopy 08/16/2034 10/11/2013 Colorectal Cancer Screening 08/16/2034 Pneumococcal Vaccine: 50+ Years Completed 04/28/2015, 04/28/2015, 03/06/2014 Hepatitis C Screening Completed 01/26/2025 Influenza Vaccine Completed 04/03/2025, , 04/20/2023, Additional history exists HIB Vaccines Aged Out [...] Procedure Name Priority Date/Time Associated Diagnosis Comments TSH W/REFLEX TO FT4 Routine 04/04/2025 1 2:48 PM EDT Acquired hypothyroidism POCT GLYCATED HEMOGLOBIN, TOTAL Routine 04/03/2025 2:03 PM EDT Type 2 diabetes mellitus with stage 3a chronic kidney disease, without long-term current use of insulin (HCC) POCT GLUCOSE Routine 04/03/2025 2:00 PM EDT Type 2 diabetes mellitus with stage 3a chronic kidney disease, without long-term current use of insulin (HCC) MR MRCP Routine 03/22/2025 6:25 PM EDT XR CHEST 1 VIEW Routine 03/20/2025 4:48 PM EDT US ABDOMEN LIMITED Routine 03/20/2025 4: 30 PM EDT URINALYSIS, COMPLETE, WITH REFLEX TO CULTURE Routine 03/20/2025 4:[address] ABDOMEN PELVIS W CONTRAST Routine 03/20/2025 [...] of insulin (CMS/HCC) LIPID PANEL, STANDARD Routine 01/26/2025 10:54 AM EDT Mixed hyperlipidemia CBC WITH AUTO DIFFERENTIAL Routine 01/26/2025 10:54 AM EDT Hospital discharge follow-up HM COLONOSCOPY Routine 10/11/2013 from Last 3 Months or Most Recently Relevant to Health Maintenance Results * TSH with Reflex to Free T4 (04/04/2025 12:48 PM EDT) TSH reflex Free T4 0.55 0.32 - 4.0 uIU/mL [facility] Blood Venous blood specimen / Unknown 04/04/2025 12:48 PM EDT 04/04/2025 1:42 PM EDT us Daniel Agudelo MD LAB BLOOD ORDERABLES Final Result [facility] [address] [place] [phone] * (ABNORMAL) POCT Hgb A1c (04/03/2025 2:03 PM EDT) Hemoglobin A1C 6.9(A) 4.0 - 5.7 % QC Media Lot # [id number] Lot# Expiration Date , Blood 04/03/2025 2:03 PM EDT Daniel Agudelo MD POINT OF CARE TEST EN TER/EDIT ORDERABLES Final Result * POCT Glucose (04/03/2025 2:00 PM EDT) Glucose Blood, POC 130 60 - 200 mg/dL QC Media Lot # [id number] Lot# Expiration Date 776,026 Blood Capillary blood specimen / Unknown 04/03/2025 2:00 PM EDT Daniel Agudelo MD POINT OF CARE TEST EN TER/EDIT ORDERABLES Final Result * MR MRCP (03/22/2025 6:25 PM EDT) Anatomical Region Laterality Modality Lower Extremities Left Magnetic Reson ance 03/22/2025 6:25 PM EDT Narrative 03/22/2025 6:26 PM EDT [address] [address] Magnetic Resonance Report Signed Patient: Suha Burton MR#: [id number] [birth year] : 1945 Acct:[id number] Age/Sex: 79 / F ADM Date: 03/20/25 Loc: [facility] 479-[address]: Darren Garcia DO Ordering Physician: Darren Garcia DO Date of Service: 03/22/25 Procedure(s): MR MRCP Accession Number(s): [id number] cc: Daniel Oconnor MD; Darren Garcia DO Reason for Exam: Extrahepatic biliary ductal dilatation CLINICAL HISTORY: Extrahepatic biliary duct dilation. MRCP MR of the abdomen without IV contrast. MRCP sequences were performed. COMPARISON: MR MRCP dated 11/02/24 at 18:[address] abdomen and pelvis dated 10/31/24 at 16:09 EDT FINDINGS: Motion artifact limits evaluation of multiple sequences. Visualized lung bases are clear. No focal hepatic lesion. Uniform splenic signal. Uniform pancreatic signal. Pancreatic duct is normal in caliber measuring up to 2 mm. No pancreatic mass identified. Adrenal glands are poorly visualized. Left kidney is absent. Right renal simple cyst measuring 9 mm, stable. No right-sided hydronephrosis. Visualized portions of the bowel in the upper abdomen are unremarkable. Gallbladder is contracted. No cholelithiasis. Common bile duct is dilated measuring up to 1.1 cm in the pancreatic head. No choledocholithiasis identified. Mild intrahepatic biliary ductal dilatation. Findings appears similar to prior imaging. IMPRESSION: 1. Motion artifact limits evaluation multiple sequences. Within limits of study, no acute findings. 2. Dilated common bile duct with mild intrahepatic biliary ductal dilatation, similar to prior imaging. No choledocholithiasis or cholelithiasis identified. Gallbladder is markedly contracted. Suspect findings are chronic given relative unchanged appearance since prior imaging. 3. No evidence of pancreatitis. Pancreatic duct is not dilated. No pancreatic mass identified. This document has been electronically signed by: Harsh Luna MD on 03/22/2025 18:25:14 Dictated By: Harsh Luna MD Signed By: <Electronically signed by Harsh Luna MD in OV> 03/22/251824 DD/ 24 TD/TT: 03/22/251824 Plant Taxonomy Teacher: Procedure Note Donotuseinterpreter, Image - 03/22/2025 [place] [address] Magnetic Resonance Report Signed Patient: Suha Burton CMR#: [id number] [birth year] : 1945cct:[id number] Age/Sex: 79 / FADM Date: 03/20/25 Loc: [facility] 479-[address]: Darren Garcia DO Ordering Physician: Darren Garcia DO Date of Service: 03/22/25 Procedure(s): MR MRCP Accession Number(s): [id number] cc: Daniel Oconnor MD; Darren Garcia DO Reason for Exam: Extrahepatic biliary ductal dilatation CLINICAL HISTORY: Extrahepatic biliary duct dilation. MRCP MR of the abdomen without IV contrast. MRCP sequences were performed. COMPARISON: MR MRCP dated 11/02/24 at 18:[address] abdomen and pelvis dated 10/31/24 at 16:09 EDT FINDINGS: Motion artifact limits evaluation of multiple sequences. Visualized lung bases are clear. No focal hepatic lesion. Uniform splenic signal. Uniform pancreatic signal. Pancreatic duct is normal in caliber measuring up to 2 mm. No pancreatic mass identified. Adrenal glands are poorly visualized. Left kidney is absent. Right renal simple cyst measuring 9 mm, stable. No right-sided hydronephrosis. Visualized portions of the bowel in the upper abdomen are unremarkable. Gallbladder is contracted. No cholelithiasis. Common bile duct is dilated measuring up to 1.1 cm in the pancreatic head. No choledocholithiasis identified. Mild intrahepatic biliary ductal dilatation. Findings appears similar to prior imaging. IMPRESSION: 1. Motion artifact limits evaluation multiple sequences. Within limits of study, no acute findings. 2. Dilated common bile duct with mild intrahepatic biliary ductal dilatation, similar to prior imaging. No choledocholithiasis or cholelithiasis identified. Gallbladder is markedly contracted. Suspect findings are chronic given relative unchanged appearance since prior imaging. 3. No evidence of pancreatitis. Pancreatic duct is not dilated. No pancreatic mass identified. This document has been electronically signed by: Harsh Luna MD on 03/22/2025 18:25:14 Dictated By: Harsh Luna MD Signed By: <Electronically signed by Harsh Luna MD in OV> 03/22/251824 DD/ 24 TD/TT: 03/22/251824 Plant Taxonomy Teacher: [facility] External Provider IMG MRI PROCEDURES Final Result * XR Chest 1 View (03/20/2025 4:48 PM EDT) Anatomical Region Laterality Modality Chest Radiographic Tess ging 03/20/2025 4:48 PM EDT Narrative 03/20/2025 5:04 PM EDT [address] [address] XRay Report Signed Patient: Suha Burton MR#: [id number] [birth year] : 1945 Acct:[id number] Age/Sex: 79 / F ADM Date: 03/20/25 [facility] Attending Dr: Dolores Kumar NP Ordering Physician: Dolores Kumar NP Date of Service: 03/20/25 Procedure(s): XR chest 1V Accession Number(s): [id number] cc: Daniel Oconnor MD; Dolores Kumar NP Reason for Exam: covid EXAMINATION: XR CHEST CLINICAL INFORMATION: covid COMPARISON: 03/06/2022 TECHNIQUE: Frontal view of the chest was obtained. FINDINGS: There is mild chronic elevation of the right hemidiaphragm. Lungs are clear. Heart size normal. Atherosclerotic calcification is present in the aortic arch. XR/XR chest 1V IMPRESSION: No acute disease. Electronically signed by: Gil Ferrera MD 03/20/2025 05:01 PM EDT RP Dictated By: Gil Ferrera MD Signed By: <Electronically signed by Gil Ferrera MD in OV> 03/20/25 1701 DD/ 1648 TD/TT: 03/20/25 1655 Plant Taxonomy Teacher: Procedure Note Donotuseinterpreter, Image - 03/20/[address] [address] XRay Report Signed Patient: Suha Burton CMR#: [id number] [birth year] : 1945cct:[id number] Age/Sex: 79 / FADM Date: 03/20/25 [facility] Attending Dr: Dolores Kumar NP Ordering Physician: Dolores Kumar NP Date of Service: 03/20/25 Procedure(s): XR chest 1V Accession Number(s): [id number] cc: Daniel Oconnor MD; Dolores Kumar NP Reason for Exam: covid EXAMINATION: XR CHEST CLINICAL INFORMATION: covid COMPARISON: 03/06/2022 TECHNIQUE: Frontal view of the chest was obtained. FINDINGS: There is mild chronic elevation of the right hemidiaphragm. Lungs are clear. Heart size normal. Atherosclerotic calcification is present in the aortic arch. XR/XR chest 1V IMPRESSION: No acute disease. Electronically signed by: Gil Ferrera MD 03/20/2025 05:01 PM EDT Dictated By: Gil Ferrera MD Signed By: <Electronically signed by Gil Ferrera MD in OV> 03/20/25 1701 DD/ 1648 TD/TT: 03/20/25 1655 Plant Taxonomy Teacher: [facility] External Provider IMG XR PROCEDURES Final Result * US Abdomen Limited (03/20/2025 4:30 PM EDT) Anatomical Region Laterality Modality Abdomen Ultrasound 03/20/2025 4:30 PM EDT Narrative 03/20/2025 5:03 PM EDT [place] [address] Ultrasound Report Signed Patient: Suha Burton MR#: [id number] [birth year] : 1945 Acct:[id number] Age/Sex: 79 / F ADM Date: 03/20/25 Loc: [place] [address]: Dolores Kumar NP Ordering Physician: Jonathon Welch MD Date of Service: 03/20/25 Procedure(s): US abdomen limited Accession Number(s): [id number] cc: Jonathon Welch MD; Daniel Oconnor MD Reason for Exam: extra-hep biliary duct elevation/sepsis EXAMINATION: US ABDOMEN LIMITED CLINICAL INFORMATION: Extra hepatic biliary dilation. COMPARISON: MRCP November 02, 2024, CT from today and December 02, 2022 TECHNIQUE: Real-time imaging of the right upper quadrant abdominal viscera. FINDINGS: GALLBLADDER: Echogenic stones are present in the gallbladder. The gallbladder wall measures up to 3 mm thick. COMMON BILE DUCT: Mildly dilated, measuring 0.9 cm in diameter. US/US abdomen limited IMPRESSION: Chronic extra-hepatic biliary ductal dilation. This was worked up on November 02, 2024 using MRCP, and has been present since at least December 02, 2022. Cholelithiasis. There is a focal area where the gallbladder measured 3 mm which is borderline thick. Correlate for signs symptoms of cholecystitis. Electronically signed by: Gil Ferrera MD 03/20/2025 05:00 PM EDT RP Dictated By: Gil Ferrera MD Signed By: <Electronically signed by Gil Ferrera MD in OV> 03/20/25 1700 DD/ 1630 TD/TT: 03/20/25 1631 Plant Taxonomy Teacher: Procedure Note Donotuseinterpreter, Image - 03/20/[address] [address] Ultrasound Report Signed Patient: Suha Burton CMR#: [id number] [birth year] : 1945cct:[id number] Age/Sex: 79 / FADM Date: 03/20/25 Loc: [place] [address]: Dolores Kumar NP Ordering Physician: Jonathon Welch MD Date of Service: 03/20/25 Procedure(s): US abdomen limited Accession Number(s): [id number] cc: Jonathon Welch MD; Daniel Oconnor MD Reason for Exam: extra-hep biliary duct elevation/sepsis EXAMINATION: US ABDOMEN LIMITED CLINICAL INFORMATION: Extra hepatic biliary dilation. COMPARISON: MRCP November 02, 2024, CT from today and December 02, 2022 TECHNIQUE: Real-time imaging of the right upper quadrant abdominal viscera. FINDINGS: GALLBLADDER: Echogenic stones are present in the gallbladder. The gallbladder wall measures up to 3 mm thick. COMMON BILE DUCT: Mildly dilated, measuring 0.9 cm in diameter. US/US abdomen limited IMPRESSION: Chronic extra-hepatic biliary ductal dilation. This was worked up on November 02, 2024 using MRCP, and has been present since at least December 02, 2022. Cholelithiasis. There is a focal area where the gallbladder measured 3 mm which is borderline thick. Correlate for signs symptoms of cholecystitis. Electronically signed by: Gil Ferrera MD 03/20/2025 05:00 PM EDT Dictated By: Gil Ferrera MD Signed By: <Electronically signed by Gil Ferrera MD in OV> 03/20/25 1700 DD/ 1630 TD/TT: 03/20/25 1631 Plant Taxonomy Teacher: [facility] External Provider IMG US PROCEDURES Final Result * (ABNORMAL) Urinalysis, Complete, with Reflex to Culture (03/20/2025 4:22 PM EDT) Color Urine Yellow [facility] Appearance Urine Clear [facility] PH 6.5 5.0 - 9.0 [facility] Glucose Urine UA Negative Negative mg/dL [facility] Urine Blood Trace(A) Negative [facility] Specific [place] - Urine >=1.030(H) 1.005 - 1.025 [facility] Urine Protein Negative Neg-Trace mg/dL [facility] Urine Ketones Negative Negative mg/dL [facility] Nitrite Urine Negative Negative [facility] Leukocyte Esterase Urine Negative Negative [facility] 03/20/2025 4:22 PM EDT 03/20/2025 4:26 PM EDT Narrative [facility] - 03/20/2025 4:30 PM EDT 1611Urine, Clean Catch Generic External Data Provider LAB URINE ORDERAB LES Final Result [facility] [address] [place] [address] [phone] * CT Abdomen Pelvis w/ Contrast (03/20/2025 2:28 PM EDT) Anatomical Region Laterality Modality Body, Pelvis, Abdomen Computed T omography 03/20/2025 2:28 PM EDT Narrative 03/20/2025 3:06 PM EDT [address] [address] [address] Scan Report Signed Patient: Suha Burton MR#: [id number] [birth year] : 1945 Acct:[id number] Age/Sex: 79 / F ADM Date: 03/20/25 Loc: [place].ED Attending Dr: Ordering Physician: Jonathon Welch MD Date of Service: 03/20/25 Procedure(s): CT abdomen pelvis w IV con Accession Number(s): [id number] cc: Jonathon Welch MD; Daniel Oconnor MD Report Number: [id number]: Total DLP = 694.00 mGy-cm Reason for [...] 03/20/25 1504 DD/ 1428 TD/TT: 03/20/25 1449 Plant Taxonomy Teacher: Procedure Note Donotuseinterpreter, Image - 03/20/[address] [place] [address] [address] Scan Report Signed Patient: Suha Burton CMR#: [id number] [birth year] : 1945cct:[id number] Age/Sex: 79 / FADM Date: 03/20/25 Loc: HO.ED Attending Dr: Ordering Physician: Jonathon Welch MD Date of Service: 03/20/25 Procedure(s): CT abdomen pelvis w IV con Accession Number(s): [id number] cc: Jonathon Welch MD; Daniel Oconnor MD Report Number: [id number]: Total DLP = 694.00 mGy-cm Reason for [...] 03/20/25 1504 DD/ 1428 TD/TT: 03/20/25 1449 Plant Taxonomy Teacher: [facility] External Provider IMG CT PROCEDURES Final Result * (ABNORMAL) VENOUS BLOOD GAS (03/20/2025 2:05 PM EDT) VBG pH 7.41 7.32 - 7.43 [facility] Comment:METER #: [id number] additional_comment: [place]b [place] VBG PCO2 47 mmHg [facility] Comment:METER #: [id number] additional_comment: [place] VBG PO2 35 mmHg [facility] Comment:METER #: [id number] additional_comment: [place] VBG Base Excess 4.6 mmol/L [facility] Comment:METER #: [id number] additional_comment: [place] VBG HCO3 30(H) 22 - 26 mmol/L [facility] Comment:METER #: [id number] additional_comment: [place] O2 Sat, Rick 47.0 % [facility] Comment:METER #: [id number] additional_comment: Cb [place] 03/20/2025 2:05 PM EDT 03/20/2025 2:09 PM EDT us Generic External Data Provider LAB BLOOD ORDERAB LES Final Result [facility] [address] [place] [phone] * XR Shoulder 2+ Views Right (03/20/2025 1:39 PM EDT) Anatomical Region Laterality Modality Upper Extremities, Shoulder Right Radi ographic Imaging 03/20/2025 1:39 PM EDT Narrative 03/20/2025 1:49 PM EDT [address] [address] XRay Report Signed Patient: Suha Burton MR#: [id number] [birth year] : 1945 Acct:[id number] Age/Sex: 79 / F ADM Date: 03/20/25 Loc: .ED Attending Dr: Ordering Physician: Jonathon Welch MD Date of Service: 03/20/25 Procedure(s): XR shoulder RT min 2V Accession Number(s): [id number] cc: Jonathon Welch MD; Daniel Oconnor MD [...] Gil Ferrera MD 03/20/2025 01:45 PM EDT RP Dictated By: Gil Ferrera MD Signed By: <Electronically signed by Gil Ferrera MD in OV> 03/20/25 1345 DD/ 1339 TD/TT: 03/20/25 1335 Plant Taxonomy Teacher: Procedure Note Donotuseinterpreter, Image - 03/20/[address] [address] XRay Report Signed Patient: Suha Burton CMR#: [id number] [birth year] : 1945cct:[id number] Age/Sex: 79 / FADM Date: 03/20/25 Loc: .ED Attending Dr: Ordering Physician: Jonathon Welch MD Date of Service: 03/20/25 Procedure(s): XR shoulder RT min 2V Accession Number(s): [id number] cc: Jonathon Welch MD; Daniel Oconnor MD [...] Gil Ferrera MD 03/20/2025 01:45 PM EDT RP Dictated By: Gil Ferrera MD Signed By: <Electronically signed by Gil Ferrera MD in OV> 03/20/25 1345 DD/ 1339 TD/TT: 03/20/25 1335 Plant Taxonomy Teacher: [facility] External Provider IMG XR PROCEDURES Final Result * (ABNORMAL) CBC auto differential (01/26/2025 10:54 AM EDT) White Blood Count 5.1 4.8 - 10.8 X10*3/uL [facility] Red Blood Count 4.48 4.20 - 5.50 X10*6/uL [facility] Hemoglobin 12.2 12.0 - 16.0 g/dl [facility] Hematocrit 38.5 37.0 - 47.0 % [facility] Mean Corpuscular Volume 85.9 80.0 - 98.0 fL [facility] Mean Corpuscular Hemoglobin 27.2 27.0 - 33.0 pg [facility] Mean Corpuscular HGB Conc 31.7 31.0 - 35.0 g/dl [facility] Red Cell Distribution Width 15.9 11.0 - 16.0 % [facility] Platelet Count 137(L) 160 - 400 X10*3/uL [facility] Mean Platelet Volume 13.2(H) 9.4 - 12.3 fL [facility] Neutrophils Percent Auto 38.3(L) 45 - 73 % [facility] Imm Gran Pct Auto 0.2 0.0 - 0.4 % [facility] Lymphocytes Percent Auto 46.8(H) 20 - 40 % [facility] Monocytes Percent Auto 9.2 2 - 11 % [facility] Eosinophils Percent Auto 4.5(H) 0 - 4 % [facility] Basophils Percent Auto 1.0 0 - 2 % [facility] NRBC Pct Auto 0.0 0.0 - 0.2 /100WBC [facility] Neutrophils Absolute Auto 2.0 2.0 - 8.3 x10*3/uL [facility] Imm Gran Abs Auto 0.01 0.00 - 0.03 X10*3/uL [facility] Lymphocytes Absolute Auto 2.4 1.2 - 4.9 X10*3/uL [facility] Monocytes Absolute Auto 0.5 0.1 - 1.2 X10*3/uL [facility] Eosinophils Absolute Auto 0.2 0.0 - 0.4 X10*3/uL [facility] Basophils Absolute Auto 0.1 0.0 - 0.2 X10*3/uL [facility] NRBC Abs Auto 0.000 0.0 - 0.012 X10*3/uL [facility] Blood Venous blood specimen / Unknown 01/26/2025 10:54 AM EDT 01/26/2025 12:14 PM EDT Daniel Agudelo MD LAB BLOOD ORDERABLES Final Result Performing Organization Address City/[facility]/ZIP Co de Phone Number [facility] [address] [place] [phone] * Hepatitis C Antibody with Reflex to HCV, RNA, Quantitative, Real-Time PCR (01/26/2025 10:54 AM EDT) Pathologist [facility] Hepatitis C Antibody Nonreactive Nonreactive [facility] Comment:Antibodies to HCV no t detected; does not exclude early acuteHCV infection. Blood Venous blood specimen / Unknown 01/26/2025 10:54 AM EDT 01/26/2025 12:09 PM EDT Daniel Agudelo MD LAB BLOOD ORDERABLES Final Result Performing Organization Address [facility] Co de Phone Number [facility] [address] [place] [phone] * (ABNORMAL) CBC (01/26/2025 10:54 AM EDT) Pathologist [facility] White Blood Count 5.2 4.8 - 10.8 X10*3/uL [facility] Red Blood Count 4.48 4.20 - 5.50 X10*6/uL [facility] Hemoglobin 12.0 12.0 - 16.0 g/dl [facility] Hematocrit 38.6 37.0 - 47.0 % [facility] Mean Corpuscular Volume 86.2 80.0 - 98.0 fL [facility] Mean Corpuscular Hemoglobin 26.8(L) 27.0 - 33.0 pg [facility] Mean Corpuscular HGB Conc 31.1 31.0 - 35.0 g/dl [facility] Red Cell Distribution Width 16.0 11.0 - 16.0 % [facility] Platelet Count 146(L) 160 - 400 X10*3/uL [facility] Mean Platelet Volume 12.7(H) 9.4 - 12.3 fL [facility] NRBC Pct Auto 0.0 0.0 - 0.2 /100WBC [facility] NRBC Abs Auto 0.000 0.0 - 0.012 X10*3/uL [facility] 01/26/2025 10:5 4 AM EDT 01/26/2025 12:14 PM EDT us Generic External Data Provider LAB BLOOD ORDERAB LES Final Result [facility] [address] [place] [phone] * Lipid Panel, Standard (01/26/2025 10:54 AM EDT) Triglycerides 99 <150 mg/dL [facility] Comment:Desirable Triglyceri de: less than 150 mg/dLBorderline High Triglyceride 150-199 mg/dLHigh Triglyceride: 200-499 mg/dLVery High Triglyceride: greater than or equal to 5OO mg/dL Cholesterol 138 <200 mg/dL [facility] Comment:Desirable Cholestero l: less than 200 mg/dLBorderline High Cholesterol: 200-239 mg/dLHigh Cholesterol: greater than 239 mg/dL LDL Cholesterol Calculated 72 <100 mg/dL [facility] Comment:Desirable LDL: less than 100 mg/dLNear Optimal/Above Optimal LDL: 110- 129 mg/dLBorderline High LDL: 130-159 mg/dLHigh LDL: 160-189 mg/dLVery High LDL: greater than or equal to 190 mg/dL HDL Cholesterol 47 >40 mg/dL [facility] Comment:Desirable HDL: great er than 40 mg/dL Note: This HDL assay may give artificially low results in patients with liver disease. Blood Venous blood specimen / Unknown 01/26/2025 10:54 AM EDT 01/26/2025 12:09 PM EDT Daniel Agudelo MD LAB BLOOD ORDERABLES Final Result [facility] [address] [place] [address] [phone] * Colonoscopy (10/11/2013) Colonoscopy Normal Normal 10/11/2013 Narrative Rowan Muñoz - 10/11/2013 11:31 AM EDT Recommended 10 year follow up ( see scanned report) Historical Provider HEALTH MAINTENANCE Final Result from Last 3 Months or Most Recently Relevant to Health Maintenance Insurance [facility] CORRECTION OPTIONS (O D-SNP) [place] [id number] Care Teams Alemite Operator Relationship Specialty Start Date End Date Daniel Holder MD [address] [place] [phone] PCP - General Internal Medicine 03/26/14
--- OUTSIDE RECORDS SUMMARY | 2025-04-13 12:04 | XMS_ITS | Patient Health Record ---
Author Organization [facility] Address [address] [place] [address] Care Team Providers Care Motor Pool Clerk Name Role Phone Will LOPEZ, Clau Primary Care Provider Fabian Henderson Jr Unavailable [phone] Allergies Allergen (clinical drug ingredient) Drug/Non Drug [...] GM As directed Orally Over the specified time.; Duration: 1 day(s) 07/20/2013 06/28/2024 Active Problems Problem Type SNOMED Code ICD Code Onset Dates Problem Status W/U Status Risk Notes Problem Esophageal reflux (545170083) Esophageal reflux (530.81) Active confirmed Problem Colon cancer screening (709392531) Colon cancer screening (V76.51) Active confirmed Plan Of Treatment Future Test Test Name Order Date COLONOSCOPY 07/20/2013 Insurance Providers Payer Name Payer Address Payer Phone Subscriber Number Group Number Insured Name Patient Relationship to Insured Coverage Start Date Coverage End Date [place] OF [place] [address] [place] [address] [phone] [id number] DIGNA MEYER Self - patient is the insured MEDICAID OF [facility] [address] [place] [address] [phone] [id number] DIGNA MEYER Self - patient is the insured Medical (General) History Medical History History ICD Code colonoscopy 04-28-2002 colon polyp asthma renal calculus hx of alcohol abuse in the past strokes X 2 [place] hypertension leg pain memory problems Surgical History Surgery Date(Month/Year) hysterectomy section nephrectomy
--- OUTSIDE RECORDS SUMMARY | 2025-04-13 12:04 | XMS_ITS | Encounter Summary ---
Author Organization [employer] Address [address] [facility] 7t [place] [address] Care Team Providers Care Senior Reservations Agent Name Role Phone Daniel Holder MD Primary Care Provide r Reason for Visit * Reason Comments Med Refill Encounter Details Date Type Department Care Team ([facility] st Contact Info) Description 08/12/2023 Refill [facility] MEDICINE [address] [place], [place] [phone] Daniel Holder MD [address] [place], [place] [phone] Fibromyalgia Social History Tobacco Use Types Packs/Day [...] documented as of this encounter Care Teams Senior Reservations Agent Relationship Specialty Start Date End Date Daniel Holder MD [address] [place] [address] PCP - General Internal Medicine 03/26/14 documented as of this encounter
--- OUTSIDE RECORDS SUMMARY | 2025-04-13 12:04 | XMS_ITS | Encounter Summary ---
Author Organization [employer] Address [address] [facility] 7t [place] [address] Care Team Providers Care Regulatory Administrator Name Role Phone Daniel Holder MD Primary Care Provide r Encounter Details Date Type Department Care Team ([facility] st Contact Info) Description 02/04/2024 Telephone [facility] MEDICINE [address] [place], [place] [phone] Daniel Holder MD [address] [place], [place] [phone] Social History Tobacco Use Types Packs/Day Years [...] documented as of this encounter Care Teams Regulatory Administrator Relationship Specialty Start Date End Date Daniel Holder MD [address] [place] [phone] PCP - General Internal Medicine 03/26/14 documented as of this encounter
--- OUTSIDE RECORDS SUMMARY | 2025-04-13 12:04 | XMS_ITS | Clinical Summary ---
Author Organization [facility] Address [address] [place] [phone] Phone Care Team Providers Care Heavy Mobile Equipment Operator Name Role Phone Daniel Gutierrez MD Primary [...] mouth 2 (two) times a day Active cholecalcifero l (VITAMIN D-3) 25 MCG (1000 UT) capsule Take 1,000 Units by mouth 1 (one) time each day Active Flaxseed, Linseed, (BL FLAX SEED OIL PO) Take by mouth Active omega-3 acid ethyl esters (LOVAZA) 1 g capsule Take 2 g by mouth 2 (two) times a day Active lansoprazole (PREVACID) [address] capsule Take 30 mg by mouth 02/15/20 25 Active MAGnesium-Oxid e 400 (240 Mg) MG tablet Take 0.5 tablets by mouth at bed time 12/20/19 25 Active omeprazole (PriLOSEC) [address] capsule Take 1 capsule by mouth 1 (one) time each day 025 Discontinued senna (SENOKOT) 8.6 MG tablet Take 2 tablets by mouth at bed time 025 Discontinued traZODone (DESYREL) 50 MG tablet Take 50 mg by mouth at bed time 08/09/19 21 025 Discontinued Active Problems Problem Noted Date Diagnosed Date Smoker 08/25/2022 Dyslipidemia 08/19/2022 Stage 3a chronic kidney disease 08/18/2021 Hypertension 08/16/2020 Renal stone 08/16/2020 Total nephrectomy 08/16/2020 Diabetes mellitus, not otherwise specified 08/16 Chronic obstructive pulmonary disease 03/08/2012 Fibromyalgia 03/08/2012 Resolved Problems Problem Noted Date Diagnosed Date Resolved Date Hypercholesterolemia 08/16/2020 023 Encounters Date Type Department Care Team Description 03/19/2025 11:00 AM EDT Office Visit [facility] [address] [phone] Robson Gabriel MD Stage 3a chronic kidney disease (HCC) (Primary Dx); Hypertension; Dyslipidemia; Diabetes mellitus, not otherwise specified (HCC); Fibromyalgia; Total nephrectomy; Smoker; Renal stone from Last 3 Months Social History Tobacco [...] Sign Reading Time Taken Comments Blood Pressure 110/70 03/19/2025 10:42 AM EDT Pulse 78 03/19/2025 10:42 AM EDT Temperature - - Respiratory Rate - - Oxygen Saturation 98% 03/19/2025 10:42 AM EDT Inhaled Oxygen Concentration - - Weight 86.6 kg (191 lb) 03/19/2025 10:42 AM EDT Height 165.1 cm (5' 5 ) 08/19/2023 10:07 AM EST Body Mass Index 31.78 08/19/2023 10:07 AM EST Plan of Treatment Upcoming Encounters Date Type Department Care Team (Late st Contact Info) Description 03/18/2026 10:00 AM EDT Office Visit [facility] [address] [phone] Robson Gabriel MD [address] [phone] Health Maintenance Due Date Last Done Comments Diabetes: Ophthalmology Exam 07/28/2020 Diabetes: Pedal Pulse Checked 07/28/2020 Diabetes: Sensory Foot Exam 07/28/2020 Diabetes: Visual Foot Exam 07/28/2020 Diabetes: Hemoglobin A1C 01/31/2025 10/31/2024, 05/30 Influenza Vaccine (#1) 2025 , 04/20/2023, 03/22/2019, Additional history exists Pneumococcal Vaccine: 50+ Years Completed 04/28/2015, 04/28/2015, 03/06/2014 Pneumococcal Vaccine: Peds (0 to 5 Years) and At-Risk Patients (6 to 49 Years) Discontinued 04/28/2015, 04/28/2015, 03/06/2014 Hepatitis B Vaccine Aged Out 09/11/2024 No longe r eligible based on patient's age to complete this topic Insurance [facility] ([id number]) [facility] ([id number]) Care Teams Heavy Mobile Equipment Operator Relationship Specialty Start Date End Date Daniel Gutierrez MD [address] [place] [phone] PCP - General 07/08/20
--- OUTSIDE RECORDS SUMMARY | 2025-04-13 12:04 | XMS_ITS | Encounter Summary ---
Author Organization [employer] Address [address] [facility] 7 [place] [address] Care Team Providers Care Acute Care Registered Nurse Name Role Phone Daniel Holder MD Primary Care Provide r Reason for Visit * Reason Comments Med Refill Encounter Details Date Type Department Care Team ([facility] st Contact Info) Description 07/21/2024 Refill [facility] MEDICINE [address] [place] [address] Trip Suazo MD [address] [place], [place] [phone] Fibromyalgia Social History Tobacco Use Types Packs/Day [...] documented as of this encounter Care Teams Acute Care Registered Nurse Relationship Specialty Start Date End Date Daniel Holder MD [address] [place] [phone] PCP - General Internal Medicine 03/26/14 documented as of this encounter
--- OUTSIDE RECORDS SUMMARY | 2025-04-13 12:04 | XMS_ITS | Encounter Summary ---
Author Organization [employer] Address [address] [facility] 7t [place] [address] Care Team Providers Care Lipcoat Sprayer Name Role Phone Daniel Holder MD Primary Care Provide r Reason for Visit * Reason Comments Med Refill Encounter Details Date Type Department Care Team ([facility] st Contact Info) Description 04/09/2025 Refill [facility] [address] [place], [place] [phone] Daniel Holder MD [address] [place] [address] Primary hypertension; Seasonal allergies; Acquired hypothyroidism Social History Tobacco Use Types Packs/Day Years [...] as of this encounter Visit Diagnoses Diagnosis Primary hypertension Unspecified essential hypertension Seasonal allergies Allergic rhinitis, cause unspecified Acquired hypothyroidism Unspecified hypothyroidism documented in this encounter Additional Health Concerns Assessment Noted Time PHQ-9 Depression Total Score: 1 06/27/20 24 10:42 AM EST documented as of this encounter Care Teams Lipcoat Sprayer Relationship Specialty Start Date End Date Daniel Holder MD [address] [place] [phone] PCP - General Internal Medicine 03/26/14 documented as of this encounter
--- OUTSIDE RECORDS SUMMARY | 2025-04-13 12:04 | XMS_ITS | Encounter Summary ---
Author Organization [employer] Address [address] [facility] 7t [place] [address] Care Team Providers Care Head Of Science Name Role Phone Daniel Holder MD Primary Care Provide r Encounter Details Date Type Department Care Team ([facility] st Contact Info) Description 06/16/2022 Orders Only [facility] [address] [place], [place] [phone] Hannah Charlton LPN Social History Tobacco Use [...] on filedocumented in this encounter Care Teams Head Of Science Relationship Specialty Start Date End Date Daniel Holder MD [address] [place], [place] [phone] PCP - General Internal Medicine 03/26/14 documented as of this encounter
--- OUTSIDE RECORDS SUMMARY | 2025-04-13 12:04 | XMS_ITS | Encounter Summary ---
Author Organization [employer] Address [address] [place] [address] [address] [place] [address] Care Team Providers Care Tax Audit Manager Name Role Phone Daniel Holder MD Primary Care Provide r Encounter Details Date Type Department Care Team ([facility] st Contact Info) Description 10/28/2022 Abstract [facility] MEDICINE [address] [place], [place] [phone] Daniel Holder MD [address] [place], [place] [phone] Social History Tobacco Use Types Packs/Day Years [...] on file documented as of this encounter Procedures Procedure [...] on filedocumented in this encounter Care Teams Tax Audit Manager Relationship Specialty Start Date End Date Daniel Holder MD [address] [place] [address] PCP - General Internal Medicine 03/26/14 documented as of this encounter
--- OUTSIDE RECORDS SUMMARY | 2025-04-13 12:04 | XMS_ITS | Encounter Summary ---
Author Organization [employer] Address [address] [facility] 7t [place] [address] Care Team Providers Care Shell Sorter Name Role Phone Daniel Holder MD Primary Care Provide r Reason for Visit * Reason Comments Med Refill Encounter Details Date Type Department Care Team ([facility] st Contact Info) Description 02/16/2025 Refill [facility] MED & PEDS [address] [place], [place] [phone] Sarah Ferraro MD [address] [place] [address] Social History Tobacco Use Types Packs/Day Years [...] documented as of this encounter Care Teams Shell Sorter Relationship Specialty Start Date End Date Daniel Holder MD [address] [place] [address] PCP - General Internal Medicine 03/26/14 documented as of this encounter
--- OUTSIDE RECORDS SUMMARY | 2025-04-13 12:04 | XMS_ITS | Encounter Summary ---
Author Organization [employer] Address [address] [facility] [address] [place] [address] Care Team Providers Care Town Marshal Name Role Phone Daniel Holder MD Primary Care Provide r Encounter Details Date Type Department Care Team (Late st Contact Info) Description 12/24/2023 Orders Only [facility] [address] [place], [place] [phone] Gurjit Nava MD [address] [place], [place] [phone] Social History Tobacco Use Types Packs/Day Years [...] documented as of this encounter Care Teams Town Marshal Relationship Specialty Start Date End Date Daniel Holder MD [address] [place] [id number] PCP - General Internal Medicine 03/26/14 documented as of this encounter
--- OUTSIDE RECORDS SUMMARY | 2025-04-13 12:04 | XMS_ITS | Encounter Summary ---
Author Organization [employer] Address [address] [facility] 7 h Floor [place] [phone] Care Team Providers Care Nuclear Plant Technical Advisor Name Role Phone Daniel Holder MD Primary Care Provide r Reason for Visit * Reason Onset Date Comments Appointment Request 11/10/2023 Encounter Details Date Type Department Care Team ([facility] st Contact Info) Description 11/10/2023 Telephone [facility] [address] [place] [address] Daniel Holder MD [address] [place], [place] [phone] Appointment Request Social History Tobacco Use Types [...] documented as of this encounter Care Teams Nuclear Plant Technical Advisor Relationship Specialty Start Date End Date Daniel Holder MD [address] [place] [address] PCP - General Internal Medicine 03/26/14 documented as of this encounter
--- OUTSIDE RECORDS SUMMARY | 2025-04-13 12:04 | XMS_ITS | Encounter Summary ---
Author Organization [employer] Address [address] [facility] 7t [place] [address] Care Team Providers Care Director Of Player Personnel Name Role Phone Daniel Holder MD Primary Care Provide r Reason for Visit * Reason Comments Med Refill Encounter Details Date Type Department Care Team ([facility] st Contact Info) Description 04/08/2025 Refill [facility] MED & PEDS [address] [place], [place] [phone] Daniel Holder MD [address] [place] [address] Seasonal allergies; Acquired hypothyroidism Social History Tobacco [...] as of this encounter Visit Diagnoses Diagnosis Seasonal allergies Allergic rhinitis, cause unspecified Acquired hypothyroidism Unspecified hypothyroidism documented in this encounter Additional Health Concerns Assessment Noted Time PHQ-9 Depression Total Score: 1 06/27/20 24 10:42 AM EST documented as of this encounter Care Teams Director Of Player Personnel Relationship Specialty Start Date End Date Daniel Holder MD [address] [place] [id number] PCP - General Internal Medicine 03/26/14 documented as of this encounter
--- OUTSIDE RECORDS SUMMARY | 2025-04-13 12:04 | XMS_ITS | Encounter Summary ---
Author Organization [employer] Address [address] [facility] 7t [place] [address] Care Team Providers Care Business Development Assistant Name Role Phone Daniel Holder MD Primary Care Provide r Encounter Details Date Type Department Care Team ([facility] st Contact Info) Description 07/25/2024 Telephone [facility] [address] [place], [place] [phone] Daniel Holder MD [address] [place], [place] [phone] Social History Tobacco Use Types Packs/Day Years [...] documented as of this encounter Care Teams Business Development Assistant Relationship Specialty Start Date End Date Daniel Holder MD [address] [place] [address] PCP - General Internal Medicine 03/26/14 documented as of this encounter
--- OUTSIDE RECORDS SUMMARY | 2025-04-13 12:04 | XMS_ITS | Encounter Summary ---
Author Organization [employer] Address [address] [facility] 7t [place] [address] Care Team Providers Care Substation Designer Name Role Phone Daniel Holder MD Primary Care Provide r Encounter Details Date Type Department Care Team ([facility] st Contact Info) Description 08/31/2022 Orders Only [facility] MED & PEDS [address] [place] [address] Sharon Major LPN Social History Tobacco Use [...] AM EDT Narrative 10/01/2022 5:31 PM EDT [facility] [place] [address] Ultrasound Report Signed Patient: Suha Burton MR#: [id number] : 1945 Acct:[id number] Age/Sex: 77 / F ADM Date: 09/29/22 Loc: HO.HMGCX Attending Dr: Daniel Oconnor MD Ordering Physician: Daniel Oconnor MD Date of Service: 09/29/22 Procedure(s): US retroperitoneal comp Accession Number(s): [id number] cc: Daniel Oconnor MD EXAMINATION: US RETROPERITONEAL [...] in OV> 10/01/22 1728 DD/ 1145 TD/TT: Machine Stonecutter: Procedure Note Donotuseinterpreter, Image - 10/01/2022 [facility] [place] [address] Ultrasound Report Signed Patient: Suha Burton#: [id number] : [id number]:[id number] Age/Sex: 77 / FADM Date: 09/29/22 Loc: HO.HMGCX Attending Dr: Daniel Oconnor MD Ordering Physician: Daniel Oconnor MD Date of Service: 09/29/22 Procedure(s): US retroperitoneal comp Accession Number(s): [id number] cc: Daniel Oconnor MD EXAMINATION: US RETROPERITONEAL [...] in OV> 10/01/22 1728 DD/ 1145 TD/TT: Machine Stonecutter: [facility] External Provider IMG US PROCEDURES Final Result documented in this encounter Visit Diagnoses Not on filedocumented in this encounter Care Teams Substation Designer Relationship Specialty Start Date End Date Daniel Holder MD [address] [place] [phone] PCP - General Internal Medicine 03/26/14 documented as of this encounter
== END 2025-04-13 10:55 | disposition home or self-care (01) ==
LOC: HO.HGI 10:14
PROVIDERS: PCP Internal Medicine; Visit Provider Internal Medicine Gastroenterology
DX: K83.8 Other specified diseases of biliary tract (principal)
CPT/HCPCS: 99213

== ENCOUNTER → 2025-04-13 10:13 | Outpatient (BNVA) | payer OTHER, SELFPAY | PROVIDERS: PCP Internal Medicine; Visit Provider Internal Medicine Gastroenterology | DX: R19.7 Diarrhea, unspecified (principal); K83.8 Other specified diseases of biliary tract | CPT/HCPCS: 99212 ==